=== PATIENT | male | born 1960 | race Caucasian/White ===

== ENCOUNTER → 2016-09-08 | Outpatient (CLI) | payer OTHER ==
[~2016-09-08] MED LIST: AMOX500C2 PO; CARV25TA PO; METF500T4 PO; lasix
--- OUTSIDE RECORDS SUMMARY | 2016-09-08 11:08 | XMS REPORT | Continuity of Care Document ---
Author Author [facility] Organization [facility] Address Unknown Phone Unavailable Care Team Providers Care Coin Machine Servicer Repairer Name Role Phone AGUILAR CHRISTINE MD PCP Insurance Providers Payer Name Policy Number Subscriber Name Relationship Unknown Ezra Salmon 16 Self / Same As Patient Advance Directives Directive Response Recorded Date/Time Advance Directives No 01/11/16 3:38pm Resuscitation Status Full Code 01/11/16 3:38pm Chief Complaint and Reason for Visit Chief Complaint Head/Cervical Problems Reason for Visit Sinusitis [id number] Abrasions of multiple sites [id number] Problems Active Problems Medical Problem Onset Date Status Abrasions of multiple sites Unknown Acute Head injury Unknown Acute Scalp laceration Unknown Acute Sinusitis Unknown Acute Medications Current Home Medications Medication Dose Units Route Directions Days/Qty Instructions Start Date Carvedilol 25 Mg 25 Mg Oral Twice A Day 01/11/16 Metformin Hcl 500 Mg 250 Mg Oral Twice A Day 01/11/16 [Lasix] 01/11/16 Amoxicillin 500 Mg 1,000 Mg Oral Three Times A Day 60 01/11/16 Social History Social History Problem Response Recorded Date/Time Alcohol Use Rarely Uses 01/11/2016 3:38pm Recreational Drug Use No 01/11/2016 3:38pm Recent Foreign Travel No 01/11/2016 3:38pm Recent Infectious Disease Exposure No 01/11/2016 3:38pm Smoking Status Never a Smoker 01/11/2016 3:38pm Query Response Start Date Stop Date Smoking Status Never a Smoker Hospital Discharge Instructions No hospital discharge instructions. Plan of Care Discharge Date 01/11/16 5:00pm Disposition 01 HOME, SELF-CARE Condition at Discharge Stable Instructions/Education Provided Laceration (ED) Minor Head Injury (ED) Abrasion (ED) Prescriptions See Medication Section Referrals AGUILAR CHRISTINE MD - Primary Care Physician CORINNE LANZA - Primary Care Physician Additional Instructions/Education All discharge instructions reviewed with patient and/or family. Voiced understanding. Loli out in 7 days. You may use antibiotic ointment over wounds daily as needed. You may shower but do not soak in a pool, straining, Pond or other body of water. Return for worse pain, fever, swelling, weakness, vision or balance problems or other concerns as needed. Functional Status Query Response Date Recorded Patient Orientation Person Place Time January 11, 2016 3:46pm Comprehension Ability Understands Concepts January 11, 2016 3:46pm Allergies, Adverse Reactions, Alerts Allergen Type Severity Reaction Status Last Updated No Known Allergies ([id number]) Allergy Unknown Active 03/09/15 Immunizations Name Given Type Tetanus Booster (TDap) More than 5yrs Historical Tdap 01/11/16 Administered Vital Signs Acute Vital Signs Vital Response Date/Time Temperature (Fahrenheit) 97.4 degrees F (97.6 - 99.5) 01/11/2016 3:38pm Temperature (Calculated Celsius) 36.47151 degrees C (36.4 - 37.5) 01/11/2016 3:38pm Temperature Source Temporal 01/11/2016 3:38pm Pulse Rate (adult) 80 bpm (60 - 90) 01/11/2016 3:38pm Respiratory Rate 18 bpm (12 - 24) 01/11/2016 3:38pm O2 Sat by Pulse Oximetry 98 % (88 - 100) 01/11/2016 3:38pm Blood Pressure 164/82 mm Hg 01/11/2016 3:38pm Blood Pressure Mean 109 mm Hg 01/11/2016 3:38pm Pain Numeric Pain Scale 6 01/11/2016 3:38pm Height (Feet) 5 feet 01/11/2016 3:38pm Height (Inches) 7.00 inches 01/11/2016 3:38pm Height (Calculated Centimeters) 170.693777 cm 01/11/2016 3:38pm Weight (Pounds) 229 pounds 01/11/2016 3:38pm Weight (Calculated Grams) 345595.654 gm 01/11/2016 3:38pm Weight (Calculated Kilograms) 103.778891 kilograms 01/11/2016 3:38pm Calculated BMI 35.86 01/11/2016 3:38pm Results No known relevant diagnostic tests, laboratory data and/or discharge summary. Procedures No known history of procedures. Encounters Encounter Location Arrival/Admit Date Discharge/Depart Date Attending Provider Departed Emergency Room [facility] 01/11/16 3:31pm 01/10 5:00pm LINA WALKER MD Recent Diagnosis
--- NOTE | 2016-09-10 08:35 | ECHOCARDIOGRAPHY REPORT ---
PROCEDURE PHYSICIAN: JAYLON DUEÑAS DATE OF PROCEDURE: 09/08/2016 TWO DIMENSIONAL ECHOCARDIOGRAM REPORT PRIMARY PHYSICIAN: Dr. Montero OTHER PHYSICIAN: Latanya Lopez APRN REFERRING PHYSICIAN: ORDERING PHYSICIAN: Dr. Dueñas INDICATION FOR THE PROCEDURE: Shortness of breath. MEASUREMENTS DERIVED VALUES LV DIAMETER (LAX) NORMALS NORMALS Diastolic 5.4 (3.6-5.2) Eject. Fract. (60%+/-6%) Systolic (2.3-3.9) Diastolic Vol. % Shortening (0.22-0.42) Systolic Vol. Aortic Root 2.9 IVS THICKNESS Diastolic 1.2 (0.6-1.1) LVPW THICKNESS Diastolic 1.1 (0.6-1.1) LA DIAMETER Systolic 4.6 (2.1-3.7) DESCRIPTION: This is a technically difficult study and not ideal for wall motion analysis. Global left ventricular systolic function appears well preserved. Left ventricular ejection fraction is approximately 50 to 55%. Aortic, mitral and tricuspid valve leaflets seem to have good leaflet excursion. There does not appear to be any significant pericardial effusion. Aortic valve leaflet structure is not very well visualized. Mitral and tricuspid valve leaflets seem to have good leaflet excursion. Mitral inflow is consistent with grade 1 diastolic dysfunction of the left ventricle. There is no Doppler evidence of significant valvular stenosis. CONCLUSIONS: 1. The study is technically difficult and not suitable for wall motion analysis. 2. Well preserved global left ventricular systolic function with an ejection fraction of approximately 50 to 55%. 3. No evidence of significant valvular stenosis. 4. Mild diastolic dysfunction of the left ventricle. 5. No significant valvular regurgitation is seen on this study. Job ID: [id number] Dictated Date: 09/09/2016 15:16:30 Pasta Press Operator Date: 09/10/2016 08:28:23 / breanna
== END ==
LOC: CARD 11:06
PROVIDERS: ATTEND Internal Medicine Cardiovascular Disease
DX: R06.02 Shortness of breath (principal)
CPT/HCPCS: 93306; 94060; 94726; 94729

== ENCOUNTER → 2016-09-09 | Outpatient (CLI) | payer OTHER ==
[~2016-09-09] MED LIST changes: +CATHETER FLUSH 10 ML SYR IV PRN; +REGADENOSON 0.4 MG/5 ML SYR (LEXISCAN) IV ONE
--- OUTSIDE RECORDS SUMMARY | 2016-09-09 07:13 | XMS REPORT | Continuity of Care Document ---
Author Author [facility] Organization [facility] Address Unknown Phone Unavailable Care Team Providers Care Die Repair Name Role Phone AGUILAR CHRISTINE MD PCP Insurance Providers Payer Name Policy Number Subscriber Name Relationship Unknown Ezra Salmon 16 Self / Same As Patient Advance Directives Directive Response Recorded Date/Time Advance Directives No 01/11/16 3:38pm Resuscitation Status Full Code 01/11/16 3:38pm Chief Complaint and Reason for Visit Chief Complaint Head/Cervical Problems Reason for Visit Sinusitis [id number] Abrasions of multiple sites [id number] Problems Active Problems Medical Problem Onset Date [...] Reaction Status Last Updated No Known Allergies ([id number]) Allergy Unknown Active 03/09/15 Immunizations Name Given Type Tetanus Booster (TDap) More than 5yrs Historical Tdap 01/11/16 Administered Vital Signs Acute Vital Signs Vital Response Date/Time Temperature (Fahrenheit) 97.4 degrees F (97.6 - 99.5) 01/11/2016 3:38pm Temperature (Calculated Celsius) 36.58291 degrees C (36.4 - 37.5) 01/11/2016 3:38pm [...] 7.00 inches 01/11/2016 3:38pm Height (Calculated Centimeters) 170.014159 cm 01/11/2016 3:38pm Weight (Pounds) 229 pounds 01/11/2016 3:38pm Weight (Calculated Grams) 081756.654 gm 01/11/2016 3:38pm Weight (Calculated Kilograms) 103.107972 kilograms 01/11/2016 3:38pm Calculated BMI 35.86 01/11/2016 3:38pm Results No known relevant diagnostic tests, laboratory data and/or discharge summary. Procedures No known history of procedures. Encounters Encounter Location Arrival/Admit Date Discharge/Depart Date Attending Provider Departed Emergency Room [facility] 01/11/16 3:31pm 01/10 5:00pm LINA WALKER MD Recent Diagnosis
[2016-09-09 09:18] VITALS: BP 158/81
[2016-09-09 09:21] VITALS: BP 161/70
--- NOTE | 2016-09-10 09:55 | STRESS TEST ---
PROCEDURE PHYSICIAN: JAYLON DUEÑAS DATE OF PROCEDURE: 09/09/2016 RESTING AND POST REGADENOSON TECHNETIUM 99M TETROFOSMIN SPECT CT IMAGING: ORDERING PHYSICIAN: Dr. Dueñas PRIMARY PHYSICIAN: Dr. Montero OTHER PHYSICIAN: Latanya Lopez APRN CLINICAL DIAGNOSES: Shortness of breath. Baseline images were carried out after injection of 10.64 mCi of technetium 99m tetrofosmin. This was followed by 0.4 mg of regadenoson and 32.1 mCi of technetium 99m tetrofosmin for stress imaging. The electrocardiogram showed sinus rhythm at baseline and there was nonspecific T-wave abnormality. The electrocardiogram did not change significantly with the regadenoson infusion. The patient tolerated the procedure well. Review of images at rest and following stress, does not indicate any distinct perfusion defects consistent with significant myocardial ischemia or infarction. Some degree of diaphragmatic attenuation is seen both at rest and following the regadenoson infusion. Gated images show normal global left ventricular systolic function with normal regional wall motion. Left ventricular ejection fraction is calculated to be 44%. Left ventricular end-diastolic volume is 124 mL. TID is absent (0.94). CONCLUSIONS: 1. No evidence of any significant myocardial ischemia or infarction. 2. No regional wall motion abnormalities. 3. Left ventricular ejection fraction is calculated to be 44% but subjectively appears to be higher than that. 4. Mild to moderate cardiomegaly. Job ID: [id number] Dictated Date: 09/09/2016 16:07:20 Circular Ripsaw Operator Date: 09/10/2016 09:52:15 / breanna
== END ==
LOC: CARD 07:10
PROVIDERS: ATTEND Internal Medicine Cardiovascular Disease
DX: R06.02 Shortness of breath (principal)
CPT/HCPCS: 78452; 93017

== ENCOUNTER 2019-11-28 17:43 | Emergency (ER) | payer OTHER ==
[~2019-11-28] VITALS: Ht 170 cm; Wt 106.8 kg
[~2019-11-28 17:43] MED LIST changes: -CATHETER FLUSH 10 ML SYR IV PRN; +METF-397 PO; -METF500T4 PO; -REGADENOSON 0.4 MG/5 ML SYR (LEXISCAN) IV ONE
--- NOTE | 2019-11-28 18:34 | ED Lower Extremity ---
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 REPORTS THE INJURY OCCURRED ON November AND IT HAS NOT GOTTEN BETTER. Nursing Sepsis Screen: No Definite Risk Source: patient Exam Limitations: no limitations (LINA WALKER MD) History of Present Illness Date Seen by Provider: November 28, 2019 Time Seen by Provider: 18:15 Initial Comments Here with report of bilateral lower extremity swelling along the mid tibia anteriorly as well as right foot pain. 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 The board bounced off and swung around and hit him in the anterior shins mid shaft bilateral and then landed on his foot. Noted swelling and pain then. This has persisted through today. He is able to walk but has pain in the foot and mid tibia region bilateral. Noted bruising and swelling to the areas of concern with left greater than right. He is not on blood thinners. Denies other injury. In ta lking with his work, he had decided not to be seen until now as discussed with his boss. Since pain has persisted, they and he wanted to be seen. Onset: other (November 15) Severity: moderate Pain/Injury Location: right leg, right foot Method of Injury: direct blow Modifying Factors: Improves With Immobilization; Worse With Movement (LINA WALKER MD) Allergies and Home Medications Allergies Coded Allergies: No Known Allergies (Unverified Allergy, Unknown, 03/09/15) Home Medications Amoxicillin 500 Mg Capsule, 1,000 MG PO TID Prescribed by: LINA WALKER on 01/11/16 1700 Carvedilol 25 Mg Tablet, 25 MG PO BID, (Reported) Metformin HCl 500 Mg Tablet, 250 MG PO BID, (Reported) Patient Home Medication List Home Medication List Reviewed: Yes (LINA WALKER MD) Review of Systems Constitutional: see HPI; No chills, No fever Respiratory: no symptoms reported Cardiovascular: no symptoms reported Musculoskeletal: see HPI, joint pain, muscle pain Skin: change in color, lesions Psychiatric/Neurological: No Symptoms Reported (LINA WALKER MD) Past Qxltqhd-Icldbb-Paqocq Hx Past Med/Social Hx: Reviewed Nursing Past Med/Soc Hx (LINA WALKER MD) Patient Social History Alcohol Use: Occasionally Uses Recreational Drug Use: No Smoking Status: Never a Smoker Recent Foreign Travel: No Contact w/Someone Who Travel: No Recent Infectious Disease Expo: No Physical Abuse: No Sexual Abuse: No Mistreated: No Fear: No (LINA WALKER MD) Immunizations Up To Date Tetanus Booster (TDap): More than 5yrs (LINA WALKER MD) Past Medical History Surgeries: Yes (shrapnel removed from arms ) Respiratory: No Cardiac: Yes High Cholesterol, Hypertension Neurological: No Reproductive Disorders: No Renal Failure Gastrointestinal: No Musculoskeletal: No Endocrine: Yes Diabetes, Non-Insulin dep Cancer: No Psychosocial: No Integumentary: No Blood Disorders: No (LINA WALKER MD) Family Medical History Reviewed Nursing Family Hx (LINA WALKER MD) Physical Exam Vital Signs Vital Signs - First Documented 11/28/19 18:07 Temp 36.4 Pulse 87 Resp 20 B/P (MAP) 177/69 (105) Pulse Ox 97 (ELVIS VELA) Vital Signs Capillary Refill : Less Than 3 Seconds (LINA WALKER MD) Height, Weight, BMI Height: 5'8" Weight: 235lbs. oz. 106.760490qh; 36.00 BMI Method:Stated General Appearance: WD/WN, no apparent distress Cardiovascular: regular rate, rhythm, no murmur Respiratory: lungs clear, normal breath sounds Legs: bilateral leg other (mid tibia region with noted bruising anteriorly of approximately 3 x 3 cm on the right and 5 x 5 cm on the left. Swelling greater on the left side.) Feet: left foot non-tender, left foot normal inspection, left foot normal range of motion; right foot ecchymosis (distal foot dorsally and includes second, third and fourth toe), right foot soft tissue tenderness (associated with areas of bruising) Neurologic/Tendon: normal sensation, normal motor functions Neurologic/Psychiatric: alert, oriented x 3 Skin: warm/dry, ecchymosis (as described above) (LINA WALKER MD) Progress/Results/Core Measures Results/Orders Vital Signs/I&O 11/28/19 18:07 Temp 36.4 Pulse 87 Resp 20 B/P (MAP) 177/69 (105) Pulse Ox 97 (MIRIAN,ELVIS BOXING INSPECTOR) Blood Pressure Mean: 105 Progress Progress Note : Progress Note Seen and evaluated. X-ray bilateral tib-fib and right foot ordered. Monitor patient. (LINA WALKER MD) Diagnostic Imaging Diagonstic Imaging: Xray Plain Films/CT/US/NM/MRI: other (right foot) Comments NAME: EZRA STEIN [facility] REC#: [id number] PT STATUS: REG ER : 1960 PHYSICIAN: LINA WALKER MD ADMIT DATE: 11/28/19/ER Draft Date of Exam:11/28/19 FOOT, RIGHT, 3 VIEW INDICATION: Right foot pain after trauma. COMPARISON: None available. TECHNIQUE: 3 nonweightbearing views of right foot were obtained. FINDINGS: No acute fracture or traumatic malalignment. Vascular calcifications are present. Heterotopic ossification within the distal Achilles is likely from old trauma. 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 IMPRESSION: No fracture or malalignment in the right foot. Dictated on workstation # [id number] Dict: 11/28/191915 Trans: 11/28/191924 [facility] [id number] Interpreted by: MALENA THOMPSON MD Electronically signed by: Reviewed: Reviewed by Me Diagonstic Imaging: Xray Plain Films/CT/US/NM/MRI: other (bilateral tib-fib) Comments [facility] [place] NAME: EZRA STEIN [facility] REC#: [id number] PT STATUS: REG ER : 1960 PHYSICIAN: LINA WALKER MD ADMIT DATE: 11/28/19/ER Draft Date of Exam:11/28/19 TIBIA/FIBULA, BILATERAL, 2VIEW EXAM: Bilateral tibia and fibula series INDICATION: Hit in leg by a 4 x 4. FINDINGS: Alignment of the tibia and fibula appear appropriate bilaterally. There are no findings of cortical disruption to suggest an acute right or left lower leg fracture. Note is made of calcific tendinopathy of the Achilles tendons bilaterally. There are also advanced arterial calcifications. Partially visualized at each knee is bilateral meniscal chondrocalcinosis. IMPRESSION: 1. No acute right or left tibial or fibular fracture or malalignment. 2. Advanced Achilles calcific tendinopathy and bilateral meniscal chondrocalcinosis within the knees. 3. Advanced atherosclerosis. Dictated on workstation # [id number] Dict: 11/28/191916 Trans: 11/28/191926 [facility] [id number] Interpreted by: NEVA KUHN MD Electronically signed by: Reviewed: Reviewed by Me (ELVIS VELA) Departure Impression Primary Impression: Contusion of lower leg Qualified Codes: S80.10XA - Contusion of unspecified lower leg, initial encounter Disposition: HOME, SELF-CARE Condition: Improved Departure-Patient Inst. Decision time for Depature: 19:40 (ELVIS VELA) Referrals: SHAWN MARIN DO (PCP) Primary Care Physician JAZMINE GARCIA (Family) Primary Care Physician Patient Instructions: Contusion (DC) Add. Discharge Instructions: Robert wrap for the next 2-4 days. Then as needed. Alternate between ibuprofen 600 mg and Tylenol 650 g every 4 hours for pain or swelling. Ice to lower legs 20 minutes every 2 hours while awake as needed. Resume activities as tolerated. Light duty at work. Follow-up with your Work Comp provider if symptoms are not improving or worsen and for clearance to return to regular duty. Return to the emergency department for new, urgent health care needs. All discharge instructions reviewed with patient and/or family. Voiced understanding. LINA WALKER MD November 28, 2019 18:34 ELVIS VELA November 28, 2019 19:49
--- OUTSIDE RECORDS SUMMARY | 2019-11-28 19:10 | XMS REPORT ---
Author Author Michi DANIELS Organization [facility] Address [address] [place] [address] Care Team Providers Care Store Coordinator Name Role Phone CAR DANIELS Unavailable PROBLEMS Type Condition ICD9-CM Code [id number] Code Onset Dates Condition S tatus SNOMED Code Problem Coronary artery disease, ang bobby presence unspecified, unspecified vessel or lesion type, unspecified whether [place] or transplanted heart I25.10 Active 55514664 Problem Type 2 diabetes mellitus with diabetic chronic kidney disease E11.22 Active 86325372 Problem Chronic kidney disease (CKD) stage G3b/A1, moderately decreased glomerular filtration rate (GFR) between 30-44 mL/min/1.73 square meter and albuminuria creatinine ratio less than 30 mg/g N18.3 Active 589902521 Problem Secondary hypertension I15.9 Active 99255018 Problem 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 Active 883011520 Problem Hypercholesterolemia E78.00 Active 63867841 Problem Edema, unspecified type R60.9 Active 919494947 ALLERGIES No Information ENCOUNTERS Encounter Location Date Diagnosis [facility] [address] [facility] [id number] [address] [place] [address] Jan, Type 2 diabetes mellitus wit h diabetic chronic kidney disease E11.22 ; Secondary hypertension I15.9 ; Hypercholesterolemia E78.00 ; Coronary artery disease, angina presence unspecified, unspecified vessel or lesion type, unspecified whether [place] or transplanted heart I25.10 ; Edema, unspecified type R60.9 ; Chronic kidney disease (CKD) stage G3b/A1, moderately decreased glomerular filtration rate (GFR) between 30-44 mL/min/1.73 square meter and albuminuria creatinine ratio less than 30 mg/g N18.3 and Contact dermatitis, unspecified contact dermatitis type, unspecified trigger L25.9 [facility] [address] [facility] [id number] [address] [place] [address] Oct, [facility] [address] [facility] [id number] [address] [place] [phone] Oct, [facility] [address] [facility] [id number] [address] [place] [address] Oct, [facility] [address] [place] [id number] [address] [place] [phone] Oct, Type 2 diabetes mellitus wit h other circulatory complications E11.59 [facility] [address] [facility] [id number] [address] [place] [phone] Oct, Type 2 diabetes mellitus wit h other circulatory complications E11.59 ; Hyperlipidemia, unspecified hyperlipidemia type E78.5 ; Secondary hypertension I15.9 ; Edema, unspecified type R60.9 ; Stage 3 chronic kidney disease N18.3 and Coronary artery disease, angina presence unspecified, unspecified vessel or lesion type, unspecified whether [place] or transplanted heart I25.10 [place] [address] [place] [id number] [address] [place] [address] Sep, Coronary artery disease, ang bobby presence unspecified, unspecified vessel or lesion type, unspecified whether [place] or transplanted heart I25.10 [place] [address] [facility] [id number] [address] [place] [address] Jul, Type 2 diabetes mellitus wit h other circulatory complications E11.59 [place] [address] [place] [id number] [address] [place] [address] May, [facility] [address] [place] [id number] [address] [place] [phone] Apr, Skin lesion of scalp L98.9 [place] [address] [place] [id number] [address] [place] [address] Apr, Stage 3 chronic kidney disea se N18.3 [facility] [address] [facility] [id number] [address] [place] [address] Apr, Type 2 diabetes mellitus wit h other circulatory complications E11.59 [place] [address] [place] [id number] [address] [place] [address] Apr, [place] [address] [address] Mar, Type 2 diabetes mellitus wit h other circulatory complications E11.59 ; Secondary hypertension I15.9 ; Hyperlipidemia, unspecified hyperlipidemia type E78.5 ; Coronary artery disease, angina presence uns pecified, unspecified vessel or lesion type, unspecified whether [place] or transplanted heart I25.10 and Edema, unspecified type R60.9 [place] [address] [address] Jan, 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 [place] [address] [address] November, 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 ; Type 2 diabetes mellitus with other circulatory complications E11.59 ; Coronary artery disease, angina presence unspecified, unspecified vessel or lesion type, unspecified whether [place] or transplanted heart I25.10 ; Hypercholesterolemia E78.0 and Hypercholesterolemia E78.00 [place] [address] [address] Oct, Coronary artery disease, ang bobby presence unspecified, unspecified vessel or lesion type, unspecified whether [place] or transplanted heart I25.10 ; Secondary hypertension I15.9 ; Unspecified atherosclerosis of [place] arteries of extremities, 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 ; Type 2 diabetes mellitus with other circulatory complications E11.59 ; Hypercholesterolemia E78.0 and Edema, unspecified type R60.9 [place] [address] [place] [id number] [address] [place] [address] Sep, Shortness of breath R06.02 [place] [address] [address] Sep, [place] [address] [address] Aug, Shortness of breath R06.02 ; Edema, unspecified type R60.9 ; Type 2 diabetes mellitus with other circulatory complications E11.59 and Hyperlipidemia, unspecified hyperlipidemia type E78.[address] [address] Jul, Type 2 diabetes mellitus wit h other circulatory complications E11.59 ; Coronary artery disease, angina presence unspecified, unspecified vessel or lesion type, unspecified whether [place] or transplanted heart I25.10 ; Secondary hypertension I15.9 ; Unspecified atherosclerosis of [place] arteries of extremities, 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 ; Hypercholesterolemia E78.0 ; Edema, unspecified type R60.9 ; Acute upper respiratory infection, unspecified J06.9 ; Other viral agents as the cause of diseases classified elsewhere B97.89 ; Vision changes H53.9 ; Periapical abscess without sinus K04.7 and Dental caries, unspecified K02.[address] [address] Feb, [address] [address] Feb, Type 2 diabetes mellitus wit h other circulatory complications E11.59 ; Coronary artery disease, angina presence unspecified, unspecified vessel or lesion type, unspecified whether [place] or transplanted heart I25.10 ; Unspecified atherosclerosis of [place] arteries of extremities, 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 ; Hypercholesterolemia E78.0 ; Edema, unspecified type R60.9 and Secondary hypertension I15.[address] [address] Jan, Coronary artery disease, ang bobby presence unspecified, unspecified vessel or lesion type, unspecified whether [place] or transplanted heart I25.10 ; Secondary hypertension I15.9 ; Unspecified atherosclerosis of [place] arteries of extremities, 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 ; Establishing care with new doctor, encounter for Z71.89 ; Type 2 diabetes mellitus with other circulatory complications E11.59 and Decreased hearing, unspecified laterality H91.[address] [address] Jan, [address] [place] [address] Dec, Type 2 diabetes mellitus wit h other circulatory complications E11.59 ; Coronary artery disease, angina presence unspecified, unspecified vessel or lesion type, unspecified whether [place] or transplanted heart I25.10 ; Secondary hypertension I15.9 ; Unspecified atherosclerosis of [place] arteries of extremities, 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 ; Hypercholesterolemia E78.0 ; Edema, unspecified type R60.9 and Establishing care with new doctor, encounter for Z71.89 IMMUNIZATIONS No Known Immunizations SOCIAL HISTORY Never Assessed REASON FOR VISIT B/P update PLAN OF CARE VITAL SIGNS MEDICATIONS Medication Instructions Dosage Frequency Start Date End Date Duration Wero castro Amlodipine Besylate 5 mg Orally Once a day 1 tablet 24h Oct, 90 days Active RESULTS No Results PROCEDURES No Known procedures INSTRUCTIONS MEDICATIONS ADMINISTERED No Known Medications MEDICAL (GENERAL) HISTORY Type Description Date Medical History Type II DM Medical History Hypertension Medical History Hyperlipidemia Medical History CAD Medical History CKD Surgical History ortho-pins in right hand Surgical History tonsillectomy Hospitalization History surgery
--- OUTSIDE RECORDS SUMMARY | 2019-11-28 19:10 | XMS REPORT ---
Author Author Michi KIRK [facility] Address [address] [place] [address] Care Team Providers Care Fleet Assistant Name Role Phone MONIKA KIRK Unavailable PROBLEMS Type Condition ICD9-CM Code [id number] Code Onset Dates Condition S tatus SNOMED Code Problem Coronary artery disease, ang bobby presence unspecified, unspecified vessel or lesion type, unspecified whether [place] or transplanted heart I25.10 Active 02526985 Problem Type 2 diabetes mellitus with diabetic chronic kidney disease E11.22 Active 04678945 Problem Chronic kidney disease (CKD) stage G3b/A1, moderately decreased glomerular filtration rate (GFR) between 30-44 mL/min/1.73 square meter and albuminuria creatinine ratio less than 30 mg/g N18.3 Active 049857930 Problem Secondary hypertension I15.9 Active 65698079 Problem 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 Active 968261735 Problem Hypercholesterolemia E78.00 Active 75437198 Problem Edema, unspecified type R60.9 Active 565320241 ALLERGIES No Information ENCOUNTERS Encounter Location Date Diagnosis [place] [address] [facility] [id number] [address] [place] [phone] May, [place] [id number] [place] [id number] [address] [place] [phone] Apr, Secondary hypertension I15.9 [facility] [address] [facility] [id number] [address] [place] [phone] Apr, Secondary hypertension I15.9 [place] [address] [place] [id number] [address] [place] [phone] Mar, Type 2 diabetes mellitus wit h diabetic chronic kidney disease E11.22 [place] [address] [place] [id number] [address] [place] [address] Feb, Secondary hypertension I15.9 [place] [address] [address] Jan, Type 2 diabetes mellitus wit h diabetic chronic kidney disease E11.22 ; Secondary hypertension I15.9 ; Hypercholesterolemia E78.00 ; Coronary artery disease, angina presence unspecified, unspecified vessel or lesion type, unspecified whether [place] or transplanted heart I25.10 ; Edema, unspecified type R60.9 ; Chronic kidney disease (CKD) stage G3b/A1, moderately decreased glomerular filtration rate (GFR) between 30-44 mL/min/1.73 square meter and albuminuria creatinine ratio less than 30 mg/g N18.3 and Contact dermatitis, unspecified contact dermatitis type, unspecified trigger L25.9 [place] [address] [address] Oct, [place] [address] [address] Oct, [place] [address] [address] Oct, [place] [address] [address] Oct, Type 2 diabetes mellitus wit h other circulatory complications E11.59 [place] [address] [address] 02 Oct, 2017 Type 2 diabetes mellitus wit h other circulatory complications E11.59 ; Hyperlipidemia, unspecified hyperlipidemia type E78.5 ; Secondary hypertension I15.9 ; Edema, unspecified type R60.9 ; Stage 3 chronic kidney disease N18.3 and Coronary artery disease, angina presence unspecified, unspecified vessel or lesion type, unspecified whether [place] or transplanted heart I25.10 [place] [address] [address] Sep, Coronary artery disease, ang bobby presence unspecified, unspecified vessel or lesion type, unspecified whether [place] or transplanted heart I25.10 [place] [address] [address] Jul, Type 2 diabetes mellitus wit h other circulatory complications E11.59 [place] [address] [facility] [id number] [address] [place] [address] May, [place] [address] [facility] [id number] [address] [place] [address] Apr, Skin lesion of scalp L98.9 [place] [address] [facility] [id number] [address] [place] [address] Apr, Stage 3 chronic kidney disea se N18.3 [place] [address] [facility] [id number] [address] [place] [address] Apr, Type 2 diabetes mellitus wit h other circulatory complications E11.59 [place] [address] [facility] [id number] [address] [place] [address] Apr, [place] [address] [facility] [id number] [address] [place] [phone] Mar, Type 2 diabetes mellitus wit h other circulatory complications E11.59 ; Secondary hypertension I15.9 ; Hyperlipidemia, unspecified hyperlipidemia type E78.5 ; Coronary artery disease, angina presence uns pecified, unspecified vessel or lesion type, unspecified whether [place] or transplanted heart I25.10 and Edema, unspecified type R60.9 [place] [address] [place] [id number] [address] [place] [phone] Jan, 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 [place] [address] [place] [id number] [address] [place] [phone] November, 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 ; Type 2 diabetes mellitus with other circulatory complications E11.59 ; Coronary artery disease, angina presence unspecified, unspecified vessel or lesion type, unspecified whether [place] or transplanted heart I25.10 ; Hypercholesterolemia E78.0 and Hypercholesterolemia E78.00 [place] [address] [place] [id number] [address] [place] [address] Oct, Coronary artery disease, ang bobby presence unspecified, unspecified vessel or lesion type, unspecified whether [place] or transplanted heart I25.10 ; Secondary hypertension I15.9 ; Unspecified atherosclerosis of [place] arteries of extremities, 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 ; Type 2 diabetes mellitus with other circulatory complications E11.59 ; Hypercholesterolemia E78.0 and Edema, unspecified type R60.9 [place] [address] [address] Sep, Shortness of breath R06.02 [place] [address] [address] Sep, [address] [address] Aug, Shortness of breath R06.02 ; Edema, unspecified type R60.9 ; Type 2 diabetes mellitus with other circulatory complications E11.59 and Hyperlipidemia, unspecified hyperlipidemia type E78.[address] [address] Jul, Type 2 diabetes mellitus wit h other circulatory complications E11.59 ; Coronary artery disease, angina presence unspecified, unspecified vessel or lesion type, unspecified whether [place] or transplanted heart I25.10 ; Secondary hypertension I15.9 ; Unspecified atherosclerosis of [place] arteries of extremities, 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 ; Hypercholesterolemia E78.0 ; Edema, unspecified type R60.9 ; Acute upper respiratory infection, unspecified J06.9 ; Other viral agents as the cause of diseases classified elsewhere B97.89 ; Vision changes H53.9 ; Periapical abscess without sinus K04.7 and Dental caries, unspecified K02.[address] [address] Feb, [address] [address] Feb, Type 2 diabetes mellitus wit h other circulatory complications E11.59 ; Coronary artery disease, angina presence unspecified, unspecified vessel or lesion type, unspecified whether [place] or transplanted heart I25.10 ; Unspecified atherosclerosis of [place] arteries of extremities, 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 ; Hypercholesterolemia E78.0 ; Edema, unspecified type R60.9 and Secondary hypertension I15.9 [place] [id number] [place] [address] 14 Jan, 2016 Coronary artery disease, ang bobby presence unspecified, unspecified vessel or lesion type, unspecified whether [place] or transplanted heart I25.10 ; Secondary hypertension I15.9 ; Unspecified atherosclerosis of [place] arteries of extremities, 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 ; Establishing care with new doctor, encounter for Z71.89 ; Type 2 diabetes mellitus with other circulatory complications E11.59 and Decreased hearing, unspecified laterality H91.90 [place] [address] [place] [id number] [address] [place] [address] 07 Jan, 2016 [place] [address] [place] [id number] [address] [place] [address] 30 Dec, 2015 Type 2 diabetes mellitus wit h other circulatory complications E11.59 ; Coronary artery disease, angina presence unspecified, unspecified vessel or lesion type, unspecified whether [place] or transplanted heart I25.10 ; Secondary hypertension I15.9 ; Unspecified atherosclerosis of [place] arteries of extremities, 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 ; Hypercholesterolemia E78.0 ; Edema, unspecified type R60.9 and Establishing care with new doctor, encounter for Z71.89 IMMUNIZATIONS No Known Immunizations SOCIAL HISTORY Never Assessed REASON FOR VISIT Repository PLAN OF CARE VITAL SIGNS MEDICATIONS Medication Instructions Dosage Frequency Start Date End Date Duration Wero castro Lisinopril 40 mg Orally Once a day 1/2 tablet 24h Oct, Active RESULTS No Results PROCEDURES No Known procedures INSTRUCTIONS MEDICATIONS ADMINISTERED No Known Medications MEDICAL (GENERAL) HISTORY Type Description Date Medical History Type II DM Medical History Hypertension Medical History Hyperlipidemia Medical History CAD Medical History CKD Surgical History ortho-pins in right hand Surgical History tonsillectomy Hospitalization History surgery
--- OUTSIDE RECORDS SUMMARY | 2019-11-28 19:10 | XMS REPORT ---
Author Author Michi DANIELS Organization [facility] Address [address] [place] [address] Care Team Providers Care Web Services Professional Name Role Phone CAR DANIELS Unavailable PROBLEMS Type Condition ICD9-CM Code [id number] Code Onset Dates Condition S tatus SNOMED Code Problem Coronary artery disease, ang bobby presence unspecified, unspecified vessel or lesion type, unspecified whether [place] or transplanted heart I25.10 Active 75515395 Problem Type 2 diabetes mellitus with diabetic chronic kidney disease E11.22 Active 66113750 Problem Chronic kidney disease (CKD) stage G3b/A1, moderately decreased glomerular filtration rate (GFR) between 30-44 mL/min/1.73 square meter and albuminuria creatinine ratio less than 30 mg/g N18.3 Active 268930410 Problem Secondary hypertension I15.9 Active 14692674 Problem 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 Active 827128927 Problem Hypercholesterolemia E78.00 Active 28749551 Problem Edema, unspecified type R60.9 Active 786326249 ALLERGIES No Known Allergies ENCOUNTERS Encounter Location Date Diagnosis [facility] [address] [facility] [id number] [address] [place] [phone] Jan, Type 2 diabetes mellitus wit h diabetic chronic kidney disease E11.22 ; Secondary hypertension I15.9 ; Hypercholesterolemia E78.00 ; Coronary artery disease, angina presence unspecified, unspecified vessel or lesion type, unspecified whether [place] or transplanted heart I25.10 ; Edema, unspecified type R60.9 ; Chronic kidney disease (CKD) stage G3b/A1, moderately decreased glomerular filtration rate (GFR) between 30-44 mL/min/1.73 square meter and albuminuria creatinine ratio less than 30 mg/g N18.3 and Contact dermatitis, unspecified contact dermatitis type, unspecified trigger L25.9 [facility] [address] [facility] [id number] [address] [place] [id number] Oct, [facility] [address] [facility] [id number] [address] [place] [phone] Oct, [facility] [address] [facility] [id number] [address] [place] [phone] Oct, [facility] [address] [place] [id number] [address] [place] [phone] Oct, Type 2 diabetes mellitus wit h other circulatory complications E11.59 [facility] [address] [facility] [id number] [address] [place] [phone] Oct, Type 2 diabetes mellitus wit h other circulatory complications E11.59 ; Hyperlipidemia, unspecified hyperlipidemia type E78.5 ; Secondary hypertension I15.9 ; Edema, unspecified type R60.9 ; Stage 3 chronic kidney disease N18.3 and Coronary artery disease, angina presence unspecified, unspecified vessel or lesion type, unspecified whether [place] or transplanted heart I25.10 [place] [address] [place] [id number] [address] [place] [phone] Sep, Coronary artery disease, ang bobby presence unspecified, unspecified vessel or lesion type, unspecified whether [place] or transplanted heart I25.10 [place] [address] [place] [id number] [address] [place] [phone] Jul, Type 2 diabetes mellitus wit h other circulatory complications E11.59 [place] [address] [place] [id number] [address] [place] [phone] May, [place] [address] [place] [id number] [address] [place] [phone] Apr, Skin lesion of scalp L98.9 [place] [address] [place] [id number] [address] [place] [phone] Apr, Stage 3 chronic kidney disea se N18.3 [facility] [address] [facility] [id number] [address] [place] [phone] Apr, Type 2 diabetes mellitus wit h other circulatory complications E11.59 [facility] [address] [place] [address] [place] [phone] Apr, [place] [address] [address] Mar, Type 2 diabetes mellitus wit h other circulatory complications E11.59 ; Secondary hypertension I15.9 ; Hyperlipidemia, unspecified hyperlipidemia type E78.5 ; Coronary artery disease, angina presence uns pecified, unspecified vessel or lesion type, unspecified whether [place] or transplanted heart I25.10 and Edema, unspecified type R60.9 [place] [address] [address] Jan, 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 [place] [address] [address] November, 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 ; Type 2 diabetes mellitus with other circulatory complications E11.59 ; Coronary artery disease, angina presence unspecified, unspecified vessel or lesion type, unspecified whether [place] or transplanted heart I25.10 ; Hypercholesterolemia E78.0 and Hypercholesterolemia E78.00 [place] [address] [address] Oct, Coronary artery disease, ang bobby presence unspecified, unspecified vessel or lesion type, unspecified whether [place] or transplanted heart I25.10 ; Secondary hypertension I15.9 ; Unspecified atherosclerosis of [place] arteries of extremities, 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 ; Type 2 diabetes mellitus with other circulatory complications E11.59 ; Hypercholesterolemia E78.0 and Edema, unspecified type R60.9 [place] [address] [place] [phone] Sep, Shortness of breath R06.02 [place] [address] [address] Sep, [place] [address] [address] Aug, Shortness of breath R06.02 ; Edema, unspecified type R60.9 ; Type 2 diabetes mellitus with other circulatory complications E11.59 and Hyperlipidemia, unspecified hyperlipidemia type E78.[address] [address] Jul, Type 2 diabetes mellitus wit h other circulatory complications E11.59 ; Coronary artery disease, angina presence unspecified, unspecified vessel or lesion type, unspecified whether [place] or transplanted heart I25.10 ; Secondary hypertension I15.9 ; Unspecified atherosclerosis of [place] arteries of extremities, 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 ; Hypercholesterolemia E78.0 ; Edema, unspecified type R60.9 ; Acute upper respiratory infection, unspecified J06.9 ; Other viral agents as the cause of diseases classified elsewhere B97.89 ; Vision changes H53.9 ; Periapical abscess without sinus K04.7 and Dental caries, unspecified K02.[address] [address] Feb, [address] [address] Feb, Type 2 diabetes mellitus wit h other circulatory complications E11.59 ; Coronary artery disease, angina presence unspecified, unspecified vessel or lesion type, unspecified whether [place] or transplanted heart I25.10 ; Unspecified atherosclerosis of [place] arteries of extremities, 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 ; Hypercholesterolemia E78.0 ; Edema, unspecified type R60.9 and Secondary hypertension I15.[address] [address] Jan, Coronary artery disease, ang bobby presence unspecified, unspecified vessel or lesion type, unspecified whether [place] or transplanted heart I25.10 ; Secondary hypertension I15.9 ; Unspecified atherosclerosis of [place] arteries of extremities, 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 ; Establishing care with new doctor, encounter for Z71.89 ; Type 2 diabetes mellitus with other circulatory complications E11.59 and Decreased hearing, unspecified laterality H91.[address] [address] Jan, [place] [id number] [place] [address] 30 Dec, 2015 Type 2 diabetes mellitus wit h other circulatory complications E11.59 ; Coronary artery disease, angina presence unspecified, unspecified vessel or lesion type, unspecified whether [place] or transplanted heart I25.10 ; Secondary hypertension I15.9 ; Unspecified atherosclerosis of [place] arteries of extremities, 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 ; Hypercholesterolemia E78.0 ; Edema, unspecified type R60.9 and Establishing care with new doctor, encounter for Z71.89 IMMUNIZATIONS No Known Immunizations SOCIAL HISTORY Never Assessed [facility] Activity Details Follow Up 3 Months, prn Reason:CHM/DM VITAL SIGNS Height 67 in 2017-10-12 Weight 236.0 lbs 2017-10-12 Temperature 99.2 degrees Fahrenheit 2017-10-12 Heart Rate 72 bpm 2017-10-12 Respiratory Rate 20 2017-10-12 BMI 36.96 kg/m2 2017-10-12 Blood pressure systolic 132 mmHg 2017-10-12 Blood pressure diastolic 80 mmHg 2017-10-12 MEDICATIONS Medication Instructions Dosage Frequency Start Date End Date Duration S tatus Metformin HCl 1000 MG Orally 2 times a day TAKE ONE TABLET B Y MOUTH TWICE DAILY WITH MEALS 12h 90 days Active Spirometer 1 by inhalation route 3-5 times a day as directed Sep, lifetime Not-Taking Lasix 40 mg Orally Once a day 1 tablet 24h 15 Feb, 2016 6 Mo nths Active Atorvastatin Calcium 10 mg Orally Once a day 1 tablet 24h 29 2016 90 days Active Proventil HFA 108 (90 Base) MCG/ACT Inhalation every 4 hrs 2 puffs as needed 4h Jul, 30 days Not-Taking Invokana 300 MG Orally Once a day 1 tablet 24h 90 da ys Active Lisinopril 40 MG Orally Once a day 1/2 tablet 24h Oct, 6 Months Active Potassium Chloride ER 10 MEQ Orally Once a day 2 tablet with food 2 4h Mar, Jun, 90 days Active Aspirin 325 MG Orally Once a day 1 tablet 24h Active Carvedilol 6.25 MG Orally 2 times a day 1 tablet 12h Mar, 6 Months Active RESULTS No Results PROCEDURES Procedure Date Ordered Result Body Site MICROALBUMIN, SEMIQUANT October 12, 2017 ASSAY OF URINE CREATININE October 12, 2017 GLYCATED HEMOGLOBIN TEST October 12, 2017 MICROALBUMIN, QUANTITATIVE October 12, 2017 INSTRUCTIONS MEDICATIONS ADMINISTERED No Known Medications MEDICAL (GENERAL) HISTORY Type Description Date Medical History Type II DM Medical History Hypertension Medical History Hyperlipidemia Medical History CAD Medical History CKD Surgical History ortho-pins in right hand Surgical History tonsillectomy Hospitalization History surgery
--- OUTSIDE RECORDS SUMMARY | 2019-11-28 19:10 | XMS REPORT | Encounter Summary ---
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 documented as of this encounter Plan of Treatment Not on filedocumented as of this encounter Visit Diagnoses Diagnosis Other specified disorder of male genita l organs(608.89) - Primary Other specified disorder of male genita l organs documented in this encounter
--- OUTSIDE RECORDS SUMMARY | 2019-11-28 19:10 | XMS REPORT ---
Author Author Michi DANIELS Organization [facility] Address [address] [place] [address] Care Team Providers Care Car Lubricator Name Role Phone CAR DANIELS Unavailable PROBLEMS Type Condition ICD9-CM Code [id number] Code Onset Dates Condition S tatus SNOMED Code Problem Coronary artery disease, ang bobby presence unspecified, unspecified vessel or lesion type, unspecified whether [place] or transplanted heart I25.10 Active 76322877 Problem Type 2 diabetes mellitus with diabetic chronic kidney disease E11.22 Active 26392138 Problem Chronic kidney disease (CKD) stage G3b/A1, moderately decreased glomerular filtration rate (GFR) between 30-44 mL/min/1.73 square meter and albuminuria creatinine ratio less than 30 mg/g N18.3 Active 948885098 Problem Secondary hypertension I15.9 Active 73085136 Problem 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 Active 846825681 Problem Hypercholesterolemia E78.00 Active 43951282 Problem Edema, unspecified type R60.9 Active 863932592 ALLERGIES No Information ENCOUNTERS Encounter Location Date Diagnosis [facility] [address] [facility] [id number] [address] [place] [address] Jan, Type 2 diabetes mellitus wit h diabetic chronic kidney disease E11.22 ; Secondary hypertension I15.9 ; Hypercholesterolemia E78.00 ; Coronary artery disease, angina presence unspecified, unspecified vessel or lesion type, unspecified whether [place] or transplanted heart I25.10 ; Edema, unspecified type R60.9 ; Chronic kidney disease (CKD) stage G3b/A1, moderately decreased glomerular filtration rate (GFR) between 30-44 mL/min/1.73 square meter and albuminuria creatinine ratio less than 30 mg/g N18.3 and Contact dermatitis, unspecified contact dermatitis type, unspecified trigger L25.9 [facility] [address] [facility] [id number] [address] [place] [phone] Oct, [facility] [address] [facility] [id number] [address] [place] [phone] Oct, [facility] [address] [facility] [id number] [address] [place] [address] Oct, [facility] [address] [place] [id number] [address] [place] [address] Oct, Type 2 diabetes mellitus wit h other circulatory complications E11.59 [facility] [address] [facility] [id number] [address] [place] [address] Oct, Type 2 diabetes mellitus wit h other circulatory complications E11.59 ; Hyperlipidemia, unspecified hyperlipidemia type E78.5 ; Secondary hypertension I15.9 ; Edema, unspecified type R60.9 ; Stage 3 chronic kidney disease N18.3 and Coronary artery disease, angina presence unspecified, unspecified vessel or lesion type, unspecified whether [place] or transplanted heart I25.10 [place] [address] [place] [id number] [address] [place] [address] Sep, Coronary artery disease, ang bobby presence unspecified, unspecified vessel or lesion type, unspecified whether [place] or transplanted heart I25.10 [place] [address] [facility] [id number] [address] [place] [address] Jul, Type 2 diabetes mellitus wit h other circulatory complications E11.59 [place] [address] [place] [id number] [address] [place] [address] May, [facility] [address] [place] [id number] [address] [place] [address] Apr, Skin lesion of scalp L98.9 [place] [address] [place] [id number] [address] [place] [address] Apr, Stage 3 chronic kidney disea se N18.3 [facility] [address] [facility] [id number] [address] [place] [address] Apr, Type 2 diabetes mellitus wit h other circulatory complications E11.59 [place] [address] [place] [id number] [address] [place] [address] Apr, [place] [id number] [address] Mar, Type 2 diabetes mellitus wit h other circulatory complications E11.59 ; Secondary hypertension I15.9 ; Hyperlipidemia, unspecified hyperlipidemia type E78.5 ; Coronary artery disease, angina presence uns pecified, unspecified vessel or lesion type, unspecified whether [place] or transplanted heart I25.10 and Edema, unspecified type R60.9 [place] [address] [address] Jan, 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 [place] [address] [address] November, 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 ; Type 2 diabetes mellitus with other circulatory complications E11.59 ; Coronary artery disease, angina presence unspecified, unspecified vessel or lesion type, unspecified whether [place] or transplanted heart I25.10 ; Hypercholesterolemia E78.0 and Hypercholesterolemia E78.00 [place] [address] [address] Oct, Coronary artery disease, ang bobby presence unspecified, unspecified vessel or lesion type, unspecified whether [place] or transplanted heart I25.10 ; Secondary hypertension I15.9 ; Unspecified atherosclerosis of [place] arteries of extremities, 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 ; Type 2 diabetes mellitus with other circulatory complications E11.59 ; Hypercholesterolemia E78.0 and Edema, unspecified type R60.9 [place] [address] [place] [id number] [address] [place] [address] Sep, Shortness of breath R06.02 [place] [address] [address] Sep, [place] [address] [address] Aug, Shortness of breath R06.02 ; Edema, unspecified type R60.9 ; Type 2 diabetes mellitus with other circulatory complications E11.59 and Hyperlipidemia, unspecified hyperlipidemia type E78.[address] [address] Jul, Type 2 diabetes mellitus wit h other circulatory complications E11.59 ; Coronary artery disease, angina presence unspecified, unspecified vessel or lesion type, unspecified whether [place] or transplanted heart I25.10 ; Secondary hypertension I15.9 ; Unspecified atherosclerosis of [place] arteries of extremities, 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 ; Hypercholesterolemia E78.0 ; Edema, unspecified type R60.9 ; Acute upper respiratory infection, unspecified J06.9 ; Other viral agents as the cause of diseases classified elsewhere B97.89 ; Vision changes H53.9 ; Periapical abscess without sinus K04.7 and Dental caries, unspecified K02.[address] [address] Feb, [address] [address] Feb, Type 2 diabetes mellitus wit h other circulatory complications E11.59 ; Coronary artery disease, angina presence unspecified, unspecified vessel or lesion type, unspecified whether [place] or transplanted heart I25.10 ; Unspecified atherosclerosis of [place] arteries of extremities, 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 ; Hypercholesterolemia E78.0 ; Edema, unspecified type R60.9 and Secondary hypertension I15.[address] [address] Jan, Coronary artery disease, ang bobby presence unspecified, unspecified vessel or lesion type, unspecified whether [place] or transplanted heart I25.10 ; Secondary hypertension I15.9 ; Unspecified atherosclerosis of [place] arteries of extremities, 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 ; Establishing care with new doctor, encounter for Z71.89 ; Type 2 diabetes mellitus with other circulatory complications E11.59 and Decreased hearing, unspecified laterality H91.[address] [address] Jan, [address] [place] [address] Dec, Type 2 diabetes mellitus wit h other circulatory complications E11.59 ; Coronary artery disease, angina presence unspecified, unspecified vessel or lesion type, unspecified whether [place] or transplanted heart I25.10 ; Secondary hypertension I15.9 ; Unspecified atherosclerosis of [place] arteries of extremities, 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 ; Hypercholesterolemia E78.0 ; Edema, unspecified type R60.9 and Establishing care with new doctor, encounter for Z71.89 IMMUNIZATIONS No Known Immunizations SOCIAL HISTORY Never Assessed REASON FOR VISIT Repository Medication PLAN OF CARE VITAL SIGNS MEDICATIONS Medication Instructions Dosage Frequency Start Date End Date Duration S reynaldous Metformin HCl 1000 MG Orally 2 times a day TAKE ONE TABLET B Y MOUTH TWICE DAILY WITH MEALS 12h 90 days Active RESULTS No Results PROCEDURES No Known procedures INSTRUCTIONS MEDICATIONS ADMINISTERED No Known Medications MEDICAL (GENERAL) HISTORY Type Description Date Medical History Type II DM Medical History Hypertension Medical History Hyperlipidemia Medical History CAD Medical History CKD Surgical History ortho-pins in right hand Surgical History tonsillectomy Hospitalization History surgery
--- OUTSIDE RECORDS SUMMARY | 2019-11-28 19:10 | XMS REPORT | Clinical Summary ---
Author Author [facility] Organization [facility] Address Unknown Phone Unavailable Care Team Providers Care Childbirth Educator Name Role Phone PCP Unavailable Allergies Not on File Medications Not on file Active Problems Not on file Social History Date Tobacco Use Types Packs/Day Years Used Never Assessed Sex Assigned at Date Recorded Not on file Industry Job Start Date Occupation Not on file Not on file Not on file Travel End Travel History Travel Start No recent travel history available. Last Filed Vital Signs Not on file Plan of Treatment Health Maintenance Due Date Last Done Comments COLORECTAL SCREENING 2008 ZOSTER VACCINE (1 of 2) 2008 INFLUENZA VACCINE 02/10/2019 PNEUMOCOCCAL VACCINE 0-64 Aged Out No longer el igible based YEARS on patient's age to complete this topic Results Not on filefrom Last 3 Months
--- OUTSIDE RECORDS SUMMARY | 2019-11-28 19:10 | XMS REPORT ---
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 Name Role Phone CAR DANIELS Unavailable PROBLEMS Type Condition ICD9-CM Code [id number] Code Onset Dates Condition S tatus SNOMED Code Problem Coronary artery disease, ang bobby presence unspecified, unspecified vessel or lesion type, unspecified whether [place] or transplanted heart I25.10 Active 55081508 Problem Type 2 diabetes mellitus with diabetic chronic kidney disease E11.22 Active 48087323 Problem Chronic kidney disease (CKD) stage G3b/A1, moderately decreased glomerular filtration rate (GFR) between 30-44 mL/min/1.73 square meter and albuminuria creatinine ratio less than 30 mg/g N18.3 Active 404984666 Problem Secondary hypertension I15.9 Active 82651367 Problem 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 Active 786712994 Problem Hypercholesterolemia E78.00 Active 77480607 Problem Edema, unspecified type R60.9 Active [id number] ALLERGIES No Information ENCOUNTERS Encounter Location Date Diagnosis [facility] [address] [facility] [id number] [address] [place] [phone] Feb, Secondary hypertension I15.9 [facility] [address] [place] [id number] [address] [place] [phone] Jan, Type 2 diabetes mellitus wit h diabetic chronic kidney disease E11.22 ; Secondary hypertension I15.9 ; Hypercholesterolemia E78.00 ; Coronary artery disease, angina presence unspecified, unspecified vessel or lesion type, unspecified whether [place] or transplanted heart I25.10 ; Edema, unspecified type R60.9 ; Chronic kidney disease (CKD) stage G3b/A1, moderately decreased glomerular filtration rate (GFR) between 30-44 mL/min/1.73 square meter and albuminuria creatinine ratio less than 30 mg/g N18.3 and Contact dermatitis, unspecified contact dermatitis type, unspecified trigger L25.9 [place] [address] [facility] [id number] [address] [place] [phone] Oct, [place] [address] [place] [id number] [address] [place] [phone] Oct, [place] [address] [place] [id number] [place] [phone] Oct, [place] [address] [place] [id number] [place] [phone] Oct, Type 2 diabetes mellitus wit h other circulatory complications E11.59 [place] [address] [address] Oct, Type 2 diabetes mellitus wit h other circulatory complications E11.59 ; Hyperlipidemia, unspecified hyperlipidemia type E78.5 ; Secondary hypertension I15.9 ; Edema, unspecified type R60.9 ; Stage 3 chronic kidney disease N18.3 and Coronary artery disease, angina presence unspecified, unspecified vessel or lesion type, unspecified whether [place] or transplanted heart I25.10 [place] [address] [place] [id number] [address] [place] [phone] Sep, Coronary artery disease, ang bobby presence unspecified, unspecified vessel or lesion type, unspecified whether [place] or transplanted heart I25.10 [place] [address] [place] [id number] [address] [place] [phone] Jul, Type 2 diabetes mellitus wit h other circulatory complications E11.59 [place] [address] [place] [id number] [address] [place] [phone] May, [place] [address] [phone] Apr, Skin lesion of scalp L98.9 [place] [address] [place] [id number] [address] [place] [phone] Apr, Stage 3 chronic kidney disea se N18.3 [place] [address] [place] [id number] [place] [phone] Apr, Type 2 diabetes mellitus wit h other circulatory complications E11.59 [place] [address] [address] Apr, [place] [address] [address] Mar, Type 2 diabetes mellitus wit h other circulatory complications E11.59 ; Secondary hypertension I15.9 ; Hyperlipidemia, unspecified hyperlipidemia type E78.5 ; Coronary artery disease, angina presence uns pecified, unspecified vessel or lesion type, unspecified whether [place] or transplanted heart I25.10 and Edema, unspecified type R60.9 [place] [address] [address] Jan, 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 [address] November, 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 ; Type 2 diabetes mellitus with other circulatory complications E11.59 ; Coronary artery disease, angina presence unspecified, unspecified vessel or lesion type, unspecified whether [place] or transplanted heart I25.10 ; Hypercholesterolemia E78.0 and Hypercholesterolemia E78.00 [place] [id number] [address] [place] [id number] Oct, Coronary artery disease, ang bobby presence unspecified, unspecified vessel or lesion type, unspecified whether [place] or transplanted heart I25.10 ; Secondary hypertension I15.9 ; Unspecified atherosclerosis of [place] arteries of extremities, 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 ; Type 2 diabetes mellitus with other circulatory complications E11.59 ; Hypercholesterolemia E78.0 and Edema, unspecified type R60.9 [place] [address] [place] [id number] [address] [place] [id number] Sep, Shortness of breath R06.02 [place] [id number] [place] [phone] Sep, [place] [address] [place] [id number] [address] [place] [id number] 08 Aug, 2016 Shortness of breath R06.02 ; Edema, unspecified type R60.9 ; Type 2 diabetes mellitus with other circulatory complications E11.59 and Hyperlipidemia, unspecified hyperlipidemia type E78.5 [place] [address] [address] Jul, Type 2 diabetes mellitus wit h other circulatory complications E11.59 ; Coronary artery disease, angina presence unspecified, unspecified vessel or lesion type, unspecified whether [place] or transplanted heart I25.10 ; Secondary hypertension I15.9 ; Unspecified atherosclerosis of [place] arteries of extremities, 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 ; Hypercholesterolemia E78.0 ; Edema, unspecified type R60.9 ; Acute upper respiratory infection, unspecified J06.9 ; Other viral agents as the cause of diseases classified elsewhere B97.89 ; Vision changes H53.9 ; Periapical abscess without sinus K04.7 and Dental caries, unspecified K02.9 [place] [address] [address] Feb, [address] [address] Feb, Type 2 diabetes mellitus wit h other circulatory complications E11.59 ; Coronary artery disease, angina presence unspecified, unspecified vessel or lesion type, unspecified whether [place] or transplanted heart I25.10 ; Unspecified atherosclerosis of [place] arteries of extremities, 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 ; Hypercholesterolemia E78.0 ; Edema, unspecified type R60.9 and Secondary hypertension I15.9 [place] [address] [place] [id number] [place] [id number] Jan, Coronary artery disease, ang bobby presence unspecified, unspecified vessel or lesion type, unspecified whether [place] or transplanted heart I25.10 ; Secondary hypertension I15.9 ; Unspecified atherosclerosis of [place] arteries of extremities, 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 ; Establishing care with new doctor, encounter for Z71.89 ; Type 2 diabetes mellitus with other circulatory complications E11.59 and Decreased hearing, unspecified laterality H91.90 [place] [id number] [facility] [id number] [address] [place] [phone] Jan, [facility] [address] [facility] [id number] [address] [place] [phone] Dec, Type 2 diabetes mellitus wit h other circulatory complications E11.59 ; Coronary artery disease, angina presence unspecified, unspecified vessel or lesion type, unspecified whether [place] or transplanted heart I25.10 ; Secondary hypertension I15.9 ; Unspecified atherosclerosis of [place] arteries of extremities, 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 ; Hypercholesterolemia E78.0 ; Edema, unspecified type R60.9 and Establishing care with new doctor, encounter for Z71.89 IMMUNIZATIONS No Known Immunizations SOCIAL HISTORY Never Assessed REASON FOR VISIT Triage- 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 in 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 that she stated Sushila had needed, made copies to give to provider, gave medication refills adn updated medication list PLAN OF CARE VITAL SIGNS MEDICATIONS Medication Instructions Dosage Frequency Start Date End Date Duration S gloria Allopurinol 100 mg Orally Once a day 2 tablet 24h Active Amlodipine Besylate 10 MG Orally Once a day 1 tablet 24h Oct, 201 8 Active RESULTS No Results PROCEDURES No Known procedures INSTRUCTIONS MEDICATIONS ADMINISTERED No Known Medications MEDICAL (GENERAL) HISTORY Type Description Date Medical History Type II DM Medical History Hypertension Medical History Hyperlipidemia Medical History CAD Medical History CKD Surgical History ortho-pins in right hand Surgical History tonsillectomy Hospitalization History surgery
--- OUTSIDE RECORDS SUMMARY | 2019-11-28 19:10 | XMS REPORT ---
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3 Active 751607433 Problem Secondary hypertension I15.9 Active 33896551 Problem 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 Active 497527951 Problem Hypercholesterolemia E78.00 Active 22944168 Problem Edema, unspecified type R60.9 Active 193459433 ALLERGIES No Information ENCOUNTERS Encounter Location Date Diagnosis [facility] [place] [address] [facility] [id number] [address] [place] [phone] Jan, Type 2 diabetes mellitus wit h diabetic chronic kidney disease E11.22 ; Secondary hypertension I15.9 ; Hypercholesterolemia E78.00 ; Coronary artery disease, angina presence unspecified, unspecified vessel or lesion type, unspecified whether [place] or transplanted heart I25.10 ; Edema, unspecified type R60.9 ; Chronic kidney disease (CKD) stage G3b/A1, moderately decreased glomerular filtration rate (GFR) between 30-44 mL/min/1.73 square meter and albuminuria creatinine ratio less than 30 mg/g N18.3 and Contact dermatitis, unspecified contact dermatitis type, unspecified trigger L25.9 [facility] [place] [address] [facility] [id number] [address] [place] [phone] Oct, [facility] [place] [address] [facility] [id number] [address] [place] [phone] Oct, [facility] [place] [address] [facility] [id number] [address] [place] [phone] Oct, [facility] [place] [address] [place] [id number] [address] [place] [phone] Oct, Type 2 diabetes mellitus wit h other circulatory complications E11.59 [facility] [place] [address] [facility] [id number] [address] [place] [phone] Oct, Type 2 diabetes mellitus wit h other circulatory complications E11.59 ; Hyperlipidemia, unspecified hyperlipidemia type E78.5 ; Secondary hypertension I15.9 ; Edema, unspecified type R60.9 ; Stage 3 chronic kidney disease N18.3 and Coronary artery disease, angina presence unspecified, unspecified vessel or lesion type, unspecified whether [place] or transplanted heart I25.10 [place] [address] [place] [id number] [address] [place] [id number] Sep, Coronary artery disease, ang bobby presence unspecified, unspecified vessel or lesion type, unspecified whether [place] or transplanted heart I25.10 [place] [address] [facility] [id number] [address] [place] [phone] Jul, Type 2 diabetes mellitus wit h other circulatory complications E11.59 [place] [address] [place] [id number] [address] [place] [phone] May, [facility] [place] [address] [place] [id number] [address] [place] [phone] Apr, Skin lesion of scalp L98.9 [place] [address] [place] [id number] [address] [place] [phone] Apr, Stage 3 chronic kidney disea se N18.3 [facility] [place] [address] [facility] [id number] [address] [place] [id number] Apr, Type 2 diabetes mellitus wit h other circulatory complications E11.59 [place] [address] [place] [id number] [address] [place] [id number] Apr, [place] [id number] [address] Mar, Type 2 diabetes mellitus wit h other circulatory complications E11.59 ; Secondary hypertension I15.9 ; Hyperlipidemia, unspecified hyperlipidemia type E78.5 ; Coronary artery disease, angina presence uns pecified, unspecified vessel or lesion type, unspecified whether [place] or transplanted heart I25.10 and Edema, unspecified type R60.9 [place] [address] [address] Jan, 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 [place] [address] [address] November, 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 ; Type 2 diabetes mellitus with other circulatory complications E11.59 ; Coronary artery disease, angina presence unspecified, unspecified vessel or lesion type, unspecified whether [place] or transplanted heart I25.10 ; Hypercholesterolemia E78.0 and Hypercholesterolemia E78.00 [place] [address] [address] Oct, Coronary artery disease, ang bobby presence unspecified, unspecified vessel or lesion type, unspecified whether [place] or transplanted heart I25.10 ; Secondary hypertension I15.9 ; Unspecified atherosclerosis of [place] arteries of extremities, 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 ; Type 2 diabetes mellitus with other circulatory complications E11.59 ; Hypercholesterolemia E78.0 and Edema, unspecified type R60.9 [place] [address] [place] [id number] [address] [place] [id number] Sep, Shortness of breath R06.02 [place] [address] [address] Sep, [place] [address] [address] Aug, Shortness of breath R06.02 ; Edema, unspecified type R60.9 ; Type 2 diabetes mellitus with other circulatory complications E11.59 and Hyperlipidemia, unspecified hyperlipidemia type E78.[address] [address] Jul, Type 2 diabetes mellitus wit h other circulatory complications E11.59 ; Coronary artery disease, angina presence unspecified, unspecified vessel or lesion type, unspecified whether [place] or transplanted heart I25.10 ; Secondary hypertension I15.9 ; Unspecified atherosclerosis of [place] arteries of extremities, 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 ; Hypercholesterolemia E78.0 ; Edema, unspecified type R60.9 ; Acute upper respiratory infection, unspecified J06.9 ; Other viral agents as the cause of diseases classified elsewhere B97.89 ; Vision changes H53.9 ; Periapical abscess without sinus K04.7 and Dental caries, unspecified K02.[address] [address] Feb, [address] [address] Feb, Type 2 diabetes mellitus wit h other circulatory complications E11.59 ; Coronary artery disease, angina presence unspecified, unspecified vessel or lesion type, unspecified whether [place] or transplanted heart I25.10 ; Unspecified atherosclerosis of [place] arteries of extremities, 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 ; Hypercholesterolemia E78.0 ; Edema, unspecified type R60.9 and Secondary hypertension I15.[address] [address] Jan, Coronary artery disease, ang bobby presence unspecified, unspecified vessel or lesion type, unspecified whether [place] or transplanted heart I25.10 ; Secondary hypertension I15.9 ; Unspecified atherosclerosis of [place] arteries of extremities, 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 ; Establishing care with new doctor, encounter for Z71.89 ; Type 2 diabetes mellitus with other circulatory complications E11.59 and Decreased hearing, unspecified laterality H91.[address] [address] Jan, [address] [place] [address] Dec, Type 2 diabetes mellitus wit h other circulatory complications E11.59 ; Coronary artery disease, angina presence unspecified, unspecified vessel or lesion type, unspecified whether [place] or transplanted heart I25.10 ; Secondary hypertension I15.9 ; Unspecified atherosclerosis of [place] arteries of extremities, 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 ; Hypercholesterolemia E78.0 ; Edema, unspecified type R60.9 and Establishing care with new doctor, encounter for Z71.89 IMMUNIZATIONS No Known Immunizations SOCIAL HISTORY Never Assessed REASON FOR VISIT Blood Pressure-[facility] PLAN OF CARE VITAL SIGNS Height 67 in 2017-10-29 Blood pressure systolic 112 mmHg 2017-10-29 Blood pressure diastolic 64 mmHg 2017-10-29 MEDICATIONS No Known Medications RESULTS No Results PROCEDURES No Known procedures INSTRUCTIONS MEDICATIONS ADMINISTERED No Known Medications MEDICAL (GENERAL) HISTORY Type Description Date Medical History Type II DM Medical History Hypertension Medical History Hyperlipidemia Medical History CAD Medical History CKD Surgical History ortho-pins in right hand Surgical History tonsillectomy Hospitalization History surgery
--- OUTSIDE RECORDS SUMMARY | 2019-11-28 19:10 | XMS REPORT ---
Author Author Michi KIRK [facility] Address [address] [place] [address] Care Team Providers Care Design Center Consultant Name Role Phone MONIKA KIRK Unavailable PROBLEMS Type Condition ICD9-CM Code VEO17-GS Code Onset Dates Condition S tatus SNOMED Code Problem Coronary artery disease, ang bobby presence unspecified, unspecified vessel or lesion type, unspecified whether [place] or transplanted heart I25.10 Active 33867912 Problem Type 2 diabetes mellitus with diabetic chronic kidney disease E11.22 Active 56377822 Problem Chronic kidney disease (CKD) stage G3b/A1, moderately decreased glomerular filtration rate (GFR) between 30-44 mL/min/1.73 square meter and albuminuria creatinine ratio less than 30 mg/g N18.3 Active 491566302 Problem Secondary hypertension I15.9 Active 44188628 Problem 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 Active 750623066 Problem Hypercholesterolemia E78.00 Active 71273814 Problem Edema, unspecified type R60.9 Active 740864055 ALLERGIES No Information ENCOUNTERS Encounter Location Date Diagnosis [place] [address] [address] [facility] [place] [id number] [address] [place] [phone] May, [id number] [place] [id number] [address] [place] [phone] Apr, Secondary hypertension I15.9 [facility] [address] [facility] [place] [id number] [address] [place] [address] Apr, Secondary hypertension I15.9 [place] [address] [place] [id number] [address] [place] [phone] Mar, Type 2 diabetes mellitus wit h diabetic chronic kidney disease E11.22 [place] [id number] [place] [id number] [address] [place] [address] Feb, Secondary hypertension I15.9 [place] [address] [address] Jan, Type 2 diabetes mellitus wit h diabetic chronic kidney disease E11.22 ; Secondary hypertension I15.9 ; Hypercholesterolemia E78.00 ; Coronary artery disease, angina presence unspecified, unspecified vessel or lesion type, unspecified whether [place] or transplanted heart I25.10 ; Edema, unspecified type R60.9 ; Chronic kidney disease (CKD) stage G3b/A1, moderately decreased glomerular filtration rate (GFR) between 30-44 mL/min/1.73 square meter and albuminuria creatinine ratio less than 30 mg/g N18.3 and Contact dermatitis, unspecified contact dermatitis type, unspecified trigger L25.9 [place] [address] [address] Oct, [place] [address] [address] Oct, [place] [address] [address] Oct, [place] [address] [address] Oct, Type 2 diabetes mellitus wit h other circulatory complications E11.59 [place] [address] [address] 02 Oct, 2017 Type 2 diabetes mellitus wit h other circulatory complications E11.59 ; Hyperlipidemia, unspecified hyperlipidemia type E78.5 ; Secondary hypertension I15.9 ; Edema, unspecified type R60.9 ; Stage 3 chronic kidney disease N18.3 and Coronary artery disease, angina presence unspecified, unspecified vessel or lesion type, unspecified whether [place] or transplanted heart I25.10 [place] [address] [address] Sep, Coronary artery disease, ang bobby presence unspecified, unspecified vessel or lesion type, unspecified whether [place] or transplanted heart I25.10 [place] [address] [address] Jul, Type 2 diabetes mellitus wit h other circulatory complications E11.59 [place] [address] [facility] [place] [id number] [address] [place] [phone] May, [place] [address] [address] [facility] [place] [id number] [address] [place] [phone] Apr, Skin lesion of scalp L98.9 [place] [address] [facility] [place] [id number] [address] [place] [phone] Apr, Stage 3 chronic kidney disea se N18.3 [place] [address] [facility] [place] [id number] [address] [place] [phone] Apr, Type 2 diabetes mellitus wit h other circulatory complications E11.59 [place] [address] [facility] [place] [id number] [address] [place] [phone] Apr, [place] [address] [facility] [place] [id number] [address] [place] [phone] Mar, Type 2 diabetes mellitus wit h other circulatory complications E11.59 ; Secondary hypertension I15.9 ; Hyperlipidemia, unspecified hyperlipidemia type E78.5 ; Coronary artery disease, angina presence uns pecified, unspecified vessel or lesion type, unspecified whether [place] or transplanted heart I25.10 and Edema, unspecified type R60.9 [place] [address] [place] [id number] [address] [place] [phone] Jan, 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 [place] [address] [place] [id number] [address] [place] [phone] November, 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 ; Type 2 diabetes mellitus with other circulatory complications E11.59 ; Coronary artery disease, angina presence unspecified, unspecified vessel or lesion type, unspecified whether [place] or transplanted heart I25.10 ; Hypercholesterolemia E78.0 and Hypercholesterolemia E78.00 [place] [address] [place] [id number] [address] [place] [address] Oct, Coronary artery disease, ang bobby presence unspecified, unspecified vessel or lesion type, unspecified whether [place] or transplanted heart I25.10 ; Secondary hypertension I15.9 ; Unspecified atherosclerosis of [place] arteries of extremities, 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 ; Type 2 diabetes mellitus with other circulatory complications E11.59 ; Hypercholesterolemia E78.0 and Edema, unspecified type R60.9 [place] [address] [address] Sep, Shortness of breath R06.02 [place] [address] [address] Sep, [address] [address] Aug, Shortness of breath R06.02 ; Edema, unspecified type R60.9 ; Type 2 diabetes mellitus with other circulatory complications E11.59 and Hyperlipidemia, unspecified hyperlipidemia type E78.[address] [address] Jul, Type 2 diabetes mellitus wit h other circulatory complications E11.59 ; Coronary artery disease, angina presence unspecified, unspecified vessel or lesion type, unspecified whether [place] or transplanted heart I25.10 ; Secondary hypertension I15.9 ; Unspecified atherosclerosis of [place] arteries of extremities, 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 ; Hypercholesterolemia E78.0 ; Edema, unspecified type R60.9 ; Acute upper respiratory infection, unspecified J06.9 ; Other viral agents as the cause of diseases classified elsewhere B97.89 ; Vision changes H53.9 ; Periapical abscess without sinus K04.7 and Dental caries, unspecified K02.[address] [address] Feb, [address] [address] Feb, Type 2 diabetes mellitus wit h other circulatory complications E11.59 ; Coronary artery disease, angina presence unspecified, unspecified vessel or lesion type, unspecified whether [place] or transplanted heart I25.10 ; Unspecified atherosclerosis of [place] arteries of extremities, 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 ; Hypercholesterolemia E78.0 ; Edema, unspecified type R60.9 and Secondary hypertension I15.9 [place] [id number] [place] [phone] 14 Jan, 2016 Coronary artery disease, ang bobby presence unspecified, unspecified vessel or lesion type, unspecified whether [place] or transplanted heart I25.10 ; Secondary hypertension I15.9 ; Unspecified atherosclerosis of [place] arteries of extremities, 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 ; Establishing care with new doctor, encounter for Z71.89 ; Type 2 diabetes mellitus with other circulatory complications E11.59 and Decreased hearing, unspecified laterality H91.90 [place] [address] [place] [id number] [place] [phone] 07 Jan, 2016 [place] [address] [place] [id number] [place] [phone] 30 Dec, 2015 Type 2 diabetes mellitus wit h other circulatory complications E11.59 ; Coronary artery disease, angina presence unspecified, unspecified vessel or lesion type, unspecified whether [place] or transplanted heart I25.10 ; Secondary hypertension I15.9 ; Unspecified atherosclerosis of [place] arteries of extremities, 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 ; Hypercholesterolemia E78.0 ; Edema, unspecified type R60.9 and Establishing care with new doctor, encounter for Z71.89 IMMUNIZATIONS No Known Immunizations SOCIAL HISTORY Never Assessed REASON FOR VISIT refill request PLAN OF CARE VITAL SIGNS MEDICATIONS Medication Instructions Dosage Frequency Start Date End Date Duration Wero castro Amlodipine Besylate 10 MG Orally Once a [...]
--- OUTSIDE RECORDS SUMMARY | 2019-11-28 19:10 | XMS REPORT ---
Author Author Michi DANIELS Organization [facility] Address [address] [place] [address] Care Team Providers Care Machine Hoop Maker Name Role Phone CAR DANIELS Unavailable PROBLEMS Type Condition ICD9-CM Code NEH67-GW Code Onset Dates Condition S tatus SNOMED Code Problem Coronary artery disease, ang bobby presence unspecified, unspecified vessel or lesion type, unspecified whether [place] or transplanted heart I25.10 Active 13805533 Problem Stage 3 chronic kidney disease N18.3 Active 664733243 Problem Hypercholesterolemia E78.00 Active 46819820 Problem Hyperlipidemia, unspecified hyperlipidemia type E7 8.5 Active 93716670 Problem 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 Active 243857105 Problem Unspecified atherosclerosis of [place] arteries of extremities, 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 Active 185913 130758106 Problem Edema, unspecified type R60.9 Active 859049060 Problem Secondary hypertension I15.9 Active 10137232 ALLERGIES No Information ENCOUNTERS Encounter Location Date Diagnosis [place] [address] [place] [id number] [place] [phone] Jan, [place] [address] [place] [id number] [place] [phone] Oct, [facility] [address] [place] [id number] [address] [place] [phone] Oct, [facility] [address] [place] [id number] [address] [place] [address] Oct, [place] [address] [address] [place] [id number] [address] [place] [phone] Oct, Type 2 diabetes mellitus wit h other circulatory complications E11.59 [facility] [address] [place] [id number] [place] [address] Oct, Type 2 diabetes mellitus wit h other circulatory complications E11.59 ; Hyperlipidemia, unspecified hyperlipidemia type E78.5 ; Secondary hypertension I15.9 ; Edema, unspecified type R60.9 ; Stage 3 chronic kidney disease N18.3 and Coronary artery disease, angina presence unspecified, unspecified vessel or lesion type, unspecified whether [place] or transplanted heart I25.10 [place] [address] [address] [facility] [id number] [address] [place] [address] Sep, Coronary artery disease, ang bobby presence unspecified, unspecified vessel or lesion type, unspecified whether [place] or transplanted heart I25.10 [place] [address] [address] [facility] [id number] [address] [place] [address] Jul, Type 2 diabetes mellitus wit h other circulatory complications E11.59 [place] [address] [facility] [id number] [address] [place] [phone] 09 May, 2017 [place] [address] [facility] [id number] [address] [place] [phone] Apr, Skin lesion of scalp L98.9 [place] [address] [facility] [id number] [address] [place] [address] Apr, Stage 3 chronic kidney disea se N18.3 [place] [address] [facility] [id number] [address] [place] [phone] Apr, Type 2 diabetes mellitus wit h other circulatory complications E11.59 [place] [address] [facility] [id number] [address] [place] [phone] Apr, [place] [address] [facility] [id number] [address] [place] [phone] Mar, Type 2 diabetes mellitus wit h other circulatory complications E11.59 ; Secondary hypertension I15.9 ; Hyperlipidemia, unspecified hyperlipidemia type E78.5 ; Coronary artery disease, angina presence uns pecified, unspecified vessel or lesion type, unspecified whether [place] or transplanted heart I25.10 and Edema, unspecified type R60.9 [place] [address] [facility] [id number] [address] [place] [address] Jan, 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 [place] [address] [address] November, 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 ; Type 2 diabetes mellitus with other circulatory complications E11.59 ; Coronary artery disease, angina presence unspecified, unspecified vessel or lesion type, unspecified whether [place] or transplanted heart I25.10 ; Hypercholesterolemia E78.0 and Hypercholesterolemia E78.00 [place] [address] [place] [id number] [address] [place] [address] Oct, Coronary artery disease, ang bobby presence unspecified, unspecified vessel or lesion type, unspecified whether [place] or transplanted heart I25.10 ; Secondary hypertension I15.9 ; Unspecified atherosclerosis of [place] arteries of extremities, 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 ; Type 2 diabetes mellitus with other circulatory complications E11.59 ; Hypercholesterolemia E78.0 and Edema, unspecified type R60.9 [place] [address] [place] [id number] [address] [place] [address] Sep, Shortness of breath R06.02 [place] [address] [address] Sep, [place] [address] [address] Aug, Shortness of breath R06.02 ; Edema, unspecified type R60.9 ; Type 2 diabetes mellitus with other circulatory complications E11.59 and Hyperlipidemia, unspecified hyperlipidemia type E78.5 [place] [address] [place] [id number] [address] [place] [address] Jul, Type 2 diabetes mellitus wit h other circulatory complications E11.59 ; Coronary artery disease, angina presence unspecified, unspecified vessel or lesion type, unspecified whether [place] or transplanted heart I25.10 ; Secondary hypertension I15.9 ; Unspecified atherosclerosis of [place] arteries of extremities, 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 ; Hypercholesterolemia E78.0 ; Edema, unspecified type R60.9 ; Acute upper respiratory infection, unspecified J06.9 ; Other viral agents as the cause of diseases classified elsewhere B97.89 ; Vision changes H53.9 ; Periapical abscess without sinus K04.7 and Dental caries, unspecified K02.9 [place] [address] [place] [id number] [address] [place] [address] Feb, [place] [address] [address] Feb, Type 2 diabetes mellitus wit h other circulatory complications E11.59 ; Coronary artery disease, angina presence unspecified, unspecified vessel or lesion type, unspecified whether [place] or transplanted heart I25.10 ; Unspecified atherosclerosis of [place] arteries of extremities, 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 ; Hypercholesterolemia E78.0 ; Edema, unspecified type R60.9 and Secondary hypertension I15.9 [place] [address] [address] Jan, Coronary artery disease, ang bobby presence unspecified, unspecified vessel or lesion type, unspecified whether [place] or transplanted heart I25.10 ; Secondary hypertension I15.9 ; Unspecified atherosclerosis of [place] arteries of extremities, 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 ; Establishing care with new doctor, encounter for Z71.89 ; Type 2 diabetes mellitus with other circulatory complications E11.59 and Decreased hearing, unspecified laterality H91.90 [place] [address] [place] [phone] Jan, [place] [address] [place] [id number] [address] [place] [address] Dec, Type 2 diabetes mellitus wit h other circulatory complications E11.59 ; Coronary artery disease, angina presence unspecified, unspecified vessel or lesion type, unspecified whether [place] or transplanted heart I25.10 ; Secondary hypertension I15.9 ; Unspecified atherosclerosis of [place] arteries of extremities, 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 ; Hypercholesterolemia E78.0 ; Edema, unspecified type R60.9 and Establishing care with new doctor, encounter for Z71.89 IMMUNIZATIONS No Known Immunizations SOCIAL HISTORY Never Assessed REASON FOR VISIT Repository Medication PLAN OF CARE VITAL SIGNS MEDICATIONS Medication Instructions Dosage Frequency Start Date End Date Duration S tatus Potassium Chloride ER 10 MEQ Orally Once a day 2 tablet with food 2 4h Mar, 90 days Active RESULTS No Results PROCEDURES No Known procedures INSTRUCTIONS MEDICATIONS ADMINISTERED No Known Medications MEDICAL (GENERAL) HISTORY Type Description Date Medical History Type II DM Medical History Hypertension Medical History Hyperlipidemia Surgical History ortho-pins in right hand Surgical History tonsillectomy Hospitalization History surgery
--- OUTSIDE RECORDS SUMMARY | 2019-11-28 19:10 | XMS REPORT ---
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 Patient encounter no information no name no or ganization name procedure 09-09-2016 Patient encounter no information no name no or ganization name procedure 09-09-2016 Patient encounter no information JAYLON HYDE MA FSCA I [facility] [address] procedure (no phone) [facility] (no phone) 09-08-2016 Patient encounter no information no name no or ganization name procedure 09-08-2016 Patient encounter no information JAYLON HYDE MA FSCA I [facility] [address] procedure (no phone) [facility] (no phone) 03-09-2015 Patient encounter no information BETHANY NUÑEZ MD [facility] [address] procedure (no phone) [facility] (no phone) 05-11-2018 Telephone encounter Secondary MONIKA MADGeni (no jose manuel ne) [facility] hypertension, (no phone) unspecified 03-31-2018 Telephone encounter Type 2 diabetes ASTER MENDOZA (n o [facility] mellitus with diabetic phone) (no phone) chronic kidney disease Medical Equipment No Information Payers Normalized Payer Value [facility] [phone] Department of [facility] [id number] Summary Purpose eClinicalWorks Submission Advance Directives Directive Response Recor ded Date/Time Advance Directives No 10:00am Resuscitation Status Full Code 01/17/16 10:00am Directive Response Recor ded Date/Time Advance Directives No 3:38pm Resuscitation Status Full Code 01/11/16 3:38pm Discharge Instructions No hospital discharge instructions.No hospital discharge instructions. Additional Source Comments This clinical document has been generated using PO-MO software that has been certified by the Office of the National Coordinator for Health Information Technology (ONC 15.99.04.3023.Diam.31.00.0.250074) and the National Committee for Cane Loader (NCQA, as an eMeasure certified technology). FOR RECORDS PERTAINING TO PATIENTS WHO ARE OR HAVE BEEN ENROLLED IN A CHEMICAL D EPENDENCY/SUBSTANCE ABUSE PROGRAM, SOME INFORMATION MAY BE OMITTED. This clinica l summary was aggregated from multiple sources. Caution should be exercised in using it in the provision of clinical care. This summary normalizes information from multiple sources, and as a consequence, information in this document may ma terially change the coding, format and clinical context of patient data. In tobias tion, data may be omitted in some cases. CLINICAL DECISIONS SHOULD BE BASED ON T HE PRIMARY CLINICAL RECORDS. [employer]. provides no warranty or guara ntee of the accuracy or completeness of information in this document.The followi ng information is based on time limited clinical information UNRECOGNIZED CONTENT PROVIDED BELOW FOR UNRECOGNIZED SECTION MEDICAL (GENERAL) HISTORY Type Description Date Medical History Type II DM Medical History Hypertension Surgical History ortho-pins in right hand Surgical History tonsillectomy Hospitalization History surgery Type Description Date Medical History Type II DM Medical History Hypertension Medical History Hyperlipidemia Surgical History ortho-pins in right hand Surgical History tonsillectomy Hospitalization History surgery Type Description Date Medical History Type II DM Medical History Hypertension Medical History Hyperlipidemia Medical History CAD Medical History CKD Surgical History ortho-pins in right hand Surgical History tonsillectomy Hospitalization History surgery UNRECOGNIZED CONTENT PROVIDED BELOW FOR UNRECOGNIZED SECTION REASON FOR VISIT Diabetes f/u. Pt would like to discuss a rash on both lower extremities x severa l months, no self-treatment. 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
--- OUTSIDE RECORDS SUMMARY | 2019-11-28 19:10 | XMS REPORT ---
Author Author Michi DNAIELS Organization [facility] Address [address] [place] [address] Care Team Providers Care Freight Coordinator Name Role Phone CAR DANIELS Unavailable PROBLEMS Type Condition ICD9-CM Code QCX11-QV Code Onset Dates Condition S tatus SNOMED Code Problem Coronary artery disease, ang bobby presence unspecified, unspecified vessel or lesion type, unspecified whether chicken ranch or transplanted heart I25.10 Active 44871881 Problem Type 2 diabetes mellitus with diabetic chronic kidney disease E11.22 Active 40423088 Problem Chronic kidney disease (CKD) stage G3b/A1, moderately decreased glomerular filtration rate (GFR) between 30-44 mL/min/1.73 square meter and albuminuria creatinine ratio less than 30 mg/g N18.3 Active 354898429 Problem Secondary hypertension I15.9 Active 57623376 Problem 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 Active 422521836 Problem Hypercholesterolemia E78.00 Active 99568887 Problem Edema, unspecified type R60.9 Active [id number] ALLERGIES No Known Allergies ENCOUNTERS Encounter Location Date Diagnosis [facility] [address] [facility] [id number] [place] [id number] Feb, Secondary hypertension I15.9 [facility] [address] [place] [id number] [place] [id number] Jan, Type 2 diabetes mellitus wit h diabetic chronic kidney disease E11.22 ; Secondary hypertension I15.9 ; Hypercholesterolemia E78.00 ; Coronary artery disease, angina presence unspecified, unspecified vessel or lesion type, unspecified whether chicken ranch or transplanted heart I25.10 ; Edema, unspecified type R60.9 ; Chronic kidney disease (CKD) stage G3b/A1, moderately decreased glomerular filtration rate (GFR) between 30-44 mL/min/1.73 square meter and albuminuria creatinine ratio less than 30 mg/g N18.3 and Contact dermatitis, unspecified contact dermatitis type, unspecified trigger L25.9 [place] [address] [place] [id number] [place] [address] Oct, [place] [address] [place] [id number] [place] [id number] Oct, [place] [address] [place] [id number] [place] [phone] Oct, [place] [address] [place] [id number] [place] [address] Oct, Type 2 diabetes mellitus wit h other circulatory complications E11.59 [place] [address] [address] Oct, Type 2 diabetes mellitus wit h other circulatory complications E11.59 ; Hyperlipidemia, unspecified hyperlipidemia type E78.5 ; Secondary hypertension I15.9 ; Edema, unspecified type R60.9 ; Stage 3 chronic kidney disease N18.3 and Coronary artery disease, angina presence unspecified, unspecified vessel or lesion type, unspecified whether chicken ranch or transplanted heart I25.10 [place] [address] [address] Sep, Coronary artery disease, ang bobby presence unspecified, unspecified vessel or lesion type, unspecified whether chicken ranch or transplanted heart I25.10 [place] [address] [place] [id number] [place] [phone] Jul, Type 2 diabetes mellitus wit h other circulatory complications E11.59 [place] [address] [place] [id number] [place] [phone] May, [place] [address] [address] Apr, Skin lesion of scalp L98.9 [place] [address] [place] [id number] [place] [address] Apr, Stage 3 chronic kidney disea se N18.3 [place] [address] [place] [id number] [place] [address] Apr, Type 2 diabetes mellitus wit h other circulatory complications E11.59 [place] [address] [address] Apr, [place] [address] [address] Mar, Type 2 diabetes mellitus wit h other circulatory complications E11.59 ; Secondary hypertension I15.9 ; Hyperlipidemia, unspecified hyperlipidemia type E78.5 ; Coronary artery disease, angina presence uns pecified, unspecified vessel or lesion type, unspecified whether chicken ranch or transplanted heart I25.10 and Edema, unspecified type R60.[address] [address] Jan, 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 [address] November, 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 ; Type 2 diabetes mellitus with other circulatory complications E11.59 ; Coronary artery disease, angina presence unspecified, unspecified vessel or lesion type, unspecified whether chicken ranch or transplanted heart I25.10 ; Hypercholesterolemia E78.0 and Hypercholesterolemia E78.[address] [address] Oct, Coronary artery disease, ang bobby presence unspecified, unspecified vessel or lesion type, unspecified whether chicken ranch or transplanted heart I25.10 ; Secondary hypertension I15.9 ; 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, 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 ; Type 2 diabetes mellitus with other circulatory complications E11.59 ; Hypercholesterolemia E78.0 and Edema, unspecified type R60.9 [place] [address] [place] [id number] [place] [address] Sep, Shortness of breath R06.[address] [address] Sep, [place] [address] [place] [id number] [place] [id number] 08 Aug, 2016 Shortness of breath R06.02 ; Edema, unspecified type R60.9 ; Type 2 diabetes mellitus with other circulatory complications E11.59 and Hyperlipidemia, unspecified hyperlipidemia type E78.5 [place] [address] [address] Jul, Type 2 diabetes mellitus wit h other circulatory complications E11.59 ; Coronary artery disease, angina presence unspecified, unspecified vessel or lesion type, unspecified whether chicken ranch or transplanted heart I25.10 ; Secondary hypertension I15.9 ; 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, 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 ; Hypercholesterolemia E78.0 ; Edema, unspecified type R60.9 ; Acute upper respiratory infection, unspecified J06.9 ; Other viral agents as the cause of diseases classified elsewhere B97.89 ; Vision changes H53.9 ; Periapical abscess without sinus K04.7 and Dental caries, unspecified K02.9 [place] [address] [address] Feb, [address] [address] Feb, Type 2 diabetes mellitus wit h other circulatory complications E11.59 ; Coronary artery disease, angina presence unspecified, unspecified vessel or lesion type, unspecified whether chicken ranch or transplanted heart I25.10 ; 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, 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 ; Hypercholesterolemia E78.0 ; Edema, unspecified type R60.9 and Secondary hypertension I15.9 [place] [id number] [place] [address] Jan, Coronary artery disease, ang bobby presence unspecified, unspecified vessel or lesion type, unspecified whether chicken ranch or transplanted heart I25.10 ; Secondary hypertension I15.9 ; 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, 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 ; Establishing care with new doctor, encounter for Z71.89 ; Type 2 diabetes mellitus with other circulatory complications E11.59 and Decreased hearing, unspecified laterality H91.90 [facility] [address] [facility] [id number] [address] Jan, [facility] [address] [facility] [id number] [place] [address] Dec, Type 2 diabetes mellitus wit h other circulatory complications E11.59 ; Coronary artery disease, angina presence unspecified, unspecified vessel or lesion type, unspecified whether chicken ranch or transplanted heart I25.10 ; Secondary hypertension I15.9 ; 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 Pt would like to discuss a rash on both lower extremities x sever al months, no self-treatment. [email or web address] PLAN OF CARE Activity Details Follow Up 3 Months, prn Reason:CHM/DM VITAL SIGNS Height 67 in 2018-01-25 Weight 236.7 lbs 2018-01-25 Temperature 98.6 degrees Fahrenheit 2018-01-25 Heart Rate 72 bpm 2018-01-25 Respiratory Rate 20 2018-01-25 BMI 37.07 kg/m2 2018-01-25 Blood pressure systolic 160 mmHg 2018-01-25 Blood pressure diastolic 78 mmHg 2018-01-25 MEDICATIONS Medication Instructions Dosage Frequency Start Date End Date Duration S reynaldous Allopurinol 100 mg Orally Once a day 1 tablet 24h Oct, 90 days Active Atorvastatin Calcium 10 mg Orally Once a day 1 tablet 24h 29 2016 6 Months Active Amlodipine Besylate 5 mg Orally Once a day 1 tablet 24h Oct, 90 days Active Potassium Chloride ER 10 MEQ Orally Once a day 2 tablet with food 2 4h Mar, 90 days Active Aspirin 325 MG Orally Once a day 1 tablet 24h Active Lisinopril 40 mg Orally Once a day 1/2 tablet 24h Oct, 6 Months Active MetFORMIN HCl ER 500 mg Orally twice a day 2 tablets twice daily wi th meals 12h Jan, 90 days Active Ergocalciferol Active Invokana 300 MG Orally Once a day 1 tablet 24h Oct, 90 days Active Carvedilol 6.25 MG Orally 2 times a day 1 tablet 12h Mar, 6 Months Active Lasix 40 mg Orally Once a day 1 tablet 24h 15 Feb, 2016 6 Mo [facility] Active RESULTS Name Result Date Reference Range A1C (IN HOUSE) 2018-01-25 A1C IN HOUSE 7.4+ 4.3 - 5.6 % Previous A1c 7.3 Lot [id number] Exp date 09/2019 PROCEDURES Procedure Date Ordered Result Body Site GLYCATED HEMOGLOBIN TEST January 25, 2018 INSTRUCTIONS MEDICATIONS ADMINISTERED No Known Medications MEDICAL (GENERAL) HISTORY Type Description Date Medical History Type II DM Medical History Hypertension Medical History Hyperlipidemia Medical History CAD Medical History CKD Surgical History ortho-pins in right hand Surgical History tonsillectomy Hospitalization History surgery
--- OUTSIDE RECORDS SUMMARY | 2019-11-28 19:10 | XMS REPORT ---
Author Author Michi MARIN [facility] Address [address] [place] [address] Care Team Providers Care Correction Lieutenant Name Role Phone SHAWN MARIN Unavailable PROBLEMS Type Condition ICD9-CM Code [id number] Code Onset Dates Condition S tatus SNOMED Code Problem Coronary artery disease, ang bobby presence unspecified, unspecified vessel or lesion type, unspecified whether [place] or transplanted heart I25.10 Active 47908541 Problem Type 2 diabetes mellitus with diabetic chronic kidney disease E11.22 Active 44385166 Problem Chronic kidney disease (CKD) stage G3b/A1, moderately decreased glomerular filtration rate (GFR) between 30-44 mL/min/1.73 square meter and albuminuria creatinine ratio less than 30 mg/g N18.3 Active 340701999 Problem Secondary hypertension I15.9 Active 08846831 Problem 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 Active 690813695 Problem Hypercholesterolemia E78.00 Active 16387340 Problem Edema, unspecified type R60.9 Active [id number] ALLERGIES No Information ENCOUNTERS Encounter Location Date Diagnosis [facility] [address] [facility] [id number] [address] [place] [phone] Jan, Type 2 diabetes mellitus wit h diabetic chronic kidney disease E11.22 ; Secondary hypertension I15.9 ; Hypercholesterolemia E78.00 ; Coronary artery disease, angina presence unspecified, unspecified vessel or lesion type, unspecified whether [place] or transplanted heart I25.10 ; Edema, unspecified type R60.9 ; Chronic kidney disease (CKD) stage G3b/A1, moderately decreased glomerular filtration rate (GFR) between 30-44 mL/min/1.73 square meter and albuminuria creatinine ratio less than 30 mg/g N18.3 and Contact dermatitis, unspecified contact dermatitis type, unspecified trigger L25.9 [facility] [address] [facility] [id number] [address] [place] [phone] Oct, [facility] [address] [facility] [id number] [address] [place] [phone] Oct, [facility] [address] [facility] [id number] [address] [place] [phone] Oct, [facility] [address] [facility] [id number] [address] [place] [phone] Oct, Type 2 diabetes mellitus wit h other circulatory complications E11.59 [facility] [address] [facility] [id number] [address] [place] [phone] 02 Oct, 2017 Type 2 diabetes mellitus wit h other circulatory complications E11.59 ; Hyperlipidemia, unspecified hyperlipidemia type E78.5 ; Secondary hypertension I15.9 ; Edema, unspecified type R60.9 ; Stage 3 chronic kidney disease N18.3 and Coronary artery disease, angina presence unspecified, unspecified vessel or lesion type, unspecified whether [place] or transplanted heart I25.10 [place] [address] [facility] [id number] [address] [place] [phone] Sep, Coronary artery disease, ang bobby presence unspecified, unspecified vessel or lesion type, unspecified whether [place] or transplanted heart I25.10 [place] [address] [facility] [id number] [address] [place] [phone] Jul, Type 2 diabetes mellitus wit h other circulatory complications E11.59 [place] [address] [facility] [id number] [address] [place] [phone] May, [facility] [address] [place] [id number] [address] [place] [phone] Apr, Skin lesion of scalp L98.9 [place] [address] [facility] [id number] [address] [place] [phone] Apr, Stage 3 chronic kidney disea se N18.3 [facility] [address] [facility] [id number] [address] [place] [phone] Apr, Type 2 diabetes mellitus wit h other circulatory complications E11.59 [facility] [address] [place] [id number] [address] [place] [phone] Apr, [place] [address] [address] Mar, Type 2 diabetes mellitus wit h other circulatory complications E11.59 ; Secondary hypertension I15.9 ; Hyperlipidemia, unspecified hyperlipidemia type E78.5 ; Coronary artery disease, angina presence uns pecified, unspecified vessel or lesion type, unspecified whether [place] or transplanted heart I25.10 and Edema, unspecified type R60.9 [place] [address] [address] Jan, 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 [place] [address] [phone] November, 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 ; Type 2 diabetes mellitus with other circulatory complications E11.59 ; Coronary artery disease, angina presence unspecified, unspecified vessel or lesion type, unspecified whether [place] or transplanted heart I25.10 ; Hypercholesterolemia E78.0 and Hypercholesterolemia E78.00 [place] [address] [address] Oct, Coronary artery disease, ang bobby presence unspecified, unspecified vessel or lesion type, unspecified whether [place] or transplanted heart I25.10 ; Secondary hypertension I15.9 ; Unspecified atherosclerosis of [place] arteries of extremities, 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 ; Type 2 diabetes mellitus with other circulatory complications E11.59 ; Hypercholesterolemia E78.0 and Edema, unspecified type R60.9 [place] [address] [address] Sep, Shortness of breath R06.02 [place] [address] [address] Sep, [place] [address] [address] Aug, Shortness of breath R06.02 ; Edema, unspecified type R60.9 ; Type 2 diabetes mellitus with other circulatory complications E11.59 and Hyperlipidemia, unspecified hyperlipidemia type E78.[address] [address] Jul, Type 2 diabetes mellitus wit h other circulatory complications E11.59 ; Coronary artery disease, angina presence unspecified, unspecified vessel or lesion type, unspecified whether [place] or transplanted heart I25.10 ; Secondary hypertension I15.9 ; Unspecified atherosclerosis of [place] arteries of extremities, 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 ; Hypercholesterolemia E78.0 ; Edema, unspecified type R60.9 ; Acute upper respiratory infection, unspecified J06.9 ; Other viral agents as the cause of diseases classified elsewhere B97.89 ; Vision changes H53.9 ; Periapical abscess without sinus K04.7 and Dental caries, unspecified K02.[address] [address] Feb, [address] [address] Feb, Type 2 diabetes mellitus wit h other circulatory complications E11.59 ; Coronary artery disease, angina presence unspecified, unspecified vessel or lesion type, unspecified whether [place] or transplanted heart I25.10 ; Unspecified atherosclerosis of [place] arteries of extremities, 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 ; Hypercholesterolemia E78.0 ; Edema, unspecified type R60.9 and Secondary hypertension I15.[address] [address] 14 Jan, 2016 Coronary artery disease, ang bobby presence unspecified, unspecified vessel or lesion type, unspecified whether [place] or transplanted heart I25.10 ; Secondary hypertension I15.9 ; Unspecified atherosclerosis of [place] arteries of extremities, 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 ; Establishing care with new doctor, encounter for Z71.89 ; Type 2 diabetes mellitus with other circulatory complications E11.59 and Decreased hearing, unspecified laterality H91.[address] [address] Jan, [place] [address] [place] [address] Dec, Type 2 diabetes mellitus wit h other circulatory complications E11.59 ; Coronary artery disease, angina presence unspecified, unspecified vessel or lesion type, unspecified whether [place] or transplanted heart I25.10 ; Secondary hypertension I15.9 ; Unspecified atherosclerosis of [place] arteries of extremities, 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 ; Hypercholesterolemia E78.0 ; Edema, unspecified type R60.9 and Establishing care with new doctor, encounter for Z71.89 IMMUNIZATIONS No Known Immunizations SOCIAL HISTORY Never Assessed REASON FOR VISIT DOT Physical PLAN OF CARE VITAL SIGNS MEDICATIONS No Known Medications RESULTS No Results PROCEDURES No Known procedures INSTRUCTIONS MEDICATIONS ADMINISTERED No Known Medications MEDICAL (GENERAL) HISTORY Type Description Date Medical History Type II DM Medical History Hypertension Medical History Hyperlipidemia Medical History CAD Medical History CKD Surgical History ortho-pins in right hand Surgical History tonsillectomy Hospitalization History surgery
--- OUTSIDE RECORDS SUMMARY | 2019-11-28 19:11 | XMS REPORT ---
Author Author Michi HYDE [facility] Address [address] [place], [place] [id number] Care Team Providers Care Skin Grader Name Role Phone JAYLON HYDE Unavailable PROBLEMS Type Condition ICD9-CM Code [id number] Code Onset Dates Condition S tatus SNOMED Code Problem Coronary artery disease, ang bobby presence unspecified, unspecified vessel or lesion type, unspecified whether [place] or transplanted heart I25.10 Active 69321097 Problem Hypercholesterolemia E78.00 Active 40688367 Problem Hyperlipidemia, unspecified hyperlipidemia type E7 8.5 Active 32841131 Problem 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 Active 720918408 Problem Unspecified atherosclerosis of [place] arteries of extremities, 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 Active 471982 605774311 Problem Edema, unspecified type R60.9 Active 435905289 Problem Secondary hypertension I15.9 Active 77852829 ALLERGIES No Information SOCIAL HISTORY Never Assessed PLAN OF CARE VITAL SIGNS MEDICATIONS Unknown Medications RESULTS No Results PROCEDURES No Known procedures IMMUNIZATIONS No Known Immunizations MEDICAL (GENERAL) HISTORY Type Description Date Medical History Type II DM Medical History Hypertension Surgical History ortho-pins in right hand Surgical History tonsillectomy Hospitalization History surgery
--- OUTSIDE RECORDS SUMMARY | 2019-11-28 19:11 | XMS REPORT ---
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 Name Role Phone CAR DANIELS Unavailable PROBLEMS Type Condition ICD9-CM Code [id number] Code Onset Dates Condition S tatus SNOMED Code Problem Coronary artery disease, ang bobby presence unspecified, unspecified vessel or lesion type, unspecified whether the [place] or transplanted heart I25.10 Active 09869499 Problem Stage 3 chronic kidney disease N18.3 Active 703448731 Problem Hypercholesterolemia E78.00 Active 95585444 Problem Hyperlipidemia, unspecified hyperlipidemia type E7 8.5 Active 38664591 Problem 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 Active 736237400 Problem Unspecified atherosclerosis of the [place] arteries of extremities, 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 Active 921132 261950907 Problem Edema, unspecified type R60.9 Active 937892696 Problem Secondary hypertension I15.9 Active 09080374 ALLERGIES No Known Allergies ENCOUNTERS Encounter Location Date Diagnosis [place] [address] [facility] [id number] [address] [place] [phone] Jan, [facility] [address] [facility] [id number] [address] [place] [phone] Oct, [facility] [address] [place] [id number] [address] [place] [phone] Oct, [facility] [address] [facility] [id number] [address] [place] [phone] Oct, [place] [address] [place] [id number] [address] [place] [phone] Oct, Type 2 diabetes mellitus wit h other circulatory complications E11.59 [facility] [address] [place] [id number] [address] [place] [phone] Oct, Type 2 diabetes mellitus wit h other circulatory complications E11.59 ; Hyperlipidemia, unspecified hyperlipidemia type E78.5 ; Secondary hypertension I15.9 ; Edema, unspecified type R60.9 ; Stage 3 chronic kidney disease N18.3 and Coronary artery disease, angina presence unspecified, unspecified vessel or lesion type, unspecified whether the [place] or transplanted heart I25.10 [place] [address] [facility] [id number] [address] [place] [phone] Sep, Coronary artery disease, ang bobby presence unspecified, unspecified vessel or lesion type, unspecified whether the [place] or transplanted heart I25.10 [place] [address] [facility] [id number] [address] [place] [phone] Jul, Type 2 diabetes mellitus wit h other circulatory complications E11.59 [place] [address] [place] [id number] [address] [place] [phone] May, [place] [address] [place] [id number] [address] [place] [phone] Apr, Skin lesion of scalp L98.9 [place] [address] [facility] [id number] [address] [place] [phone] Apr, Stage 3 chronic kidney disea se N18.3 [place] [address] [facility] [id number] [address] [place] [phone] Apr, Type 2 diabetes mellitus wit h other circulatory complications E11.59 [place] [address] [facility] [id number] [address] [place] [phone] Apr, [place] [address] [facility] [id number] [address] [place] [phone] Mar, Type 2 diabetes mellitus wit h other circulatory complications E11.59 ; Secondary hypertension I15.9 ; Hyperlipidemia, unspecified hyperlipidemia type E78.5 ; Coronary artery disease, angina presence uns pecified, unspecified vessel or lesion type, unspecified whether the [place] or transplanted heart I25.10 and Edema, unspecified type R60.9 [place] [address] [facility] [id number] [address] [place] [phone] Jan, 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 [place] [address] [address] November, 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 ; Type 2 diabetes mellitus with other circulatory complications E11.59 ; Coronary artery disease, angina presence unspecified, unspecified vessel or lesion type, unspecified whether the [place] or transplanted heart I25.10 ; Hypercholesterolemia E78.0 and Hypercholesterolemia E78.00 [place] [address] [place] [id number] [address] [place] [phone] Oct, Coronary artery disease, ang bobby presence unspecified, unspecified vessel or lesion type, unspecified whether the [place] or transplanted heart I25.10 ; Secondary hypertension I15.9 ; Unspecified atherosclerosis of the [place] arteries of extremities, 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 ; Type 2 diabetes mellitus with other circulatory complications E11.59 ; Hypercholesterolemia E78.0 and Edema, unspecified type R60.9 [place] [address] [place] [id number] [address] [place] [phone] Sep, Shortness of breath R06.02 [place] [address] [address] Sep, [place] [address] [address] Aug, Shortness of breath R06.02 ; Edema, unspecified type R60.9 ; Type 2 diabetes mellitus with other circulatory complications E11.59 and Hyperlipidemia, unspecified hyperlipidemia type E78.5 [place] [address] [place] [id number] [address] [place] [phone] Jul, Type 2 diabetes mellitus wit h other circulatory complications E11.59 ; Coronary artery disease, angina presence unspecified, unspecified vessel or lesion type, unspecified whether the [place] or transplanted heart I25.10 ; Secondary hypertension I15.9 ; Unspecified atherosclerosis of the [place] arteries of extremities, 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 ; Hypercholesterolemia E78.0 ; Edema, unspecified type R60.9 ; Acute upper respiratory infection, unspecified J06.9 ; Other viral agents as the cause of diseases classified elsewhere B97.89 ; Vision changes H53.9 ; Periapical abscess without sinus K04.7 and Dental caries, unspecified K02.9 [place] [address] [place] [id number] [address] [place] [phone] Feb, [place] [address] [address] Feb, Type 2 diabetes mellitus wit h other circulatory complications E11.59 ; Coronary artery disease, angina presence unspecified, unspecified vessel or lesion type, unspecified whether the [place] or transplanted heart I25.10 ; Unspecified atherosclerosis of the [place] arteries of extremities, 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 ; Hypercholesterolemia E78.0 ; Edema, unspecified type R60.9 and Secondary hypertension I15.9 [place] [address] [place] [id number] [address] [place] [phone] Jan, Coronary artery disease, ang bobby presence unspecified, unspecified vessel or lesion type, unspecified whether the [place] or transplanted heart I25.10 ; Secondary hypertension I15.9 ; Unspecified atherosclerosis of the [place] arteries of extremities, 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 ; Establishing care with new doctor, encounter for Z71.89 ; Type 2 diabetes mellitus with other circulatory complications E11.59 and Decreased hearing, unspecified laterality H91.90 [place] [address] [place] [id number] [address] [place] [phone] Jan, [place] [address] [place] [id number] [address] [place] [phone] Dec, Type 2 diabetes mellitus wit h other circulatory complications E11.59 ; Coronary artery disease, angina presence unspecified, unspecified vessel or lesion type, unspecified whether the [place] or transplanted heart I25.10 ; Secondary hypertension I15.9 ; Unspecified atherosclerosis of the [place] arteries of extremities, 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 ; Hypercholesterolemia E78.0 ; Edema, unspecified type R60.9 and Establishing care with new doctor, encounter for Z71.89 IMMUNIZATIONS No Known Immunizations SOCIAL HISTORY Never Assessed REASON FOR VISIT Diabetes---DBennettRN, trouble swallowing potassium, has not been taking, c/o le g cramps, taking OTC supplement, cannot recall name, scalp lesion, would like to talk about alternatives to invokana, cannot afford PLAN OF CARE Activity Details Follow Up 4 Weeks Reason:needs 40 min procedure VITAL SIGNS Height 67 in 2017-04-10 Weight 236 lbs 2017-04-10 Temperature 98.1 degrees Fahrenheit 2017-04-10 Heart Rate 80 bpm 2017-04-10 Respiratory Rate 20 2017-04-10 BMI 36.96 kg/m2 2017-04-10 Blood pressure systolic 160 mmHg 2017-04-10 Blood pressure diastolic 88 mmHg 2017-04-10 MEDICATIONS Medication Instructions Dosage Frequency Start Date End Date Duration S tatus Lasix 40 mg Orally Once a day 1 tablet 24h Feb, 90 d ays Active Invokana 300 MG Orally Once a day 1 tablet 24h Jun, 30 days Active Atorvastatin Calcium 10 mg Orally Once a day 1 tablet 24h 2016 90 days Active Potassium Chloride ER 10 MEQ Orally Once a day 2 tablet with food 2 4h Mar, Jun, 90 days Active Metformin HCl 1000 MG Orally 2 times a day TAKE ONE TABLET B Y MOUTH TWICE DAILY WITH MEALS 12h 30 days Active Pioglitazone HCl 45 MG Orally Once a day 1 tablet 24h November, 90 days Active Aspirin 325 MG Orally Once a day 1 tablet 24h Active Losartan Potassium 100 mg Orally Once a day 1 tablet 24h Dec, 30 days Active Carvedilol 6.25 MG Orally 2 times a day 1 tablet 12h 29 Mar, 2017 90 days Active RESULTS Name Result Date Reference Range A1C (IN HOUSE) 2017-04-10 A1C IN HOUSE 6.6 4.3 - 5.6 % Previous A1c 8.0 Lot [id number] Exp date 01/28 THYROID ANALYZER 2017-04-10 TSH 1.890 0.450-4.500 CBC 2017-04-10 WBC 8.2 3.4-10.8 RBC 4.41 4.14-5.80 Hemoglobin 12.7 12.6-17.7 Hematocrit 37.4 37.5-51.0 MCV 85 79-97 MCH 28.8 26.6-33.0 MCHC 34.0 31.5-35.7 RDW 14.3 12.3-15.4 Platelets 296 150-379 Neutrophils 64 Lymphs 19 Monocytes 10 Eos 6 Basos 1 Neutrophils (Absolute) 5.3 1.4-7.0 Lymphs (Absolute) 1.5 0.7-3.1 Monocytes(Absolute) 0.8 0.1-0.9 Eos (Absolute) 0.5 0.0-0.4 Baso (Absolute) 0.1 0.0-0.2 Immature Granulocytes 0 Immature Grans (Abs) 0.0 0.0-0.1 LIPID PANEL 2017-04-10 Cholesterol, Total 236 100-199 Triglycerides 228 0-149 HDL Cholesterol 48 >39 VLDL Cholesterol Celestine 46 5-40 LDL Cholesterol Calc 142 0-99 CMP 2017-04-10 Glucose, Serum 134 65-99 BUN 50 6-24 Creatinine, Serum 2.08 0.76-1.27 eGFR If NonAfricn Am 34 >59 eGFR If Africn Am 39 >59 BUN/Creatinine Ratio 24 9-20 Sodium, Serum 142 134-144 Potassium, Serum 4.6 3.5-5.2 Chloride, Serum 101 96-106 Carbon Dioxide, Total 25 18-29 Calcium, Serum 10.1 8.7-10.2 Protein, Total, Serum 6.5 6.0-8.5 Albumin, Serum 3.8 3.5-5.5 Globulin, Total 2.7 1.5-4.5 A/G Ratio 1.4 1.2-2.2 Bilirubin, Total 0.3 0.0-1.2 Alkaline Phosphatase, S 139 39-117 AST (SGOT) 13 0-40 ALT (SGPT) 11 0-44 PROCEDURES Procedure Date Ordered Result Body Site GLYCATED HEMOGLOBIN TEST Apr 10, 2017 VENIPUNCT, ROUTINE* Apr 10, 2017 COMPREHEN METABOLIC PANEL Apr 10, 2017 COMPLETE CBC W/AUTO DIFF WBC Apr 10, 2017 LIPID PANEL Apr 10, 2017 ASSAY THYROID STIM HORMONE Apr 10, 2017 INSTRUCTIONS MEDICATIONS ADMINISTERED No Known Medications MEDICAL (GENERAL) HISTORY Type Description Date Medical History Type II DM Medical History Hypertension Medical History Hyperlipidemia Surgical History ortho-pins in right hand Surgical History tonsillectomy Hospitalization History surgery
--- OUTSIDE RECORDS SUMMARY | 2019-11-28 19:11 | XMS REPORT ---
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 Name Role Phone JAYLON HYDE Unavailable PROBLEMS Type Condition ICD9-CM Code OEN66-RA Code Onset Dates Condition S tatus SNOMED Code Problem Coronary artery disease, ang bobby presence unspecified, unspecified vessel or lesion type, unspecified whether [place] or transplanted heart I25.10 Active 12110134 Problem Hypercholesterolemia E78.00 Active 66038972 Problem Hyperlipidemia, unspecified hyperlipidemia type E7 8.5 Active 16410430 Problem 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 Active 092710939 Problem Unspecified atherosclerosis of [place] arteries of extremities, 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 Active 011206 441781924 Problem Edema, unspecified type R60.9 Active 967615699 Problem Secondary hypertension I15.9 Active 60176430 ALLERGIES No Known Allergies SOCIAL HISTORY Never Assessed PLAN OF CARE Activity Details Follow Up 4 Weeks Reason: VITAL SIGNS Height 67 in 2016-08-20 Weight 236 lbs 2016-08-20 Heart Rate 76 bpm 2016-08-20 Oximetry 96 % 2016-08-20 BMI 36.96 kg/m2 2016-08-20 Blood pressure systolic 160 mmHg 2016-08-20 Blood pressure diastolic 76 mmHg 2016-08-20 MEDICATIONS Medication Instructions Dosage Frequency Start Date End Date Duration S tatus Proventil HFA 108 (90 Base) MCG/ACT Inhalation every 4 hrs 2 puffs as needed 4h 24 Jul, 2016 30 days Active Mucinex 600 MG Orally every 12 hrs 1 tablet as needed 12h 24 J an, 2016Aug, 20 days Active Losartan Potassium 25 MG Orally Once a day 2 tablets 24h 30 Dec, 201 6 Active Metformin HCl 500 MG Orally Twice a day 1 tablet with meals 12h 30 Dec, 2015 30 days Active Aspirin 325 MG Orally Once a day 1 tablet 24h Active Lasix 40 mg Orally Once a day 1 tablet 24h 15 Feb, 2016 90 d ays Active Potassium Gluconate 595 MG Orally Once a day 1 tablet 24h Oct, 90 days Active Invokana 300 MG Orally Once a day 1 tablet 24h Oct, 90 days Active Carvedilol 12.5 MG Orally Twice a day 1 tablet 12h Active Lovastatin 20 MG Orally Once a day 1 tablet 24h Active RESULTS Name Result Date Reference Range Lexiscan Stress Nuclear Test 2016-09-09 Echo 2D 2016-09-08 PROCEDURES Procedure Date Ordered Result Body Site PULMONARY FUNCTION TEST 2016-08-20 N/A MEASURE BLOOD OXYGEN LEVEL Aug 20, 2016 IMMUNIZATIONS No Known Immunizations MEDICAL (GENERAL) HISTORY Type Description Date Medical History Type II DM Medical History Hypertension Surgical History ortho-pins in right hand Surgical History tonsillectomy Hospitalization History surgery
--- OUTSIDE RECORDS SUMMARY | 2019-11-28 19:11 | XMS REPORT ---
Author Author Michi DANIELS Organization [facility] Address [address] [place] [address] Care Team Providers Care Receptionist Nurse Name Role Phone CAR DANIELS Unavailable PROBLEMS Type Condition ICD9-CM Code BLO50-SG Code Onset Dates Condition S tatus SNOMED Code Problem Coronary artery disease, ang bobby presence unspecified, unspecified vessel or lesion type, unspecified whether [place] or transplanted heart I25.10 Active 16183920 Problem Stage 3 chronic kidney disease N18.3 Active 333509092 Problem Hypercholesterolemia E78.00 Active 06713878 Problem Hyperlipidemia, unspecified hyperlipidemia type E7 8.5 Active 04724689 Problem 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 Active 778594920 Problem Unspecified atherosclerosis of [place] arteries of extremities, 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 Active 571360 582897397 Problem Edema, unspecified type R60.9 Active 056615284 Problem Secondary hypertension I15.9 Active 95833274 ALLERGIES No Information ENCOUNTERS Encounter Location Date Diagnosis [id number] [id number] [address] [place] [phone] Jan, [facility] [address] [facility] [id number] [address] [place] [phone] Oct, [facility] [address] [place] [id number] [place] [phone] Oct, [facility] [address] [facility] [id number] [address] [place] [phone] Oct, [place] [address] [address] [place] [id number] [place] [phone] Oct, Type 2 diabetes mellitus wit h other circulatory complications E11.59 [facility] [address] [place] [id number] [place] [id number] Oct, Type 2 diabetes mellitus wit h other circulatory complications E11.59 ; Hyperlipidemia, unspecified hyperlipidemia type E78.5 ; Secondary hypertension I15.9 ; Edema, unspecified type R60.9 ; Stage 3 chronic kidney disease N18.3 and Coronary artery disease, angina presence unspecified, unspecified vessel or lesion type, unspecified whether [place] or transplanted heart I25.10 [place] [address] [address] [facility] [id number] [address] [place] [phone] Sep, Coronary artery disease, ang bobby presence unspecified, unspecified vessel or lesion type, unspecified whether [place] or transplanted heart I25.10 [place] [address] [address] [facility] [id number] [address] [place] [id number] Jul, Type 2 diabetes mellitus wit h other circulatory complications E11.59 [place] [address] [address] [facility] [id number] [address] [place] [phone] 09 May, 2017 [place] [address] [address] [facility] [id number] [address] [place] [id number] Apr, Skin lesion of scalp L98.9 [place] [address] [address] [facility] [id number] [address] [place] [id number] Apr, Stage 3 chronic kidney disea se N18.3 [place] [address] [address] [facility] [id number] [address] [place] [phone] Apr, Type 2 diabetes mellitus wit h other circulatory complications E11.59 [place] [address] [address] [facility] [id number] [address] [place] [phone] Apr, [place] [address] [address] [facility] [id number] [address] [place] [id number] Mar, Type 2 diabetes mellitus wit h other circulatory complications E11.59 ; Secondary hypertension I15.9 ; Hyperlipidemia, unspecified hyperlipidemia type E78.5 ; Coronary artery disease, angina presence uns pecified, unspecified vessel or lesion type, unspecified whether [place] or transplanted heart I25.10 and Edema, unspecified type R60.9 [place] [address] [address] [facility] [id number] [address] [place] [phone] Jan, 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 [place] [address] [phone] November, 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 ; Type 2 diabetes mellitus with other circulatory complications E11.59 ; Coronary artery disease, angina presence unspecified, unspecified vessel or lesion type, unspecified whether [place] or transplanted heart I25.10 ; Hypercholesterolemia E78.0 and Hypercholesterolemia E78.00 [place] [address] [address] [place] [id number] [address] [place] [address] Oct, Coronary artery disease, ang bobby presence unspecified, unspecified vessel or lesion type, unspecified whether [place] or transplanted heart I25.10 ; Secondary hypertension I15.9 ; Unspecified atherosclerosis of [place] arteries of extremities, 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 ; Type 2 diabetes mellitus with other circulatory complications E11.59 ; Hypercholesterolemia E78.0 and Edema, unspecified type R60.9 [place] [address] [address] [place] [id number] [address] [place] [id number] Sep, Shortness of breath R06.02 [place] [address] [address] Sep, [place] [address] [phone] Aug, Shortness of breath R06.02 ; Edema, unspecified type R60.9 ; Type 2 diabetes mellitus with other circulatory complications E11.59 and Hyperlipidemia, unspecified hyperlipidemia type E78.5 [place] [address] [address] [place] [id number] [place] [phone] Jul, Type 2 diabetes mellitus wit h other circulatory complications E11.59 ; Coronary artery disease, angina presence unspecified, unspecified vessel or lesion type, unspecified whether [place] or transplanted heart I25.10 ; Secondary hypertension I15.9 ; Unspecified atherosclerosis of [place] arteries of extremities, 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 ; Hypercholesterolemia E78.0 ; Edema, unspecified type R60.9 ; Acute upper respiratory infection, unspecified J06.9 ; Other viral agents as the cause of diseases classified elsewhere B97.89 ; Vision changes H53.9 ; Periapical abscess without sinus K04.7 and Dental caries, unspecified K02.9 [place] [address] [address] [place] [id number] [place] [id number] Feb, [place] [address] [address] Feb, Type 2 diabetes mellitus wit h other circulatory complications E11.59 ; Coronary artery disease, angina presence unspecified, unspecified vessel or lesion type, unspecified whether [place] or transplanted heart I25.10 ; Unspecified atherosclerosis of [place] arteries of extremities, 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 ; Hypercholesterolemia E78.0 ; Edema, unspecified type R60.9 and Secondary hypertension I15.9 [place] [address] [address] Jan, Coronary artery disease, ang bobby presence unspecified, unspecified vessel or lesion type, unspecified whether [place] or transplanted heart I25.10 ; Secondary hypertension I15.9 ; Unspecified atherosclerosis of [place] arteries of extremities, 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 ; Establishing care with new doctor, encounter for Z71.89 ; Type 2 diabetes mellitus with other circulatory complications E11.59 and Decreased hearing, unspecified laterality H91.90 [place] [id number] [place] [address] Jan, [place] [address] [address] Dec, Type 2 diabetes mellitus wit h other circulatory complications E11.59 ; Coronary artery disease, angina presence unspecified, unspecified vessel or lesion type, unspecified whether [place] or transplanted heart I25.10 ; Secondary hypertension I15.9 ; Unspecified atherosclerosis of [place] arteries of extremities, 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 ; Hypercholesterolemia E78.0 ; Edema, unspecified type R60.9 and Establishing care with new doctor, encounter for Z71.89 IMMUNIZATIONS No Known Immunizations SOCIAL HISTORY Never Assessed REASON FOR VISIT Referral PLAN OF CARE VITAL SIGNS MEDICATIONS Unknown Medications RESULTS No Results PROCEDURES No Known procedures INSTRUCTIONS MEDICATIONS ADMINISTERED No Known Medications MEDICAL (GENERAL) HISTORY Type Description Date Medical History Type II DM Medical History Hypertension Medical History Hyperlipidemia Surgical History ortho-pins in right hand Surgical History tonsillectomy Hospitalization History surgery
--- OUTSIDE RECORDS SUMMARY | 2019-11-28 19:11 | XMS REPORT ---
Author Author Michi DANIELS Organization [facility] Address [address] [place] [address] Care Team Providers Care Usability Strategist Name Role Phone CAR DANIELS Unavailable PROBLEMS Type Condition ICD9-CM Code LZL08-PL Code Onset Dates Condition S tatus SNOMED Code Problem Coronary artery disease, ang bobby presence unspecified, unspecified vessel or lesion type, unspecified whether [place] or transplanted heart I25.10 Active 20386857 Problem Stage 3 chronic kidney disease N18.3 Active 094792943 Problem Hypercholesterolemia E78.00 Active 00527399 Problem Hyperlipidemia, unspecified hyperlipidemia type E7 8.5 Active 65348517 Problem 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 Active 426300415 Problem Unspecified atherosclerosis of [place] arteries of extremities, 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 Active 148483 512103733 Problem Edema, unspecified type R60.9 Active 589645587 Problem Secondary hypertension I15.9 Active 81759571 ALLERGIES No Information ENCOUNTERS Encounter Location Date Diagnosis [place] [id number] [place] [id number] [place] [phone] Jan, [facility] [address] [facility] [id number] [address] [place] [phone] Oct, [facility] [address] [place] [id number] [place] [phone] Oct, [facility] [address] [facility] [id number] [address] [place] [phone] Oct, [place] [address] [address] [place] [id number] [place] [phone] Oct, Type 2 diabetes mellitus wit h other circulatory complications E11.59 [facility] [address] [place] [id number] [place] [phone] Oct, Type 2 diabetes mellitus wit h other circulatory complications E11.59 ; Hyperlipidemia, unspecified hyperlipidemia type E78.5 ; Secondary hypertension I15.9 ; Edema, unspecified type R60.9 ; Stage 3 chronic kidney disease N18.3 and Coronary artery disease, angina presence unspecified, unspecified vessel or lesion type, unspecified whether [place] or transplanted heart I25.10 [place] [address] [facility] [id number] [address] [place] [phone] Sep, Coronary artery disease, ang bobby presence unspecified, unspecified vessel or lesion type, unspecified whether [place] or transplanted heart I25.10 [place] [address] [facility] [id number] [address] [place] [id number] Jul, Type 2 diabetes mellitus wit h other circulatory complications E11.59 [place] [address] [facility] [id number] [address] [place] [phone] 09 May, 2017 [place] [address] [facility] [id number] [address] [place] [phone] Apr, Skin lesion of scalp L98.9 [place] [address] [facility] [id number] [address] [place] [phone] Apr, Stage 3 chronic kidney disea se N18.3 [place] [address] [address] [facility] [id number] [address] [place] [phone] Apr, Type 2 diabetes mellitus wit h other circulatory complications E11.59 [place] [address] [facility] [id number] [address] [place] [phone] Apr, [place] [address] [facility] [id number] [address] [place] [phone] Mar, Type 2 diabetes mellitus wit h other circulatory complications E11.59 ; Secondary hypertension I15.9 ; Hyperlipidemia, unspecified hyperlipidemia type E78.5 ; Coronary artery disease, angina presence uns pecified, unspecified vessel or lesion type, unspecified whether [place] or transplanted heart I25.10 and Edema, unspecified type R60.9 [place] [address] [facility] [id number] [address] [place] [phone] Jan, 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 [place] [address] [address] November, 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 ; Type 2 diabetes mellitus with other circulatory complications E11.59 ; Coronary artery disease, angina presence unspecified, unspecified vessel or lesion type, unspecified whether [place] or transplanted heart I25.10 ; Hypercholesterolemia E78.0 and Hypercholesterolemia E78.00 [place] [address] [address] [place] [id number] [address] [place] [phone] Oct, Coronary artery disease, ang bobby presence unspecified, unspecified vessel or lesion type, unspecified whether [place] or transplanted heart I25.10 ; Secondary hypertension I15.9 ; Unspecified atherosclerosis of [place] arteries of extremities, 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 ; Type 2 diabetes mellitus with other circulatory complications E11.59 ; Hypercholesterolemia E78.0 and Edema, unspecified type R60.9 [place] [address] [place] [id number] [address] [place] [id number] Sep, Shortness of breath R06.02 [place] [address] [address] Sep, [place] [address] [address] Aug, Shortness of breath R06.02 ; Edema, unspecified type R60.9 ; Type 2 diabetes mellitus with other circulatory complications E11.59 and Hyperlipidemia, unspecified hyperlipidemia type E78.5 [place] [address] [place] [id number] [place] [phone] Jul, Type 2 diabetes mellitus wit h other circulatory complications E11.59 ; Coronary artery disease, angina presence unspecified, unspecified vessel or lesion type, unspecified whether [place] or transplanted heart I25.10 ; Secondary hypertension I15.9 ; Unspecified atherosclerosis of [place] arteries of extremities, 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 ; Hypercholesterolemia E78.0 ; Edema, unspecified type R60.9 ; Acute upper respiratory infection, unspecified J06.9 ; Other viral agents as the cause of diseases classified elsewhere B97.89 ; Vision changes H53.9 ; Periapical abscess without sinus K04.7 and Dental caries, unspecified K02.9 [place] [address] [place] [id number] [place] [phone] Feb, [place] [address] [address] Feb, Type 2 diabetes mellitus wit h other circulatory complications E11.59 ; Coronary artery disease, angina presence unspecified, unspecified vessel or lesion type, unspecified whether [place] or transplanted heart I25.10 ; Unspecified atherosclerosis of [place] arteries of extremities, 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 ; Hypercholesterolemia E78.0 ; Edema, unspecified type R60.9 and Secondary hypertension I15.9 [place] [address] [place] [id number] [address] [place] [id number] Jan, Coronary artery disease, ang bobby presence unspecified, unspecified vessel or lesion type, unspecified whether [place] or transplanted heart I25.10 ; Secondary hypertension I15.9 ; Unspecified atherosclerosis of [place] arteries of extremities, 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 ; Establishing care with new doctor, encounter for Z71.89 ; Type 2 diabetes mellitus with other circulatory complications E11.59 and Decreased hearing, unspecified laterality H91.90 [place] [id number] [place] [phone] Jan, [place] [address] [place] [id number] [address] [place] [phone] Dec, Type 2 diabetes mellitus wit h other circulatory complications E11.59 ; Coronary artery disease, angina presence unspecified, unspecified vessel or lesion type, unspecified whether [place] or transplanted heart I25.10 ; Secondary hypertension I15.9 ; Unspecified atherosclerosis of [place] arteries of extremities, 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 ; Hypercholesterolemia E78.0 ; Edema, unspecified type R60.9 and Establishing care with new doctor, encounter for Z71.89 IMMUNIZATIONS No Known Immunizations SOCIAL HISTORY Never Assessed REASON FOR VISIT PALS PLAN OF CARE VITAL SIGNS MEDICATIONS Medication Instructions Dosage Frequency Start Date End Date Duration S tatus Invokana 300 MG Orally Once a day 1 tablet 24h 30 Mar, 2018 90 days Active RESULTS No Results PROCEDURES No Known procedures INSTRUCTIONS MEDICATIONS ADMINISTERED No Known Medications MEDICAL (GENERAL) HISTORY Type Description Date Medical History Type II DM Medical History Hypertension Medical History Hyperlipidemia Surgical History ortho-pins in right hand Surgical History tonsillectomy Hospitalization History surgery
--- OUTSIDE RECORDS SUMMARY | 2019-11-28 19:11 | XMS REPORT ---
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
--- OUTSIDE RECORDS SUMMARY | 2019-11-28 19:11 | XMS REPORT ---
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 Unknown Non Drug Allergy Jul, Unknown SOCIAL HISTORY No smoking Hx information available PLAN OF CARE Activity Details Follow Up 2 months Reason:dm VITAL SIGNS Height 67 in 2016-08-05 Weight 241 lbs 2016-08-05 Temperature 97.1 degrees Fahrenheit 2016-08-05 Heart Rate 76 bpm 2016-08-05 Respiratory Rate 18 2016-08-05 BMI 37.74 kg/m2 2016-08-05 Blood pressure systolic 190 mmHg 2016-08-05 Blood pressure diastolic 102 mmHg 2016-08-05 MEDICATIONS Medication Instructions Dosage Frequency Start Date End Date Duration S tatus Lasix 40 mg Orally Once a day 1 tablet 24h Feb, 90 d ays Active Metformin HCl 500 MG Orally Twice a day 1 tablet with meals 12h 30 Dec, 2015 30 days Active Losartan Potassium 25 MG Orally Once a day 2 tablets 24h 30 Dec, 201 6 Active Invokana 300 MG Orally Once a day 1 tablet 24h 24 Oct, 2016 90 days Active Aspirin 325 MG Orally Once a day 1 tablet 24h Active Potassium Gluconate 595 MG Orally Once a day 1 tablet 24h 24 Oct, 2016 90 days Active Lovastatin 40 MG Orally Once a day 1/2 tablet 24h Active Carvedilol 50 mg Orally Once a day 1 tablet 24h 90 d ays Active Mucinex 600 MG Orally every 12 hrs 1 tablet as needed 12h 24 J 2016Aug, 20 days Active Proventil HFA 108 (90 Base) MCG/ACT Inhalation every 4 hrs 2 puffs as needed 4h 24 Jul, 2016 30 days Active RESULTS Name Result Date Reference Range A1C (IN HOUSE) 2016-08-05 A1C IN HOUSE 8.1 4.3 - 5.6 % Previous A1c 7.9 Lot [id number] Exp date 05/2018 MICROALBUMIN, URINE (IN HOUSE) 2016-08-05 MICROALBUMIN high abnormal Lot # [id number] Exp date 07/2017 Clarity clear Color yellow ALB 1150MG/L CRE 50mg/dl A:C (IN HOUSE) >300mg/g Control Control Lot # Exp date CBC 2016-08-05 WBC 8.2 3.4-10.8 RBC 4.69 4.14-5.80 Hemoglobin 13.5 12.6-17.7 Hematocrit 40.9 37.5-51.0 MCV 87 79-97 MCH 28.8 26.6-33.0 MCHC 33.0 31.5-35.7 RDW 13.7 12.3-15.4 Platelets 263 150-379 Neutrophils 68 Lymphs 16 Monocytes 10 Eos 5 Basos 1 Immature Cells Neutrophils (Absolute) 5.6 1.4-7.0 Lymphs (Absolute) 1.3 0.7-3.1 Monocytes(Absolute) 0.8 0.1-0.9 Eos (Absolute) 0.4 0.0-0.4 Baso (Absolute) 0.1 0.0-0.2 Immature Granulocytes 0 Immature Grans (Abs) 0.0 0.0-0.1 NRBC Hematology Comments: PROCEDURES Procedure Date Ordered Related Diagnosis Body Site MICROALBUMIN, SEMIQUANT Aug 05, 2016 GLYCATED HEMOGLOBIN TEST Aug 05, 2016 Office Visit, Est Pt., Level 4 Aug 05, 2016 COMPLETE CBC W/AUTO DIFF WBC Aug 05, 2016 VENIPUNCT, ROUTINE* Aug 05, 2016 IMMUNIZATIONS No Known Immunizations
--- OUTSIDE RECORDS SUMMARY | 2019-11-28 19:11 | XMS REPORT ---
Author Author Michi GARCIA [facility] Address [address] [place] [address] Care Team Providers Care Family Intervention Specialist Name Role Phone JAZMINE GARCIA Unavailable PROBLEMS Type Condition ICD9-CM Code [id number] Code Onset Dates Condition S tatus SNOMED Code Problem Coronary artery disease, ang bobby presence unspecified, unspecified vessel or lesion type, unspecified whether [place] or transplanted heart I25.10 Active 59586124 Problem Stage 3 chronic kidney disease N18.3 Active 060164575 Problem Hypercholesterolemia E78.00 Active 14360930 Problem Hyperlipidemia, unspecified hyperlipidemia type E7 8.5 Active 79152443 Problem 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 Active 931536270 Problem Unspecified atherosclerosis of [place] arteries of extremities, 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 Active 123434 566760262 Problem Edema, unspecified type R60.9 Active 694983462 Problem Secondary hypertension I15.9 Active 23140461 ALLERGIES No Known Allergies SOCIAL HISTORY Never Assessed PLAN OF CARE Activity Details Follow Up 3 Months Reason:dm,htn cad VITAL SIGNS Height 67 in 2016-11-17 Weight 226 lbs 2016-11-17 Temperature 97.4 degrees Fahrenheit 2016-11-17 Heart Rate 84 bpm 2016-11-17 Respiratory Rate 18 2016-11-17 BMI 35.39 kg/m2 2016-11-17 Blood pressure systolic 140 mmHg 2016-11-17 Blood pressure diastolic 82 mmHg 2016-11-17 MEDICATIONS Medication Instructions Dosage Frequency Start Date End Date Duration S tatus Carvedilol 12.5 MG Orally Twice a day 1 tablet 12h Active Invokana 300 MG Orally Once a day 1 tablet 24h 90 da ys Active Actos 45 MG Orally Once a day 1 tablet 24h 08 Nov, 2016 90 d ays Active Lasix 40 mg Orally Once a day 1 tablet 24h 15 Feb, 2016 90 d ays Active Metformin HCl 1000 MG Orally Twice a day 1 tablet with meals 12h 30 Dec, 2015 30 days Active Losartan Potassium 100 MG Orally Once a day 2 tablets 24h 30 Dec, 16 Active Pioglitazone HCl 45 MG Orally Once a day 1 tablet 24h November, 90 days Active Lovastatin 20 mg Orally Once a day 1 tablet 24h 30 d ays Active Potassium Chloride 20 MEQ Orally Once a day 1 packet with food 24h Oct, 30 day(s) Active Aspirin 325 MG Orally Once a day 1 tablet 24h Active RESULTS Name Result Date Reference Range A1C (IN HOUSE) 2016-11-17 A1C IN HOUSE 8.0 4.3 - 5.6 % Previous A1c 8.1 Lot [id number] Exp date 07/2018 UA LONG DIP (IN HOUSE) 2016-11-17 Lot # [id number] Exp date 09/09/2017 Clarity clear Color yellow Odor none GLU 2+ ECTOR negative KET negative SG 1.015 BLO trace-lysed pH 5.0 Protein 2+ URO 0.2 NIT negative MAURICE negative Lot # Exp date PROCEDURES Procedure Date Ordered Result Body Site URINALYSIS, AUTO, W/O SCOPE November 17, 2016 GLYCATED HEMOGLOBIN TEST November 17, 2016 IMMUNIZATIONS No Known Immunizations MEDICAL (GENERAL) HISTORY Type Description Date Medical History Type II DM Medical History Hypertension Surgical History ortho-pins in right hand Surgical History tonsillectomy Hospitalization History surgery
--- OUTSIDE RECORDS SUMMARY | 2019-11-28 19:11 | XMS REPORT ---
Author Author iMchi GARCIA [facility] Address [address] [place] [address] Care Team Providers Care Commissioning Engineer Name Role Phone JAZMINE GARCIA Unavailable PROBLEMS Type Condition ICD9-CM Code JOP38-DR Code Onset Dates Condition S tatus SNOMED Code Problem Coronary artery disease, ang bobby presence unspecified, unspecified vessel or lesion type, unspecified whether [place] or transplanted heart I25.10 Active 76990291 Problem Stage 3 chronic kidney disease N18.3 Active 912258556 Problem Hypercholesterolemia E78.00 Active 81224051 Problem Hyperlipidemia, unspecified hyperlipidemia type E7 8.5 Active 94698651 Problem 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 Active 561624587 Problem Unspecified atherosclerosis of [place] arteries of extremities, 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 Active 451980 564266363 Problem Edema, unspecified type R60.9 Active 374477479 Problem Secondary hypertension I15.9 Active 26792515 ALLERGIES No Information SOCIAL HISTORY Never Assessed PLAN OF CARE VITAL SIGNS MEDICATIONS Medication Instructions Dosage Frequency Start Date End Date Duration S tatus Spirometer 1 by inhalation route 3-5 times a day as directed Sep, lifetime Active RESULTS No Results PROCEDURES No Known procedures IMMUNIZATIONS No Known Immunizations MEDICAL (GENERAL) HISTORY Type Description Date Medical History Type II DM Medical History Hypertension Surgical History ortho-pins in right hand Surgical History tonsillectomy Hospitalization History surgery
--- OUTSIDE RECORDS SUMMARY | 2019-11-28 19:11 | XMS REPORT ---
Author Author Michi DANIELS Organization [facility] Address [address] [place] [address] Care Team Providers Care Vegetable Farm Manager Name Role Phone CAR DANIELS Unavailable PROBLEMS Type Condition ICD9-CM Code NMR16-YM Code Onset Dates Condition S tatus SNOMED Code Problem Coronary artery disease, ang bobby presence unspecified, unspecified vessel or lesion type, unspecified whether [place] or transplanted heart I25.10 Active 50314675 Problem Stage 3 chronic kidney disease N18.3 Active 652359080 Problem Hypercholesterolemia E78.00 Active 15171030 Problem Hyperlipidemia, unspecified hyperlipidemia type E7 8.5 Active 20265363 Problem 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 Active 463540546 Problem Unspecified atherosclerosis of [place] arteries of extremities, 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 Active 269060 907055150 Problem Edema, unspecified type R60.9 Active 191642591 Problem Secondary hypertension I15.9 Active 20081301 ALLERGIES No Information ENCOUNTERS Encounter Location Date Diagnosis [place] [id number] [place] [id number] [place] [phone] Jan, [place] [id number] [facility] [id number] [address] [place] [phone] Oct, [facility] [address] [place] [id number] [place] [phone] Oct, [facility] [address] [facility] [id number] [address] [place] [phone] Oct, [place] [address] [place] [id number] [place] [phone] Oct, Type 2 diabetes mellitus wit h other circulatory complications E11.59 [facility] [address] [place] [id number] [place] [phone] Oct, Type 2 diabetes mellitus wit h other circulatory complications E11.59 ; Hyperlipidemia, unspecified hyperlipidemia type E78.5 ; Secondary hypertension I15.9 ; Edema, unspecified type R60.9 ; Stage 3 chronic kidney disease N18.3 and Coronary artery disease, angina presence unspecified, unspecified vessel or lesion type, unspecified whether [place] or transplanted heart I25.10 [place] [address] [address] [facility] [id number] [address] [place] [phone] Sep, Coronary artery disease, ang bobby presence unspecified, unspecified vessel or lesion type, unspecified whether [place] or transplanted heart I25.10 [place] [address] [address] [facility] [id number] [address] [place] [phone] Jul, Type 2 diabetes mellitus wit h other circulatory complications E11.59 [place] [address] [address] [facility] [id number] [address] [place] [phone] 09 May, 2017 [place] [address] [address] [facility] [id number] [address] [place] [phone] Apr, Skin lesion of scalp L98.9 [place] [address] [address] [facility] [id number] [address] [place] [phone] Apr, Stage 3 chronic kidney disea se N18.3 [place] [address] [address] [facility] [id number] [address] [place] [address] Apr, Type 2 diabetes mellitus wit h other circulatory complications E11.59 [place] [address] [address] [facility] [id number] [address] [place] [phone] Apr, [place] [address] [address] [facility] [id number] [address] [place] [phone] Mar, Type 2 diabetes mellitus wit h other circulatory complications E11.59 ; Secondary hypertension I15.9 ; Hyperlipidemia, unspecified hyperlipidemia type E78.5 ; Coronary artery disease, angina presence uns pecified, unspecified vessel or lesion type, unspecified whether [place] or transplanted heart I25.10 and Edema, unspecified type R60.9 [place] [address] [address] [facility] [id number] [address] [place] [phone] Jan, 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 [place] [address] [phone] November, 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 ; Type 2 diabetes mellitus with other circulatory complications E11.59 ; Coronary artery disease, angina presence unspecified, unspecified vessel or lesion type, unspecified whether [place] or transplanted heart I25.10 ; Hypercholesterolemia E78.0 and Hypercholesterolemia E78.00 [place] [address] [address] [place] [id number] [place] [phone] Oct, Coronary artery disease, ang bobby presence unspecified, unspecified vessel or lesion type, unspecified whether [place] or transplanted heart I25.10 ; Secondary hypertension I15.9 ; Unspecified atherosclerosis of [place] arteries of extremities, 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 ; Type 2 diabetes mellitus with other circulatory complications E11.59 ; Hypercholesterolemia E78.0 and Edema, unspecified type R60.9 [place] [address] [place] [id number] [place] [phone] Sep, Shortness of breath R06.02 [place] [address] [phone] Sep, [place] [address] [address] Aug, Shortness of breath R06.02 ; Edema, unspecified type R60.9 ; Type 2 diabetes mellitus with other circulatory complications E11.59 and Hyperlipidemia, unspecified hyperlipidemia type E78.5 [place] [address] [place] [id number] [place] [phone] Jul, Type 2 diabetes mellitus wit h other circulatory complications E11.59 ; Coronary artery disease, angina presence unspecified, unspecified vessel or lesion type, unspecified whether [place] or transplanted heart I25.10 ; Secondary hypertension I15.9 ; Unspecified atherosclerosis of [place] arteries of extremities, 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 ; Hypercholesterolemia E78.0 ; Edema, unspecified type R60.9 ; Acute upper respiratory infection, unspecified J06.9 ; Other viral agents as the cause of diseases classified elsewhere B97.89 ; Vision changes H53.9 ; Periapical abscess without sinus K04.7 and Dental caries, unspecified K02.9 [place] [address] [address] [place] [id number] [place] [phone] Feb, [place] [address] [address] Feb, Type 2 diabetes mellitus wit h other circulatory complications E11.59 ; Coronary artery disease, angina presence unspecified, unspecified vessel or lesion type, unspecified whether [place] or transplanted heart I25.10 ; Unspecified atherosclerosis of [place] arteries of extremities, 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 ; Hypercholesterolemia E78.0 ; Edema, unspecified type R60.9 and Secondary hypertension I15.9 [place] [address] [phone] Jan, Coronary artery disease, ang bobby presence unspecified, unspecified vessel or lesion type, unspecified whether [place] or transplanted heart I25.10 ; Secondary hypertension I15.9 ; Unspecified atherosclerosis of [place] arteries of extremities, 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 ; Establishing care with new doctor, encounter for Z71.89 ; Type 2 diabetes mellitus with other circulatory complications E11.59 and Decreased hearing, unspecified laterality H91.90 [place] [id number] [place] [phone] Jan, [place] [address] [phone] Dec, Type 2 diabetes mellitus wit h other circulatory complications E11.59 ; Coronary artery disease, angina presence unspecified, unspecified vessel or lesion type, unspecified whether [place] or transplanted heart I25.10 ; Secondary hypertension I15.9 ; Unspecified atherosclerosis of [place] arteries of extremities, 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 ; Hypercholesterolemia E78.0 ; Edema, unspecified type R60.9 and Establishing care with new doctor, encounter for Z71.89 IMMUNIZATIONS No Known Immunizations SOCIAL HISTORY Never Assessed REASON FOR VISIT lab order PLAN OF CARE VITAL SIGNS MEDICATIONS Unknown Medications RESULTS No Results PROCEDURES No Known procedures INSTRUCTIONS MEDICATIONS ADMINISTERED No Known Medications MEDICAL (GENERAL) HISTORY Type Description Date Medical History Type II DM Medical History Hypertension Medical History Hyperlipidemia Surgical History ortho-pins in right hand Surgical History tonsillectomy Hospitalization History surgery
--- OUTSIDE RECORDS SUMMARY | 2019-11-28 19:11 | XMS REPORT ---
Author Author Michi DANIELS Organization [facility] Address [address] [place] [address] Care Team Providers Care Link Assembler Name Role Phone CAR DANIELS Unavailable PROBLEMS Type Condition ICD9-CM Code [id number] Code Onset Dates Condition S tatus SNOMED Code Problem Coronary artery disease, ang bobby presence unspecified, unspecified vessel or lesion type, unspecified whether ramona or transplanted heart I25.10 Active 45623852 Problem Stage 3 chronic kidney disease N18.3 Active 301973249 Problem Hypercholesterolemia E78.00 Active 92356362 Problem Hyperlipidemia, unspecified hyperlipidemia type E7 8.5 Active 19709020 Problem 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 Active 490500573 Problem 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, 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 Active 192211 660175619 Problem Edema, unspecified type R60.9 Active 459727438 Problem Secondary hypertension I15.9 Active 22349708 ALLERGIES No Known Allergies ENCOUNTERS Encounter Location Date Diagnosis [place] [id number] [facility] [id number] [address] [place] [phone] Jan, [facility] [address] [facility] [id number] [address] [place] [phone] Oct, [facility] [address] [place] [id number] [address] [place] [phone] Oct, [facility] [address] [facility] [id number] [address] [place] [phone] Oct, [place] [address] [place] [id number] [address] [place] [id number] Oct, Type 2 diabetes mellitus wit h other circulatory complications E11.59 [facility] [address] [place] [id number] [address] [place] [phone] Oct, Type 2 diabetes mellitus wit h other circulatory complications E11.59 ; Hyperlipidemia, unspecified hyperlipidemia type E78.5 ; Secondary hypertension I15.9 ; Edema, unspecified type R60.9 ; Stage 3 chronic kidney disease N18.3 and Coronary artery disease, angina presence unspecified, unspecified vessel or lesion type, unspecified whether ramona or transplanted heart I25.10 [place] [address] [facility] [id number] [address] [place] [phone] Sep, Coronary artery disease, ang bobby presence unspecified, unspecified vessel or lesion type, unspecified whether ramona or transplanted heart I25.10 [place] [address] [facility] [id number] [address] [place] [phone] Jul, Type 2 diabetes mellitus wit h other circulatory complications E11.59 [place] [address] [place] [id number] [address] [place] [phone] May, [place] [address] [place] [id number] [address] [place] [phone] Apr, Skin lesion of scalp L98.9 [place] [address] [facility] [id number] [address] [place] [phone] Apr, Stage 3 chronic kidney disea se N18.3 [place] [address] [facility] [id number] [address] [place] [phone] Apr, Type 2 diabetes mellitus wit h other circulatory complications E11.59 [place] [address] [facility] [id number] [address] [place] [phone] Apr, [place] [address] [facility] [id number] [address] [place] [phone] Mar, Type 2 diabetes mellitus wit h other circulatory complications E11.59 ; Secondary hypertension I15.9 ; Hyperlipidemia, unspecified hyperlipidemia type E78.5 ; Coronary artery disease, angina presence uns pecified, unspecified vessel or lesion type, unspecified whether ramona or transplanted heart I25.10 and Edema, unspecified type R60.9 [place] [address] [facility] [id number] [address] [place] [phone] Jan, 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 [place] [address] [phone] November, 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 ; Type 2 diabetes mellitus with other circulatory complications E11.59 ; Coronary artery disease, angina presence unspecified, unspecified vessel or lesion type, unspecified whether ramona or transplanted heart I25.10 ; Hypercholesterolemia E78.0 and Hypercholesterolemia E78.00 [place] [address] [place] [id number] [address] [place] [phone] Oct, Coronary artery disease, ang bobby presence unspecified, unspecified vessel or lesion type, unspecified whether ramona or transplanted heart I25.10 ; Secondary hypertension I15.9 ; 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, 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 ; Type 2 diabetes mellitus with other circulatory complications E11.59 ; Hypercholesterolemia E78.0 and Edema, unspecified type R60.9 [place] [address] [place] [id number] [address] [place] [phone] Sep, Shortness of breath R06.02 [place] [address] [phone] Sep, [place] [address] [address] Aug, Shortness of breath R06.02 ; Edema, unspecified type R60.9 ; Type 2 diabetes mellitus with other circulatory complications E11.59 and Hyperlipidemia, unspecified hyperlipidemia type E78.5 [place] [address] [place] [id number] [address] [place] [phone] Jul, Type 2 diabetes mellitus wit h other circulatory complications E11.59 ; Coronary artery disease, angina presence unspecified, unspecified vessel or lesion type, unspecified whether ramona or transplanted heart I25.10 ; Secondary hypertension I15.9 ; 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, 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 ; Hypercholesterolemia E78.0 ; Edema, unspecified type R60.9 ; Acute upper respiratory infection, unspecified J06.9 ; Other viral agents as the cause of diseases classified elsewhere B97.89 ; Vision changes H53.9 ; Periapical abscess without sinus K04.7 and Dental caries, unspecified K02.9 [place] [address] [place] [id number] [address] [place] [phone] Feb, [place] [address] [phone] Feb, Type 2 diabetes mellitus wit h other circulatory complications E11.59 ; Coronary artery disease, angina presence unspecified, unspecified vessel or lesion type, unspecified whether ramona or transplanted heart I25.10 ; 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, 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 ; Hypercholesterolemia E78.0 ; Edema, unspecified type R60.9 and Secondary hypertension I15.9 [place] [address] [place] [id number] [address] [place] [phone] Jan, Coronary artery disease, ang bobby presence unspecified, unspecified vessel or lesion type, unspecified whether ramona or transplanted heart I25.10 ; Secondary hypertension I15.9 ; 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, 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 ; Establishing care with new doctor, encounter for Z71.89 ; Type 2 diabetes mellitus with other circulatory complications E11.59 and Decreased hearing, unspecified laterality H91.90 [place] [address] [place] [id number] [address] [place] [phone] Jan, [place] [address] [place] [id number] [address] [place] [phone] Dec, Type 2 diabetes mellitus wit h other circulatory complications E11.59 ; Coronary artery disease, angina presence unspecified, unspecified vessel or lesion type, unspecified whether ramona or transplanted heart I25.10 ; Secondary hypertension I15.9 ; 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, 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 ; Hypercholesterolemia E78.0 ; Edema, unspecified type R60.9 and Establishing care with new doctor, encounter for Z71.89 IMMUNIZATIONS No Known Immunizations SOCIAL HISTORY Never Assessed REASON FOR VISIT Leison removal on top of head CBrumbackRN PLAN OF CARE Activity Details Follow Up 3 Months, prn Reason: VITAL SIGNS Height 67 in 2017-05-08 Weight 245.7 lbs 2017-05-08 Temperature 98.3 degrees Fahrenheit 2017-05-08 Heart Rate 66 bpm 2017-05-08 Respiratory Rate 18 2017-05-08 BMI 38.48 kg/m2 2017-05-08 Blood pressure systolic 142 mmHg 2017-05-08 Blood pressure diastolic 84 mmHg 2017-05-08 MEDICATIONS Medication Instructions Dosage Frequency Start Date End Date Duration S tatus Metformin HCl 1000 MG Orally 2 times a day TAKE ONE TABLET B Y MOUTH TWICE DAILY WITH MEALS 12h 30 days Active Potassium Chloride ER 10 MEQ Orally Once a day 2 tablet with food 2 4h Mar, Jun, 90 days Active Lasix 40 mg Orally Once a day 1 tablet 24h 15 Feb, 2016 90 d ays Active Losartan Potassium 100 mg Orally Once a day 1 tablet 24h 30 Dec, 30 days Active Atorvastatin Calcium 10 mg Orally Once a day 1 tablet 24h 29 2016 90 days Active Pioglitazone HCl 45 MG Orally Once a day 1 tablet 24h November, 90 days Active Carvedilol 6.25 MG Orally 2 times a day 1 tablet 12h Mar, 90 days Active Aspirin 325 MG Orally Once a day 1 tablet 24h Active Invokana 300 MG Orally Once a day 1 tablet 24h 30 Mar, 2018 90 days Active RESULTS Name Result Date Reference Range PATHOLOGY REPORT 2017-05-08 . . . . Comment: . . . . . PDF Report 2017-05-08 PDF Report1 LCLS PROCEDURES No Known procedures INSTRUCTIONS MEDICATIONS ADMINISTERED No Known Medications MEDICAL (GENERAL) HISTORY Type Description Date Medical History Type II DM Medical History Hypertension Medical History Hyperlipidemia Surgical History ortho-pins in right hand Surgical History tonsillectomy Hospitalization History surgery
--- OUTSIDE RECORDS SUMMARY | 2019-11-28 19:11 | XMS REPORT ---
Author Author Michi Reynoso Organization [facility] Address [address] [place] [address] Care Team Providers Care Tube Dispatcher Name Role Phone JAZMINE Reynoso Unavailable PROBLEMS Type Condition ICD9-CM Code [id number] Code Onset Dates Condition S tatus SNOMED Code Problem Coronary artery disease, ang bobby presence unspecified, unspecified vessel or lesion type, unspecified whether [place] or transplanted heart I25.10 Active 08237212 Problem Stage 3 chronic kidney disease N18.3 Active 015913878 Problem Hypercholesterolemia E78.00 Active 56289565 Problem Hyperlipidemia, unspecified hyperlipidemia type E7 8.5 Active 57412986 Problem 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 Active 532586581 Problem Unspecified atherosclerosis of [place] arteries of extremities, 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 Active 956797 723495742 Problem Edema, unspecified type R60.9 Active 401347065 Problem Secondary hypertension I15.9 Active 62222559 ALLERGIES No Information ENCOUNTERS Encounter Location Date Diagnosis [facility] [address] [place] [id number] [address] [place] [phone] Jan, [facility] [address] [place] [id number] [address] [place] [phone] Oct, Type 2 diabetes mellitus wit h other circulatory complications E11.59 ; Hyperlipidemia, unspecified hyperlipidemia type E78.5 ; Secondary hypertension I15.9 ; Edema, unspecified type R60.9 ; Stage 3 chronic kidney disease N18.3 and Coronary artery disease, angina presence unspecified, unspecified vessel or lesion type, unspecified whether [place] or transplanted heart I25.10 [facility] [address] [facility] [id number] [address] [place] [phone] Sep, Coronary artery disease, ang bobby presence unspecified, unspecified vessel or lesion type, unspecified whether [place] or transplanted heart I25.10 [place] [address] [facility] [id number] [address] [place] [phone] Jul, Type 2 diabetes mellitus wit h other circulatory complications E11.59 [facility] [address] [facility] [id number] [address] [place] [phone] May, [place] [id number] [facility] [id number] [address] [place] [phone] Apr, Skin lesion of scalp L98.9 [place] [address] [address] [facility] [id number] [address] [place] [phone] Apr, Stage 3 chronic kidney disea se N18.3 [place] [address] [address] [facility] [id number] [address] [place] [phone] Apr, Type 2 diabetes mellitus wit h other circulatory complications E11.59 [place] [address] [address] [facility] [id number] [address] [place] [phone] Apr, [place] [address] [address] [facility] [id number] [address] [place] [phone] Mar, Type 2 diabetes mellitus wit h other circulatory complications E11.59 ; Secondary hypertension I15.9 ; Hyperlipidemia, unspecified hyperlipidemia type E78.5 ; Coronary artery disease, angina presence uns pecified, unspecified vessel or lesion type, unspecified whether [place] or transplanted heart I25.10 and Edema, unspecified type R60.9 [place] [address] [address] [facility] [id number] [address] [place] [phone] Jan, 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 [place] [address] [place] [id number] [address] [place] [phone] November, 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 ; Type 2 diabetes mellitus with other circulatory complications E11.59 ; Coronary artery disease, angina presence unspecified, unspecified vessel or lesion type, unspecified whether [place] or transplanted heart I25.10 ; Hypercholesterolemia E78.0 and Hypercholesterolemia E78.00 [place] [address] [phone] Oct, 2016 Coronary artery disease, ang bobby presence unspecified, unspecified vessel or lesion type, unspecified whether [place] or transplanted heart I25.10 ; Secondary hypertension I15.9 ; Unspecified atherosclerosis of [place] arteries of extremities, 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 ; Type 2 diabetes mellitus with other circulatory complications E11.59 ; Hypercholesterolemia E78.0 and Edema, unspecified type R60.9 [place] [address] [address] Sep, Shortness of breath R06.[address] [address] Sep, [address] [address] Aug, Shortness of breath R06.02 ; Edema, unspecified type R60.9 ; Type 2 diabetes mellitus with other circulatory complications E11.59 and Hyperlipidemia, unspecified hyperlipidemia type E78.[address] [address] Jul, Type 2 diabetes mellitus wit h other circulatory complications E11.59 ; Coronary artery disease, angina presence unspecified, unspecified vessel or lesion type, unspecified whether [place] or transplanted heart I25.10 ; Secondary hypertension I15.9 ; Unspecified atherosclerosis of [place] arteries of extremities, 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 ; Hypercholesterolemia E78.0 ; Edema, unspecified type R60.9 ; Acute upper respiratory infection, unspecified J06.9 ; Other viral agents as the cause of diseases classified elsewhere B97.89 ; Vision changes H53.9 ; Periapical abscess without sinus K04.7 and Dental caries, unspecified K02.[address] [address] Feb, [address] [address] Feb, Type 2 diabetes mellitus wit h other circulatory complications E11.59 ; Coronary artery disease, angina presence unspecified, unspecified vessel or lesion type, unspecified whether [place] or transplanted heart I25.10 ; Unspecified atherosclerosis of [place] arteries of extremities, 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 ; Hypercholesterolemia E78.0 ; Edema, unspecified type R60.9 and Secondary hypertension I15.9 [place] [address] [place] [id number] [address] [place] [address] Jan, Coronary artery disease, ang bobby presence unspecified, unspecified vessel or lesion type, unspecified whether [place] or transplanted heart I25.10 ; Secondary hypertension I15.9 ; Unspecified atherosclerosis of [place] arteries of extremities, 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 ; Establishing care with new doctor, encounter for Z71.89 ; Type 2 diabetes mellitus with other circulatory complications E11.59 and Decreased hearing, unspecified laterality H91.90 [place] [address] [address] [place] [id number] [address] [place] [phone] Jan, [address] [address] Dec, Type 2 diabetes mellitus wit h other circulatory complications E11.59 ; Coronary artery disease, angina presence unspecified, unspecified vessel or lesion type, unspecified whether [place] or transplanted heart I25.10 ; Secondary hypertension I15.9 ; Unspecified atherosclerosis of [place] arteries of extremities, 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 ; Hypercholesterolemia E78.0 ; Edema, unspecified type R60.9 and Establishing care with new doctor, encounter for Z71.89 IMMUNIZATIONS No Known Immunizations SOCIAL HISTORY Never Assessed REASON FOR VISIT medication requet PLAN OF CARE VITAL SIGNS MEDICATIONS Medication Instructions Dosage Frequency Start Date End Date Duration S tatus Invokana 300 MG Orally Once a day 1 tablet 24h Apr, 30 days Active RESULTS No Results PROCEDURES No Known procedures INSTRUCTIONS MEDICATIONS ADMINISTERED No Known Medications MEDICAL (GENERAL) HISTORY Type Description Date Medical History Type II DM Medical History Hypertension Medical History Hyperlipidemia Surgical History ortho-pins in right hand Surgical History tonsillectomy Hospitalization History surgery
--- OUTSIDE RECORDS SUMMARY | 2019-11-28 19:11 | XMS REPORT ---
Author Author Michi DANIELS Organization [facility] Address [address] [place] [address] Care Team Providers Care Senior Etl Developer Name Role Phone CAR DANIELS Unavailable PROBLEMS Type Condition ICD9-CM Code [id number] Code Onset Dates Condition S tatus SNOMED Code Problem Coronary artery disease, ang bobby presence unspecified, unspecified vessel or lesion type, unspecified whether [place] or transplanted heart I25.10 Active 20630823 Problem Stage 3 chronic kidney disease N18.3 Active 816201281 Problem Hypercholesterolemia E78.00 Active 66924549 Problem Hyperlipidemia, unspecified hyperlipidemia type E7 8.5 Active 93981984 Problem 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 Active 453431843 Problem Unspecified atherosclerosis of [place] arteries of extremities, 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 Active 324082 589171764 Problem Edema, unspecified type R60.9 Active 380308827 Problem Secondary hypertension I15.9 Active 57357786 ALLERGIES No Information ENCOUNTERS Encounter Location Date Diagnosis [place] [id number] [place] [id number] [place] [phone] Jan, [place] [address] [facility] [id number] [address] [place] [phone] Oct, [facility] [address] [place] [id number] [place] [phone] Oct, [facility] [address] [place] [id number] [place] [phone] Oct, [place] [address] [place] [id number] [place] [phone] Oct, Type 2 diabetes mellitus wit h other circulatory complications E11.59 [facility] [address] [place] [id number] [place] [phone] Oct, Type 2 diabetes mellitus wit h other circulatory complications E11.59 ; Hyperlipidemia, unspecified hyperlipidemia type E78.5 ; Secondary hypertension I15.9 ; Edema, unspecified type R60.9 ; Stage 3 chronic kidney disease N18.3 and Coronary artery disease, angina presence unspecified, unspecified vessel or lesion type, unspecified whether [place] or transplanted heart I25.10 [place] [address] [address] [facility] [id number] [address] [place] [id number] Sep, Coronary artery disease, ang bobby presence unspecified, unspecified vessel or lesion type, unspecified whether [place] or transplanted heart I25.10 [place] [address] [address] [facility] [id number] [address] [place] [phone] Jul, Type 2 diabetes mellitus wit h other circulatory complications E11.59 [place] [address] [address] [facility] [id number] [address] [place] [phone] 09 May, 2017 [place] [address] [address] [facility] [id number] [address] [place] [phone] Apr, Skin lesion of scalp L98.9 [place] [address] [address] [facility] [id number] [address] [place] [phone] Apr, Stage 3 chronic kidney disea se N18.3 [place] [address] [address] [facility] [id number] [address] [place] [phone] Apr, Type 2 diabetes mellitus wit h other circulatory complications E11.59 [place] [address] [address] [facility] [id number] [address] [place] [phone] Apr, [place] [address] [address] [facility] [id number] [address] [place] [phone] Mar, Type 2 diabetes mellitus wit h other circulatory complications E11.59 ; Secondary hypertension I15.9 ; Hyperlipidemia, unspecified hyperlipidemia type E78.5 ; Coronary artery disease, angina presence uns pecified, unspecified vessel or lesion type, unspecified whether [place] or transplanted heart I25.10 and Edema, unspecified type R60.9 [place] [address] [address] [facility] [id number] [address] [place] [phone] Jan, 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 [place] [address] [phone] November, 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 ; Type 2 diabetes mellitus with other circulatory complications E11.59 ; Coronary artery disease, angina presence unspecified, unspecified vessel or lesion type, unspecified whether [place] or transplanted heart I25.10 ; Hypercholesterolemia E78.0 and Hypercholesterolemia E78.00 [place] [address] [address] [place] [id number] [place] [phone] Oct, Coronary artery disease, ang bobby presence unspecified, unspecified vessel or lesion type, unspecified whether [place] or transplanted heart I25.10 ; Secondary hypertension I15.9 ; Unspecified atherosclerosis of [place] arteries of extremities, 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 ; Type 2 diabetes mellitus with other circulatory complications E11.59 ; Hypercholesterolemia E78.0 and Edema, unspecified type R60.9 [place] [address] [address] [place] [id number] [place] [phone] Sep, Shortness of breath R06.02 [place] [address] [id number] Sep, [place] [address] [phone] Aug, Shortness of breath R06.02 ; Edema, unspecified type R60.9 ; Type 2 diabetes mellitus with other circulatory complications E11.59 and Hyperlipidemia, unspecified hyperlipidemia type E78.5 [place] [address] [place] [id number] [place] [phone] Jul, Type 2 diabetes mellitus wit h other circulatory complications E11.59 ; Coronary artery disease, angina presence unspecified, unspecified vessel or lesion type, unspecified whether [place] or transplanted heart I25.10 ; Secondary hypertension I15.9 ; Unspecified atherosclerosis of [place] arteries of extremities, 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 ; Hypercholesterolemia E78.0 ; Edema, unspecified type R60.9 ; Acute upper respiratory infection, unspecified J06.9 ; Other viral agents as the cause of diseases classified elsewhere B97.89 ; Vision changes H53.9 ; Periapical abscess without sinus K04.7 and Dental caries, unspecified K02.9 [place] [address] [address] [place] [id number] [place] [phone] Feb, [place] [address] [phone] Feb, Type 2 diabetes mellitus wit h other circulatory complications E11.59 ; Coronary artery disease, angina presence unspecified, unspecified vessel or lesion type, unspecified whether [place] or transplanted heart I25.10 ; Unspecified atherosclerosis of [place] arteries of extremities, 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 ; Hypercholesterolemia E78.0 ; Edema, unspecified type R60.9 and Secondary hypertension I15.9 [place] [address] [address] Jan, Coronary artery disease, ang bboby presence unspecified, unspecified vessel or lesion type, unspecified whether [place] or transplanted heart I25.10 ; Secondary hypertension I15.9 ; Unspecified atherosclerosis of [place] arteries of extremities, 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 ; Establishing care with new doctor, encounter for Z71.89 ; Type 2 diabetes mellitus with other circulatory complications E11.59 and Decreased hearing, unspecified laterality H91.90 [place] [id number] [place] [phone] Jan, [place] [address] [phone] Dec, Type 2 diabetes mellitus wit h other circulatory complications E11.59 ; Coronary artery disease, angina presence unspecified, unspecified vessel or lesion type, unspecified whether [place] or transplanted heart I25.10 ; Secondary hypertension I15.9 ; Unspecified atherosclerosis of [place] arteries of extremities, 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 ; Hypercholesterolemia E78.0 ; Edema, unspecified type R60.9 and Establishing care with new doctor, encounter for Z71.89 IMMUNIZATIONS No Known Immunizations SOCIAL HISTORY Never Assessed REASON FOR VISIT Refill Request-Pals PLAN OF CARE VITAL SIGNS MEDICATIONS Medication Instructions Dosage Frequency Start Date End Date Duration S gloria Invokana 300 MG Orally Once a day 1 tablet 24h 90 da ys Active RESULTS No Results PROCEDURES No Known procedures INSTRUCTIONS MEDICATIONS ADMINISTERED No Known Medications MEDICAL (GENERAL) HISTORY Type Description Date Medical History Type II DM Medical History Hypertension Medical History Hyperlipidemia Surgical History ortho-pins in right hand Surgical History tonsillectomy Hospitalization History surgery
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
--- NOTE | 2019-11-28 19:27 | Diagnostic Imaging Report ---
INDICATION: Right foot pain after trauma. COMPARISON: None available. TECHNIQUE: 3 nonweightbearing views of right foot were obtained. FINDINGS: No acute fracture or traumatic malalignment. Vascular calcifications are present. Heterotopic ossification within the distal Achilles is likely from old trauma. 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 IMPRESSION: No fracture or malalignment in the right foot. Dictated by: Dictated on workstation # [id number]
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
[2019-11-28 20:13] VITALS: BP 148/87
== END 2019-11-28 20:13 | disposition home or self-care (01) ==
LOC: ER 17:43
DX: S80.10XA Contusion of unspecified lower leg, initial encounter (principal); I10 Essential (primary) hypertension; E11.9 Type 2 diabetes mellitus without complications; Z79.84 Long term (current) use of oral hypoglycemic drugs; W20.8XXA Other cause of strike by thrown, projected or falling object, initial encounter; Y92.59 Other trade areas as the place of occurrence of the external cause
CPT/HCPCS: 73630

== ENCOUNTER 2020-09-22 16:00 | Emergency (ER) | payer OTHER ==
[~2020-09-22] VITALS: Ht 172 cm; Wt 104.0 kg
[2020-09-22] MEDS ORDERED: NS IV 1000 ML 1,000 ML ONE (16:26)
[2020-09-22] MEDS ORDERED: KETOROLAC 30 MG/ML VIAL ONE (16:28)
[2020-09-22] MEDS ORDERED: NS IV 1000 ML 1,000 ML IV STA (16:29)
[2020-09-22] MEDS ORDERED: ONDANSETRON 4 MG/2 ML (SDV) Z0FRAN IVP ONE (16:30)
[2020-09-22] MEDS ORDERED: KETOROLAC 30 MG/ML VIAL IVP STA (16:31)
[2020-09-22 17:08] LABS: ALBUMIN 3.7 GM/DL (3.2-4.5); POTASSIUM 4.2 MMOL/L (3.6-5.0)
[2020-09-22 17:09] LABS: BASOPHILS % (AUTO) 0 % (0-10); EOSINOPHILS % (AUTO) 0 % (0-10); HEMATOCRIT 39 % (40-54); HEMOGLOBIN 13.2 g/dL (13.3-17.7); LYMPHOCYTES # (AUTO) 0.5 10^3/uL (1.0-4.0); LYMPHOCYTES % (AUTO) 5 % (12-44); MEAN CORPUSCULAR HEMOGLOBIN 29 pg (25-34); MEAN CORPUSCULAR HGB CONC 34 g/dL (32-36); MEAN CORPUSCULAR VOLUME 87 fL (80-99); MEAN PLATELET VOLUME 11.6 fL (9.0-12.2); MONOCYTES # (AUTO) 0.7 10^3/uL (0.0-1.0); MONOCYTES % (AUTO) 8 % (0-12); NEUTROPHILS # (AUTO) 8.4 10^3/uL (1.8-7.8); NEUTROPHILS % (AUTO) 86 % (42-75); PLATELET COUNT 211 10^3/uL (130-400); WHITE BLOOD COUNT 9.7 10^3/uL (4.3-11.0)
[2020-09-22 17:11] LABS: TOTAL PROTEIN 7.5 GM/DL (6.4-8.2)
[2020-09-22 17:15] LABS: CREATININE SERUM 2.95 MG/DL (0.60-1.30)
--- NOTE | 2020-09-22 17:15 | ED GI ---
General Chief Complaint: Abdominal/GI Problems Stated Complaint: VOMITING/DIZZY/CHILLS Nursing Triage Note: TO ROOM 10 VIA WC. COMPLAINS OF N/V, WEAKNESS, BODY ACHES, AND CHILLS. STATES HE HAD HIS FIRST COVID VACCINE ON THU AND STARTED BECOMING ILL ON THURSDAY. Sepsis Screen: No Definite Risk Source of Information: Patient Exam Limitations: No Limitations (LINA WALKER MD) History of Present Illness Date Seen by Provider: Sep 22, 2020 Time Seen by Provider: 16:29 Initial Comments Here with report of nausea, vomiting, weakness, body aches, chills and diarrhea. Onset on , 09/20 after having vaccination for COVID-19 on Thursday. He has not had flu vaccine because there was making him sick. He denies fever chills. States everything that he drinks or eats comes back up although his has been encouraging him to drink fluids throughout. Does have history of chronic kidney disease as well as heart disease. Denies chest pain. Denies breathing problems, cough, sore throat or runny nose. Timing/Duration: 2-3 Days Severity/Quality: Mild, Moderate, Cramping Location: Generalized Abdomen Radiation: No Radiation Modifying Factors: Worsens With Eating; Improves With Resting Associated Symptoms: No Back Pain, No Chest Pain, No Fever/Chills; Fatigue, Nausea/Vomiting; No Shortness of Air, No Swelling/Mass in Abdomen (LINA WALKER MD) Allergies and Home Medications Allergies Coded Allergies: No Known Allergies (Unverified Allergy, Unknown, 03/09/15) shrimp (Verified Adverse Reaction, Unknown, VOMITING, 09/22/20) Home Medications Azithromycin 250 Mg Tablet, 250 MG PO DAILY Prescribed by: JÚNIOR MCDONALD on 09/22/201850 Carvedilol 25 Mg Tablet, 25 MG PO BID, (Reported) Metformin HCl 500 Mg Tablet, 250 MG PO BID, (Reported) Ondansetron 4 Mg Tab.rapdis, 4 MG SL Q4H PRN for NAUSEA/VOMITING Prescribed by: JÚNIOR MCDONALD on 09/22/201850 Patient Home Medication List Home Medication List Reviewed: Yes (LINA WALKER MD) Review of Systems Review of Systems Constitutional: see HPI; No chills, No fever EENTM: No Symptoms Reported Respiratory: No Symptoms Reported Cardiovascular: Denies Chest Pain, Denies Edema Gastrointestinal: See HPI, Abdominal Pain, Diarrhea, Nausea, Vomiting Genitourinary: No Symptoms Reported Musculoskeletal: muscle pain; No muscle cramps Skin: No change in color, No lesions Psychiatric/Neurological: No Symptoms Reported (LINA WALKER MD) All Other Systems Reviewed Negative Unless Noted: Yes (LINA WALKER MD) Past Wnkvfrj-Mtykwe-Xhafdm Hx Past Med/Social Hx: Reviewed Nursing Past Med/Soc Hx (LINA WALKER MD) Patient Social History Alcohol Use: Rarely Uses Smoking Status: Never a Smoker Recent Infectious Disease Expo: No (LINA WALKER MD) Immunizations Up To Date Tetanus Booster (TDap): More than 5yrs (LINA WALKER MD) Past Medical History Surgeries: Yes (shrapnel removed from arms ) Respiratory: No Cardiac: Yes High Cholesterol, Hypertension Neurological: No Reproductive Disorders: No Genitourinary: Yes Renal Failure Gastrointestinal: No Musculoskeletal: No Endocrine: Yes Diabetes, Non-Insulin dep Cancer: No Psychosocial: No Integumentary: No Blood Disorders: No (LINA WALKER MD) Family Medical History Reviewed Nursing Family Hx (LINA WALKER MD) Physical Exam Vital Signs Vital Signs - First Documented 09/22/20 09/22/20 16:15 17:19 Temp 37.0 Pulse 80 Resp 16 B/P (MAP) 183/91 (121) Pulse Ox 94 O2 Delivery Room Air O2 Flow Rate 2.00 (JÚNIOR DOMINGUEZ MD) Vital Signs Capillary Refill : Less Than 3 Seconds (LINA WALKER MD) Height/Weight/BMI Height: 5'8" Weight: 235lbs. oz. 106.080699sd; 35.00 BMI Method:Stated General Appearance: WD/WN, no apparent distress Neck: non-tender, supple Respiratory: lungs clear, normal breath sounds Cardiovascular: no murmur, tachycardia Gastrointestinal: non tender, soft Extremities: non-tender, normal inspection Back: normal inspection, no CVA tenderness, no vertebral tenderness Neurologic/Psychiatric: alert, oriented x 3 Skin: normal color, warm/dry (LINA WALKER MD) Focused Exam Lactate Level 09/22/20 16:20: Lactic Acid Level 1.29 (JÚNIOR DOMINGUEZ MD) Lactic Acid Level Laboratory Tests Test 09/22/20 16:20 Lactic Acid Level 1.29 MMOL/L (0.50-2.00) (JÚNIOR DOMINGUEZ MD) Progress/Results/Core Measures Results/Orders Lab Results Laboratory Tests Test 09/22/20 16:20 09/22/20 17:50 09/22/20 17:57 Range/Units White Blood Count 9.7 4.3-11.0 10^3/uL Red Blood Count 4.50 4.30-5.52 10^6/uL Hemoglobin 13.2 L 13.3-17.7 g/dL Hematocrit 39 L 40-54 % Mean Corpuscular Volume 87 80-99 fL Mean Corpuscular Hemoglobin 29 25-34 pg Mean Corpuscular Hemoglobin Concent 34 32-36 g/dL Red Cell Distribution Width 13.2 10.0-14.5 % Platelet Count 211 130-400 10^3/uL Mean Platelet Volume 11.6 9.0-12.2 fL Immature Granulocyte % (Auto) 1 % Neutrophils (%) (Auto) 86 H 42-75 % Lymphocytes (%) (Auto) 5 L 12-44 % Monocytes (%) (Auto) 8 0-12 % Eosinophils (%) (Auto) 0 0-10 % Basophils (%) (Auto) 0 0-10 % Neutrophils # (Auto) 8.4 H 1.8-7.8 10^3/uL Lymphocytes # (Auto) 0.5 L 1.0-4.0 10^3/uL Monocytes # (Auto) 0.7 0.0-1.0 10^3/uL Eosinophils # (Auto) 0.0 0.0-0.3 10^3/uL Basophils # (Auto) 0.0 0.0-0.1 10^3/uL Immature Granulocyte # (Auto) 0.1 0.0-0.1 10^3/uL Neutrophils % (Manual) 79 % Lymphocytes % (Manual) 5 % Monocytes % (Manual) 9 % Band Neutrophils 7 % Blood Morphology Comment NORMAL Prothrombin Time 14.9 H 12.2-14.7 SEC INR Comment 1.1 0.8-1.4 Activated Partial Thromboplast Time 34 24-35 SEC Sodium Level 139 135-145 MMOL/L Potassium Level 4.2 3.6-5.0 MMOL/L Chloride Level 100 98-107 MMOL/L Carbon Dioxide Level 22 21-32 MMOL/L Anion Gap 17 H 5-14 MMOL/L Blood Urea Nitrogen 64 H 7-18 MG/DL Creatinine 2.95 H 0.60-1.30 MG/DL Estimat Glomerular Filtration Rate 22 BUN/Creatinine Ratio 22 Glucose Level 210 H 70-105 MG/DL Lactic Acid Level 1.29 0.50-2.00 MMOL/L Calcium Level 10.0 8.5-10.1 MG/DL Corrected Calcium 10.2 H 8.5-10.1 MG/DL Total Bilirubin 1.0 0.1-1.0 MG/DL Aspartate Amino Transf (AST/SGOT) 27 5-34 U/L Alanine Aminotransferase (ALT/SGPT) 20 0-55 U/L Alkaline Phosphatase 135 40-136 U/L C-Reactive Protein High Sensitivity 14.47 H 0.00-0.50 MG/DL Total Protein 7.5 6.4-8.2 GM/DL Albumin 3.7 3.2-4.5 GM/DL Procalcitonin 0.43 H <0.10 NG/ML Coronavirus 2019 (JERARDO) Negative Negative Urine Color YELLOW Urine Clarity CLEAR Urine pH 6.0 5-9 Urine Specific [place] >=1.030 1.016-1.022 Urine Protein 3+ H NEGATIVE Urine Glucose (UA) 2+ H NEGATIVE Urine Ketones NEGATIVE NEGATIVE Urine Nitrite NEGATIVE NEGATIVE Urine Bilirubin NEGATIVE NEGATIVE Urine Urobilinogen 0.2 < = 1.0 MG/DL Urine Leukocyte Esterase NEGATIVE NEGATIVE Urine RBC (Auto) 1+ H NEGATIVE Urine RBC 5-10 H /HPF Urine WBC 0-2 /HPF Urine Squamous Epithelial Cells 5-10 /HPF Urine Crystals PRESENT H /LPF Urine Amorphous Sediment MOD LISSET URATES H /LPF Urine Bacteria FEW H /HPF Urine Casts NONE /LPF Urine Mucus NEGATIVE /LPF Urine Culture Indicated NO B-Type Natriuretic Peptide 755.2 H <100.0 PG/ML (JÚNIOR DOMINGUEZ MD) Micro Results Microbiology 09/22/20 Influenza Types A,B Antigen (CHRISTINE) - Final, Complete (JÚNIOR DOMINGUEZ MD) My Orders Orders - JÚNOIR DOMINGUEZ MD Rx-Ondansetron Po (Rx-Zofran Po) (09/22/20 18:46) Azithromycin Tablet (Zithromax Tablet) (09/22/20 19:00) (JÚNIOR DOMINGUEZ MD) Medications Given in ED (JÚNIOR DOMINGUEZ MD) Vital Signs/I&O 09/22/20 09/22/20 09/22/20 16:15 17:19 18:53 Temp 37.0 Pulse 80 86 Resp 16 16 B/P (MAP) 183/91 (121) 167/77 Pulse Ox 94 88 96 O2 Delivery Room Air Nasal Cannula Room Air O2 Flow Rate 2.00 (JÚNIOR DOMINGUEZ MD) Blood Pressure Mean: 121 Progress Progress Note : Progress Note Seen and evaluated. IV, labs, Normal saline 1 L bolus, Zofran 4 mg IV and Toradol 15 mg IV ordered. Influenza screen and COVID-19 screen ordered. Monitor patient. 1717: Chest x-ray and procalcitonin added. Patient CRP is 14. 1800: Care transferred to Dr. Dutta pending UA and BNP. EKG was added and noted below. Patient is overall feeling better. (LINA WALKER MD) Progress Note : Progress Note Care of this patient was assumed from Dr. WALKER at shift change. UA was revi ewed. Chest x-ray revealed some possible infiltrates. Patient was started on a azithromycin. A take-home pack of Zofran was administered. (JÚNIOR DOMINGUEZ MD) Initial ECG Impression Date: Sep 22, 2020 Initial ECG Impression Time: 17:43 Initial ECG Rate: 79 Initial ECG Rhythm: A Fib/Flutter Initial ECG Impression: Atrial Fibrillation Comment Atrial fibrillation with left bundle branch block. Left axis deviation. No evidence of ST elevation CT. No previous available for comparison. Interpreted by me. (LINA WALKER MD) Diagnostic Imaging Diagonstic Imaging: Xray Plain Films/CT/US/NM/MRI: chest Comments [facility], [place] NAME: EZRA STEIN [facility] REC#: [id number] PT STATUS: REG ER : 1960 PHYSICIAN: LINA WALKER MD ADMIT DATE: 09/22/20/ER Draft Date of Exam:09/22/20 CHEST 1 VIEW, AP/PA ONLY EXAMINATION: Chest radiograph, portable AP view. DATE: 09/22/2020 5:43 PM INDICATION: 60-year-old male, body aches, tachycardia. COMPARISON: None. FINDINGS: The heart appears mildly enlarged. There is no identified pneumothorax. There is no large pleural effusion. There are bilateral predominantly interstitial appearing opacities. IMPRESSION: 1. Mild cardiomegaly with bilateral predominantly interstitial appearing opacities. Differential diagnostic considerations would include pulmonary interstitial edema and atypical infectious etiology. Dictated on workstation # [id number] Dict: 09/22/20 1745 Trans: 09/22/20 1750 CV [id number] Interpreted by: NEIL DARBY MD Electronically signed by: (LINA WALKER MD) Departure Impression Primary Impression: Nausea vomiting and diarrhea Additional Impressions: Chronic kidney disease Qualified Codes: N18.9 - Chronic kidney disease, unspecified Microscopic hematuria Pulmonary infiltrate Disposition: 01 HOME, SELF-CARE Condition: Improved Departure-Patient Inst. Decision time for Depature: 18:40 (JÚNIOR DOMINGUEZ MD) Referrals: SHAWN MARIN DO (PCP/Family) Primary Care Physician Patient Instructions: Pneumonia in Adults Add. Discharge Instructions: Drink plenty of clear liquids. Use the Zofran (ondansetron) as prescribed for nausea and vomiting. Resume your usual medications as soon as possible. Call with any questions or concerns. Return to care if you have worsening symptoms. Complete your antibiotic as prescribed. All discharge instructions reviewed with patient and/or family. Voiced understanding. Scripts Azithromycin (Azithromycin) 250 Mg Tablet 250 MG PO DAILY, #4 TAB Prov: JÚNIOR DOMINGUEZ MD 09/22/20 Ondansetron (Ondansetron Odt) 4 Mg Tab.rapdis 4 MG SL Q4H PRN for NAUSEA/VOMITING, #10 TAB Prov: JÚNIOR DOMINGUEZ MD 09/22/20 Work/School Note: Work Release Form Date Seen in the Emergency Department: Sep 22, 2020 Return to Work: Sep 26, 2020 Restrictions: Return-No Fever (24hrs), Return-No Vomiting(24hrs) LINA WALKER MD Sep 22, 2020 17:15 JÚNIOR DOMINGUEZ MD Sep 22, 2020 18:46
[2020-09-22 17:18] LABS: BAND NEUTROPHILS 7 %; LYMPHOCYTES % (MANUAL) 5 %; NEUTROPHILS % (MANUAL) 79 %
[2020-09-22 17:19] LABS: MONOCYTES % (MANUAL) 9 %; RBC MORPH NORMAL
[2020-09-22 17:38] LABS: INR 1.1 (0.8-1.4); PROTHROMBIN TIME PATIENT 14.9 SEC (12.2-14.7)
--- NOTE | 2020-09-22 17:50 | Diagnostic Imaging Report ---
EXAMINATION: Chest radiograph, portable AP view. DATE: 09/22/2020 5:43 PM INDICATION: 60-year-old male, body aches, tachycardia. COMPARISON: None. FINDINGS: The heart appears mildly enlarged. There is no identified pneumothorax. There is no large pleural effusion. There are bilateral predominantly interstitial appearing opacities. IMPRESSION: 1. Mild cardiomegaly with bilateral predominantly interstitial appearing opacities. Differential diagnostic considerations would include pulmonary interstitial edema and atypical infectious etiology. Dictated by: Dictated on workstation # [id number]
[2020-09-22 17:56] LABS: BILIRUBIN,URINE NEGATIVE (NEGATIVE); CLARITY,URINE CLEAR; COLOR,URINE YELLOW; GLUCOSE, URINE (UA) 2+ (NEGATIVE); KETONES,URINE NEGATIVE (NEGATIVE); LEUKOCYTE ESTERASE ,URINE NEGATIVE (NEGATIVE); NITRITE,URINE NEGATIVE (NEGATIVE); PROTEIN,URINE 3+ (NEGATIVE)
[2020-09-22 18:08] LABS: AMORPHOUS SEDIMENT,UR MOD AMOR URATES /LPF; BACTERIA,URINE FEW /HPF; WBC,URINE 0-2 /HPF
[2020-09-22] MEDS ORDERED: RX-ONDANSETRON 4 MG ODT (ZOFRAN) PPK #4 SL STA (18:46)
[2020-09-22] MEDS ORDERED: ONDA4TAB11 SL (18:51)
[2020-09-22] MEDS ORDERED: AZIT250T12 PO (18:51)
[2020-09-22 18:53] VITALS: BP 167/77
[2020-09-22] MEDS ORDERED: AZITHROMYCIN 250 MG TAB (ZITHROMAX) PO ONE (19:00)
== END 2020-09-22 18:53 | disposition home or self-care (01) ==
LOC: EDUNIT# 16:00 → ER 16:03
DX: R11.2 Nausea with vomiting, unspecified (principal); R19.7 Diarrhea, unspecified; I12.9 Hypertensive chronic kidney disease with stage 1 through stage 4 chronic kidney disease, or unspecified chronic kidney disease; E11.22 Type 2 diabetes mellitus with diabetic chronic kidney disease; N18.9 Chronic kidney disease, unspecified; R31.29 Other microscopic hematuria; R91.8 Other nonspecific abnormal finding of lung field; Z20.822 Contact with and (suspected) exposure to COVID-19; Z79.84 Long term (current) use of oral hypoglycemic drugs
CPT/HCPCS: 36415; 71045; 80053; 81000; 83605; 83880; 84145; 85007; 85027; 85610; 85730; 86141; 87040; 87088; 87635; 87804; 93005

== ENCOUNTER 2021-03-18 10:42 | Emergency (ER) | payer OTHER ==
[~2021-03-18] VITALS: Ht 172.7 cm; Wt 103.8 kg
[~2021-03-18 10:42] MED LIST changes: +AZIT250T12 PO; +ONDA4TAB11 SL
[2021-03-18 10:50] VITALS: BP 169/76
--- NOTE | 2021-03-18 11:42 | ED Upper Extremity ---
General Chief Complaint: Upper Extremity Stated Complaint: L MIDDLE FINGER SWELLING Nursing Triage Note: PT AMB TO TRIAGE WITH COMPLAINT OF SWOLLEN AND REDDENED FINGER. STATES CUT FINGER OVER A MONTH AGO. Source: patient Exam Limitations: no limitations History of Present Illness Date Seen by Provider: Mar 18, 2021 Time Seen by Provider: 11:32 Initial Comments This is a 60-year-old Male who presented to the ER with complaints of left mid dle finger swelling x2 weeks. States that he cut his finger approximately 1 month ago with a steak knife, and swelling started within the past couple weeks. He does have a history of type 2 diabetes. Denies fever, nausea, vomiting, drainage. Allergies and Home Medications Allergies Coded Allergies: No Known Allergies (Unverified Allergy, Unknown, 03/09/15) shrimp (Verified Adverse Reaction, Unknown, VOMITING, 09/22/20) Patient Home Medication List Azithromycin (Azithromycin) 250 Mg Tablet, 250 MG PO DAILY Prescribed by: JÚNIOR MCDONALD on 09/22/201850 Carvedilol (Carvedilol) 25 Mg Tablet, 25 MG PO BID, (Reported) Entered as Reported by: FRANCES HAIDER on 01/11/16 155 Metformin HCl (Metformin HCl) 500 Mg Tablet, 250 MG PO BID, (Reported) Entered as Reported by: FRANCES HAIDER on 01/11/161550 Ondansetron (Ondansetron Odt) 4 Mg Tab.rapdis, 4 MG SL Q4H PRN for NAUSEA/VOMITING Prescribed by: JÚNIOR MCDONALD on 09/22/201850 [lasix] , (Reported) Entered as Reported by: FRANCES HAIDER on 01/11/16 155 Past Qnfwnxn-Jitxsn-Ggopej Hx Patient Social History Tobacco Use?: No Use of E-Cig and/or Vaping dev: No Substance use?: No Alcohol Use?: No Pt feels they are or have been: No Immunizations Up To Date Tetanus Booster (TDap): More than 5yrs First/Initial COVID19 Vaccinat: september 2020 Past Medical History Surgeries: Yes (shrapnel removed from arms ) Respiratory: No Cardiac: Yes Atrial Fibrillation, High Cholesterol, Hypertension Neurological: No Reproductive Disorders: No Genitourinary: Yes Renal Failure Gastrointestinal: No Musculoskeletal: No Endocrine: Yes Diabetes, Non-Insulin dep Cancer: No Psychosocial: No Integumentary: No Blood Disorders: No Physical Exam Vital Signs Vital Signs - First Documented 03/18/21 10:50 Pulse 63 Resp 16 B/P (MAP) 169/76 (107) Pulse Ox 96 O2 Delivery Room Air Capillary Refill : Less Than 3 Seconds Height, Weight, BMI Height: 5'8" Weight: 235lbs. oz. 106.357574bp; 34.00 BMI Method:Stated Progress/Results/Core Measures Results/Orders My Orders Orders - DAVIDA ARIAS SURFBOARD DESIGNER Finger(S) (03/18/21 11:40) Vital Signs/I&O 03/18/21 10:50 Pulse 63 Resp 16 B/P (MAP) 169/76 (107) Pulse Ox 96 O2 Delivery Room Air Blood Pressure Mean: 107 Departure Impression Primary Impression: Calcification of soft tissue Disposition: 01 HOME, SELF-CARE Condition: Stable Departure-Patient Inst. Decision time for Depature: 12:41 Referrals: [facility] (PCP/Family) Primary Care Physician Patient Instructions: Acute Pain, Adult (DC) Add. Discharge Instructions: Plan: 1. Follow up with your primary care provider to schedule MRI. 2. Return to ER if you develop blue discoloration of finger, pain, decreased sensation. 3. Return for any new, concerning, or worsening symptoms. All discharge instructions reviewed with patient and/or family. Voiced understanding. DAVIDA ARIAS SUR[employer]BOARD DESIGNER Mar 18, 2021 11:42
--- NOTE | 2021-03-18 12:18 | Diagnostic Imaging Report ---
INDICATION: Middle finger swelling. EXAMINATION: Left 3rd finger 03/18/2021 FINDINGS: There are no fractures or dislocations. The joint spaces appear preserved. There is a soft tissue density within the volar soft tissues of the 3rd finger overlying the distal interphalangeal joint. The abnormality measures 2.8 cm in proximal to distal dimension and 1.7 cm in transverse dimension. This does not appear to cause adjacent cortical disruption. Remaining hand demonstrates atherosclerotic disease with no fractures or dislocations. IMPRESSION: 1. Diffuse calcified abnormality within the volar soft tissues of the 3rd finger as described. Differential is broad and includes crest syndrome tumoral calcinosis with multiple other calcified lesions or masses not excluded. Nonemergent dedicated MRI pre and postcontrast could provide further characterization Dictated by: Dictated on workstation # [id number]
== END 2021-03-18 12:55 | disposition home or self-care (01) ==
LOC: EDUNIT# 10:42 → ER 10:43
DX: M61.9 Calcification and ossification of muscle, unspecified (principal); I10 Essential (primary) hypertension; E11.9 Type 2 diabetes mellitus without complications; Z79.84 Long term (current) use of oral hypoglycemic drugs; Z79.899 Other long term (current) drug therapy
CPT/HCPCS: 73140

== ENCOUNTER → 2021-05-16 | Outpatient (CLI) | payer OTHER ==
--- NOTE | 2021-05-16 16:05 | Diagnostic Imaging Report ---
INDICATION: History of retinal repair. Pre-MRI screening. COMPARISON: None FINDINGS: Frontal and lateral radiographic views of the orbits were obtained. No unexpected radiopaque foreign bodies are seen. No gross acute osseous abnormality is identified. Rounded opacities are noted projecting over the bilateral maxillary sinuses and may be on the basis of mucous retention cyst versus polyps. IMPRESSION:. No unexpected radiopaque foreign body about the orbits. Dictated by: Dictated on workstation # [id number]
--- NOTE | 2021-05-16 17:08 | Diagnostic Imaging Report ---
PROCEDURE: MRI left upper extremity without contrast. TECHNIQUE: Multiplanar, multisequence non contrast-enhanced MRI of the left upper extremity was accomplished. INDICATION: Further evaluation of long finger mass. COMPARISON: Radiographs from 03/18/2021. FINDINGS: The calcified mass in the volar surface of the long finger is T1 isointense to muscle and heterogeneous in signal on T2 imaging with a lobular T2 hyperintense focus proximally. The overall margins of the mass are poorly defined by MRI given to the generalized nature. This is again noted to span across the long finger DIP. There is no discontinuity within the flexor digitorum superficialis under the mass. No tenosynovitis. No osseous erosions or bone marrow edema. IMPRESSION: 1. The calcified mass in the volar aspect of the long finger spanning the DIP joint has no features of malignancy on noncontrast imaging. The mass itself is much better evaluated on recent radiographs. Based on the combined radiographic and MRI features, tumoral calcinosis is the leading consideration. Other possibilities would be dystrophic calcifications from prior trauma/foreign body reaction. Dictated by: Dictated on workstation # [id number]
== END ==
LOC: RAD 04-30 14:45
DX: M79.645 Pain in left finger(s) (principal); R22.32 Localized swelling, mass and lump, left upper limb; Z86.69 Personal history of other diseases of the nervous system and sense organs
CPT/HCPCS: 73218

== ENCOUNTER 2022-02-22 10:22 | Emergency (ER) | payer OTHER ==
[~2022-02-22] VITALS: Ht 170.2 cm; Wt 100.7 kg
[2022-02-22 10:38] VITALS: BP 152/77
[2022-02-22] MEDS ORDERED: ACETAMINOPHEN 500 MG TAB (TYLENOL) PO ONE (11:00)
--- NOTE | 2022-02-22 11:16 | Diagnostic Imaging Report ---
EXAMINATION: Right foot 3 views HISTORY: foot pain COMPARISON: 11/28/2019 FINDINGS: There are vascular calcifications. No fracture. No dislocation. Joint spaces are normal. There are calcifications of the isthmus, Achilles tendon and plantar fascia. IMPRESSION: 1. No fracture. Dictated by: Dictated on workstation # [id number]
--- NOTE | 2022-02-22 11:46 | Diagnostic Imaging Report ---
EXAMINATION: Right tibia and fibula 2 views HISTORY: Leg pain COMPARISON: None available. FINDINGS: There are extensive vascular calcifications. There are calcifications of the distal Achilles tendon. No fracture. No dislocation. There is chondrocalcinosis of the menisci. IMPRESSION: 1. No fracture in the right lower extremity. Dictated by: Dictated on workstation # [id number]
--- NOTE | 2022-02-22 12:27 | ED Lower Extremity ---
General Chief Complaint: Lower Extremity Stated Complaint: RIGHT FOOT/ANKLE INJURY Nursing Triage Note: PT AMBULATE TO ROOM FT1 WITH C/O RIGHT ANKLE/FOOT PAIN X3 WEEKS. PT STATES HE WAS WORKING AND TOSSED A 4X4 PIECE OF LUMBER AND IT BOUNCED BACK HITTING HIM IN THE RIGHT ANKLE/FOOT. PT STATES HE WAS SEEN AT [facility] TODAY AND WAS TOLD THAT IF THEY DONE THE XRAY IT WOULD TAKE 2-3 DAYS FOR RESULTS BUT IF HE CAME TO THE ED HE WOULD GET THE RESULTS TODAY. Source: patient Exam Limitations: no limitations History of Present Illness Date Seen by Provider: Feb 22, 2022 Time Seen by Provider: 10:43 Initial Comments He is on Eliquis for atrial fibrillation. This 61-year-old gentleman presents to the emergency room with injury to the right foot and ankle. 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 He has had significant bruising, swelling, and pain since that time. He did not feel he could quit working in effort to have the injury evaluated until now. He has b een ambulatory but with notable difficulty. He has not yet been seen for this injury. He is on Eliquis for atrial fibrillation. Allergies and Home Medications Allergies Coded Allergies: No Known Allergies (Unverified Allergy, Unknown, 03/09/15) shrimp (Verified Adverse Reaction, Unknown, VOMITING, 09/22/20) Patient Home Medication List Home Medication List Reviewed: Yes Azithromycin (Azithromycin) 250 Mg Tablet, 250 MG PO DAILY Prescribed by: JÚNIOR MCDONALD on 09/22/20 1851 Carvedilol (Carvedilol) 25 Mg Tablet, 25 MG PO BID, (Reported) Entered as Reported by: FRANCES HAIDER on 01/11/16 1551 Hydrocodone/Acetaminophen (Hydrocodone-Acetamin 5-325 mg) 5 Mg-325 Mg Tablet, 1 TAB PO Q4H PRN for PAIN-MODERATE (5-7) Prescribed by: JÚNIOR MCDONALD on 02/22/22 1228 Metformin HCl (Metformin HCl) 500 Mg Tablet, 250 MG PO BID, (Reported) Entered as Reported by: FRANCES HAIDER on 01/11/16 1551 Ondansetron (Ondansetron Odt) 4 Mg Tab.rapdis, 4 MG SL Q4H PRN for NAUSEA/VOMITING Prescribed by: JÚNIOR MCDONALD on 09/22/20 185 [lasix] , (Reported) Entered as Reported by: FRANCES HAIDER on 01/11/16 1551 Review of Systems Constitutional: no symptoms reported EENTM: no symptoms reported Respiratory: no symptoms reported Cardiovascular: see HPI Gastrointestinal: no symptoms reported Genitourinary: no symptoms reported Musculoskeletal: see HPI Skin: see HPI Psychiatric/Neurological: No Symptoms Reported Past Ugxbcoe-Nnarpy-Slwecn Hx Patient Social History Tobacco Use?: No Smoking Status: Never a Smoker Smokeless Tobacco Frequency: Never a User Use of E-Cig and/or Vaping dev: No Use of E-Cig and/or Vaping Serafin: Never a User Substance use?: No Alcohol Use?: Yes Alcohol Frequency: Rarely Pt feels they are or have been: No Immunizations Up To Date Tetanus Booster (TDap): More than 5yrs First/Initial COVID19 Vaccinat: september 2020 COVID19 Vaccine 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 Past Medical History Surgeries: Yes (shrapnel removed from arms ) Respiratory: No Cardiac: Yes Atrial Fibrillation, High Cholesterol, Hypertension Neurological: No Reproductive Disorders: No Genitourinary: Yes Renal Failure Gastrointestinal: No Musculoskeletal: Yes Gout Endocrine: Yes Diabetes, Non-Insulin dep Cancer: No Psychosocial: No Integumentary: No Blood Disorders: No Physical Exam Vital Signs Vital Signs - First Documented 02/22/22 10:38 Temp 36.1 Pulse 90 Resp 18 B/P (MAP) 152/77 (102) O2 Delivery Room Air Capillary Refill : Less Than 3 Seconds Height, Weight, BMI Height: 5'8" Weight: 235lbs. oz. 106.913365dy; 34.00 BMI Method:Stated General Appearance: WD/WN, mild distress HEENT: normal ENT inspection Neck: normal inspection Cardiovascular: regular rate, rhythm, no murmur Respiratory: lungs clear, normal breath sounds, no respiratory distress Legs: right leg ecchymosis, right leg limited range of motion, right leg pain, right leg soft tissue tenderness, right leg swelling Knees: right knee non-tender, right knee normal inspection, right knee normal range of motion, right knee no evidence of injury Ankles: right ankle ecchymosis, right ankle limited range of motion, right ankle pain, right ankle soft tissue tenderness, right ankle swelling Feet: right foot ecchymosis, right foot limited range of motion, right foot pain, right foot soft tissue tenderness, right foot swelling 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, no motor/sensory deficits, alert, normal mood/affect, oriented x 3 Skin: warm/dry, ecchymosis (Erythema and ecchymosis primarily around the distal foot and toes and anterior ankle on the right) Progress/Results/Core Measures Results/Orders My Orders Orders - JÚNIOR DOMINGUEZ MD Tibia/Fibula, Right, 2 Views (02/22/22 10:52) Foot, Right, 3 View (02/22/22 10:52) Acetaminophen Tablet (Tylenol Tablet) (02/22/22 11:00) Medications Given in ED Vital Signs/I&O 02/22/22 10:38 Temp 36.1 Pulse 90 Resp 18 B/P (MAP) 152/77 (102) O2 Delivery Room Air Blood Pressure Mean: 102 Progress Progress Note : Progress Note No fractures were identified. Evaluation for DVT felt unnecessary as there was no calf tenderness and he is presently compliant with Eliquis. A gentle Robert bandage was applied to the foot and ankle to supply compression and support. Patient stated he did feel improved with Robert bandage on. Instructions for use were reviewed. I do not think it is safe for patient to attempt his type of work with the amount of pain he is presently in but it is also not safe for him to work under the influence of hydrocodone. I therefore did not recommend work until cleared by occupational health. Workmen's Comp. paperwork was completed. See discharge instructions for further discussion. Diagnostic Imaging Diagonstic Imaging: Xray Plain Films/CT/US/NM/MRI: ankle, other (right foot) Comments NAME: EZRA STEIN MED REC#: [id number] PT STATUS: DEP ER : 1960 PHYSICIAN: JÚNIOR DOMINGUEZ MD ADMIT DATE: 02/22/22/ER Signed Date of Exam:02/22/22 FOOT, RIGHT, 3 VIEW EXAMINATION: Right foot 3 views HISTORY: foot pain COMPARISON: 11/28/2019 FINDINGS: There are vascular calcifications. No fracture. No dislocation. Joint spaces are normal. There are calcifications of the isthmus, Achilles tendon and plantar fascia. IMPRESSION: 1. No fracture. Dictated by: Dictated on workstation # [id number] Dict: 02/22/22 1111 Trans: 02/22/22 1303 NAVID [id number] Interpreted by: CARLOS VILLAGOMEZ MD Electronically signed by: CARLOS VILLAGOMEZ MD 02/22/22 1303 NAME: EZRA STEIN [facility] REC#: [id number] PT STATUS: DEP ER : 1960 PHYSICIAN: JÚNIOR DOMINGUEZ MD ADMIT DATE: 02/22/22/ER Signed Date of Exam:02/22/22 TIBIA/FIBULA, RIGHT, 2 VIEWS EXAMINATION: Right tibia and fibula 2 views HISTORY: Leg pain COMPARISON: None available. FINDINGS: There are extensive vascular calcifications. There are calcifications of the distal Achilles tendon. No fracture. No dislocation. There is chondrocalcinosis of the menisci. IMPRESSION: 1. No fracture in the right lower extremity. Dictated by: Dictated on workstation # [id number] Dict: 02/22/22 1110 Trans: 02/22/22 1303 NAVID [id number] Interpreted by: CARLOS VILLAGOMEZ MD Electronically signed by: CARLOS VILLAGOMEZ MD 02/22/22 1303 Departure Impression Primary Impression: Contusion of right foot Qualified Codes: S90.31XA - Contusion of right foot, initial encounter Additional Impressions: Contusion of right leg Qualified Codes: S80.11XA - Contusion of right lower leg, initial encounter Atherosclerosis of artery Disposition: HOME, SELF-CARE Condition: Improved Departure-Patient Inst. Decision time for Depature: 12:25 Referrals: [facility] (PCP/Family) Primary Care Physician Patient Instructions: Contusion (DC) Add. Discharge Instructions: Elevate your foot or the level of your heart as much as possible. Icing in 20- minute intervals may also help with pain and swelling. You may wrap your foot and leg during the day when you are up and about. Take the wraps off at night when you are resting. Make the wrap tighter toward the toes and looser as you work up the leg. You may take hydrocodone as prescribed for pain. Please be advised hydrocodone may cause drowsiness. Use with caution. Do not drive or operate machinery or make important decisions while on hydrocodone. Hydrocodone may also cause constipation, so drink plenty of clear liquids and consider using a stool softener such as Colace. Contact your company's human resources office to determine how you should proceed with follow-up to occupational health. Because you should not be doing the type of work you do with extreme pain or under the influence of pain medications, you should not resume work again until you are cleared by an occupational health provider. In regard to health maintenance, it was noted that you have significant calcifications in the arteries of your leg and foot on the x-rays. Your circulation should be routinely monitored by your primary care provider. You should also see a music sound light technician as soon as possible for diabetic foot care and continue to see a music sound light technician on a regular basis for maintenance care. Call with questions or concerns. Return to care if you have worsening symptoms despite following these instructions. All discharge instructions reviewed with patient and/or family. Voiced understanding. Scripts Hydrocodone/Acetaminophen (Hydrocodone-Acetamin 5-325 mg) 5 Mg-325 Mg Tablet 1 TAB PO Q4H PRN for PAIN-MODERATE (5-7), #20 TAB Prov: JÚNIOR DOMINGUEZ MD 02/22/22 Copy Copies To 1: [facility]/JÚNIOR MCKEON MD Feb 22, 2022 12:27
[2022-02-22] MEDS ORDERED: ACHD5005 PO (12:28)
== END 2022-02-22 12:45 | disposition home or self-care (01) ==
LOC: EDUNIT# 10:22 → ER 10:26
DX: S90.31XA Contusion of right foot, initial encounter (principal); I70.0 Atherosclerosis of aorta; I48.91 Unspecified atrial fibrillation; Z79.01 Long term (current) use of anticoagulants; W22.8XXA Striking against or struck by other objects, initial encounter; Y92.59 Other trade areas as the place of occurrence of the external cause; Y99.0 Civilian activity done for income or pay
CPT/HCPCS: 73590; 73630

== ENCOUNTER 2022-03-24 10:28 | Inpatient (IN) | payer OTHER ==
[~2022-03-24] VITALS: Ht 172.7 cm; Wt 100.9 kg
[~2022-03-24 10:28] MED LIST changes: +ACHD5005 PO
--- NOTE | 2022-03-24 10:57 | ED Respiratory ---
General Chief Complaint: Respiratory Problems Stated Complaint: SOA - BILAT LEG SWELLING - CONSTIPATION Nursing Triage Note: PT TO RM 9 BY WC WITH CC OF SOA, COUGH, BILAT LEG SWELLING, AND CONSTIPATION FOR THE PAST WEEK. PT DENIES HEART HX. PT REPORTS LAST BM THIS AM. PT A&OX4 Source: patient, family () Exam Limitations: no limitations History of Present Illness Date Seen by Provider: Mar 24, 2022 Time Seen by Provider: 10:43 Initial Comments Patient is a 61-year-old male with a history of congestive heart failure who follows with [facility] in [place], presents to the emergency department with a chief complaint of increasing shortness of breath over the last couple of weeks, dry cough, significant lower extremity edema and constipation. Patient states that he has been fighting the constipation over the last couple of weeks as well has tried prescription medicine without any significant relief. He went to the [facility] walk-in on Thursday, they prescribed him an additional diuretic which has not helped to mobilize any fluid. He feels "tightness" in his chest related to his breathing and because of his abdominal bloating. He states he is urinating normally. No fevers or chills. No URI symptoms. He has discomfort in his legs due to the swelling. He denies a history of cardiac cath or stent placement. He reports 15 pound weight gain over the last several weeks. His states that he is undergoing work-up for a "watchman" procedure. He has a history of chronic atrial fibrillation and is on Eliquis. His nurse Karissa RN noted that he had a 3 beat run of ventricular tachycardia that seemed to resolve when he coughed. All other review of systems reviewed and negative except as stated Timing/Duration: constant, getting worse Severity: moderate Prior Episodes/Possible Cause: occasional episodes Modifying Factors: Worse With Lying Down Associated Symptoms: cough, shortness of breath, other (swelling) Allergies and Home Medications Allergies Coded Allergies: No Known Allergies (Unverified Allergy, Unknown, 03/09/15) shrimp (Verified Adverse Reaction, Unknown, VOMITING, 09/22/20) Patient Home Medication List Home Medication List Reviewed: Yes Azithromycin (Azithromycin) 250 Mg Tablet, 250 MG PO DAILY Prescribed by: JÚNIOR MCDONALD on 09/22/20 0906 Carvedilol (Carvedilol) 25 Mg Tablet, 25 MG PO BID, (Reported) Entered as Reported by: FRANCES HAIDER on 01/11/16 155 Hydrocodone/Acetaminophen (Hydrocodone-Acetamin 5-325 mg) 5 Mg-325 Mg Tablet, 1 TAB PO Q4H PRN for PAIN-MODERATE (5-7) Prescribed by: JÚNIOR MCDONALD on 02/22/22 1228 Metformin HCl (Metformin HCl) 500 Mg Tablet, 250 MG PO BID, (Reported) Entered as Reported by: FRANCES HAIDER on 01/11/16 155 Ondansetron (Ondansetron Odt) 4 Mg Tab.rapdis, 4 MG SL Q4H PRN for NAUSEA/VOMITING Prescribed by: JÚNIOR MCDONALD on 09/22/20 1851 [lasix] , (Reported) Entered as Reported by: FRANCES HAIDER on 01/11/161550 Review of Systems Review of Systems Constitutional: see HPI EENTM: no symptoms reported Respiratory: cough, short of breath Cardiovascular: no symptoms reported; No chest pain Gastrointestinal: constipation Genitourinary: no symptoms reported Musculoskeletal: other (swelling in legs) Skin: no symptoms reported All Other Systems Reviewed Negative Unless Noted: Yes Past Klpwlsm-Azsczw-Ekqhfr Hx Patient Social History Tobacco Use?: No Substance use?: No Alcohol Use?: No Pt feels they are or have been: No Immunizations Up To Date Tetanus Booster (TDap): More than 5yrs First/Initial COVID19 Vaccinat: september 2020 Second COVID19 Vaccination Daniel: september 2020 Third COVID19 Vaccination Date: september 2020 Past Medical History Surgery/Hospitalization HX: TYPE 2 DM, HTN Surgeries: Yes (shrapnel removed from arms ) Respiratory: No Cardiac: Yes Atrial Fibrillation, High Cholesterol, Hypertension Neurological: No Reproductive Disorders: No Genitourinary: Yes Renal Failure Gastrointestinal: No Musculoskeletal: Yes Gout Endocrine: Yes Diabetes, Non-Insulin dep Cancer: No Psychosocial: No Integumentary: No Blood Disorders: No Physical Exam Vital Signs - First Documented 03/24/22 10:30 Temp 36.9 Pulse 79 Resp 31 B/P (MAP) 157/72 (100) Pulse Ox 95 O2 Delivery Room Air Capillary Refill : Less Than 3 Seconds Height: 5'8" Weight: 235lbs. oz. 106.989461un; 34.00 BMI Method:Stated General Appearance: WD/WN, mild distress Eyes: Bilateral Eye Normal Inspection, Bilateral Eye PERRL, Bilateral Eye EOMI HEENT: PERRL/EOMI Neck: normal inspection Respiratory: other (Slightly tachypneic, scattered crackles posteriorly in bilateral lung ochoa. Slight increased work of breathing/labored breathing; room air oxygen saturations 94%) Cardiovascular: irregularly irregular (Irregularly irregular rhythm, rate mid 80s) Gastrointestinal: soft, other (Distended) Extremities: normal range of motion, pedal edema (3+ bilaterally) Neurologic/Psychiatric: no motor/sensory deficits, alert, normal mood/affect, oriented x 3 Skin: normal color, warm/dry Progress/Results/Core Measures Suspected Sepsis SIRS Temperature: Pulse: 79 Respiratory Rate: 31 Laboratory Tests 03/24/22 10:58: White Blood Count 9.1 Blood Pressure 157 /72 Mean: 100 Laboratory Tests 03/24/22 10:58: Creatinine 3.32H, Platelet Count 253, Total Bilirubin 0.8 Results/Orders Lab Results Laboratory Tests Test 03/24/22 10:56 03/24/22 10:58 Range/Units Urine Color YELLOW Urine Clarity CLEAR Urine pH 6.0 5-9 Urine Specific Bath 1.010 L 1.016-1.022 Urine Protein 1+ H NEGATIVE Urine Glucose (UA) NEGATIVE NEGATIVE Urine Ketones NEGATIVE NEGATIVE Urine Nitrite NEGATIVE NEGATIVE Urine Bilirubin NEGATIVE NEGATIVE Urine Urobilinogen 0.2 < = 1.0 MG/DL Urine Leukocyte Esterase NEGATIVE NEGATIVE Urine RBC (Auto) TRACE-I H NEGATIVE Urine RBC RARE /HPF Urine WBC NONE /HPF Urine Crystals NONE /LPF Urine Bacteria NEGATIVE /HPF Urine Casts NONE /LPF Urine Mucus NEGATIVE /LPF Urine Culture Indicated NO White Blood Count 9.1 4.3-11.0 10^3/uL Red Blood Count 4.06 L 4.30-5.52 10^6/uL Hemoglobin 10.8 L 13.3-17.7 g/dL Hematocrit 34 L 40-54 % Mean Corpuscular Volume 83 80-99 fL Mean Corpuscular Hemoglobin 27 25-34 pg Mean Corpuscular Hemoglobin Concent 32 32-36 g/dL Red Cell Distribution Width 16.6 H 10.0-14.5 % Platelet Count 253 130-400 10^3/uL Mean Platelet Volume 10.5 9.0-12.2 fL Immature Granulocyte % (Auto) 0 % Neutrophils (%) (Auto) 79 H 42-75 % Lymphocytes (%) (Auto) 7 L 12-44 % Monocytes (%) (Auto) 9 0-12 % Eosinophils (%) (Auto) 4 0-10 % Basophils (%) (Auto) 0 0-10 % Neutrophils # (Auto) 7.2 1.8-7.8 10^3/uL Lymphocytes # (Auto) 0.6 L 1.0-4.0 10^3/uL Monocytes # (Auto) 0.8 0.0-1.0 10^3/uL Eosinophils # (Auto) 0.4 H 0.0-0.3 10^3/uL Basophils # (Auto) 0.0 0.0-0.1 10^3/uL Immature Granulocyte # (Auto) 0.0 0.0-0.1 10^3/uL Neutrophils % (Manual) 88 % Lymphocytes % (Manual) 6 % Monocytes % (Manual) 4 % Eosinophils % (Manual) 2 % Hypochromasia SLIGHT Anisocytosis SLIGHT Elliptocytes SLIGHT Sodium Level 137 135-145 MMOL/L Potassium Level 4.3 3.6-5.0 MMOL/L Chloride Level 98 98-107 MMOL/L Carbon Dioxide Level 25 21-32 MMOL/L Anion Gap 14 5-14 MMOL/L Blood Urea Nitrogen 62 H 7-18 MG/DL Creatinine 3.32 H 0.60-1.30 MG/DL Estimat Glomerular Filtration Rate 20 BUN/Creatinine Ratio 19 Glucose Level 87 70-105 MG/DL Calcium Level 9.8 8.5-10.1 MG/DL Corrected Calcium 9.9 8.5-10.1 MG/DL Magnesium Level 2.4 1.6-2.4 MG/DL Total Bilirubin 0.8 0.1-1.0 MG/DL Aspartate Amino Transf (AST/SGOT) 20 5-34 U/L Alanine Aminotransferase (ALT/SGPT) 20 0-55 U/L Alkaline Phosphatase 233 H 40-136 U/L Troponin I 0.070 H <0.028 NG/ML B-Type Natriuretic Peptide 2353.2 H <100.0 PG/ML Total Protein 7.4 6.4-8.2 GM/DL Albumin 3.9 3.2-4.5 GM/DL My Orders Orders - NEREYDA BARTON MD Ed Iv/Invasive Line Start (03/24/22 10:51) Cbc With Automated Diff (03/24/22 10:51) Comprehensive Metabolic Panel (03/24/22 10:51) Bnp Gwendolyn (03/24/22 10:51) Troponin I Gwendolyn (03/24/22 10:51) Ua Culture If Indicated (03/24/22 10:51) Ekg Tracing (03/24/22 10:51) Chest 1 View, Ap/Pa Only (03/24/22 10:51) Magnesium (03/24/22 10:51) Manual Differential (03/24/22 10:58) Vital Signs/I&O 03/24/22 10:30 Temp 36.9 Pulse 79 Resp 31 B/P (MAP) 157/72 (100) Pulse Ox 95 O2 Delivery Room Air Capillary Refill : Less Than 3 Seconds Blood Pressure Mean: 100 ECG Initial ECG Impression Date: Mar 24, 2022 Initial ECG Impression Time: 11:15 Initial ECG Rate: 81 Initial ECG Rhythm: A Fib/Flutter Initial ECG Impression: Atrial Fibrillation Comment irregularly irregular Diagnostic Imaging Diagonstic Imaging: Xray Comments [facility] [place] NAME: EZRA STEIN [facility] REC#: [id number] PT STATUS: REG ER : 1960 PHYSICIAN: NEREYDA BARTON MD ADMIT DATE: 03/24/22/ER Draft Date of Exam:03/24/22 CHEST 1 VIEW, AP/PA ONLY INDICATION: Dyspnea and edema AP view of the chest is obtained with comparison made to study of 09/22/2020. There is mild cardiomegaly and pulmonary venous congestion. There has been increase in bilateral perihilar density likely on the basis of edema. There may be small amount of bilateral pleural fluid. IMPRESSION: Findings are suggestive of congestive heart failure and developing bilateral perihilar pulmonary edema. Dictated on workstation # [id number] Dict: 03/24/22 1148 Trans: 03/24/22 1155 CVB [id number] Interpreted by: MANPREET VELÁZQUEZ MD Electronically signed by: Departure Communication (Admissions) Time/Spoke to Admitting Phy: 11:[address] Abrams, accepts patient for IP admission to cardiac step down Time/Spoke to Consulting Phy: 12:[address] Giles Impression Primary Impression: Acute exacerbation of congestive heart failure Qualified Codes: I50.9 - Heart failure, unspecified Additional Impression: Elevated troponin I level Disposition: ADMITTED INPATIENT Condition: Stable Admissions Decision to Admit Reason: Admit from ER (General) Decision to Admit/Date: Mar 24, 2022 Time/Decision to Admit Time: 12:04 Departure-Patient Inst. Referrals: [facility] (PCP/Family) Primary Care Physician NEREYDA BARTON MD Mar 24, 2022 10:57
[2022-03-24 11:03] LABS: BILIRUBIN,URINE NEGATIVE (NEGATIVE); CLARITY,URINE CLEAR; COLOR,URINE YELLOW; GLUCOSE, URINE (UA) NEGATIVE (NEGATIVE); KETONES,URINE NEGATIVE (NEGATIVE); LEUKOCYTE ESTERASE ,URINE NEGATIVE (NEGATIVE); NITRITE,URINE NEGATIVE (NEGATIVE); PROTEIN,URINE 1+ (NEGATIVE)
[2022-03-24 11:07] LABS: BASOPHILS % (AUTO) 0 % (0-10); EOSINOPHILS # (AUTO) 0.4 10^3/uL (0.0-0.3); EOSINOPHILS % (AUTO) 4 % (0-10); HEMATOCRIT 34 % (40-54); HEMOGLOBIN 10.8 g/dL (13.3-17.7); LYMPHOCYTES # (AUTO) 0.6 10^3/uL (1.0-4.0); LYMPHOCYTES % (AUTO) 7 % (12-44); MEAN CORPUSCULAR HEMOGLOBIN 27 pg (25-34); MEAN CORPUSCULAR HGB CONC 32 g/dL (32-36); MEAN CORPUSCULAR VOLUME 83 fL (80-99); MEAN PLATELET VOLUME 10.5 fL (9.0-12.2); MONOCYTES # (AUTO) 0.8 10^3/uL (0.0-1.0); MONOCYTES % (AUTO) 9 % (0-12); NEUTROPHILS # (AUTO) 7.2 10^3/uL (1.8-7.8); NEUTROPHILS % (AUTO) 79 % (42-75); PLATELET COUNT 253 10^3/uL (130-400); WHITE BLOOD COUNT 9.1 10^3/uL (4.3-11.0)
[2022-03-24 11:09] LABS: BACTERIA,URINE NEGATIVE /HPF; RBC,URINE RARE /HPF
[2022-03-24 11:26] LABS: ALBUMIN 3.9 GM/DL (3.2-4.5); POTASSIUM 4.3 MMOL/L (3.6-5.0)
[2022-03-24 11:27] LABS: CALCIUM 9.8 MG/DL (8.5-10.1); EOSINOPHILS % (MANUAL) 2 %; HYPOCHROMASIA SLIGHT; LYMPHOCYTES % (MANUAL) 6 %; MONOCYTES % (MANUAL) 4 %; NEUTROPHILS % (MANUAL) 88 %
[2022-03-24 11:28] LABS: ANISOCYTOSIS SLIGHT; ELLIPT/OVALOCYTES SLIGHT
[2022-03-24 11:29] LABS: TOTAL PROTEIN 7.4 GM/DL (6.4-8.2)
[2022-03-24 11:30] LABS: BILIRUBIN,TOTAL 0.8 MG/DL (0.1-1.0)
[2022-03-24 11:32] LABS: CREATININE SERUM 3.32 MG/DL (0.60-1.30)
[2022-03-24 11:35] LABS: MAGNESIUM 2.4 MG/DL (1.6-2.4)
--- NOTE | 2022-03-24 11:56 | Diagnostic Imaging Report ---
INDICATION: Dyspnea and edema AP view of the chest is obtained with comparison made to study of 09/22/2020. There is mild cardiomegaly and pulmonary venous congestion. There has been increase in bilateral perihilar density likely on the basis of edema. There may be small amount of bilateral pleural fluid. IMPRESSION: Findings are suggestive of congestive heart failure and developing bilateral perihilar pulmonary edema. Dictated by: Dictated on workstation # [id number]
[2022-03-24] MEDS ORDERED: FUROSEMIDE 40 MG/4 ML INJ (LASIX) IVP ONE (12:15)
[2022-03-24] MEDS ORDERED: ASPIRIN 81 MG CHEW (CHILDREN'S ASA) PO ONE (12:15)
--- NOTE | 2022-03-24 12:52 | Consultation-Cardiology ---
HPI-Cardiology Cardiology Consultation Date of Consultation 03/24/22 Date of Admission Time Seen by Provider: 12:00 Indication: CHF HPI Patient is a 61 y/o male with history of chronic afib, HTN, HLP, DM, CKD. Presented to the ER with complaints of nonproductive cough, increased dyspnea and peripheral edema for the past week. Was evaluated at Urgent care over the weekend and added diuretic. Patient reports progression of symptoms. Denies any chest pain, dizziness or lightheadedness. 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 Kelly. Also follows with chairman and ceo, Dr. Roach. Home Medications & Allergies Allergies: Coded Allergies: No Known Allergies (Unverified Allergy, Unknown, 03/09/15) shrimp (Verified Adverse Reaction, Unknown, VOMITING, 09/22/20) Home Medication List Reviewed: Yes TJY-Trhifj-Cbwhqt Hx Patient Social History Marital Status: Employed/Student: employed Recreational Drug Use: No Smoking Status: Never a Smoker Have you traveled recently?: No Alcohol Use?: No Immunizations Up To Date Tetanus Booster (TDap): More than 5yrs Past Medical History HTN, HLP, DM, CKD, AFib Family Medical History Significant Family History: No Pertinent Family Hx Review of Systems-General Review of Systems Constitutional: see HPI EENTM: see HPI, no symptoms reported Respiratory: cough, dyspnea on exertion, orthopnea, short of breath; No wheezing Cardiovascular: no symptoms reported; No chest pain Gastrointestinal: constipation Genitourinary: no symptoms reported Musculoskeletal: other (swelling in legs) Skin: no symptoms reported All Other Systems Reviewed Negative Unless Noted: Yes Reviewed Test Results Reviewed Test Results Lab Laboratory Tests 03/24/22 10:56: Urine Color YELLOW, Urine Clarity CLEAR, Urine pH 6.0, Urine Specific [place] 1.010L, Urine Protein 1+H, Urine Glucose (UA) NEGATIVE, Urine Ketones NEGATIVE, Urine Nitrite NEGATIVE, Urine Bilirubin NEGATIVE, Urine Urobilinogen 0.2, Urine Leukocyte Esterase NEGATIVE, Urine RBC (Auto) TRACE-IH, Urine RBC RARE, Urine WBC NONE, Urine Crystals NONE, Urine Bacteria NEGATIVE, Urine Casts NONE, Urine Mucus NEGATIVE, Urine Culture Indicated NO 03/24/22 10:58: White Blood Count 9.1, Red Blood Count 4.06L, Hemoglobin 10.8L, Hematocrit 34L, Mean Corpuscular Volume 83, Mean Corpuscular Hemoglobin 27, Mean Corpuscular Hemoglobin Concent 32, Red Cell Distribution Width 16.6H, Platelet Count 253, Mean Platelet Volume 10.5, Immature Granulocyte % (Auto) 0, Neutrophils (%) (Auto) 79H, Lymphocytes (%) (Auto) 7L, Monocytes (%) (Auto) 9, Eosinophils (%) (Auto) 4, Basophils (%) (Auto) 0, Neutrophils # (Auto) 7.2, Lymphocytes # (Auto) 0.6L, Monocytes # (Auto) 0.8, Eosinophils # (Auto) 0.4H, Basophils # (Auto) 0.0, Immature Granulocyte # (Auto) 0.0, Neutrophils % (Manual) 88, Lymphocytes % (Manual) 6, Monocytes % (Manual) 4, Eosinophils % (Manual) 2, Hypochromasia SLIGHT, Anisocytosis SLIGHT, Elliptocytes SLIGHT, Sodium Level 137, Potassium Level 4.3, Chloride Level 98, Carbon Dioxide Level 25, Anion Gap 14, Blood Urea Nitrogen 62H, Creatinine 3.32H, Estimat Glomerular Filtration Rate 20, BUN/Creatinine Ratio 19, Glucose Level 87, Calcium Level 9.8, Corrected Calcium 9.9, Magnesium Level 2.4, Total Bilirubin 0.8, Aspartate Amino Transf (AST/SGOT) 20, Alanine Aminotransferase (ALT/SGPT) 20, Alkaline Phosphatase 233H, Troponin I 0.070H, B-Type Natriuretic Peptide 2353.2H, Total Protein 7.4, Albumin 3.9 ECG Impression ECG Initial ECG Rhythm: A Fib/Flutter Initial ECG Impression: Atrial Fibrillation Physical Exam Physical Exam Vital Signs Vital Signs - First Documented 03/24/22 10:30 Temp 36.9 Pulse 79 Resp 31 B/P (MAP) 157/72 (100) Pulse Ox 95 O2 Delivery Room Air Capillary Refill : Less Than 3 Seconds Height, Weight, BMI Height: 5'8" Weight: 235lbs. oz. 106.679619am; 34.00 BMI Method:Stated General Appearance: No Apparent Distress Eyes: Bilateral Eye Normal Inspection, Bilateral Eye PERRL, Bilateral Eye EOMI HEENT: PERRL/EOMI, Normal ENT Inspection Neck: Full Range of Motion, Non Tender, Supple; No Carotid Bruit Respiratory: Chest Non Tender, Crackles, Decreased Breath Sounds Cardiovascular: Irregularly Irregular Gastrointestinal: Non Tender, Soft Rectal: Deferred Extremity: Pedal Edema Neurologic/Psychiatric: Alert, Oriented x3, liquid sugar melter II-XII Norm as Tested A/P-Cardiology Admission Diagnosis CHF HTN HLP DM Assessment/Plan Acute congestive heart failure of undetermined etiology, elevated BNP, progressive shortness of breath, I will evaluate 2D Echo, continue to diurese. Intolerant to CHRISTIN-I or ARB secondary to renal function. Chronic afib, has been maintained on Eliquis as outpatient, reports had evaluation for Watchman procedure, was deemed not a good candidate. EKG showing rate controlled afib. Mildly elevated troponin, likely type II RI.EKG showing afib with no acute ST changes. No recent cardiac work up. Evaluate 2D Echo, Will continue to monitor. Consider stress testing. HTN, restart home blood pressure medication and continue to monitor. HLP DM CKD, follows with Dr. Roach as outpatient. Continue to monitor renal function. Obesity Constipation. Thank you for allowing us to participate in the management of Mr. Salmon. This is Humaira Rendon PA-C, as a scribe for Dr. Giles. Patient was seen and evaluated with Humaira, patient with having worsening pedal edema, orthopnea, he is in acute left ventricular systolic dysfunction He was given Lasix 80 mg in the emergency room and I will start her on 40 mg IV every 12 hours, monitor his renal function and urine output closely Monitor blood pressure, evaluate 2D echo Starting on Lovenox empirically. HUMAIRA LASSITER Mar 24, 2022 12:52 KAITY GILES MD Mar 24, 2022 13:23
--- NOTE | 2022-03-24 13:29 | History & Physical ---
HOWARDMEGHADMITRIYOSVALDO 03/24/22 1329: History of Present Illness History of Present Illness Reason for visit/HPI Michi is a 61 y M who presented to the ED with SOB for over 1 week. He states he has been out of his Lasix for 10 days and is waiting for the [place] to mail him his prescription. He was seen at [facility] walkin clinic on Thursday for constipation. He was given miralax and Lasix and was told to come to the Emergency Room if his SOB and edema worsened. Date of Admission Mar 24, 2022 at 11:52 I consulted on this patient on 03/24/22 13:21 Attending Physician [place] Admitting Physician Admitting Physician: Jaida Castillo MD Attending Physician: Jaida Castillo MD Consult Allergies and Home Medications Allergies Coded Allergies: No Known Allergies (Unverified Allergy, Unknown, 03/09/15) shrimp (Verified Adverse Reaction, Unknown, VOMITING, 09/22/20) Patient Home Medication List Allopurinol (Allopurinol) 100 Mg Tablet, 100 MG PO HS, (Reported) Entered as Reported by: DOLLY ENGLE on 03/24/221543 Last Action: Reviewed Apixaban (Eliquis) 5 Mg Tablet, 5 MG PO BID, (Reported) Entered as Reported by: DOLLY ENGLE on 03/24/221543 Last Action: Reviewed Aspirin (Aspirin EC) 81 Mg Tablet.dr, 81 MG PO HS, (Reported) Entered as Reported by: DOLLY ENGLE on 03/24/221543 Last Action: Reviewed Calcium Acetate (Calcium Acetate) 667 Mg Tablet, 667 MG PO TID, (Reported) Entered as Reported by: DOLLY ENGLE on 03/24/221543 Last Action: Reviewed Digoxin (Digoxin) 125 Mcg (0.125 Mg) Tablet, 125 MCG PO Q72H, (Reported) Entered as Reported by: DOLLY ENGLE on 03/24/22 579 Last Action: Reviewed Furosemide (Furosemide) 40 Mg Tablet, 40 MG PO BID, (Reported) Entered as Reported by: DOLLY ENGLE on 03/24/221543 Last Action: Reviewed Glimepiride (Glimepiride) 4 Mg Tablet, 4 MG PO DAILY, (Reported) Entered as Reported by: DOLLY ENGLE on 03/24/221543 Last Action: Reviewed Isosorbide Mononitrate (Isosorbide Mononitrate ER) 60 Mg Tab, 60 MG PO DAILY, (Reported) Entered as Reported by: DOLLY ENGLE on 03/24/221543 Last Action: Reviewed Polyethylene Glycol 3350 (Miralax) 17 Gram Powd.pack, 17 GM PO BID PRN for CONSTIPATION-2ND LINE, (Reported) Entered as Reported by: DOLLY ENGLE on 03/24/221543 Last Action: Reviewed Sitagliptin Phosphate (Januvia) 100 Mg Tablet, 100 MG PO HS, (Reported) Entered as Reported by: DOLLY ENGLE on 03/24/221543 Last Action: Reviewed Torsemide (Torsemide) 100 Mg Tablet, 100 MG PO DAILY, (Reported) Entered as Reported by: DOLLY ENGLE on 03/24/221543 Last Action: Reviewed Discontinued Medications Azithromycin (Azithromycin) 250 Mg Tablet, 250 MG PO DAILY Discontinued Reason: No Longer Taking Prescribed by: JÚNIOR MCDONALD on 09/22/201850 Last Action: Discontinued Carvedilol (Carvedilol) 25 Mg Tablet, 25 MG PO BID, (Reported) Discontinued Reason: No Longer Taking Entered as Reported by: FRANCES HAIDER on 01/11/161550 Last Action: Discontinued Hydrocodone/Acetaminophen (Hydrocodone-Acetamin 5-325 mg) 5 Mg-325 Mg Tablet, 1 TAB PO Q4H PRN for PAIN-MODERATE (5-7) Discontinued Reason: No Longer Taking Prescribed by: JÚNIOR MCDONALD on 02/22/22 1228 Last Action: Discontinued Metformin HCl (Metformin HCl) 500 Mg Tablet, 250 MG PO BID, (Reported) Discontinued Reason: No Longer Taking Entered as Reported by: FRANCES HAIDER on 01/11/161550 Last Action: Discontinued Ondansetron (Ondansetron Odt) 4 Mg Tab.rapdis, 4 MG SL Q4H PRN for NAUSEA/VOMITING Discontinued Reason: No Longer Taking Prescribed by: JÚNIOR MCDONALD on 09/22/201850 Last Action: Discontinued [lasix] , (Reported) Discontinued Reason: No Longer Taking Entered as Reported by: FRANCES HAIDER on 7/1/16 1551 Last Action: Discontinued Past Hryhbwe-Jwkvhy-Tqalnv Hx Patient Social History Marrital Status: Employed/Student: employed Tobacco Use?: No Smoking Status: Never a Smoker Substance use?: No Alcohol Use?: No Pt feels they are or have been: No Immunizations Up To Date First/Initial COVID19 Vaccinat: september 2020 Second COVID19 Vaccination Daniel: september 2020 Tetanus Booster (TDap): More Than 5 Years Current Status Communicates: Verbally Primary Language: Honduran Preferred Spoken Language: Honduran Implanted or Applied Medical D: None Past Medical History Atrial Fibrillation, High Cholesterol, Hypertension Renal Failure Gout Diabetes, Non-Insulin dep Blood Disorders: No Family Medical History No Pertinent Family Hx Review of Systems Constitutional: No chills, No diaphoresis, No dizziness, No fever, No weakness EENTM: no symptoms reported Respiratory: cough, dyspnea on exertion, orthopnea, short of breath Cardiovascular: No chest pain; edema; No palpitations Gastrointestinal: no symptoms reported Genitourinary: no symptoms reported Musculoskeletal: no symptoms reported Skin: no symptoms reported Psychiatric/Neurological: No Symptoms Reported Physical Exam Vital Signs Vital Signs - First Documented 03/24/22 10:30 Temp 36.9 Pulse 79 Resp 31 B/P (MAP) 157/72 (100) Pulse Ox 95 O2 Delivery Room Air Capillary Refill : Less Than 3 Seconds Height, Weight, BMI Height: 5'8" Weight: 235lbs. oz. 106.029965lq; 34.00 BMI Method:Stated HEENT: PERRL/EOMI Neck: Normal Inspection Respiratory: Normal Breath Sounds, No Respiratory Distress Cardiovascular: Regular Rate, Rhythm, No Gallop, No Murmur, Other (2+ pitting edema to the level of the thigh bilaterally) Gastrointestinal: Normal Bowel Sounds, No Pulsatile Mass, Non Tender, Soft Extremity: Pedal Edema Neurologic/Psychiatric: Alert, Oriented x3, Normal Mood/Affect Skin: Normal Color, Warm/Dry Assessment/Plan Assessment and Plan 1. Acute CHF Exacerbation w/pulmonary edema - Start IV Lasix - BNP 2500 - Echo shows EF 35-20% - Consider Stress Test - Trend troponins, elevated in th ED - CXR shows perihilar pulmonary edema and cardiomegaly - Cardiology consulted. Appreciate their assistance. - Lovenox for DVT prophylaxis 2. CKD - Follows with Dr. Doc 3. Atrial Fibrillation - rate controlled per EKG - Home medications as appropriate. 4. Hypertension - Hold ACEi or ARB due to kidney function, Cr 3.32 - Home medications as appropriate. 5. T2DM - SSI - Home medications as appropriate. JAIDA CASTILLO MD 03/24/222200: History of Present Illness History of Present Illness Date Seen by a Provider: Mar 24, 2022 Time Seen by a Provider: 13:00 Allergies and Home Medications Allergies Coded Allergies: No Known Allergies (Unverified Allergy, Unknown, 03/09/15) shrimp (Verified Adverse Reaction, Unknown, VOMITING, 09/22/20) Patient Home Medication List Home Medication List Reviewed: Yes Allopurinol (Allopurinol) 100 Mg Tablet, 100 MG PO HS, (Reported) Entered as Reported by: DOLLY ENGLE on 03/24/221543 Last Action: Reviewed Apixaban (Eliquis) 5 Mg Tablet, 5 MG PO BID, (Reported) Entered as Reported by: DOLLY ENGLE on 03/24/221543 Last Action: Reviewed Aspirin (Aspirin EC) 81 Mg Tablet.dr, 81 MG PO HS, (Reported) Entered as Reported by: DOLLY ENGLE on 03/24/221543 Last Action: Reviewed Calcium Acetate (Calcium Acetate) 667 Mg Tablet, 667 MG PO TID, (Reported) Entered as Reported by: DOLLY ENGLE on 03/24/221543 Last Action: Reviewed Digoxin (Digoxin) 125 Mcg (0.125 Mg) Tablet, 125 MCG PO Q72H, (Reported) Entered as Reported by: DOLLY ENGLE on 03/24/221555 Last Action: Reviewed Furosemide (Furosemide) 40 Mg Tablet, 40 MG PO BID, (Reported) Entered as Reported by: DOLLY ENGLE on 03/24/221543 Last Action: Reviewed Glimepiride (Glimepiride) 4 Mg Tablet, 4 MG PO DAILY, (Reported) Entered as Reported by: DOLLY ENGLE on 03/24/221543 Last Action: Reviewed Isosorbide Mononitrate (Isosorbide Mononitrate ER) 60 Mg Tab, 60 MG PO DAILY, (Reported) Entered as Reported by: DOLLY ENGLE on 03/24/221543 Last Action: Reviewed Polyethylene Glycol 3350 (Miralax) 17 Gram Powd.pack, 17 GM PO BID PRN for CONSTIPATION-2ND LINE, (Reported) Entered as Reported by: DOLLY ENGLE on 03/24/221543 Last Action: Reviewed Sitagliptin Phosphate (Januvia) 100 Mg Tablet, 100 MG PO HS, (Reported) Entered as Reported by: DOLLY ENGLE on 03/24/221543 Last Action: Reviewed Torsemide (Torsemide) 100 Mg Tablet, 100 MG PO DAILY, (Reported) Entered as Reported by: DOLLY ENGLE on 03/24/221543 Last Action: Reviewed Discontinued Medications Azithromycin (Azithromycin) 250 Mg Tablet, 250 MG PO DAILY Discontinued Reason: No Longer Taking Prescribed by: JÚNIOR MCDONALD on 09/22/201850 Last Action: Discontinued Carvedilol (Carvedilol) 25 Mg Tablet, 25 MG PO BID, (Reported) Discontinued Reason: No Longer Taking Entered as Reported by: FRANCES HAIDER on 01/11/161550 Last Action: Discontinued Hydrocodone/Acetaminophen (Hydrocodone-Acetamin 5-325 mg) 5 Mg-325 Mg Tablet, 1 TAB PO Q4H PRN for PAIN-MODERATE (5-7) Discontinued Reason: No Longer Taking Prescribed by: JÚNIOR MCDONALD on 02/22/22 1228 Last Action: Discontinued Metformin HCl (Metformin HCl) 500 Mg Tablet, 250 MG PO BID, (Reported) Discontinued Reason: No Longer Taking Entered as Reported by: FRANCES HAIDER on 01/11/161550 Last Action: Discontinued Ondansetron (Ondansetron Odt) 4 Mg Tab.rapdis, 4 MG SL Q4H PRN for NAUSEA/VOMITING Discontinued Reason: No Longer Taking Prescribed by: JÚNIOR MCDONALD on 09/22/201850 Last Action: Discontinued [lasix] , (Reported) Discontinued Reason: No Longer Taking Entered as Reported by: FRANCES HAIDER on 01/11/161550 Last Action: Discontinued Physical Exam General Appearance: No Apparent Distress Respiratory: Normal Breath Sounds, No Accessory Muscle Use, No Respiratory Distress Cardiovascular: Regular Rate, Rhythm, No Murmur Gastrointestinal: Normal Bowel Sounds, Non Tender, Soft Extremity: Pedal Edema (2+ pitting to thighs) Neurologic/Psychiatric: Alert, Normal Mood/Affect Skin: Normal Color, Warm/Dry Assessment/Plan Admission Diagnosis Admission Status: Inpatient Order (span 2 midnights) Reason for Inpatient Admission: CHF exacerbation with multiple comorbidities including acute on chronic kidney injury Supervisory-Addendum Brief Verification & Attestation Participated in pt care: history, MDM, physical Personally performed: exam, history, MDM, supervision of care Care discussed with: Medical Student Procedures: n/a I personally saw and examined patient and did my own history which confirmed that documented by the medical student. See my physical exam for my exam findings. Will consult Nephrology due to acute on chronic kidney injury and need for aggressive diuresis. A fib, rate controlled, EF 25-30%, acute systolic CHF, Troponin elevation thought to be type II PR, appreciate Cardiology recommendations. Resume home anticoagulation which will act as DVT prophylaxis coverage as well. OSVALDO SORIA Mar 24, 2022 13:29 JAIDA CASTILLO MD Mar 24, 2022 22:01
[2022-03-24] MEDS ORDERED: ENOXAPARIN 150 MG/ML (LOVENOX) SYR SQ SCH (13:30)
[2022-03-24] MEDS ORDERED: ENOXAPARIN 100 MG/1 ML (LOVENOX) SYR SC SCH (13:30)
[2022-03-24] MEDS ORDERED: NS IV 500 ML 500 ML IV PRN (14:15)
[2022-03-24] MEDS ORDERED: TORS100T4 PO (15:44)
[2022-03-24] MEDS ORDERED: ALLO100T PO (15:44)
[2022-03-24] MEDS ORDERED: FURO40TA4 PO (15:44)
[2022-03-24] MEDS ORDERED: ISOS60TA63 PO (15:44)
[2022-03-24] MEDS ORDERED: GLIM4TAB5 PO (15:44)
[2022-03-24] MEDS ORDERED: SITA100T12 PO (15:44)
[2022-03-24] MEDS ORDERED: CALC667T5 PO (15:44)
[2022-03-24] MEDS ORDERED: POLY17PO6 PO (15:44)
[2022-03-24] MEDS ORDERED: ASPI-1238 PO (15:44)
[2022-03-24] MEDS ORDERED: APIX5TAB PO (15:44)
[2022-03-24 15:50] VITALS: BP 167/86
--- NOTE | 2022-03-24 15:52 | Consultation ---
History of Present Illness History of Present Illness Patient Consulted On(daniel/time) 03/24/22 15:46 Time Seen by Provider: 16:22 Reason for Visit: CHF History of Present Illness Mr. Salmon is a very pleasant 61 y/o WM with h/o afib, HTN, DM, CHF and CKD 4 who was admitted with volume overload after running out of torsemide. [facility] Has been out of torsemide 50mg qday and but continue to take fursemide 40mg bid along with potassium. has been on this for a few years. Has gain about 15lbs since running out of torsemide. 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 Allergies and Home Medications Allergies Coded Allergies: No Known Allergies (Unverified Allergy, Unknown, 03/09/15) shrimp (Verified Adverse Reaction, Unknown, VOMITING, 09/22/20) Patient Home Medication List Home Medication List Reviewed: Yes Allopurinol (Allopurinol) 100 Mg Tablet, 100 MG PO HS, (Reported) Entered as Reported by: DOLLY ENGLE on 03/24/221543 Last Action: Reviewed Apixaban (Eliquis) 5 Mg Tablet, 5 MG PO BID, (Reported) Entered as Reported by: DOLLY ENGLE on 03/24/221543 Last Action: Reviewed Aspirin (Aspirin EC) 81 Mg Tablet.dr, 81 MG PO HS, (Reported) Entered as Reported by: DOLLY ENGLE on 03/24/221543 Last Action: Reviewed Calcium Acetate (Calcium Acetate) 667 Mg Tablet, 667 MG PO TID, (Reported) Entered as Reported by: DOLLY ENGLE on 03/24/221543 Last Action: Reviewed Digoxin (Digoxin) 125 Mcg (0.125 Mg) Tablet, 125 MCG PO Q72H, (Reported) Entered as Reported by: DOLLY ENGLE on 03/24/221555 Last Action: Reviewed Furosemide (Furosemide) 40 Mg Tablet, 40 MG PO BID, (Reported) Entered as Reported by: DOLLY ENGLE on 03/24/221543 Last Action: Reviewed Glimepiride (Glimepiride) 4 Mg Tablet, 4 MG PO DAILY, (Reported) Entered as Reported by: DOLLY ENGLE on 03/24/221543 Last Action: Reviewed Isosorbide Mononitrate (Isosorbide Mononitrate ER) 60 Mg Tab, 60 MG PO DAILY, (Reported) Entered as Reported by: DOLLY ENGLE on 03/24/221543 Last Action: Reviewed Polyethylene Glycol 3350 (Miralax) 17 Gram Powd.pack, 17 GM PO BID PRN for CONSTIPATION-2ND LINE, (Reported) Entered as Reported by: DOLLY ENGLE on 03/24/221543 Last Action: Reviewed Sitagliptin Phosphate (Januvia) 100 Mg Tablet, 100 MG PO HS, (Reported) Entered as Reported by: DOLLY ENGLE on 03/24/221543 Last Action: Reviewed Torsemide (Torsemide) 100 Mg Tablet, 100 MG PO DAILY, (Reported) Entered as Reported by: DOLLY ENGLE on 03/24/221543 Last Action: Reviewed Discontinued Medications Azithromycin (Azithromycin) 250 Mg Tablet, 250 MG PO DAILY Discontinued Reason: No Longer Taking Prescribed by: JÚNIOR MCDONALD on 09/22/201850 Last Action: Discontinued Carvedilol (Carvedilol) 25 Mg Tablet, 25 MG PO BID, (Reported) Discontinued Reason: No Longer Taking Entered as Reported by: FRANCES HAIDER on 01/11/161550 Last Action: Discontinued Hydrocodone/Acetaminophen (Hydrocodone-Acetamin 5-325 mg) 5 Mg-325 Mg Tablet, 1 TAB PO Q4H PRN for PAIN-MODERATE (5-7) Discontinued Reason: No Longer Taking Prescribed by: JÚNIOR MCDONALD on 02/22/22 1228 Last Action: Discontinued Metformin HCl (Metformin HCl) 500 Mg Tablet, 250 MG PO BID, (Reported) Discontinued Reason: No Longer Taking Entered as Reported by: FRANCES HAIDER on 01/11/161550 Last Action: Discontinued Ondansetron (Ondansetron Odt) 4 Mg Tab.rapdis, 4 MG SL Q4H PRN for NAUSEA/VOMITING Discontinued Reason: No Longer Taking Prescribed by: JÚNIOR MCDONALD on 09/22/201850 Last Action: Discontinued [lasix] , (Reported) Discontinued Reason: No Longer Taking Entered as Reported by: FRANCES HAIDER on 01/11/161550 Last Action: Discontinued Past Iiihoyc-Xcccol-Fgnyku Hx Patient Social History Tobacco Use?: No Smoking Status: Never a Smoker Substance use?: No Alcohol Use?: No Pt feels they are or have been: No Immunizations Up To Date Tetanus Booster (TDap): More than 5yrs First/Initial COVID19 Vaccinat: september 2020 Second COVID19 Vaccination Daniel: september 2020 Third COVID19 Vaccination Date: september 2020 Past Medical History Surgery/Hospitalization HX: TYPE 2 DM, HTN Surgeries: Yes (shrapnel removed from arms ) Respiratory: No Cardiac: Yes Atrial Fibrillation, High Cholesterol, Hypertension Neurological: No Reproductive Disorders: No Genitourinary: Yes Renal Failure Gastrointestinal: No Musculoskeletal: Yes Gout Endocrine: Yes Diabetes, Non-Insulin dep Cancer: No Psychosocial: No Integumentary: No Blood Disorders: No Family Medical History No Pertinent Family Hx Review of Systems-General Constitutional: see HPI Physical Exam-General Problems Physical Exam Vital Signs Vital Signs - First Documented 03/24/22 10:30 Temp 36.9 Pulse 79 Resp 31 B/P (MAP) 157/72 (100) Pulse Ox 95 O2 Delivery Room Air Capillary Refill : Less Than 3 Seconds General Appearance: no apparent distress Respiratory: no respiratory distress Cardiovascular: no JVD, other (3-4+ edema) Skin: normal color; No cyanosis Assessment/Plan Assessment/Plan Admission Diagnosis/Plan RAYMOND on CKD 4 with volume overload baseline creatinine 2.95, h/o longstanding HTN/DM home dose of diuretics is unusual as he is on 2 loop diuretics: fursemide 40mg po bid, torsemide 50mg qday recommend at the time of discharge to change to: torsemide 100mg qday with metolazone 2.5mg prn weight gain more than 2lbs had a long discussion regarding the importance of low sodium diet in order to help avoid dialysis in the future 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 and states that if he needs dialysis in the further, then he won't be able to drive consider inpatient dietitian consult regarding low sodium ADA diet avoiding nsaids agree with lasix 40mg iv bid may need to add metolazone to improve diursis will need close outpt nephrology follow up BLE edema see above will apply ble compression wraps first thing in am and take off before bedtime diuresis will be more effective as we mobilize fluid with compression and low sodium diet acute on chronic systolic heart failure exacerbation complicated by CKD 4 EF25% note on echo see plan above medical management of CHF Anemia likely related to anemia of chronic ds recommend age appropriate cancer screening Mineral bone ds on ca acetate 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 FLACA BLACKBURN MD Mar 24, 2022 15:52
[2022-03-24] MEDS ORDERED: DIGO125T3 PO (15:56)
[2022-03-24] MEDS: FUROSEMIDE 40 MG/4 ML INJ (LASIX) IVP SCH (16:43)
[2022-03-24 19:47] VITALS: BP 171/84
[2022-03-24] MEDS: APIXABAN 2.5 MG (ELIQUIS) TABLET PO SCH (20:55)
[2022-03-24] MEDS: CATHETER FLUSH 10 ML SYR IV SCH (20:55)
[2022-03-24] MEDS ORDERED: polyethylene glycoL POWDER 17 GM (MIRALAX) PACK PO PRN (22:00)
[2022-03-25] VITALS (10 sets, daily range): BP systolic 136–161; BP diastolic 45–109
[2022-03-25 00:44] LABS: BASOPHILS % (AUTO) 0 % (0-10); EOSINOPHILS # (AUTO) 0.4 10^3/uL (0.0-0.3); EOSINOPHILS % (AUTO) 4 % (0-10); HEMATOCRIT 32 % (40-54); HEMOGLOBIN 10.3 g/dL (13.3-17.7); LYMPHOCYTES # (AUTO) 0.6 10^3/uL (1.0-4.0); LYMPHOCYTES % (AUTO) 6 % (12-44); MEAN CORPUSCULAR HEMOGLOBIN 27 pg (25-34); MEAN CORPUSCULAR HGB CONC 32 g/dL (32-36); MEAN CORPUSCULAR VOLUME 83 fL (80-99); MONOCYTES % (AUTO) 11 % (0-12); NEUTROPHILS # (AUTO) 7.1 10^3/uL (1.8-7.8); NEUTROPHILS % (AUTO) 79 % (42-75); PLATELET COUNT 229 10^3/uL (130-400)
[2022-03-25 00:49] LABS: POTASSIUM 4.1 MMOL/L (3.6-5.0)
[2022-03-25 00:50] LABS: CALCIUM 9.3 MG/DL (8.5-10.1)
[2022-03-25 00:55] LABS: CREATININE SERUM 3.34 MG/DL (0.60-1.30)
[2022-03-25 00:57] LABS: MAGNESIUM 2.4 MG/DL (1.6-2.4)
[2022-03-25] MEDS ORDERED: MAGNESIUM 1 GM/100 ML IVPB 100 ML IV SCH (06:00)
[2022-03-25] MEDS ORDERED: POTASSIUM CL 10MEQ/50ML IVPB 50 ML IV SCH (06:00)
[2022-03-25] MEDS ORDERED: KCL 20 MEQ TAB (K-DUR) PO SCH (06:00)
[2022-03-25] MEDS: CATHETER FLUSH 10 ML SYR IV SCH ×3 (06:25→21:20)
[2022-03-25] MEDS: FUROSEMIDE 40 MG/4 ML INJ (LASIX) IVP SCH ×2 (06:25→17:41)
--- NOTE | 2022-03-25 07:53 | Progress Note ---
OSVALDO SORIA 03/25/22 0752: Subjective Subjective/Events-last exam Today Michi has no new complaints. Says he is feeling much better but urinating a lot. Denies pain, WADE, CP, n/v/d/abdo pain. Review of Systems General: No Chills, No Night Sweats, No Fatigue, No Malaise, No Appetite, No Other HEENT: No Head Aches, No Visual Changes, No Eye Pain Pulmonary: Dyspnea, Cough Cardiovascular: No: Chest Pain, Palpitations Gastrointestinal: No: Nausea, Vomiting, Abdominal Pain, Diarrhea Genitourinary: No Dysuria Neurological: No: Weakness, Change in speech, Confusion Focused Exam Respiratory: Chest Non Tender, Lungs Clear, Normal Breath Sounds, No Accessory Muscle Use Cardiovascular: Regular Rate, Rhythm, No Murmur, Other (1+ edema BLE improving from yesterday) Skin: normal color, warm/dry Objective Exam Last Set of Vital Signs Vital Signs Date Time Temp Pulse Resp B/P (MAP) Pulse Ox O2 Delivery O2 Flow Rate FiO2 03/25/22 07:16 72 03/25/22 04:00 37.0 20 157/80 (105) 97 Nasal Cannula 2.00 Capillary Refill : Less Than 3 Seconds I&O Intake and Output 03/25/22 00:00 Intake Total 422 ml Output Total 1325 ml Balance -903 ml Intake Oral 422 ml Output Urine Total 1325 ml # Bowel Movements 1 Daily Weight Change No General: Alert, Oriented X3 HEENT: Atraumatic, EOMI, Mucous Memb Moist/[place] [address] Neck: Supple Lungs: Clear to Auscultation Heart: Regular Rate, No Murmurs Abdomen: Normal Bowel Sounds, Soft, No Tenderness Extremities: No Clubbing, No Cyanosis Skin: No Rashes, No Breakdown, No Significant Lesion Psych/Mental Status: Mental Status NL, Mood NL Other physical findings 2+ Edema still present BLE Results/Procedures Lab Laboratory Tests 03/24/22 10:56: Urine Color YELLOW, Urine Clarity CLEAR, Urine pH 6.0, Urine Specific [place] 1.010L, Urine Protein 1+H, Urine Glucose (UA) NEGATIVE, Urine Ketones NEGATIVE, Urine Nitrite NEGATIVE, Urine Bilirubin NEGATIVE, Urine Urobilinogen 0.2, Urine Leukocyte Esterase NEGATIVE, Urine RBC (Auto) TRACE-IH, Urine RBC RARE, Urine WBC NONE, Urine Crystals NONE, Urine Bacteria NEGATIVE, Urine Casts NONE, Urine Mucus NEGATIVE, Urine Culture Indicated NO 03/24/22 10:58: White Blood Count 9.1, Red Blood Count 4.06L, Hemoglobin 10.8L, Hematocrit 34L, Mean Corpuscular Volume 83, Mean Corpuscular Hemoglobin 27, Mean Corpuscular Hemoglobin Concent 32, Red Cell Distribution Width 16.6H, Platelet Count 253, Mean Platelet Volume 10.5, Immature Granulocyte % (Auto) 0, Neutrophils (%) (Auto) 79H, Lymphocytes (%) (Auto) 7L, Monocytes (%) (Auto) 9, Eosinophils (%) (Auto) 4, Basophils (%) (Auto) 0, Neutrophils # (Auto) 7.2, Lymphocytes # (Auto) 0.6L, Monocytes # (Auto) 0.8, Eosinophils # (Auto) 0.4H, Basophils # (Auto) 0.0, Immature Granulocyte # (Auto) 0.0, Neutrophils % (Manual) 88, Lymphocytes % (Manual) 6, Monocytes % (Manual) 4, Eosinophils % (Manual) 2, Hypochromasia SLIGHT, Anisocytosis SLIGHT, Elliptocytes SLIGHT, Sodium Level 137, Potassium Level 4.3, Chloride Level 98, Carbon Dioxide Level 25, Anion Gap 14, Blood Urea Nitrogen 62H, Creatinine 3.32H, Estimat Glomerular Filtration Rate 20, BUN/Creatinine Ratio 19, Glucose Level 87, Calcium Level 9.8, Corrected Calcium 9.9, Magnesium Level 2.4, Total Bilirubin 0.8, Aspartate Amino Transf (AST/SGOT) 20, Alanine Aminotransferase (ALT/SGPT) 20, Alkaline Phosphatase 233H, Troponin I 0.070H, B-Type Natriuretic Peptide 2353.2H, Total Protein 7.4, Albumin 3.9 03/25/22 00:27: White Blood Count 9.0, Red Blood Count 3.88L, Hemoglobin 10.3L, Hematocrit 32L, Mean Corpuscular Volume 83, Mean Corpuscular Hemoglobin 27, Mean Corpuscular Hemoglobin Concent 32, Red Cell Distribution Width 16.6H, Platelet Count 229, Mean Platelet Volume 11.0, Immature Granulocyte % (Auto) 1, Neutrophils (%) (Aut o) 79H, Lymphocytes (%) (Auto) 6L, Monocytes (%) (Auto) 11, Eosinophils (%) (Auto) 4, Basophils (%) (Auto) 0, Neutrophils # (Auto) 7.1, Lymphocytes # (Auto) 0.6L, Monocytes # (Auto) 1.0, Eosinophils # (Auto) 0.4H, Basophils # (Auto) 0.0, Immature Granulocyte # (Auto) 0.1, Sodium Level 136, Potassium Level 4.1, Chloride Level 98, Carbon Dioxide Level 22, Anion Gap 16H, Blood Urea Nitrogen 65H, Creatinine 3.34H, Estimat Glomerular Filtration Rate 20, BUN/Creatinine Ratio 19, Glucose Level 117H, Calcium Level 9.3, Magnesium Level 2.4, Troponin I 0.076H Assessment/Plan Assessment/Plan Assessment & Plan 1. Acute CHF Exacerbation w/pulmonary edema - Continue IV Lasix, net change -900mL fluid yesterday - BNP 2300 - Echo shows EF 35-20% - Consider Stress Test - Trend troponins, elevated in th ED - CXR shows perihilar pulmonary edema and cardiomegaly - Cardiology consulted. Appreciate their assistance. - Lovenox for DVT prophylaxis - Start Atorvastatin 20 mg 2. CKD - Follows with Dr. Roach 3. Anemia - Likely due to chronic kidney disease - CBC w/diff, reticulocyte count, Iron panel/TIBC, folate, B12 - Conisder FOBT, colonoscopy 4. Atrial Fibrillation - rate controlled per EKG - Home medications as appropriate. 5. Hypertension - Hold ACEi or ARB due to kidney function, Cr 3.32 - - Home medications as appropriate. 5. T2DM - SSI - Home medications as appropriate. Clinical Quality Measures Admission Status Admission Dx 1. Acute CHF Exacerbation w/pulmonary edema - Start IV Lasix - BNP 2500 - Echo shows EF 35-20% - Consider Stress Test - Trend troponins, elevated in th ED - CXR shows perihilar pulmonary edema and cardiomegaly - Cardiology consulted. Appreciate their assistance. - Lovenox for DVT prophylaxis 2. CKD - Follows with Dr. Roach 3. Atrial Fibrillation - rate controlled per EKG - Home medications as appropriate. 4. Hypertension - Hold ACEi or ARB due to kidney function, Cr 3.32 - Home medications as appropriate. 5. T2DM - SSI - Home medications as appropriate. JAIDA CASTILLO MD 03/25/22 8565: Supervisory-Addendum Brief Verification & Attestation Participated in pt care: history, MDM, physical Personally performed: exam, history, MDM, supervision of care Care discussed with: Medical Student Procedures: n/a I personally saw and examined patient and repeated the history to confirm that documented by the medical student. I directed the plan of care as documented (note EF is 25-30%) Suspect anemia of CKD, no record of iron studies or colonoscopy in this record or outpatient clinic chart, but [facility], will try to obtain further records. OSVALDO SORIA Mar 25, 2022 07:52 JAIDA CASTILLO MD Mar 25, 2022 15:35
--- NOTE | 2022-03-25 08:05 | Cardiology Progress Note ---
Subjective Date Seen by Provider: Mar 25, 2022 Time Seen by Provider: 08:02 Subjective/Events-last exam Patient was seen at bedside, laying down comfortably Able to lay down flat, still having some cough. Dyspnea is better. Review of Systems General: No Chills, No Night Sweats, No Fatigue, No Malaise, No Appetite, No Other HEENT: No Head Aches, No Visual Changes, No Eye Pain, No Ear Pain, No Dysphasia, No Sinus Congestion, No Post Nasal Drip, No Sore Throat, No Other Pulmonary: Dyspnea, Cough; No Pleuritic Chest Pain, No Other Cardiovascular: Edema; No: Chest Pain, Palpitations, Orthopnea, Paroxysmal Noc. Dyspnea, Lt Headedness, Other Objective-Cardiology Exam Last Set of Vital Signs Vital Signs 03/25/22 07:56 Temp 36.5 Pulse 84 Resp 16 B/P (MAP) 146/74 (98) Pulse Ox 100 O2 Delivery Nasal Cannula O2 Flow Rate 2.00 I&O Intake and Output 03/25/22 00:00 Intake Total 422 ml Output Total 1325 ml Balance -903 ml Intake Oral 422 ml Output Urine Total 1325 ml # Bowel Movements 1 Daily Weight Change No General: Alert, Oriented X3 HEENT: Atraumatic, EOMI, Mucous Memb Moist/[place] Neck: Supple Lungs: Clear to Auscultation Heart: Regular Rate, Normal S1, Normal S2, No Murmurs Abdomen: Normal Bowel Sounds, Soft, No Tenderness Extremities: No Clubbing, No Cyanosis Skin: No Rashes, No Breakdown, No Significant Lesion Psych/Mental Status: Mental Status NL, Mood NL Results Lab Laboratory Tests 03/24/22 10:58 03/25/22 00:27 A/P-Cardiology Admission Diagnosis CHF HTN HLP DM Assessment/Plan Acute congestive heart failure of undetermined etiology, elevated BNP, progressive shortness of breath, Intolerant to ROBERT-I or ARB secondary to renal function. 2D echo showed ejection fraction 25 to 30%. Four-chamber dilation, pulmonary artery pressure 60 to 65 mmHg Pleural effusion was noted. I will evaluate Lexiscan stress test, continue with aggressive diuresis Monitor renal function closely Pleural effusion, secondary to congestive heart failure, responding to diuretics. Worsening pedal edema, starting with Robert wrap, continue with diuretics Acute on chronic renal failure, chronic kidney disease stage IV, Will give Zaroxolyn 1 dose and evaluate tolerance and response Chronic afib, has been maintained on Eliquis as outpatient, reports had evaluation for Watchman procedure, was deemed not a good candidate. EKG showing rate controlled afib. Mildly elevated troponin, likely type II [place].EKG showing afib with no acute ST changes. No recent cardiac work up. Evaluate 2D Echo, Will continue to monitor. Consider stress testing. HTN, restart home blood pressure medication and continue to monitor. HLP, monitor lipids DM, managed by primary care physician Obesity, BMI 34 Constipation. KAITY MARTINEZ MD Mar 25, 2022 08:05
[2022-03-25] MEDS ORDERED: REGADENOSON 0.4 MG/5 ML SYR (LEXISCAN) IV ONE (08:15)
[2022-03-25] MEDS: PANTOPRAZOLE 40 MG (PROTONIX) TAB PO SCH (08:27)
[2022-03-25] MEDS: EMPAGLIFLOZIN 10 MG TABLET (JARDIANCE) PO SCH (08:27)
[2022-03-25] MEDS: APIXABAN 2.5 MG (ELIQUIS) TABLET PO SCH (08:27)
[2022-03-25] MEDS: ISOSORBIDE MONONITRATE 60 MG (IMDUR) TAB PO SCH (08:27)
[2022-03-25] MEDS: ASPIRIN E.C. 81 MG (ECOTRIN) TAB PO SCH (08:28)
--- NOTE | 2022-03-25 08:50 | Diagnostic Imaging Report ---
PROCEDURE: US Renal Bilateral. TECHNIQUE: Multiple Real-time grayscale images were obtained over the kidneys in various projections bilaterally. INDICATION: Acute on chronic renal insufficiency. COMPARISON: No priors. FINDINGS: The right kidney measures 10.2 and the left 9.9 cm. The renal cortical thickness and echotextures bilaterally are normal and there is no appreciable solid or cystic renal mass. There is no hydronephrosis. The urinary bladder prevoid volume is 313 mL with a large 160 post void residual bladder volume. IMPRESSION: Nonfocal unobstructed kidneys. Large 160 mL post void residual bladder volume. Dictated by: Dictated on workstation # [id number]
[2022-03-25] MEDS ORDERED: METOLAZONE 2.5 MG (ZAROXOLYN) TAB PO SCH (09:00)
--- NOTE | 2022-03-25 09:33 | Progress Note ---
Progress Note Assessment/Plan Time Seen by Provider: 12:39 Events since last exam Pt continues to diurese. Took compression socks off but now tolerating darshana wraps. weight dropping and bp improving with diuresis. 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 that if he needs dialysis in the further, then he won't be able to drive encourage low sodium ADA diet avoiding nsaids continue lasix 40mg iv bid may need to add metolazone to improve diursis will need close outpt nephrology follow up BLE edema see above will apply ble compression wraps first thing in am and take off before bedtime diuresis will be more effective as we mobilize fluid with compression and low sodium diet acute on chronic systolic heart failure exacerbation complicated by CKD 4 EF25% note on echo see plan above medical management of CHF Anemia likely related to anemia of chronic ds recommend age appropriate cancer screening Mineral 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 Vitals Last set of Vitals Signs Vital Signs Date Time Temp Pulse Resp B/P (MAP) Pulse Ox O2 Delivery O2 Flow Rate FiO2 03/25/22 07:56 36.5 84 16 146/74 (98) 100 Nasal Cannula 2.00 I&O I&O Intake and Output 03/25/22 00:00 Intake Total 422 ml Output Total 1325 ml Balance -903 ml Intake Oral 422 ml Output Urine Total 1325 ml # Bowel Movements 1 Daily Weight Change No Labs Laboratory Tests 03/24/22 10:56: Urine Color YELLOW, Urine Clarity CLEAR, Urine pH 6.0, Urine Specific [place] 1.010L, Urine Protein 1+H, Urine Glucose (UA) NEGATIVE, Urine Ketones NEGATIVE, Urine Nitrite NEGATIVE, Urine Bilirubin NEGATIVE, Urine Urobilinogen 0.2, Urine Leukocyte Esterase NEGATIVE, Urine RBC (Auto) TRACE-IH, Urine RBC RARE, Urine WBC NONE, Urine Crystals NONE, Urine Bacteria NEGATIVE, Urine Casts NONE, Urine Mucus NEGATIVE, Urine Culture Indicated NO 03/24/22 10:58: White Blood Count 9.1, Red Blood Count 4.06L, Hemoglobin 10.8L, Hematocrit 34L, Mean Corpuscular Volume 83, Mean Corpuscular Hemoglobin 27, Mean Corpuscular Hemoglobin Concent 32, Red Cell Distribution Width 16.6H, Platelet Count 253, Mean Platelet Volume 10.5, Immature Granulocyte % (Auto) 0, Neutrophils (%) (Auto) 79H, Lymphocytes (%) (Auto) 7L, Monocytes (%) (Auto) 9, Eosinophils (%) (Auto) 4, Basophils (%) (Auto) 0, Neutrophils # (Auto) 7.2, Lymphocytes # (Auto) 0.6L, Monocytes # (Auto) 0.8, Eosinophils # (Auto) 0.4H, Basophils # (Auto) 0.0, Immature Granulocyte # (Auto) 0.0, Neutrophils % (Manual) 88, Lymphocytes % (Manual) 6, Monocytes % (Manual) 4, Eosinophils % (Manual) 2, Hypochromasia SLIGHT, Anisocytosis SLIGHT, Elliptocytes SLIGHT, Sodium Level 137, Potassium Level 4.3, Chloride Level 98, Carbon Dioxide Level 25, Anion Gap 14, Blood Urea Nitrogen 62H, Creatinine 3.32H, Estimat Glomerular Filtration Rate 20, BUN/Creatinine Ratio 19, Glucose Level 87, Calcium Level 9.8, Corrected Calcium 9.9, Magnesium Level 2.4, Total Bilirubin 0.8, Aspartate Amino Transf (AST/SGOT) 20, Alanine Aminotransferase (ALT/SGPT) 20, Alkaline Phosphatase 233H, Troponin I 0.070H, B-Type Natriuretic Peptide 2353.2H, Total Protein 7.4, Albumin 3.9 03/25/22 00:27: White Blood Count 9.0, Red Blood Count 3.88L, Hemoglobin 10.3L, Hematocrit 32L, Mean Corpuscular Volume 83, Mean Corpuscular Hemoglobin 27, Mean Corpuscular Hemoglobin Concent 32, Red Cell Distribution Width 16.6H, Platelet Count 229, Mean Platelet Volume 11.0, Immature Granulocyte % (Auto) 1, Neutrophils (%) (Auto) 79H, Lymphocytes (%) (Auto) 6L, Monocytes (%) (Auto) 11, Eosinophils (%) (Auto) 4, Basophils (%) (Auto) 0, Neutrophils # (Auto) 7.1, Lymphocytes # (Auto) 0.6L, Monocytes # (Auto) 1.0, Eosinophils # (Auto) 0.4H, Basophils # (Auto) 0.0, Immature Granulocyte # (Auto) 0.1, Sodium Level 136, Potassium Level 4.1, Chloride Level 98, Carbon Dioxide Level 22, Anion Gap 16H, Blood Urea Nitrogen 65H, Creatinine 3.34H, Estimat Glomerular Filtration Rate 20, BUN/Creatinine Ratio 19, Glucose Level 117H, Calcium Level 9.3, Magnesium Level 2.4, Troponin I 0.076H FLACA BLACKBURN MD Mar 25, 2022 09:33
[2022-03-25] MEDS: APIXABAN 5 MG (ELIQUIS) TABLET PO SCH (20:17)
[2022-03-25] MEDS: MELATONIN 3 MG TABLET PO PRN (21:50)
[2022-03-26] VITALS (9 sets, daily range): BP systolic 120–178; BP diastolic 63–78
[2022-03-26 05:14] LABS: BASOPHILS % (AUTO) 1 % (0-10); EOSINOPHILS # (AUTO) 0.4 10^3/uL (0.0-0.3); EOSINOPHILS % (AUTO) 4 % (0-10); HEMATOCRIT 31 % (40-54); HEMOGLOBIN 9.8 g/dL (13.3-17.7); LYMPHOCYTES # (AUTO) 0.6 10^3/uL (1.0-4.0); LYMPHOCYTES % (AUTO) 7 % (12-44); MEAN CORPUSCULAR HEMOGLOBIN 26 pg (25-34); MEAN CORPUSCULAR HGB CONC 32 g/dL (32-36); MEAN CORPUSCULAR VOLUME 82 fL (80-99); MEAN PLATELET VOLUME 10.9 fL (9.0-12.2); MONOCYTES % (AUTO) 11 % (0-12); NEUTROPHILS # (AUTO) 6.6 10^3/uL (1.8-7.8); NEUTROPHILS % (AUTO) 77 % (42-75); PLATELET COUNT 220 10^3/uL (130-400); WHITE BLOOD COUNT 8.6 10^3/uL (4.3-11.0)
[2022-03-26 05:33] LABS: CALCIUM 9.1 MG/DL (8.5-10.1)
[2022-03-26 05:38] LABS: CREATININE SERUM 3.58 MG/DL (0.60-1.30)
[2022-03-26 05:40] LABS: MAGNESIUM 2.5 MG/DL (1.6-2.4)
[2022-03-26] MEDS: CATHETER FLUSH 10 ML SYR IV SCH ×3 (06:27→20:22)
[2022-03-26] MEDS: FUROSEMIDE 40 MG/4 ML INJ (LASIX) IVP SCH ×2 (07:02→17:42)
--- NOTE | 2022-03-26 08:57 | Cardiology Progress Note ---
Subjective Date Seen by Provider: Mar 26, 2022 Time Seen by Provider: 08:55 Subjective/Events-last exam Patient was seen at bedside, sitting comfortably, denied any chest pain, reporting improvement in the edema Review of Systems General: No Chills, No Night Sweats; Fatigue; No Malaise, No Appetite, No Other HEENT: No Head Aches, No Visual Changes, No Eye Pain, No Ear Pain, No Dysphasia, No Sinus Congestion, No Post Nasal Drip, No Sore Throat, No Other Pulmonary: Dyspnea; No Cough, No Pleuritic Chest Pain, No Other Cardiovascular: Edema; No: Chest Pain, Palpitations, Orthopnea, Paroxysmal Noc. Dyspnea, Lt Headedness, Other Objective-Cardiology Exam Last Set of Vital Signs Vital Signs 03/26/22 03/26/22 04:11 08:51 Temp 36.6 Pulse 60 Resp 15 B/P (MAP) 168/67 (100) Pulse Ox 96 O2 Delivery Room Air O2 Flow Rate 2.00 I&O Intake and Output 03/26/22 00:00 Intake Total 1000 ml Output Total 2175 ml Balance -1175 ml Intake Oral 1000 ml Output Urine Total 2175 ml General: Alert, Oriented X3 HEENT: Atraumatic, EOMI, Mucous Memb Moist/[place] Neck: Supple Lungs: Clear to Auscultation Heart: Regular Rate, Normal S1, Normal S2, No Murmurs Abdomen: Normal Bowel Sounds, Soft, No Tenderness Extremities: No Clubbing, No Cyanosis Skin: No Rashes, No Breakdown, No Significant Lesion Psych/Mental Status: Mental Status NL, Mood NL Results Lab Laboratory Tests 03/26/22 05:05 A/P-Cardiology Admission Diagnosis CHF HTN HLP DM Assessment/Plan Acute congestive heart failure of undetermined etiology, elevated BNP, progressive shortness of breath, Intolerant to ROBERT-I or ARB secondary to renal function. 2D echo showed ejection fraction 25 to 30%. Four-chamber dilation, pulmonary artery pressure 60 to 65 mmHg Pleural effusion was noted. Patient is scheduled for Lexiscan stress test today. Continue with aggressive diuresis and monitor tolerance and response Pleural effusion, secondary to congestive heart failure, responding to diuretics. Worsening pedal edema, started with Robert wrap, continue with diuretics Acute on chronic renal failure, chronic kidney disease stage IV, Receiving Zaroxolyn and Lasix. Monitor tolerance and response Chronic afib, has been maintained on Eliquis as outpatient, reports had evaluation for Watchman procedure, was deemed not a good candidate. EKG showing rate controlled afib. Mildly elevated troponin, likely type II [place].EKG showing afib with no acute ST changes. No recent cardiac work up. Evaluate 2D Echo, Planning for stress test today HTN, restart home blood pressure medication and continue to monitor. HLP, monitor lipids DM, managed by primary care physician Obesity, BMI 34 Constipation. KAITY MARTINEZ MD Mar 26, 2022 08:57
--- NOTE | 2022-03-26 11:17 | Progress Note ---
OSVALDO SORIA 03/26/22 1117: Subjective Subjective/Events-last exam Michi is a 61 y M with a pmh of HTN, DM, CKD, gout being treated for CHF exacerbation. Today he says he is feeling much less short of breath and his cough is improving. Denies pain, WADE, CP, n/v/d/abdo pain Focused Exam Respiratory: Lungs Clear, Normal Breath Sounds, No Accessory Muscle Use Cardiovascular: No Murmur, Other (Irregular rhythm) Skin: normal color, warm/dry Objective Exam Last Set of Vital Signs Vital Signs Date Time Temp Pulse Resp B/P (MAP) Pulse Ox O2 Delivery O2 Flow Rate FiO2 03/26/22 08:51 36.6 60 15 168/67 (100) 96 Room Air 03/26/22 08:00 2.00 Capillary Refill : Less Than 3 Seconds I&O Intake and Output 03/26/22 00:00 Intake Total 1000 ml Output Total 2175 ml Balance -1175 ml Intake Oral 1000 ml Output Urine Total 2175 ml General: Alert, Oriented X3, Cooperative, No Acute Distress HEENT: Atraumatic, EOMI Neck: Supple Lungs: Clear to Auscultation Heart: Regular Rate, Other (irregular rhythm) Abdomen: Normal Bowel Sounds, Soft, No Tenderness Extremities: No Cyanosis, Other (2+ edema to the level of the mid calf, 1+ up to the knee, improving.) Skin: No Rashes, No Breakdown, No Significant Lesion Neuro: Normal Speech, Sensation Intact Psych/Mental Status: Mental Status NL, Mood NL Results/Procedures Lab Laboratory Tests 03/26/22 05:05: White Blood Count 8.6, Red Blood Count 3.74L, Hemoglobin 9.8L, Hematocrit 31L, Mean Corpuscular Volume 82, Mean Corpuscular Hemoglobin 26, Mean Corpuscular Hemoglobin Concent 32, Red Cell Distribution Width 16.5H, Platelet Count 220, Mean Platelet Volume 10.9, Immature Granulocyte % (Auto) 0, Neutrophils (%) (Auto) 77H, Lymphocytes (%) (Auto) 7L, Monocytes (%) (Auto) 11, Eosinophils (%) (Auto) 4, Basophils (%) (Auto) 1, Neutrophils # (Auto) 6.6, Lymphocytes # (Auto) 0.6L, Monocytes # (Auto) 1.0, Eosinophils # (Auto) 0.4H, Basophils # (Auto) 0.0, Immature Granulocyte # (Auto) 0.0, Sodium Level 138, Potassium Level 4.0, Chloride Level 97L, Carbon Dioxide Level 25, Anion Gap 16H, Blood Urea Nitrogen 74H, Creatinine 3.58H, Estimat Glomerular Filtration Rate 18, BUN/Creatinine Ratio 21, Glucose Level 130H, Calcium Level 9.1, Phosphorus Level 6.0H, Magnesium Level 2.5H Assessment/Plan Assessment/Plan Assessment & Plan 1. Acute CHF Exacerbation w/pulmonary edema - Continue IV Lasix, net change -900mL fluid yesterday - BNP 2300 - Echo shows EF 35-20% - Nuclear Stress Test today - CXR shows perihilar pulmonary edema and cardiomegaly and pleural effusions, improving with diuresis - Cardiology consulted. Appreciate their assistance. - Lovenox for DVT prophylaxis - Atorvastatim on discharge - Compression wraps for LE edema 2. CKD - Nephrology following appreciate their assistance - Stared on IV Lasix - consider metazolone for further diuresis if necessary - Phosphorus level 6.0, consider dietary restriction and binders - Cr 3.58 today, monitor. 3. Anemia - Likely due to chronic kidney disease - CBC w/diff, reticulocyte count, Iron panel/TIBC, folate, B12 - Conisder FOBT, colonoscopy 4. Atrial Fibrillation - rate controlled per EKG - Home medications as appropriate. 5. Hypertension - Hold ACEi or ARB due to kidney function, Cr 3.58 today - Home medications as appropriate. 5. T2DM - SSI - Home medications as appropriate. Clinical Quality Measures Admission Status Admission Dx 1. Acute CHF Exacerbation w/pulmonary edema - Start IV Lasix - BNP 2500 - Echo shows EF 35-20% - Consider Stress Test - Trend troponins, elevated in th ED - CXR shows perihilar pulmonary edema and cardiomegaly - Cardiology consulted. Appreciate their assistance. - Lovenox for DVT prophylaxis 2. CKD - Follows with Dr. Roach 3. Atrial Fibrillation - rate controlled per EKG - Home medications as appropriate. 4. Hypertension - Hold ACEi or ARB due to kidney function, Cr 3.32 - Home medications as appropriate. 5. T2DM - SSI - Home medications as appropriate. JAIDA CASTILLO MD 03/26/22 3350: Supervisory-Addendum Brief Verification & Attestation Participated in pt care: history, MDM, physical Personally performed: exam, history, MDM, supervision of care Care discussed with: Medical Student Procedures: n/a I personally saw and examined patient and did my own history which confirmed that documented by the medical student. I directed the plan of care. Will add low phos to diet, defer further phosphate management to Nephrology, appreciate recommendations. OSVALDO SORIA Mar 26, 2022 11:17 JAIDA CASTILLO MD Mar 26, 2022 13:56
[2022-03-26] MEDS: CATHETER FLUSH 10 ML SYR IV PRN ×2 (11:19→13:02)
[2022-03-26] MEDS ORDERED: REGADENOSON 0.4 MG/5 ML SYR (LEXISCAN) IV ONE (12:40)
[2022-03-26] MEDS: APIXABAN 5 MG (ELIQUIS) TABLET PO SCH ×2 (14:30→20:22)
[2022-03-26] MEDS: EMPAGLIFLOZIN 10 MG TABLET (JARDIANCE) PO SCH (14:30)
[2022-03-26] MEDS: ASPIRIN E.C. 81 MG (ECOTRIN) TAB PO SCH (14:30)
[2022-03-26] MEDS: PANTOPRAZOLE 40 MG (PROTONIX) TAB PO SCH (14:31)
[2022-03-26] MEDS: ISOSORBIDE MONONITRATE 60 MG (IMDUR) TAB PO SCH (14:31)
--- NOTE | 2022-03-26 15:11 | Cardiology Stress Test Report ---
Stress Test Report Date of Procedure/Referring: Date of Procedure: Mar 26, 2022 PCP [facility] Admitting Physician Admitting Physician: Laurel Abrams MD Attending Physician: Laurel Abrams MD Indications: A Fib Baseline Heart Rate: 74 Baseline Blood Pressure: Blood Pressure Systolic: 178 Blood Pressure Diastolic: 71 Baseline Vitals Vital Signs Date Time Temp Pulse Resp B/P (MAP) Pulse Ox O2 Delivery O2 Flow Rate FiO2 03/24/22 10:30 36.9 79 31 157/72 (100) 95 Room Air 03/25/22 04:00 2.00 Baseline EKG: Baseline EKG: A fib Summary After explaining the procedure to the patient, he signed a consent and then brought to the stress nuclear laboratory. Patient received 0.4 mg Lexiscan for stress test, ECG, heart rate and blood pressure were monitored continuously. Resting and stress dose of radio tracer were injected, imaging was acquired and reviewed in short axis, horizontal long axis and vertical long axis views. TID: 1.05 SSS: 3 SDS: 1 EF: 32 1. Patient tolerated Lexiscan well 2. Baseline atrial fibrillation with occasional PVCs. Persisted during test. 3. No significant ischemia or infarction noted on SPECT images 4. Prominent left ventricle with diffuse left ventricular hypokinesia, ejection fraction 32%, gated images are unreliable due to underlying atrial fibrillation KAITY MARTINEZ MD Mar 26, 2022 15:11
[2022-03-26] MEDS: MELATONIN 3 MG TABLET PO PRN (20:24)
[2022-03-27 03:59] VITALS: BP 111/70
[2022-03-27 04:04] LABS: BASOPHILS % (AUTO) 0 % (0-10); EOSINOPHILS # (AUTO) 0.4 10^3/uL (0.0-0.3); EOSINOPHILS % (AUTO) 5 % (0-10); HEMATOCRIT 32 % (40-54); HEMOGLOBIN 10.2 g/dL (13.3-17.7); LYMPHOCYTES # (AUTO) 0.7 10^3/uL (1.0-4.0); LYMPHOCYTES % (AUTO) 8 % (12-44); MEAN CORPUSCULAR HEMOGLOBIN 26 pg (25-34); MEAN CORPUSCULAR HGB CONC 32 g/dL (32-36); MEAN CORPUSCULAR VOLUME 82 fL (80-99); MEAN PLATELET VOLUME 10.2 fL (9.0-12.2); MONOCYTES # (AUTO) 0.8 10^3/uL (0.0-1.0); MONOCYTES % (AUTO) 10 % (0-12); NEUTROPHILS # (AUTO) 6.5 10^3/uL (1.8-7.8); NEUTROPHILS % (AUTO) 77 % (42-75); PLATELET COUNT 223 10^3/uL (130-400); WHITE BLOOD COUNT 8.4 10^3/uL (4.3-11.0)
[2022-03-27 04:16] LABS: POTASSIUM 3.9 MMOL/L (3.6-5.0)
[2022-03-27 04:22] LABS: CREATININE SERUM 3.67 MG/DL (0.60-1.30)
[2022-03-27 04:24] LABS: MAGNESIUM 2.5 MG/DL (1.6-2.4)
[2022-03-27] MEDS: CATHETER FLUSH 10 ML SYR IV SCH ×3 (06:28→21:35)
[2022-03-27] MEDS: FUROSEMIDE 40 MG/4 ML INJ (LASIX) IVP SCH ×2 (06:28→17:46)
[2022-03-27 08:00] VITALS: BP 118/64
--- NOTE | 2022-03-27 08:23 | Cardiology Progress Note ---
Subjective Date Seen by Provider: Mar 27, 2022 Time Seen by Provider: 08:21 Subjective/Events-last exam Patient is laying down in a recliner, feeling better, asking about going home Review of Systems General: No Chills, No Night Sweats, No Fatigue, No Malaise, No Appetite, No Other HEENT: No Head Aches, No Visual Changes, No Eye Pain, No Ear Pain, No Dysphasia, No Sinus Congestion, No Post Nasal Drip, No Sore Throat, No Other Pulmonary: No Dyspnea, No Cough, No Pleuritic Chest Pain, No Other Cardiovascular: Edema; No: Chest Pain, Palpitations, Orthopnea, Paroxysmal Noc. Dyspnea, Lt Headedness, Other Objective-Cardiology Exam Last Set of Vital Signs Vital Signs 03/27/22 03/27/22 00:32 08:00 Temp 36.7 Pulse 66 Resp 16 B/P (MAP) 118/64 (82) Pulse Ox 95 O2 Delivery Room Air O2 Flow Rate 0.00 I&O Intake and Output 03/27/22 00:00 Intake Total 960 ml Output Total 2000 ml Balance -1040 ml Intake Oral 960 ml Output Urine Total 2000 ml # Bowel Movements 1 General: Alert, Oriented X3, Cooperative, No Acute Distress HEENT: Atraumatic, EOMI Neck: Supple Lungs: Clear to Auscultation Heart: Regular Rate, Other (irregular rhythm) Abdomen: Normal Bowel Sounds, Soft, No Tenderness Extremities: No Cyanosis, Other (2+ edema to the level of the mid calf, 1+ up to the knee, improving.) Skin: No Rashes, No Breakdown, No Significant Lesion Neuro: Normal Speech, Sensation Intact Psych/Mental Status: Mental Status NL, Mood NL Results Lab Laboratory Tests 03/27/22 03:45 A/P-Cardiology Admission Diagnosis CHF HTN HLP DM Assessment/Plan Acute congestive heart failure of undetermined etiology, elevated BNP, progressive shortness of breath, Intolerant to ROBERT-I or ARB secondary to renal function. 2D echo showed ejection fraction 25 to 30%. Four-chamber dilation, pulmonary artery pressure 60 to 65 mmHg Pleural effusion was noted. Lexiscan stress test showed no significant ischemia with ejection fraction 30% Responded well to diuretics. Pleural effusion, secondary to congestive heart failure, responding to diuretics. Congestive heart failure, acute on chronic left ventricular systolic dysfunction, nonischemic cardiomyopathy with ejection fraction 30%, PA pressure 60 to 65 mmHg Worsening pedal edema, started with Robert wrap, continue with diuretics Acute on chronic renal failure, chronic kidney disease stage IV, Receiving Zaroxolyn and Lasix. Responded well Okay for discharge on Lasix and Zaroxolyn and follow-up with his primary cardio logist and follow-up with nephrology Chronic afib, has been maintained on Eliquis as outpatient, reports had evaluation for Watchman procedure, was deemed not a good candidate. EKG showing rate controlled afib. Mildly elevated troponin, likely type II [place].EKG showing afib with no acute ST changes. Lexiscan stress test was done on March 26, 2022 showing no significant ischemia or infarction. Hypertension, controlled, tolerating current medications. Hypertension, controlled, continue current medication HLP, monitor lipids DM, managed by primary care physician Obesity, BMI 34 Constipation. KAITY MARTINEZ MD Mar 27, 2022 08:23
[2022-03-27] MEDS: ISOSORBIDE MONONITRATE 60 MG (IMDUR) TAB PO SCH (09:06)
[2022-03-27] MEDS: EMPAGLIFLOZIN 10 MG TABLET (JARDIANCE) PO SCH (09:06)
[2022-03-27] MEDS: ASPIRIN E.C. 81 MG (ECOTRIN) TAB PO SCH (09:06)
[2022-03-27] MEDS: TROLAMINE (ASPERCREME) 10% CR 90 GM TUBE TOP SCH ×2 (09:07→21:34)
[2022-03-27] MEDS: APIXABAN 5 MG (ELIQUIS) TABLET PO SCH ×2 (09:07→21:34)
[2022-03-27] MEDS: PANTOPRAZOLE 40 MG (PROTONIX) TAB PO SCH (09:07)
--- NOTE | 2022-03-27 10:55 | Progress Note ---
OSVALDO SORIA 03/27/22 1055: Subjective Subjective/Events-last exam Michi is a 61 y M with a pmh of HTN, DM, CKD, gout being treated for CHF exacerbation. Today he says he is feeling much less short of breath although he still has a cough. Would like to discuss discharge plans. Denies pain, WADE, CP, n/v/d/abdo pain Review of Systems General: No Chills, No Night Sweats, No Fatigue HEENT: No Head Aches, No Visual Changes Pulmonary: No Dyspnea; Cough Cardiovascular: No: Chest Pain, Palpitations Gastrointestinal: No: Nausea, Vomiting, Abdominal Pain, Diarrhea Genitourinary: No Dysuria, No Frequency Musculoskeletal: No: neck pain, back pain Neurological: No: Weakness, Numbness, Incoordination Focused Exam Respiratory: Chest Non Tender, Lungs Clear, Normal Breath Sounds, No Respiratory Distress Cardiovascular: Irregularly Irregular Skin: normal color, warm/dry Objective Exam Last Set of Vital Signs Vital Signs Date Time Temp Pulse Resp B/P (MAP) Pulse Ox O2 Delivery O2 Flow Rate FiO2 03/27/22 08:00 36.7 66 16 118/64 (82) 95 Room Air 03/27/22 00:32 0.00 Capillary Refill : Less Than 3 Seconds I&O Intake and Output 03/27/22 00:00 Intake Total 960 ml Output Total 2000 ml Balance -1040 ml Intake Oral 960 ml Output Urine Total 2000 ml # Bowel Movements 1 General: Alert, Oriented X3, Cooperative, No Acute Distress HEENT: Atraumatic, EOMI Neck: Supple Lungs: Clear to Auscultation, Normal Air Movement Heart: No Murmurs, Other (Irregular rhythm) Abdomen: Normal Bowel Sounds, Soft, No Tenderness Extremities: No Clubbing, Other (1+ pitting edema below the calf, improved from yesterday.) Skin: No Rashes, No Breakdown, No Significant Lesion Neuro: Normal Speech, Cranial Nerves 3-12 NL Psych/Mental Status: Mental Status NL, Mood NL Results/Procedures Lab Laboratory Tests 03/27/22 03:45: White Blood Count 8.4, Red Blood Count 3.91L, Hemoglobin 10.2L, Hematocrit 32L, Mean Corpuscular Volume 82, Mean Corpuscular Hemoglobin 26, Mean Corpuscular Hemoglobin Concent 32, Red Cell Distribution Width 16.5H, Platelet Count 223, Mean Platelet Volume 10.2, Immature Granulocyte % (Auto) 0, Neutrophils (%) (Auto) 77H, Lymphocytes (%) (Auto) 8L, Monocytes (%) (Auto) 10, Eosinophils (%) (Auto) 5, Basophils (%) (Auto) 0, Neutrophils # (Auto) 6.5, Lymphocytes # (Auto) 0.7L, Monocytes # (Auto) 0.8, Eosinophils # (Auto) 0.4H, Basophils # (Auto) 0.0, Immature Granulocyte # (Auto) 0.0, Sodium Level 134L, Potassium Level 3.9, Chloride Level 94L, Carbon Dioxide Level 22, Anion Gap 18H, Blood Urea Nitrogen 76H, Creatinine 3.67H, Estimat Glomerular Filtration Rate 18, BUN/Creatinine Ratio 21, Glucose Level 107H, Calcium Level 9.0, Phosphorus Level 6.0H, Magnesium Level 2.5H 03/27/22 05:22: Glucometer 113H 03/27/22 10:32: Glucometer 177H Assessment/Plan Assessment/Plan Assessment & Plan 1. Acute CHF Exacerbation w/pulmonary edema - Stop IV Lasix, continue home dose, repeat CMP - BNP 2300 - Echo shows EF 25-30% - Nuclear Stress Test done, EF 32% w/ LV hypokinesia, aFib with PVC's - CXR shows perihilar pulmonary edema and cardiomegaly and pleural effusions, improved with diuresis - Cardiology consulted. Appreciate their assistance. - Lovenox for DVT prophylaxis - Atorvastatim on discharge - Compression wraps for LE edema 2. CKD - Nephrology following appreciate their assistance. - Oral Lasix - Phosphorus level 6.0, consider dietary restriction and binders - Cr 3.67 today, likely new baseline. 3. Anemia - Likely due to chronic kidney disease - CBC w/diff, reticulocyte count, Iron panel/TIBC, folate, B12 - Conisder FOBT, colonoscopy 4. Atrial Fibrillation - Episodes of bradycardia over night with pulse in 30's, 43 this am. - Check Carvedilol dosing - Cardiology following. - Home medications as appropriate. 5. Hypertension - Hold ACEi or ARB due to kidney function, Cr 3.67 today - Home medications as appropriate. 5. T2DM - Glu 177 today - Home medications as appropriate. Clinical Quality Measures Admission Status Admission Dx 1. Acute CHF Exacerbation w/pulmonary edema - Start IV Lasix - BNP 2500 - Echo shows EF 35-20% - Consider Stress Test - Trend troponins, elevated in th ED - CXR shows perihilar pulmonary edema and cardiomegaly - Cardiology consulted. Appreciate their assistance. - Lovenox for DVT prophylaxis 2. CKD - Follows with Dr. Roach 3. Atrial Fibrillation - rate controlled per EKG - Home medications as appropriate. 4. Hypertension - Hold ACEi or ARB due to kidney function, Cr 3.32 - Home medications as appropriate. 5. T2DM - SSI - Home medications as appropriate. JAIDA CASTILLO MD 03/27/222049: Supervisory-Addendum Brief Verification & Attestation Participated in pt care: history, MDM, physical Personally performed: exam, history, MDM, supervision of care Care discussed with: Medical Student Procedures: n/a I personally saw and examined patient and repeated history. I confirmed the student documentation, with a few changes, checking iron studies, have not ordered folate/B12, discussed pb with Cardiology and holding carvedilol. If renal function stable tomorrow and no severe bradycardia tonight, may d/c tomorrow. OSVALDO SORIA Mar 27, 2022 10:55 JAIDA CASTILLO MD Mar 27, 2022 20:50
[2022-03-27 11:20] VITALS: BP 124/65
[2022-03-27 11:23] VITALS: BP 124/65
[2022-03-27 20:00] VITALS: BP 155/64
[2022-03-27] MEDS: MELATONIN 3 MG TABLET PO PRN (21:34)
[2022-03-28] VITALS: BP 146/60
[2022-03-28 04:29] LABS: ABSOLUTE RETIC # 65 10e9/uL (24-90); BASOPHILS # (AUTO) 0.1 10^3/uL (0.0-0.1); BASOPHILS % (AUTO) 1 % (0-10); EOSINOPHILS # (AUTO) 0.4 10^3/uL (0.0-0.3); EOSINOPHILS % (AUTO) 5 % (0-10); HEMATOCRIT 32 % (40-54); HEMOGLOBIN 10.4 g/dL (13.3-17.7); LYMPHOCYTES # (AUTO) 0.7 10^3/uL (1.0-4.0); LYMPHOCYTES % (AUTO) 8 % (12-44); MEAN CORPUSCULAR HEMOGLOBIN 27 pg (25-34); MEAN CORPUSCULAR HGB CONC 33 g/dL (32-36); MEAN CORPUSCULAR VOLUME 82 fL (80-99); MONOCYTES # (AUTO) 0.9 10^3/uL (0.0-1.0); MONOCYTES % (AUTO) 10 % (0-12); NEUTROPHILS # (AUTO) 6.9 10^3/uL (1.8-7.8); NEUTROPHILS % (AUTO) 76 % (42-75); PLATELET COUNT 225 10^3/uL (130-400); RETICULOCYTE % 1.67 % (0.50-2.40)
[2022-03-28 04:34] LABS: CALCIUM 9.1 MG/DL (8.5-10.1); CREATININE SERUM 3.86 MG/DL (0.60-1.30); MAGNESIUM 2.5 MG/DL (1.6-2.4); POTASSIUM 3.8 MMOL/L (3.6-5.0)
[2022-03-28 04:52] LABS: EOSINOPHILS % (MANUAL) 2 %; LYMPHOCYTES % (MANUAL) 6 %; MONOCYTES % (MANUAL) 9 %; NEUTROPHILS % (MANUAL) 83 %
[2022-03-28 04:53] LABS: ANISOCYTOSIS SLIGHT; ELLIPT/OVALOCYTES SLIGHT; HYPOCHROMASIA SLIGHT; MICROCYTOSIS SLIGHT; POIKILOCYTOSIS SLIGHT; POLYCHROMASIA SLIGHT
[2022-03-28] MEDS: CATHETER FLUSH 10 ML SYR IV SCH (06:03)
[2022-03-28] MEDS: FUROSEMIDE 40 MG/4 ML INJ (LASIX) IVP SCH (06:36)
[2022-03-28] MEDS: APIXABAN 5 MG (ELIQUIS) TABLET PO SCH (08:21)
[2022-03-28] MEDS: ASPIRIN E.C. 81 MG (ECOTRIN) TAB PO SCH (08:21)
[2022-03-28] MEDS: PANTOPRAZOLE 40 MG (PROTONIX) TAB PO SCH (08:21)
[2022-03-28] MEDS: ISOSORBIDE MONONITRATE 60 MG (IMDUR) TAB PO SCH (08:21)
[2022-03-28] MEDS: TROLAMINE (ASPERCREME) 10% CR 90 GM TUBE TOP SCH (08:22)
[2022-03-28 08:23] VITALS: BP 161/66
--- NOTE | 2022-03-28 09:42 | Physical Therapy Evaluation ---
PT Evaluation-General Medical Diagnosis Admission Date Mar 24, 2022 at 11:52 Medical Diagnosis: CHF Onset Date: Mar 24, 2022 Therapy Diagnosis Therapy Diagnosis: debility/weakness Height/Weight Height (Feet): 5 Height (Inches): 8 Weight (Pounds): 235 Precautions Precautions/Isolations: Standard Precautions Referral Physician: Jose Alberto Reason for Referral: Evaluation/Treatment Medical History Pertinent Medical History: Atrial Fib, DM, Heart Failure, HTN History of Falls (past yr): No Prior Surgery (last 100 days): No Current History ER secondary to bilateral LE edema Social History Home: Single Level Current Living Status: Spouse Entry Into Home: Ramp Prior Prior Level of Function SCALE: Activities may be completed with or without assistive devices. 6-Lpjthlirwn-mbudwai completes the activity by him/herself with no assistance from a helper. 5-Set-up or Clean-up Assistance-helper sets up or cleans up; patient completes activity. [place] assists only prior to or following the activity. 4-Supervision or Touching Assistance-helper provides verbal cues and/or touching/steadying and/or contact guard assistance as patient completes activit y. Assistance may be provided throughout the activity or intermittently. 3-Partial/Moderate Assistance-helper does LESS THAN HALF the effort. [place] lifts, holds or supports trunk or limbs, but provides less than half the effort. 2-Substantial/Maximal Assistance-helper does MORE THAN HALF the effort. [place] lifts or holds trunk or limbs and provides more than half the effort. 5-Ugcdjlngb-ohrgwx does ALL the effort. Patient does none of the effort to complete the activity. Or, the assistance of 2 or more helpers is required for the patient to complete the activity. If activity was not attempted, code reason: 7-Patient Refused. 9-Not Applicable-not attempted and the patient did not perform the activity before the current illness, exacerbation or injury. 10-Not Attempted due to Environmental Limitations-(lack of equipment, weather restraints, etc.). 88-Not Attempted due to Medical Conditions or Safety Concerns. Bed Mobility: 6 Transfers (B,C,W/C): 6 Gait: 6 Stairs: 6 Indoor Mobility (Ambulation): Independent Stairs: Independent Prior Devices Use: None PT Evaluation-Current Subjective Patient agrees to PT. Patient states,"I just want to go home." Pain Numeric Pain Scale: 0-No Pain Location: No Pain Reported Objective Patient Orientation: Normal For Age ROM/Strength ROM Lower Extremities bilateral LE noted edema/functional ROM Strength Lower Extremities 4-/5 grossly bilateral LE all planes Integumentary/Posture Integumentary refer to nursing notes Bowel Incontinence: No Bladder Incontinence: No Posture WFL Neuromuscular (Tone, Coordination, Reflexes) grossly intact Sensory Vision: Functional Hearing: Functional Transfers Sit to Stand (QC): 6 Gait Mode of Locomotion: Walk Anticipated Mode of Locomotion: Walk Walk 10 feet (QC): 6 Walk 50 ft with 2 Turns(QC): 6 Walk 150 ft (QC): 6 Distance: 300' Gait Assistive Device: None Comments/Gait Description WBOS due to bilateral LE edema Balance Sitting Static: Normal Sitting Dynamic: Normal Standing Static: Normal Standing Dynamic: Normal Picking up an Object (QC): 6 Assessment/Needs Patient is currently at independent PLOF with all gross motor skills and does not require skilled PT intervention. Rehab Potential: Fair PT Plan Treatment/Plan Treatment Plan: Discontinue PT, goals met Treatment Duration: Mar 28, 2022 Frequency: 1 time per week Estimated Hrs Per Day: .25 hour per day Patient and/or Family Agrees t: Yes Discharge Recommendations Therapy Discharge Recommendati: Home & Family Time/GCodes Time In: 831 Time Out: 840 Total Billed Treatment Time: 9 Total Billed Treatment 1 visit EVLowC 9 min LIZBET DE SANTIAGO PT Mar 28, 2022 09:42
--- NOTE | 2022-03-28 10:49 | Progress Note - Cardiology ---
Cardiology SOAP Progress Note Objective: I&O/Vital Signs 03/28/22 03/28/22 03/28/22 03/28/22 04:00 08:23 09:00 11:10 Temp 37.0 36.8 36.6 Pulse 75 64 Resp 20 16 B/P (MAP) 161/66 (97) 151/67 (95) Pulse Ox 96 97 O2 Delivery Room Air Room Air Room Air 03/28/22 14:27 B/P (MAP) 03/28/22 00:00 Intake Total 1100 ml Output Total 1700 ml Balance -600 ml Weight (Pounds): 235 Weight (Calculated Kilograms): 106.619813 Constitutional: AAO x 3, well-developed, well-nourished Respiratory: No accessory muscle use, No respiratory distress; chest expansion is symmetric, chest is bilaterally symmetric, other (good air entry) Cardiovascular: irregularly irregular; No JVD; S1 and S2 Gastrointestional: No tender; round, audible bowel sounds Extremities: other (bilat pitting LE swelling) Neurologic/Psychiatric: grossly intact (moves all extremities) Skin: No rash on exposed areas, No ulcerations on exposed areas Results/Procedures: Labs Laboratory Tests 03/27/22 17:48: Glucometer 156H 03/27/22 21:30: Glucometer 187H 03/28/22 04:05: White Blood Count 9.0, Red Blood Count 3.89L, Hemoglobin 10.4L, Hematocrit 32L, Mean Corpuscular Volume 82, Mean Corpuscular Hemoglobin 27, Mean Corpuscular Hemoglobin Concent 33, Red Cell Distribution Width 16.4H, Platelet Count 225, Mean Platelet Volume 11.0, Immature Granulocyte % (Auto) 0, Neutrophils (%) (Auto) 76H, Lymphocytes (%) (Auto) 8L, Monocytes (%) (Auto) 10, Eosinophils (%) (Auto) 5, Basophils (%) (Auto) 1, Neutrophils # (Auto) 6.9, Lymphocytes # (Auto) 0.7L, Monocytes # (Auto) 0.9, Eosinophils # (Auto) 0.4H, Basophils # (Auto) 0.1, Immature Granulocyte # (Auto) 0.0, Neutrophils % (Manual) 83, Lymphocytes % (Manual) 6, Monocytes % (Manual) 9, Eosinophils % (Manual) 2, Percent Immature Platelet Fraction 3.0, Polychromasia SLIGHT, Hypochromasia SLIGHT, Poik ilocytosis SLIGHT, Anisocytosis SLIGHT, Microcytosis SLIGHT, Elliptocytes SLIGHT, Absolute Reticulocyte Count 65, Percent Reticulocyte Count 1.67, Sodium Level 136, Potassium Level 3.8, Chloride Level 94L, Carbon Dioxide Level 24, Anion Gap 18H, Blood Urea Nitrogen 82H, Creatinine 3.86H, Estimat Glomerular Filtration Rate 17, BUN/Creatinine Ratio 21, Glucose Level 115H, Calcium Level 9.1, Phosphorus Level 6.2H, Magnesium Level 2.5H A/P: Assessment: Acute systolic congestive heart failure of undetermined etiology - Intolerant to ROBERT-I or ARB secondary to renal function. - 2D echo showed ejection fraction 25 to 30% by Dr. Giles showed four-chamber dilation, pulmonary artery pressure 60 to 65 mmHg. Pleural effusion was noted. Pleural effusion - secondary to congestive heart failure Congestive heart failure - acute on chronic left ventricular systolic dysfunction - clinically improved Nonischemic cardiomyopathy with ejection fraction 30%, PA pressure 60 to 65 mmHg Worsening pedal edema - started with Robert wrap - improving Acute on chronic renal failure - chronic kidney disease stage IV, - Receiving Zaroxolyn and Lasix. Responded well - Okay for discharge on Lasix and Zaroxolyn per Dr. Giles and follow-up with his primary specification writer and follow-up with nephrology Chronic afib - has been maintained on Eliquis as outpatient - reports had evaluation for Watchman procedure, was deemed not a good candidate - EKG showing rate controlled afib. Mildly elevated troponin - likely type II [place] - EKG showing afib with no acute ST changes. - Lexiscan stress test was done on March 26, 2022 showing no significant ischemia or infarction Hypertension - controlled HLP - statin DM - managed by primary care physician Obesity - BMI 34 SHANNON SALAZAR [facility] Mar 28, 2022 10:49
[2022-03-28 11:10] VITALS: BP 151/67
--- NOTE | 2022-03-28 11:48 | Progress Note - Cardiology ---
Cardiology SOAP Progress Note Subjective: Gen weakness and malaise present No focal weakness No shortness of breath at rest No n/v/d No focal weakness No cp or palp or syncope Objective: I&O/Vital Signs 03/28/22 03/28/22 03/28/22 03/28/22 00:00 04:00 08:23 09:00 Temp 37.0 36.8 Pulse 75 Resp 20 B/P (MAP) 146/60 (88) 161/66 (97) Pulse Ox 96 O2 Delivery Room Air Room Air Room Air 03/28/22 11:10 Temp 36.6 Pulse 64 Resp 16 B/P (MAP) 151/67 (95) Pulse Ox 97 O2 Delivery Room Air 03/28/22 00:00 Intake Total 1100 ml Output Total 1700 ml Balance -600 ml Weight (Pounds): 235 Weight (Calculated Kilograms): 106.241664 Constitutional: AAO x 3, well-developed, well-nourished Respiratory: No accessory muscle use, No respiratory distress; chest expansion is symmetric, chest is bilaterally symmetric, other (good air entry) Cardiovascular: irregularly irregular; No JVD; S1 and S2 Gastrointestional: No tender; round, audible bowel sounds Extremities: other (bilat pitting LE swelling) Neurologic/Psychiatric: other (moves all limbs equally) Skin: No rash on exposed areas, No ulcerations on exposed areas Results/Procedures: Labs Laboratory Tests 03/27/22 17:48: Glucometer 156H 03/27/22 21:30: Glucometer 187H 03/28/22 04:05: White Blood Count 9.0, Red Blood Count 3.89L, Hemoglobin 10.4L, Hematocrit 32L, Mean Corpuscular Volume 82, Mean Corpuscular Hemoglobin 27, Mean Corpuscular Hemoglobin Concent 33, Red Cell Distribution Width 16.4H, Platelet Count 225, Mean Platelet Volume 11.0, Immature Granulocyte % (Auto) 0, Neutrophils (%) (Auto) 76H, Lymphocytes (%) (Auto) 8L, Monocytes (%) (Auto) 10, Eosinophils (%) (Auto) 5, Basophils (%) (Auto) 1, Neutrophils # (Auto) 6.9, Lymphocytes # (Auto) 0.7L, Monocytes # (Auto) 0.9, Eosinophils # (Auto) 0.4H, Basophils # (Auto) 0.1, Immature Granulocyte # (Auto) 0.0, Neutrophils % (Manual) 83, Lymphocytes % (Manual) 6, Monocytes % (Manual) 9, Eosinophils % (Manual) 2, Percent Immature Platelet Fraction 3.0, Polychromasia SLIGHT, Hypochromasia SLIGHT, Poikilocytosis SLIGHT, Anisocytosis SLIGHT, Microcytosis SLIGHT, Elliptocytes SLIGHT, Absolute Reticulocyte Count 65, Percent Reticulocyte Count 1.67, Sodium Level 136, Potassium Level 3.8, Chloride Level 94L, Carbon Dioxide Level 24, Anion Gap 18H, Blood Urea Nitrogen 82H, Creatinine 3.86H, Estimat Glomerular Filtration Rate 17, BUN/Creatinine Ratio 21, Glucose Level 115H, Calcium Level 9.1, Phosphorus Level 6.2H, Magnesium Level 2.5H Laboratory Tests 03/27/22 03:45 03/28/22 04:05 A/P: Assessment: Acute systolic congestive heart failure, now compensated - Intolerant to ROBERT-I or ARB secondary to renal function. - 2D echo by Dr Giles 0n 03/24/22 showed ejection fraction 25 to 30%, four- chamber dilation, pulmonary artery pressure 60 to 65 mmHg. Pleural effusion was also noted. Pleural effusion - secondary to congestive heart failure Nonischemic cardiomyopathy with ejection fraction 30%, PA pressure 60 to 65 mmHg Chronic pedal edema - started with Robert wrap - improving Acute on chronic renal failure - chronic kidney disease stage IV, - Receiving Zaroxolyn and Lasix. Responded well - Okay for discharge on Lasix and Zaroxolyn per Dr. Giles and follow-up with his primary director of operations support and follow-up with nephrology Chronic afib - has been maintained on Eliquis as outpatient - reports had evaluation for Watchman procedure, was deemed not a good candidate - EKG showing rate controlled afib. Mildly elevated troponin - likely type II [place] - EKG showing afib with no acute ST changes. - Lexiscan stress test was done on March 26, 2022 showing no significant ischemia or infarction Hypertension - controlled HLP - statin DM - managed by primary care physician Obesity - BMI 34 Plan: * I interviewed and examined the patient and reviewed his records * Complex management due to multiple advanced medical issues * Advised Life Vest, given low EF (and then f/u on EF with his primary card iologist for perm ICD if EF does not improve in 3 mo) * Pt wishes to go home JAYLON HYDE MD FACP FACC [facility] Mar 28, 2022 11:48
--- NOTE | 2022-03-28 12:28 | Discharge Summary ---
OSVALDO SORIA 03/28/22 1222: Discharge Summary Hospital Course Problems Reviewed?: Yes Hospital Course Date of Admission: Mar 24, 2022 at 11:52 Admission Diagnosis : CHF Exacerbation Chronic Kidney Disease Afib Anemia T2DM Family Physician/Provider: [facility] Date of Discharge: 03/28/22 Discharge Diagnosis: [ ] Hospital Course: [Michi was admitted and treated for and acute CHF exacerbation as well as management of his CKD. He has had gentle diuresis for the duration of admission. His Creatinine remained elevated and Nephrology was consulted, recommended continued diuresis. He was also followed by Cardiology for his chronic Afib. He had an echo and nuclear stress test performed showing an EF of 30%. ] Labs and Pending Lab Test: Laboratory Tests 03/27/22 17:48: Glucometer 156H 03/27/22 21:30: Glucometer 187H 03/28/22 04:05: White Blood Count 9.0, Red Blood Count 3.89L, Hemoglobin 10.4L, Hematocrit 32L, Mean Corpuscular Volume 82, Mean Corpuscular Hemoglobin 27, Mean Corpuscular Hemoglobin Concent 33, Red Cell Distribution Width 16.4H, Platelet Count 225, Mean Platelet Volume 11.0, Immature Granulocyte % (Auto) 0, Neutrophils (%) (Auto) 76H, Lymphocytes (%) (Auto) 8L, Monocytes (%) (Auto) 10, Eosinophils (%) (Auto) 5, Basophils (%) (Auto) 1, Neutrophils # (Auto) 6.9, Lymphocytes # (Auto) 0.7L, Monocytes # (Auto) 0.9, Eosinophils # (Auto) 0.4H, Basophils # (Auto) 0.1, Immature Granulocyte # (Auto) 0.0, Neutrophils % (Manual) 83, Lymphocytes % (Manual) 6, Monocytes % (Manual) 9, Eosinophils % (Manual) 2, Percent Immature Platelet Fraction 3.0, Polychromasia SLIGHT, Hypochromasia SLIGHT, Poikilocytosis SLIGHT, Anisocytosis SLIGHT, Microcytosis SLIGHT, Elliptocytes SLIGHT, Absolute Reticulocyte Count 65, Percent Reticulocyte Count 1.67, Sodium Level 136, Potassium Level 3.8, Chloride Level 94L, Carbon Dioxide Level 24, Anion Gap 18H, Blood Urea Nitrogen 82H, Creatinine 3.86H, Estimat Glomerular Filtration Rate 17, BUN/Creatinine Ratio 21, Glucose Level 115H, Calcium Level 9.1, Phosphorus Level 6.2H, Magnesium Level 2.5H, Iron Level [Pending], Total Iron Binding Capacity [Pending], Unsaturated Iron Binding Capacity [Pending], Transferrin % Saturation [Pending], Ferritin [Pending] Home Meds Active Reported Digoxin 125 Mcg (0.125 Mg) Tablet 125 Mcg PO Q72H LAST FILLED 07-12-2021 #30/ DAY SUPPLY Miralax (Polyethylene Glycol 3350) 17 Gram Powd.pack 17 Gm PO BID PRN Aspirin EC (Aspirin) 81 Mg Tablet.dr 81 Mg PO HS Furosemide 40 Mg Tablet 40 Mg PO BID Eliquis (Apixaban) 5 Mg Tablet 5 Mg PO BID Januvia (Sitagliptin Phosphate) 100 Mg Tablet 100 Mg PO HS Glimepiride 4 Mg Tablet 4 Mg PO DAILY Calcium Acetate 667 Mg Tablet 667 Mg PO TID Torsemide 100 Mg Tablet 100 Mg PO DAILY Isosorbide Mononitrate ER (Isosorbide Mononitrate) 60 Mg Tab 60 Mg PO DAILY Allopurinol 100 Mg Tablet 100 Mg PO HS Discharge Diet: No Restrictions Activity as Tolerated: Yes Orders-Post D/C & Referrals Needs follow up labs in the next week. Follow up with Facilities Technician in 2-4 weeks. Discharge Physical Examination Allergies: Coded Allergies: shrimp (Verified Adverse Reaction, Unknown, VOMITING, 09/22/20) General Appearance: No Apparent Distress HEENT: PERRL/EOMI Respiratory: Chest Non Tender, Lungs Clear Cardiovascular: No Murmur, Irregularly Irregular (hx of Afib) Gastrointestinal: Normal Bowel Sounds, Non Tender, Soft Extremity: Normal Inspection, No Calf Tenderness, Pedal Edema Skin: Normal Color, Warm/Dry Neurologic/Psychiatric: Alert, Oriented x3 Discharge Summary Date of Admission Admission Diagnosis JAIDA CASTILLO MD 03/28/22 1458: Discharge Summary Hospital Course Assessment/Pt DC Instructions Follow up with Nephrology in 2 weeks. Follow up with Cardiology within a week. Follow up with primary within a week. Discharge Physical Examination Allergies: Coded Allergies: shrimp (Verified Adverse Reaction, Unknown, VOMITING, 09/22/20) Supervisory-Addendum Brief Verification & Attestation Participated in pt care: history, MDM, physical Personally performed: exam, history, MDM, supervision of care Care discussed with: Medical Student Procedures: n/a I personally saw and examined patient. LifeVest was recommended, but patient declined. His digoxin was stopped as his heart rate was managed without it. His diabetes meds were decreased per kidney function. He was discharged on torsemide instead of furosemide per Nephrology recommendations, and he was recommended to be on low phosphate diet due to high phosphorous on labs. Will need to follow up with Nephrology in 2 weeks with labs. He declined home health. OSVALDO SORIA Mar 28, 2022 12:22 JAIDA CASTILLO MD Mar 28, 2022 14:58
[2022-03-28] MEDS ORDERED: GLIM2TAB4 PO (13:45)
[2022-03-28] MEDS ORDERED: SITA25TA5 PO (13:45)
== END 2022-03-28 14:51 | disposition home or self-care (01) | DRG 280 ==
LOC: EDUNIT# 10:28 → ER 10:29 → CSD 11:52
PROVIDERS: ADMIT Family Medicine; ATTEND Family Medicine
DX: I13.0 Hypertensive heart and chronic kidney disease with heart failure and stage 1 through stage 4 chronic kidney disease, or unspecified chronic kidney disease (principal); I50.23 Acute on chronic systolic (congestive) heart failure; I21.A1 Myocardial infarction type 2; N18.4 Chronic kidney disease, stage 4 (severe); N17.9 Acute kidney failure, unspecified; I48.20 Chronic atrial fibrillation, unspecified; I47.2 Ventricular tachycardia; E11.22 Type 2 diabetes mellitus with diabetic chronic kidney disease; K59.00 Constipation, unspecified; D63.1 Anemia in chronic kidney disease; E78.5 Hyperlipidemia, unspecified; E66.9 Obesity, unspecified; Z68.33 Body mass index [BMI] 33.0-33.9, adult; M10.9 Gout, unspecified; Z79.84 Long term (current) use of oral hypoglycemic drugs; Z79.01 Long term (current) use of anticoagulants
CPT/HCPCS: 36415; 71045; 76770; 78452; 80048; 80053; 81000; 82728; 82947; 83540; 83550; 83735; 83880; 84100; 84484; 85007; 85025; 85027; 85045; 85055; 93005; 93017; 93306

== ENCOUNTER 2022-05-29 22:20 | Emergency (ER) | payer OTHER ==
[~2022-05-29] VITALS: Ht 173 cm; Wt 101.0 kg
[~2022-05-29 22:20] MED LIST changes: +ALLO100T PO; +APIX5TAB PO; +ASPI-1238 PO; +CALC667T5 PO; +DIGO125T3 PO; +FURO40TA4 PO; +GLIM2TAB4 PO; +GLIM4TAB5 PO; +ISOS60TA63 PO; +POLY17PO6 PO; +SITA100T12 PO; +SITA25TA5 PO; +TORS100T4 PO
--- NOTE | 2022-05-29 22:59 | ED General ---
General Chief Complaint: Post OP Complications/Pain Stated Complaint: BLEEDING OUT OF BACK Nursing Triage Note: PT REPORTS BLEEDING FROM LEFT PUNCTURE SITE SINCE APPROX. 1700 TODAY AFTER BILATERAL THORACENTESIS. Source of Information: Patient Exam Limitations: No Limitations History of Present Illness Date Seen by Provider: May 29, 2022 Time Seen by Provider: 22:35 Initial Comments 61-year-old male with past medical history of CKD, A. fib on Eliquis, bilateral pleural effusions coming in after a bilateral thoracentesis done at [facility] earlier today now with bleeding mostly coming from the left chest wound. He states he had just over 2 L removed from both sides of his chest. He is otherwise denying any chest pain, shortness of breath, abdominal pain, nausea, vomiting, diarrhea, fever, chills, weakness, numbness, or any other concerns. He states he feels better since the procedure and feels close to his baseline. He is unsure why he has pleural effusions, and he states they are working on figuring this out. Allergies and Home Medications Allergies Coded Allergies: shrimp (Verified Adverse Reaction, Unknown, VOMITING, 09/22/20) Patient Home Medication List Home Medication List Reviewed: Yes Allopurinol (Allopurinol) 100 Mg Tablet, 100 MG PO HS, (Reported) Entered as Reported by: DOLLY ENGLE on 03/24/22 154 Apixaban (Eliquis) 5 Mg Tablet, 5 MG PO BID, (Reported) Entered as Reported by: DOLLY ENGLE on 03/24/22 1544 Aspirin (Aspirin EC) 81 Mg Tablet.dr, 81 MG PO HS, (Reported) Entered as Reported by: DOLLY ENGLE on 03/24/22 1544 Calcium Acetate (Calcium Acetate) 667 Mg Tablet, 667 MG PO TID, (Reported) Entered as Reported by: DOLLY ENGLE on 03/24/22 1544 Glimepiride (Glimepiride) 2 Mg Tablet, 2 MG PO DAILY Prescribed by: JAIDA CASTILLO on 03/28/22 1345 Isosorbide Mononitrate (Isosorbide Mononitrate ER) 60 Mg Tab, 60 MG PO DAILY, (Reported) Entered as Reported by: DOLLY ENGLE on 03/24/22 1544 Polyethylene Glycol 3350 (Miralax) 17 Gram Powd.pack, 17 GM PO BID PRN for CONSTIPATION-2ND LINE, (Reported) Entered as Reported by: DOLLY ENGLE on 03/24/22 1544 Sitagliptin Phosphate (Januvia) 25 Mg Tablet, 25 MG PO DAILY Prescribed by: JAIDA CASTILLO on 03/28/22 1345 Torsemide (Torsemide) 100 Mg Tablet, 100 MG PO DAILY, (Reported) Entered as Reported by: DOLLY ENGLE on 03/24/22 1544 Review of Systems Review of Systems Constitutional: No fever EENTM: no symptoms reported Respiratory: no symptoms reported Cardiovascular: no symptoms reported Gastrointestinal: no symptoms reported Genitourinary: no symptoms reported Musculoskeletal: no symptoms reported Skin: no symptoms reported Psychiatric/Neurological: No Symptoms Reported Hematologic/Lymphatic: See HPI Immunological/Allergic: no symptoms reported All Other Systems Reviewed Negative Unless Noted: Yes Past Jqcvajh-Geycnn-Vespwv Hx Patient Social History Tobacco Use?: No Substance use?: No Alcohol Use?: No Pt feels they are or have been: No Immunizations Up To Date Tetanus Booster (TDap): More than 5yrs First/Initial COVID19 Vaccinat: september 2020 Second COVID19 Vaccination Daniel: september 2020 Third COVID19 Vaccination Date: september 2020 Past Medical History Surgery/Hospitalization HX: TYPE 2 DM, HTN, CHF, HIGH CHOLESTEROL, AFIB, RENAL FAILURE, GOUT, THORACENTESIS, Surgeries: Yes (shrapnel removed from arms ) Respiratory: No Cardiac: Yes Atrial Fibrillation, High Cholesterol, Hypertension Neurological: No Reproductive Disorders: No Genitourinary: Yes Renal Failure Gastrointestinal: No Musculoskeletal: Yes Gout Endocrine: Yes Diabetes, Non-Insulin dep Cancer: No Psychosocial: No Integumentary: No Blood Disorders: No Family Medical History No Pertinent Family Hx Physical Exam Vital Signs Vital Signs - First Documented 05/29/22 22:26 Temp 36.5 Pulse 83 Resp 16 B/P (MAP) 150/101 (117) Pulse Ox 100 O2 Delivery Room Air Capillary Refill : Less Than 3 Seconds Height, Weight, BMI Height: 5'8" Weight: 235lbs. oz. 106.513444gq; 33.00 BMI Method:Stated General Appearance: No Apparent Distress, WD/WN Eyes: Bilateral Eye Normal Inspection HEENT: PERRL/EOMI, Normal ENT Inspection, Pharynx Normal Neck: Full Range of Motion, Normal Inspection, Non Tender, Supple Respiratory: Chest Non Tender, Lungs Clear, Normal Breath Sounds, No Accessory Muscle Use, No Respiratory Distress Cardiovascular: No Edema, Normal Peripheral Pulses, Irregularly Irregular Gastrointestinal: Normal Bowel Sounds, Non Tender, Soft; No Guarding Back: Normal Inspection, No CVA Tenderness, No Vertebral Tenderness Extremity: Normal Capillary Refill, Normal Inspection, Normal Range of Motion, Non Tender, No Calf Tenderness Neurologic/Psychiatric: Alert, No Motor/Sensory Deficits, Normal Mood/Affect Skin: Normal Color, Warm/Dry, Other (Bleeding from left chest wall wound which is minimal) Lymphatic: No Adenopathy Progress/Results/Core Measures Suspected Sepsis SIRS Temperature: Pulse: 83 Respiratory Rate: 16 Laboratory Tests 05/29/22 22:50: White Blood Count 8.9 Blood Pressure 150 /101 Mean: 117 Laboratory Tests 05/29/22 22:50: Creatinine 3.39H, INR Comment 1.2, Platelet Count 262, Total Bilirubin 0.6 Results/Orders Lab Results Laboratory Tests Test 05/29/22 22:50 Range/Units White Blood Count 8.9 4.3-11.0 10^3/uL Red Blood Count 3.90 L 4.30-5.52 10^6/uL Hemoglobin 10.3 L 13.3-17.7 g/dL Hematocrit 32 L 40-54 % Mean Corpuscular Volume 82 80-99 fL Mean Corpuscular Hemoglobin 26 25-34 pg Mean Corpuscular Hemoglobin Concent 32 32-36 g/dL Red Cell Distribution Width 17.7 H 10.0-14.5 % Platelet Count 262 130-400 10^3/uL Mean Platelet Volume 10.4 9.0-12.2 fL Immature Granulocyte % (Auto) 0 % Neutrophils (%) (Auto) 79 H 42-75 % Lymphocytes (%) (Auto) 6 L 12-44 % Monocytes (%) (Auto) 10 0-12 % Eosinophils (%) (Auto) 5 0-10 % Basophils (%) (Auto) 0 0-10 % Neutrophils # (Auto) 7.1 1.8-7.8 10^3/uL Lymphocytes # (Auto) 0.5 L 1.0-4.0 10^3/uL Monocytes # (Auto) 0.9 0.0-1.0 10^3/uL Eosinophils # (Auto) 0.4 H 0.0-0.3 10^3/uL Basophils # (Auto) 0.0 0.0-0.1 10^3/uL Immature Granulocyte # (Auto) 0.0 0.0-0.1 10^3/uL Neutrophils % (Manual) 81 % Lymphocytes % (Manual) 5 % Monocytes % (Manual) 7 % Eosinophils % (Manual) 7 % Poikilocytosis SLIGHT Prothrombin Time 16.1 H 12.2-14.7 SEC INR Comment 1.2 0.8-1.4 Activated Partial Thromboplast Time 37 H 24-35 SEC Sodium Level 138 135-145 MMOL/L Potassium Level 3.5 L 3.6-5.0 MMOL/L Chloride Level 97 L 98-107 MMOL/L Carbon Dioxide Level 27 21-32 MMOL/L Anion Gap 14 5-14 MMOL/L Blood Urea Nitrogen 75 H 7-18 MG/DL Creatinine 3.39 H 0.60-1.30 MG/DL Estimat Glomerular Filtration Rate 20 BUN/Creatinine Ratio 22 Glucose Level 132 H 70-105 MG/DL Calcium Level 10.0 8.5-10.1 MG/DL Corrected Calcium 10.2 H 8.5-10.1 MG/DL Total Bilirubin 0.6 0.1-1.0 MG/DL Aspartate Amino Transf (AST/SGOT) 14 5-34 U/L Alanine Aminotransferase (ALT/SGPT) 18 0-55 U/L Alkaline Phosphatase 240 H 40-136 U/L Total Protein 7.6 6.4-8.2 GM/DL Albumin 3.7 3.2-4.5 GM/DL My Orders Orders - TEAGAN GARCIA MD Chest 1 View, Ap/Pa Only (05/29/22 22:47) Cbc With Automated Diff (05/29/22 22:47) Comprehensive Metabolic Panel (05/29/22 22:47) Protime With Inr (05/29/22 22:47) Partial Thromboplastin Time (05/29/22 22:47) Manual Differential (05/29/22 22:50) Vital Signs/I&O 05/29/22 22:26 Temp 36.5 Pulse 83 Resp 16 B/P (MAP) 150/101 (117) Pulse Ox 100 O2 Delivery Room Air Capillary Refill : Less Than 3 Seconds Blood Pressure Mean: 117 Progress Note : Progress Note 61-year-old male with above history coming in due to bleeding from the left- sided chest wound from his thoracentesis. ABCs were intact and vitals were stable on presentation. Physical exam with a slow ooze from the left chest wound which is very small. The right chest wound is hemostatic. He is on Eliquis, but has not had a dose since in the morning. We applied pressure to the wound and there was significant slowing of the bleeding. On recheck prior to leaving, the bleeding had essentially stopped. Hemoglobin around his baseline. I will instruct him to miss 1 dose of his Eliquis, and we applied a pressure dressing in case it started to bleed again that he could wear tonight. I instructed his significant other on how to apply a new dressing if needed while on the way to the ER or calling 911. Diagnostic Imaging Diagonstic Imaging: Xray (chest) Departure Impression Primary Impression: History of thoracentesis Additional Impression: Bleeding from wound Disposition: HOME, SELF-CARE Condition: Improved Departure-Patient Inst. Decision time for Depature: 23:49 Referrals: [facility] (PCP/Family) Primary Care Physician Patient Instructions: Bleeding After Surgery Add. Discharge Instructions: Keep the dressing on all night tonight. If it starts bleeding, apply pressure for [address] the dressing on there to see if it will stop. If the bleeding is too significant, call 911 or if its not coming fast enough and you feel like it is appropriate, you could have someone else drive him to the ER. Call his doctor in the morning if there is even a small amount of oozing. If there is continued bleeding in the morning, do not take the Eliquis. TEAGAN GARCIA MD May 29, 2022 22:59
[2022-05-29 23:03] LABS: BASOPHILS % (AUTO) 0 % (0-10); EOSINOPHILS # (AUTO) 0.4 10^3/uL (0.0-0.3); EOSINOPHILS % (AUTO) 5 % (0-10); HEMATOCRIT 32 % (40-54); HEMOGLOBIN 10.3 g/dL (13.3-17.7); LYMPHOCYTES # (AUTO) 0.5 10^3/uL (1.0-4.0); LYMPHOCYTES % (AUTO) 6 % (12-44); MEAN CORPUSCULAR HEMOGLOBIN 26 pg (25-34); MEAN CORPUSCULAR HGB CONC 32 g/dL (32-36); MEAN CORPUSCULAR VOLUME 82 fL (80-99); MEAN PLATELET VOLUME 10.4 fL (9.0-12.2); MONOCYTES # (AUTO) 0.9 10^3/uL (0.0-1.0); MONOCYTES % (AUTO) 10 % (0-12); NEUTROPHILS # (AUTO) 7.1 10^3/uL (1.8-7.8); NEUTROPHILS % (AUTO) 79 % (42-75); PLATELET COUNT 262 10^3/uL (130-400); WHITE BLOOD COUNT 8.9 10^3/uL (4.3-11.0)
[2022-05-29 23:07] LABS: ALBUMIN 3.7 GM/DL (3.2-4.5); POTASSIUM 3.5 MMOL/L (3.6-5.0)
[2022-05-29 23:10] LABS: TOTAL PROTEIN 7.6 GM/DL (6.4-8.2)
[2022-05-29 23:12] LABS: BILIRUBIN,TOTAL 0.6 MG/DL (0.1-1.0); INR 1.2 (0.8-1.4); PROTHROMBIN TIME PATIENT 16.1 SEC (12.2-14.7)
[2022-05-29 23:13] LABS: CREATININE SERUM 3.39 MG/DL (0.60-1.30)
[2022-05-29 23:31] LABS: EOSINOPHILS % (MANUAL) 7 %; LYMPHOCYTES % (MANUAL) 5 %; MONOCYTES % (MANUAL) 7 %; NEUTROPHILS % (MANUAL) 81 %; POIKILOCYTOSIS SLIGHT
[2022-05-29 23:57] VITALS: BP 149/84
--- NOTE | 2022-05-30 08:16 | Diagnostic Imaging Report ---
INDICATION: Bleeding from thoracentesis site. EXAMINATION: Chest 05/29/2022 COMPARISON: 03/24/2022. FINDINGS: There is cardiomegaly with pulmonary vascular congestion. Decreased pleural effusions noted. Atelectasis versus infiltrate at the left lung base not excluded. There is no pneumothorax. IMPRESSION: 1. Marked pulmonary vascular congestion and cardiomegaly. 2. Suspected infiltrate at the left lung base with improving pleural effusions. Dictated by: Dictated on workstation # [id number]
== END 2022-05-29 23:57 | disposition home or self-care (01) ==
LOC: EDUNIT# 22:20 → ER 22:21
DX: J95.831 Postprocedural hemorrhage of a respiratory system organ or structure following other procedure (principal); I48.91 Unspecified atrial fibrillation; Z87.09 Personal history of other diseases of the respiratory system; Z79.01 Long term (current) use of anticoagulants
CPT/HCPCS: 36415; 71045; 80053; 85007; 85027; 85610; 85730

== ENCOUNTER → 2022-06-10 | Outpatient (CLI) | payer OTHER ==
--- NOTE | 2022-06-10 20:56 | Diagnostic Imaging Report ---
INDICATION: PLEURAL EFFUSION. TECHNIQUE: Two view chest at 12:06 PM CORRELATION STUDY: 05/29/2022 FINDINGS: Rather prominent severity cardiac enlargement does remain. There is pulmonary vascular congestion and perihilar edema. This appears improved and less severe from prior. Questionable asymmetric opacity in the lung bases may reflect edema versus infiltrate, left greater than right. There is the presence of small effusions. Slightly accentuated thoracic kyphosis with degenerative changes of the thoracic spine. Prominent vascular calcification of the abdominal aorta. IMPRESSION: 1. Continued congestive heart failure and edema. However, it is improved from prior. Small pleural effusions. 2. Bibasilar areas of atelectasis / infiltrate and / or edema, left greater than right. Dictated by: Dictated on workstation # [id number]
== END ==
LOC: RAD 11:36
PROVIDERS: ATTEND Internal Medicine Critical Care Medicine
DX: I50.9 Heart failure, unspecified (principal); J98.11 Atelectasis; J90 Pleural effusion, not elsewhere classified
CPT/HCPCS: 71046

== ENCOUNTER → 2022-06-25 | Outpatient (CLI) | payer OTHER ==
[~2022-06-25] MED LIST changes: +RT-ALBUTEROL SULF 2.5 MG/3 ML PRE-MIX VIAL INH ONE
== END ==
LOC: RT 12:32
PROVIDERS: ATTEND Internal Medicine Critical Care Medicine
DX: J90 Pleural effusion, not elsewhere classified (principal)
CPT/HCPCS: 94060; 94726; 94729

== ENCOUNTER → 2022-08-07 | Outpatient (CLI) | payer OTHER ==
[~2022-08-07] MED LIST changes: -RT-ALBUTEROL SULF 2.5 MG/3 ML PRE-MIX VIAL INH ONE
[2022-08-07 10:56] LABS: BASOPHILS % (AUTO) 1 % (0-10); EOSINOPHILS # (AUTO) 0.4 10^3/uL (0.0-0.3); EOSINOPHILS % (AUTO) 5 % (0-10); HEMATOCRIT 34 % (40-54); HEMOGLOBIN 10.2 g/dL (13.3-17.7); LYMPHOCYTES # (AUTO) 0.6 10^3/uL (1.0-4.0); LYMPHOCYTES % (AUTO) 8 % (12-44); MEAN CORPUSCULAR HEMOGLOBIN 24 pg (25-34); MEAN CORPUSCULAR HGB CONC 30 g/dL (32-36); MEAN CORPUSCULAR VOLUME 81 fL (80-99); MEAN PLATELET VOLUME 9.9 fL (9.0-12.2); MONOCYTES # (AUTO) 0.9 10^3/uL (0.0-1.0); MONOCYTES % (AUTO) 11 % (0-12); NEUTROPHILS # (AUTO) 6.1 10^3/uL (1.8-7.8); NEUTROPHILS % (AUTO) 75 % (42-75); PLATELET COUNT 281 10^3/uL (130-400); WHITE BLOOD COUNT 8.1 10^3/uL (4.3-11.0)
[2022-08-07 10:57] LABS: BILIRUBIN,URINE NEGATIVE (NEGATIVE); CLARITY,URINE CLEAR; COLOR,URINE YELLOW; GLUCOSE, URINE (UA) 1+ (NEGATIVE); KETONES,URINE NEGATIVE (NEGATIVE); LEUKOCYTE ESTERASE ,URINE NEGATIVE (NEGATIVE); NITRITE,URINE NEGATIVE (NEGATIVE); PH,URINE 6.5 (5-9); PROTEIN,URINE 2+ (NEGATIVE)
[2022-08-07 11:04] LABS: BACTERIA,URINE NEGATIVE /HPF; RBC,URINE 0-2 /HPF
[2022-08-07 11:18] LABS: ALBUMIN 3.8 GM/DL (3.2-4.5); CALCIUM 10.1 MG/DL (8.5-10.1); CREATININE SERUM 3.12 MG/DL (0.60-1.30); PHOSPHORUS 6.1 MG/DL (2.3-4.7); POTASSIUM 3.3 MMOL/L (3.6-5.0)
== END ==
LOC: LAB 10:33
PROVIDERS: ATTEND Internal Medicine Nephrology
DX: E87.6 Hypokalemia (principal); E79.0 Hyperuricemia without signs of inflammatory arthritis and tophaceous disease; N18.4 Chronic kidney disease, stage 4 (severe); D64.1 Secondary sideroblastic anemia due to disease
CPT/HCPCS: 36415; 80069; 81000; 82570; 83880; 84156; 85025

== ENCOUNTER → 2022-08-15 | Outpatient (CLI) | payer OTHER ==
[2022-08-15 10:43] LABS: BASOPHILS % (AUTO) 1 % (0-10); EOSINOPHILS # (AUTO) 0.4 10^3/uL (0.0-0.3); EOSINOPHILS % (AUTO) 5 % (0-10); HEMATOCRIT 33 % (40-54); HEMOGLOBIN 10.3 g/dL (13.3-17.7); LYMPHOCYTES # (AUTO) 0.5 10^3/uL (1.0-4.0); LYMPHOCYTES % (AUTO) 7 % (12-44); MEAN CORPUSCULAR HEMOGLOBIN 24 pg (25-34); MEAN CORPUSCULAR HGB CONC 31 g/dL (32-36); MEAN CORPUSCULAR VOLUME 79 fL (80-99); MEAN PLATELET VOLUME 10.1 fL (9.0-12.2); MONOCYTES # (AUTO) 0.9 10^3/uL (0.0-1.0); MONOCYTES % (AUTO) 11 % (0-12); NEUTROPHILS # (AUTO) 6.1 10^3/uL (1.8-7.8); NEUTROPHILS % (AUTO) 77 % (42-75); PLATELET COUNT 281 10^3/uL (130-400); WHITE BLOOD COUNT 7.9 10^3/uL (4.3-11.0)
[2022-08-15 10:57] LABS: ANISOCYTOSIS SLIGHT; BAND NEUTROPHILS 0 %; BASOPHILS % (MANUAL) 1 %; EOSINOPHILS % (MANUAL) 4 %; HYPOCHROMASIA SLIGHT; LYMPHOCYTES % (MANUAL) 8 %; MONOCYTES % (MANUAL) 9 %; NEUTROPHILS % (MANUAL) 78 %
[2022-08-15 11:05] LABS: ALBUMIN 3.7 GM/DL (3.2-4.5)
[2022-08-15 11:06] LABS: POTASSIUM 3.4 MMOL/L (3.6-5.0)
[2022-08-15 11:07] LABS: CALCIUM 10.8 MG/DL (8.5-10.1)
[2022-08-15 11:08] LABS: TOTAL PROTEIN 7.8 GM/DL (6.4-8.2)
[2022-08-15 11:10] LABS: BILIRUBIN,TOTAL 0.7 MG/DL (0.1-1.0)
[2022-08-15 11:12] LABS: CREATININE SERUM 3.71 MG/DL (0.60-1.30)
== END ==
LOC: LAB 10:17
PROVIDERS: ATTEND Thoracic Surgery (Cardiothoracic Vascular Surgery)
DX: Z01.812 Encounter for preprocedural laboratory examination (principal); J90 Pleural effusion, not elsewhere classified
CPT/HCPCS: 36415; 80053; 85007; 85027

== ENCOUNTER 2022-08-28 05:47 | Emergency (ER) | payer OTHER ==
[~2022-08-28] VITALS: Ht 170 cm; Wt 86.2 kg
[2022-08-28] MEDS ORDERED: METO5TAB6 (06:01)
[2022-08-28] MEDS ORDERED: ONDA-105 (06:01)
--- NOTE | 2022-08-28 06:14 | ED General ---
General Chief Complaint: Abdominal/GI Problems Stated Complaint: STAGE 4 KIDNEY DISEASE,VOMITING,UNABLE TO URINATE Nursing Triage Note: N/V, UNABLE TO URINATE X3 DAYS. HX CHRONIC KIDNEY FAILURE. REPORTS STILL MAKES URINE. Source of Information: Patient, Old Records, Spouse History of Present Illness Date Seen by Provider: Aug 28, 2022 Time Seen by Provider: 05:57 Initial Comments PT ARRIVES VIA POV FROM HOME WITH PT STATES FOR THE LAST 3 DAYS HE HAS HAD: -NAUSEA/VOMITING -GENERALIZED ABDOMINAL CRAMPING -UNABLE TO URINATE FOR THE LAST 3 DAYS -WEIGHT GAIN OF 10# LAST BM WAS Thursday08/26/22 HAS NOT TAKEN ANY OF HIS MEDICATIONS FOR THE LAST 2 DAYS LAST FOOD INTAKE WAS YESTERDAY AFTERNOON HAD PRESCRIPTION FOR NAUSEA CALLED IN, BUT IT IS NOT HELPING HE OTHERWISE HAS NOT SOUGHT CARE UNTIL TODAY SYMPTOMS NO DIFFERENT TODAY NO FEVER PT WITH CHRONIC RENAL FAILURE, NOT ON DIALYSIS, BUT 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 HE WAS STARTED ON METOLAZONE 08/08/22 PT HAD SKIN CANCER REMOVED FROM HIS FOREHEAD ON THURSDAY AT DR. DOLL'S OFFICE IN [place] ( [employer]) WENT BACK YESTERDAY DUE TO BLEEDING FROM THE AREA, AND HAD IT CAUTERIZED HE HAS HAD COVID VACCINE X 1, NO FLU VACCINE PCP: DR. GAMBOA IN [place] ALL SPECIALISTS ARE WITH [facility] IN [place]--CARDIOLOGY, NEPHROLOGY, PULMONOLOGY HE SEES DR. DOLL'S OFFICE FOR DERMATOLOGY Allergies and Home Medications Allergies Coded Allergies: shrimp (Verified Adverse Reaction, Unknown, VOMITING, 09/22/20) Patient Home Medication List Allopurinol (Allopurinol) 100 Mg Tablet, 100 MG PO HS, (Reported) Entered as Reported by: DOLLY ENGLE on 03/24/22 1544 Apixaban (Eliquis) 5 Mg Tablet, 5 MG PO BID, (Reported) Entered as Reported by: DOLLY ENGLE on 03/24/22 1544 Aspirin (Aspirin EC) 81 Mg Tablet., 81 MG PO HS, (Reported) Entered as Reported by: DOLLY ENGLE on 03/24/22 154 Calcium Acetate (Calcium Acetate) 667 Mg Tablet, 667 MG PO TID, (Reported) Entered as Reported by: DOLLY ENGLE on 03/24/22 154 Glimepiride (Glimepiride) 2 Mg Tablet, 2 MG PO DAILY Prescribed by: JAIDA CASTILLO on 03/28/22 1345 Isosorbide Mononitrate (Isosorbide Mononitrate ER) 60 Mg Tab, 60 MG PO DAILY, (Reported) Entered as Reported by: DOLLY ENGLE on 03/24/22 154 Metolazone (Metolazone) 5 Mg Tablet, (Reported) Entered as Reported by: JC CARRILLO on 08/28/22600 Last Action: New Order Ondansetron HCl (Ondansetron HCl) 4 Mg Tablet, (Reported) Entered as Reported by: JC CARRILLO on 08/28/22600 Last Action: New Order Polyethylene Glycol 3350 (Miralax) 17 Gram Powd.pack, 17 GM PO BID PRN for CONSTIPATION-2ND LINE, (Reported) Entered as Reported by: DOLLY ENGLE on 03/24/22 154 Sitagliptin Phosphate (Januvia) 25 Mg Tablet, 25 MG PO DAILY Prescribed by: JAIDA CASTILLO on 03/28/22 134 Torsemide (Torsemide) 100 Mg Tablet, 100 MG PO DAILY, (Reported) Entered as Reported by: DOLLY ENGLE on 03/24/22 154 Review of Systems Review of Systems Constitutional: see HPI, weight gain EENTM: no symptoms reported Respiratory: no symptoms reported Cardiovascular: no symptoms reported Gastrointestinal: see HPI, abdominal pain, constipation; No diarrhea; loss of appetite, nausea, vomiting Genitourinary: see HPI Musculoskeletal: no symptoms reported Skin: no symptoms reported Psychiatric/Neurological: No Symptoms Reported Hematologic/Lymphatic: No Symptoms Reported Immunological/Allergic: no symptoms reported Past Ajpknvb-Slnmhm-Kjcnyg Hx Patient Social History Tobacco Use?: No Smoking Status: Never a Smoker Substance use?: No Alcohol Use?: No Pt feels they are or have been: No Immunizations Up To Date Tetanus Booster (TDap): More than 5yrs First/Initial COVID19 Vaccinat: september 2020 Second COVID19 Vaccination Daniel: september 2020 Third COVID19 Vaccination Date: september 2020 Past Medical History Surgery/Hospitalization HX: TYPE 2 DM, HTN, CHF, HIGH CHOLESTEROL, AFIB, RENAL FAILURE, GOUT, THORACENTESIS, SKIN CA Surgeries: Yes (shrapnel removed from arms ; THORACENTESIS;SKIN CA/FOREHEAD) Respiratory: Yes (PLEURAL EFFUSIONS--THORACENTESIS) Cardiac: Yes Atrial Fibrillation, Chronic Edema/Swelling, High Cholesterol, Hypertension Neurological: No Reproductive Disorders: No Genitourinary: Yes Renal Failure Gastrointestinal: No Musculoskeletal: Yes Gout Endocrine: Yes Diabetes, Non-Insulin dep HEENT: No Cancer: Yes Skin Did You Recieve Any Treatments: Yes What Type of Treatment Did You: Surgical Intervention SKIN CANCER REMOVED FROM FOREHEAD 08/26/[address] DOLL'S OFFICE IN [place] Psychosocial: No Integumentary: No Blood Disorders: No Family Medical History No Pertinent Family Hx STRESS TEST 03/26/[address] MARTINEZ 1. Patient tolerated Lexiscan well 2. Baseline atrial fibrillation with occasional PVCs. Persisted during test. 3. No significant ischemia or infarction noted on SPECT images 4. Prominent left ventricle with diffuse left ventricular hypokinesia, ejection fraction 32%, gated images are unreliable due to underlying atrial fibrillation Physical Exam Vital Signs Vital Signs - First Documented 08/28/22 05:55 Temp 35.6 Pulse 91 Resp 16 B/P (MAP) 134/74 (94) Pulse Ox 98 O2 Delivery Room Air Capillary Refill : Less Than 3 Seconds Height, Weight, BMI Height: 5'8" Weight: 235lbs. oz. 106.739619vu; 29.00 BMI Method:Stated General Appearance: No Apparent Distress, WD/WN HEENT: PERRL/EOMI, Other (DRY ORAL MUCOSA, MULTIPLE MISSING TEETH WITH REM AINING TEETH WITH POOR DENTITION) Neck: Normal Inspection; No JVD Respiratory: Normal Breath Sounds (EXCEPT DECREASED IN BASES), No Accessory Muscle Use, No Respiratory Distress Cardiovascular: No JVD, Irregularly Irregular Gastrointestinal: Non Tender, Soft, Abnormal Bowel Sounds (DECREASED) Back: No CVA Tenderness Extremity: Normal Range of Motion, Non Tender, Pedal Edema (1+ BILATERALLY) Neurologic/Psychiatric: Alert, Oriented x3, No Motor/Sensory Deficits, 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 Norm as Tested Skin: Normal Color, Warm/Dry Progress/Results/Core Measures Suspected Sepsis SIRS Temperature: Pulse: 91 Respiratory Rate: 16 Laboratory Tests 08/28/22 06:05: White Blood Count 15.4H Blood Pressure 134 /74 Mean: 94 Laboratory Tests 08/28/22 06:05: Creatinine 5.39H, INR Comment 1.0, Platelet Count 302, Total Bilirubin 1.3H 08/28/22 07:09: Creatinine 5.32H, Total Bilirubin 1.3H Results/Orders Lab Results Laboratory Tests Test 08/28/22 06:05 08/28/22 06:18 08/28/22 07:09 08/28/22 07:25 Range/Units White Blood Count 15.4 H 4.3-11.0 10^3/uL Red Blood Count 4.42 4.30-5.52 10^6/uL Hemoglobin 10.8 L 13.3-17.7 g/dL Hematocrit 33 L 40-54 % Mean Corpuscular Volume 74 L 80-99 fL Mean Corpuscular Hemoglobin 24 L 25-34 pg Mean Corpuscular Hemoglobin Concent 33 32-36 g/dL Red Cell Distribution Width 16.9 H 10.0-14.5 % Platelet Count 302 130-400 10^3/uL Mean Platelet Volume 10.7 9.0-12.2 fL Immature Granulocyte % (Auto) 1 % Neutrophils (%) (Auto) 93 H 42-75 % Lymphocytes (%) (Auto) 1 L 12-44 % Monocytes (%) (Auto) 4 0-12 % Eosinophils (%) (Auto) 1 0-10 % Basophils (%) (Auto) 0 0-10 % Neutrophils # (Auto) 14.3 H 1.8-7.8 10^3/uL Lymphocytes # (Auto) 0.2 L 1.0-4.0 10^3/uL Monocytes # (Auto) 0.7 0.0-1.0 10^3/uL Eosinophils # (Auto) 0.2 0.0-0.3 10^3/uL Basophils # (Auto) 0.0 0.0-0.1 10^3/uL Immature Granulocyte # (Auto) 0.1 0.0-0.1 10^3/uL Neutrophils % (Manual) 95 % Lymphocytes % (Manual) 1 % Monocytes % (Manual) 3 % Eosinophils % (Manual) 1 % Platelet Estimate ADEQUATE Blood Morphology Comment NORMAL Prothrombin Time 13.8 12.2-14.7 SEC INR Comment 1.0 0.8-1.4 Activated Partial Thromboplast Time 36 H 24-35 SEC Sodium Level 123 *L 122 *L 135-145 MMOL/L Potassium Level 3.1 L 2.9 L 3.6-5.0 MMOL/L Chloride Level 69 L 69 L 98-107 MMOL/L Carbon Dioxide Level 27 29 21-32 MMOL/L Anion Gap 27 H 24 H 5-14 MMOL/L Blood Urea Nitrogen 145 *H 143 *H 7-18 MG/DL Creatinine 5.39 H 5.32 H 0.60-1.30 MG/DL Estimat Glomerular Filtration Rate 11 11 BUN/Creatinine Ratio 27 23 Glucose Level 158 H 151 H 70-105 MG/DL Calcium Level 10.1 9.9 8.5-10.1 MG/DL Corrected Calcium 10.0 9.9 8.5-10.1 MG/DL Phosphorus Level 9.2 H 2.3-4.7 MG/DL Magnesium Level 2.3 1.6-2.4 MG/DL Total Bilirubin 1.3 H 1.3 H 0.1-1.0 MG/DL Aspartate Amino Transf (AST/SGOT) 15 13 5-34 U/L Alanine Aminotransferase (ALT/SGPT) 17 17 0-55 U/L Alkaline Phosphatase 254 H 243 H 40-136 U/L Troponin I 0.141 H <0.028 NG/ML Total Protein 8.6 H 8.3 H 6.4-8.2 GM/DL Albumin 4.1 4.0 3.2-4.5 GM/DL Amylase Level 64 25-125 U/L Lipase 123 H 8-78 U/L Influenza Type A (RT-PCR) Not Detected Not Detecte Influenza Type B (RT-PCR) Not Detected Not Detecte SARS-CoV-2 RNA (RT-PCR) Not Detected Not Detecte Urine Color YELLOW Urine Clarity CLEAR Urine pH 5.5 5-9 Urine Specific [place] 1.025 H 1.016-1.022 Urine Protein 3+ H NEGATIVE Urine Glucose (UA) TRACE H NEGATIVE Urine Ketones NEGATIVE NEGATIVE Urine Nitrite NEGATIVE NEGATIVE Urine Bilirubin NEGATIVE NEGATIVE Urine Urobilinogen 0.2 < = 1.0 MG/DL Urine Leukocyte Esterase NEGATIVE NEGATIVE Urine RBC (Auto) 1+ H NEGATIVE Urine RBC NONE /HPF Urine WBC NONE /HPF Urine Renal Epithelial Cells RARE /HPF Urine Crystals PRESENT H /LPF Urine Amorphous Sediment MOD LISSET URATES H /LPF Urine Bacteria TRACE /HPF Urine Casts PRESENT /LPF Urine Granular Casts RARE /LPF Urine Mucus NEGATIVE /LPF Urine Culture Indicated NO My Orders Orders - HORTENCIA LOZADA DO Ed Iv/Invasive Line Start (08/28/22 05:57) Ekg Tracing (08/28/22 05:57) Bladder Scan (08/28/22 05:57) Monitor-Rhythm Ecg Trace Only (08/28/22 05:57) Chest 1 View, Ap/Pa Only (08/28/22 05:57) Amylase (08/28/22 05:57) Cbc With Automated Diff (08/28/22 05:57) Comprehensive Metabolic Panel (08/28/22 05:57) Lipase (08/28/22 05:57) Magnesium (08/28/22 05:57) Protime With Inr (08/28/22 05:57) Partial Thromboplastin Time (08/28/22 05:57) Ua Culture If Indicated (08/28/22 05:57) Covid 19 Inhouse Test (08/28/22 05:57) Influenza A And B By Pcr (08/28/22 05:57) Isolation Central Supply Req (08/28/22 05:57) Troponin I [place] (08/28/22 06:22) O2 (08/28/22 06:39) Manual Differential (08/28/22 06:05) Comprehensive Metabolic Panel (08/28/22 06:58) Catheter(Urinary) Insert & Ass 03,15 (08/28/22 07:01) Lidocaine 2% (Urojet) (Xylocaine Urojet) (08/28/22 07:15) Basic Metabolic Panel (08/28/22 07:01) Phosphorus (08/28/22 07:26) Fentanyl Inj (Sublimaze Injection) (08/28/22 09:30) Morphine Injection (Morphine Injection (08/28/22 10:02) Diazepam Injection (Valium Injection) (08/28/22 11:00) Morphine Injection (Morphine Injection (08/28/22 10:49) Medications Given in ED Current Medications Medications Dose Ordered Sig/Alexi Route Start Time Stop Time Status Last Admin Dose Admin Fentanyl Citrate 50 mcg ONCE ONCE IVP 08/28/22 09:30 08/28/22 09:31 DC 08/28/22 09:27 50 MCG Vital Signs/I&O 08/28/22 05:55 Temp 35.6 Pulse 91 Resp 16 B/P (MAP) 134/74 (94) Pulse Ox 98 O2 Delivery Room Air Capillary Refill : Less Than 3 Seconds Blood Pressure Mean: 94 Progress Note : Progress Note PPE WORN COVID AND FLU TESTING DONE. O2 SATS DID DROP TO UPPER 80'S, PLACED ON O2 AT 2L/NC AND O2 SATS UP TO 100% BLADDER SCAN--230 ML CORRAL CATHETER PLACED, PT STATES HE HAS NO URGE TO URINATE, AND WILL NOT ATTEMPT TO VOID. PT HAD IMMEDIATE RETURN OF 300 ML URINE. NO COMPLAINTS OF ABDOMINAL PAIN/CRAMPING OR NAUSEA DURING ER STAY NO COMPLAINTS OF DYSPNEA 923--C/O LEG CRAMPS--FENTANYL ORDERED VITALS STABLE NO DETERIORATION IN PT'S CONDITION DURING ER STAY REVIEWED TEST RESULTS, ANTICIPATED COURSE, NEED FOR TRANSFER TO HIGHER LEVEL OF CARE. REVIEWED PRIOR RECORDS, INCLUDING ER VISITS, ADMITS, H&P'S, CONSULTS, TESTS/PROCEDURES, DISCHARGE SUMMARIES ECG Initial ECG Impression Date: Aug 28, 2022 Initial ECG Impression Time: 06:12 Initial ECG Rate: 82 Initial ECG Rhythm: A Fib/Flutter Initial ECG Comparisson: Changed (COMPARED TO 03/24/22--T WAVES HAVE CHANGED. NOW TALL AND PEAKED. ) Comment TALL PEAKED T-WAVES, IVCD INTERPRETED BY ME Diagnostic Imaging Comments CXR--PER RADIOLOGIST REPORT AT 0739 Cardiomegaly is again demonstrated. There is borderline pulmonary venous congestion which is an improvement. Central pulmonary vessels are prominent. Left costophrenic sulcus is not fully included. IMPRESSION: Cardiomegaly with borderline pulmonary venous congestion which may be related to mild cardiac decompensation. Central pulmonary vascular prominence could indicate pulmonary arterial hypertension as well. Reviewed: Reviewed by Me Departure Communication (Admissions) 0732--CALLED [facility], THEY WILL CALL BACK 0742--SPOKE WITH DR. CARTER, HOSPITALIST, ACCEPTS PT FOR ADMIT. WANTS NEPHROLOGY PAGED ALSO. NO RECOMMENDATIONS REGARDING ANTICOAGULATION AT THIS TIME. 0747--SPOKE WITH DR. WILLSON, MANAGER OUTPATIENT, AGREES WITH TRANSFER. 0837--CALLED [facility], STILL WAITING ON BED ASSIGNMENT. Impression Primary Impression: Acute worsening of stage 4 chronic kidney disease Additional Impressions: Chronic atrial fibrillation Chronic CHF NIDDM Elevated troponin I level Abnormal EKG Electrolyte imbalance Nausea and vomiting Disposition: 02 XFER SHT-TRM HOSP Condition: Stable Transfer Transfer Reason: Exceeds level of care (NEED FOR MULTISPECIALTY CARE, ) Transfer Facility: [place], [place] Method of Transfer: EMS Departure-Patient Inst. Referrals: HAM GAMBOA MD (PCP/Family) Primary Care Physician HORTENCIA LOZADA DO Aug 28, 2022 06:14
[2022-08-28 06:23] LABS: BASOPHILS % (AUTO) 0 % (0-10); EOSINOPHILS # (AUTO) 0.2 10^3/uL (0.0-0.3); EOSINOPHILS % (AUTO) 1 % (0-10); HEMATOCRIT 33 % (40-54); HEMOGLOBIN 10.8 g/dL (13.3-17.7); LYMPHOCYTES # (AUTO) 0.2 10^3/uL (1.0-4.0); LYMPHOCYTES % (AUTO) 1 % (12-44); MEAN CORPUSCULAR HEMOGLOBIN 24 pg (25-34); MEAN CORPUSCULAR HGB CONC 33 g/dL (32-36); MEAN CORPUSCULAR VOLUME 74 fL (80-99); MEAN PLATELET VOLUME 10.7 fL (9.0-12.2); MONOCYTES # (AUTO) 0.7 10^3/uL (0.0-1.0); MONOCYTES % (AUTO) 4 % (0-12); NEUTROPHILS # (AUTO) 14.3 10^3/uL (1.8-7.8); NEUTROPHILS % (AUTO) 93 % (42-75); PLATELET COUNT 302 10^3/uL (130-400); WHITE BLOOD COUNT 15.4 10^3/uL (4.3-11.0)
[2022-08-28 06:29] LABS: ALBUMIN 4.1 GM/DL (3.2-4.5)
[2022-08-28 06:30] LABS: POTASSIUM 3.1 MMOL/L (3.6-5.0)
[2022-08-28 06:31] LABS: CALCIUM 10.1 MG/DL (8.5-10.1)
[2022-08-28 06:32] LABS: TOTAL PROTEIN 8.6 GM/DL (6.4-8.2)
[2022-08-28 06:33] LABS: PROTHROMBIN TIME PATIENT 13.8 SEC (12.2-14.7)
[2022-08-28 06:34] LABS: BILIRUBIN,TOTAL 1.3 MG/DL (0.1-1.0)
[2022-08-28 06:36] LABS: CREATININE SERUM 5.39 MG/DL (0.60-1.30)
[2022-08-28 06:38] LABS: MAGNESIUM 2.3 MG/DL (1.6-2.4)
[2022-08-28 07:15] LABS: EOSINOPHILS % (MANUAL) 1 %; LYMPHOCYTES % (MANUAL) 1 %; MONOCYTES % (MANUAL) 3 %; NEUTROPHILS % (MANUAL) 95 %
[2022-08-28 07:16] LABS: PLATELET ESTIMATE ADEQUATE; RBC MORPH NORMAL
[2022-08-28 07:21] LABS: POTASSIUM 2.9 MMOL/L (3.6-5.0)
[2022-08-28 07:23] LABS: CALCIUM 9.9 MG/DL (8.5-10.1)
[2022-08-28 07:24] LABS: TOTAL PROTEIN 8.3 GM/DL (6.4-8.2)
[2022-08-28 07:26] LABS: BILIRUBIN,TOTAL 1.3 MG/DL (0.1-1.0)
[2022-08-28 07:27] LABS: CREATININE SERUM 5.32 MG/DL (0.60-1.30)
[2022-08-28 07:37] LABS: BILIRUBIN,URINE NEGATIVE (NEGATIVE); CLARITY,URINE CLEAR; COLOR,URINE YELLOW; GLUCOSE, URINE (UA) TRACE (NEGATIVE); KETONES,URINE NEGATIVE (NEGATIVE); LEUKOCYTE ESTERASE ,URINE NEGATIVE (NEGATIVE); NITRITE,URINE NEGATIVE (NEGATIVE); PH,URINE 5.5 (5-9); PROTEIN,URINE 3+ (NEGATIVE)
--- NOTE | 2022-08-28 07:37 | Diagnostic Imaging Report ---
Indication: Dyspnea and cardiac dysrhythmia Single AP view of chest is obtained with comparison made to study of 05/29/2022. Cardiomegaly is again demonstrated. There is borderline pulmonary venous congestion which is an improvement. Central pulmonary vessels are prominent. Left costophrenic sulcus is not fully included. IMPRESSION: Cardiomegaly with borderline pulmonary venous congestion which may be related to mild cardiac decompensation. Central pulmonary vascular prominence could indicate pulmonary arterial hypertension as well. Dictated by: Dictated on workstation # [id number]
[2022-08-28 08:01] LABS: BACTERIA,URINE TRACE /HPF
[2022-08-28 08:02] LABS: AMORPHOUS SEDIMENT,UR MOD AMOR URATES /LPF; RENAL EPITHELIAL CELLS,URINE RARE /HPF
[2022-08-28 08:03] LABS: GRANULAR CASTS,URINE RARE /LPF
[2022-08-28] MEDS: fentaNYL INJ 100 MCG/2 ML AMP IVP ONE (09:27)
[2022-08-28] MEDS: morphine INJ 10 MG/ML 1ML (SYR OR VIAL) IVP STA ×2 (10:17→10:54)
[2022-08-28] MEDS: LIDOCAINE UROJET 2% GEL 10 ML PKG TOP ONE (10:28)
[2022-08-28] MEDS: KCL 10 MEQ TAB (MICRO K) PO ONE (11:04)
[2022-08-28 11:35] VITALS: BP 125/66
== END 2022-08-28 11:35 | disposition short-term general hospital (02) ==
LOC: EDUNIT# 05:47 → ER 05:50
DX: I13.0 Hypertensive heart and chronic kidney disease with heart failure and stage 1 through stage 4 chronic kidney disease, or unspecified chronic kidney disease (principal); I50.9 Heart failure, unspecified; N18.4 Chronic kidney disease, stage 4 (severe); E11.22 Type 2 diabetes mellitus with diabetic chronic kidney disease; I48.20 Chronic atrial fibrillation, unspecified; E87.8 Other disorders of electrolyte and fluid balance, not elsewhere classified; R94.31 Abnormal electrocardiogram [ECG] [EKG]; Z79.899 Other long term (current) drug therapy; Z20.822 Contact with and (suspected) exposure to COVID-19
CPT/HCPCS: 36415; 51702; 71045; 80053; 81000; 82150; 83690; 83735; 84100; 84484; 85007; 85027; 85610; 85730; 87636; 93005; 93041

== ENCOUNTER 2022-09-15 05:39 | Emergency (ER) | payer OTHER ==
[~2022-09-15] VITALS: Ht 170 cm; Wt 98.2 kg
[~2022-09-15 05:39] MED LIST changes: +METO5TAB6; +ONDA-105
[2022-09-15] MEDS ORDERED: FUROSEMIDE 40 MG/4 ML INJ (LASIX) IV STA (05:47)
--- NOTE | 2022-09-15 05:56 | ED General ---
General Chief Complaint: Respiratory Problems Stated Complaint: SOA Source of Information: Patient, EMS Exam Limitations: No Limitations (LINA WALKER MD) History of Present Illness Date Seen by Provider: Sep 15, 2022 Time Seen by Provider: 05:39 Initial Comments Here by EMS with report of shortness of air. Patient comes from home. Patient had history of dialysis and last dialysis was Thursday 2 days ago in which they pulled 2 L off. He had dialysis catheter placed in the right upper chest a couple weeks ago and still has some bruising from that. EMS notes fever of 100.5 and tachycardia. Initial O2 sat was low 90s. With but he was quite dyspneic. They did initiate CPAP and gave DuoNeb which helped some. Patient did vomit shortly after arrival here but we are able to get the mask off. He is not normally on oxygen. He is due to go to [facility] for thoracentesis at some point but has not been scheduled yet as he has fluid in his lungs. He still urinates quite a bit he says. Denies diarrhea. States that he has been getting more short of breath over the past couple of days and feeling worse since yesterday and markedly worse since about 3 AM this morning. Timing/Duration: 24 Hours Severity: Moderate, Severe Associated Systoms: No Chest Pain, No Cough; Fever/Chills, Nausea/Vomiting, Shortness of Air, Weakness (LINA WALKER MD) Allergies and Home Medications Allergies Coded Allergies: shrimp (Verified Adverse Reaction, Unknown, VOMITING, 09/22/20) Patient Home Medication List Home Medication List Reviewed: Yes (LINA WALKER MD) Home Medication List Reviewed: Yes (NEREYDA BARTON MD) Allopurinol (Allopurinol) 100 Mg Tablet, 100 MG PO HS, (Reported) Entered as Reported by: DOLLY ENGLE on 03/24/22 154 Apixaban (Eliquis) 5 Mg Tablet, 5 MG PO BID, (Reported) Entered as Reported by: DOLLY ENGLE on 03/24/22 1544 Aspirin (Aspirin EC) 81 Mg Tablet.dr, 81 MG PO HS, (Reported) Entered as Reported by: DOLLY ENGLE on 03/24/22 154 Calcium Acetate (Calcium Acetate) 667 Mg Tablet, 667 MG PO TID, (Reported) Entered as Reported by: DOLLY ENGLE on 03/24/22 154 Glimepiride (Glimepiride) 2 Mg Tablet, 2 MG PO DAILY Prescribed by: JAIDA CASTILLO on 03/28/22 134 Isosorbide Mononitrate (Isosorbide Mononitrate ER) 60 Mg Tab, 60 MG PO DAILY, (Reported) Entered as Reported by: DOLLY ENGLE on 03/24/22 154 Metolazone (Metolazone) 5 Mg Tablet, (Reported) Entered as Reported by: JC CARRILLO on 08/28/22600 Ondansetron HCl (Ondansetron HCl) 4 Mg Tablet, (Reported) Entered as Reported by: JC CARRILLO on 08/28/22600 Polyethylene Glycol 3350 (Miralax) 17 Gram Powd.pack, 17 GM PO BID PRN for CONSTIPATION-2ND LINE, (Reported) Entered as Reported by: DOLLY ENGLE on 03/24/221543 Sitagliptin Phosphate (Januvia) 25 Mg Tablet, 25 MG PO DAILY Prescribed by: JAIDA CSATILLO on 03/28/22 134 Torsemide (Torsemide) 100 Mg Tablet, 100 MG PO DAILY, (Reported) Entered as Reported by: DOLLY ENGLE on 03/24/221543 Review of Systems Review of Systems Constitutional: see HPI, chills, fever, weakness EENTM: No nose congestion, No throat pain Respiratory: No cough; short of breath Cardiovascular: No chest pain; edema Gastrointestinal: nausea, vomiting Genitourinary: no symptoms reported Musculoskeletal: no symptoms reported Skin: hx of skin cancer, lesions (Had cancerous lesion removed from the top back of head with wound remaining.) Psychiatric/Neurological: Anxiety; Denies Headache (LINA WALKER MD) Past Lvaneur-Xvdlcj-Ttytas Hx Patient Social History Tobacco Use?: No Substance use?: No Alcohol Use?: No Pt feels they are or have been: No (LINA WALKER MD) Immunizations Up To Date Tetanus Booster (TDap): More than 5yrs First/Initial COVID19 Vaccinat: september 2020 X1 Second COVID19 Vaccination Daniel: september 2020 Third COVID19 Vaccination Date: september 2020 (LINA WALKER MD) Past Medical History Surgery/Hospitalization HX: TYPE 2 DM, HTN, CHF, HIGH CHOLESTEROL, AFIB, RENAL FAILURE, GOUT, THORACENTESIS, SKIN CA Surgeries: Yes (shrapnel removed from arms ; THORACENTESIS;SKIN CA/FOREHEAD) Respiratory: Yes (PLEURAL EFFUSIONS--THORACENTESIS) Cardiac: Yes Atrial Fibrillation, Chronic Edema/Swelling, High Cholesterol, Hypertension Neurological: No Reproductive Disorders: No Genitourinary: Yes Renal Failure Gastrointestinal: No Musculoskeletal: Yes Gout Endocrine: Yes Diabetes, Non-Insulin dep HEENT: No Cancer: Yes Skin Did You Recieve Any Treatments: Yes What Type of Treatment Did You: Surgical Intervention Psychosocial: No Integumentary: No Blood Disorders: No (LINA WALKER MD) Family Medical History Reviewed Nursing Family Hx (LINA WALKER MD) No Pertinent Family Hx STRESS TEST 03/26/[address] MARTINEZ 1. Patient tolerated Lexiscan well 2. Baseline atrial fibrillation with occasional PVCs. Persisted during test. 3. No significant ischemia or infarction noted on SPECT images 4. Prominent left ventricle with diffuse left ventricular hypokinesia, ejection fraction 32%, gated images are unreliable due to underlying atrial fibrillation (LINA WALKER MD) Physical Exam-Suspected Sepsis Physical Exam Vital Signs Vital Signs - First Documented 09/15/22 05:40 FiO2 100 (NEREYDA BARTON MD) Vital Signs Capillary Refill : (LINA WALKER MD) Height, Weight, BMI Height: 5'8" Weight: 235lbs. oz. 106.021698dn; 29.00 BMI Method:Stated General Appearance: WD/WN, Moderate Distress HEENT: PERRL/EOMI, Pharynx Normal Neck: Non Tender, Supple Respiratory: Accessory Muscle Use, Decreased Breath Sounds (Right base), Wheezing (Respiratory wheezes) Cardiovascular: No Murmur, Tachycardia Gastrointestinal: Non Tender, Soft Back: Normal Inspection, No CVA Tenderness, No Vertebral Tenderness Extremity: Normal Range of Motion, Non Tender, No Calf Tenderness, Pedal Edema (3+ to the knee bilateral) Neurologic/Psychiatric: Alert, Oriented x3 Skin: normal color, warm/dry (LINA WALKER MD) Focused Exam Lactate Level 09/15/22 05:44: Lactic Acid Level 2.45*H (NEREYDA BARTON MD) Lactic Acid Level Laboratory Tests Test 09/15/22 05:44 Lactic Acid Level 2.45 MMOL/L (0.50-2.00) *H (NEREYDA BARTON MD) Progress/Results/Core Measures Suspected Sepsis SIRS Temperature: Pulse: Respiratory Rate: Laboratory Tests 09/15/22 05:44: White Blood Count 19.0H Blood Pressure / Mean: 09/15/22 05:44: Lactic Acid Level 2.45*H Laboratory Tests 09/15/22 05:44: Creatinine 2.80H, INR Comment 1.2, Platelet Count 285, Total Bilirubin 0.9 (LINA WALKER MD) Results/Orders Lab Results Laboratory Tests Test 09/15/22 05:44 09/15/22 05:56 09/15/22 06:13 Range/Units White Blood Count 19.0 H 4.3-11.0 10^3/uL Red Blood Count 4.10 L 4.30-5.52 10^6/uL Hemoglobin 10.2 L 13.3-17.7 g/dL Hematocrit 33 L 40-54 % Mean Corpuscular Volume 80 80-99 fL Mean Corpuscular Hemoglobin 25 25-34 pg Mean Corpuscular Hemoglobin Concent 31 L 32-36 g/dL Red Cell Distribution Width 20.4 H 10.0-14.5 % Platelet Count 285 130-400 10^3/uL Mean Platelet Volume 11.0 9.0-12.2 fL Immature Granulocyte % (Auto) 1 % Neutrophils (%) (Auto) 92 H 42-75 % Lymphocytes (%) (Auto) 3 L 12-44 % Monocytes (%) (Auto) 4 0-12 % Eosinophils (%) (Auto) 1 0-10 % Basophils (%) (Auto) 0 0-10 % Neutrophils # (Auto) 17.4 H 1.8-7.8 10^3/uL Lymphocytes # (Auto) 0.6 L 1.0-4.0 10^3/uL Monocytes # (Auto) 0.7 0.0-1.0 10^3/uL Eosinophils # (Auto) 0.1 0.0-0.3 10^3/uL Basophils # (Auto) 0.1 0.0-0.1 10^3/uL Immature Granulocyte # (Auto) 0.1 0.0-0.1 10^3/uL Neutrophils % (Manual) 94 % Lymphocytes % (Manual) 3 % Monocytes % (Manual) 3 % Polychromasia SLIGHT Hypochromasia SLIGHT Anisocytosis SLIGHT Prothrombin Time 15.9 H 12.2-14.7 SEC INR Comment 1.2 0.8-1.4 Activated Partial Thromboplast Time 35 24-35 SEC Sodium Level 140 135-145 MMOL/L Potassium Level 3.8 3.6-5.0 MMOL/L Chloride Level 102 98-107 MMOL/L Carbon Dioxide Level 21 21-32 MMOL/L Anion Gap 17 H 5-14 MMOL/L Blood Urea Nitrogen 40 H 7-18 MG/DL Creatinine 2.80 H 0.60-1.30 MG/DL Estimat Glomerular Filtration Rate 24 BUN/Creatinine Ratio 14 Glucose Level 226 H 70-105 MG/DL Lactic Acid Level 2.45 *H 0.50-2.00 MMOL/L Calcium Level 8.8 8.5-10.1 MG/DL Corrected Calcium 9.1 8.5-10.1 MG/DL Total Bilirubin 0.9 0.1-1.0 MG/DL Aspartate Amino Transf (AST/SGOT) 16 5-34 U/L Alanine Aminotransferase (ALT/SGPT) 13 0-55 U/L Alkaline Phosphatase 316 H 40-136 U/L Troponin I 0.050 H <0.028 NG/ML C-Reactive Protein High Sensitivity 4.69 H 0.00-0.50 MG/DL B-Type Natriuretic Peptide 3256.7 H <100.0 PG/ML Total Protein 7.3 6.4-8.2 GM/DL Albumin 3.6 3.2-4.5 GM/DL Influenza Type A (RT-PCR) Not Detected Not Detecte Influenza Type B (RT-PCR) Not Detected Not Detecte SARS-CoV-2 RNA (RT-PCR) Not Detected Not Detecte Blood Gas Puncture Site RRAD Blood Gas Patient Temperature 37.3 Arterial Blood pH 7.39 7.37-7.43 Arterial Blood Partial Pressure CO2 44 35-45 MMHG Arterial Blood Partial Pressure O2 65 L 79-93 MMHG Arterial Blood HCO3 26 23-27 MMOL/L Arterial Blood Total CO2 27.3 21.0-31.0 MMOL/L Arterial Blood Oxygen Saturation 92 L 94-100 % Arterial Blood Base Excess 1.7 -2.5-2.5 MMOL/L Ramin Test YES-POS Blood Gas Ventilator Setting NO Blood Gas Inspired Oxygen 100% (NEREYDA BARTON MD) Medications Given in ED Current Medications Medications Dose Ordered Sig/Alexi Route Start Time Stop Time Status Last Admin Dose Admin Ondansetron HCl 4 mg ONCE ONCE IVP 09/15/22 06:00 09/15/22 06:01 DC 09/15/22 05:55 4 MG (NEREYDA BARTON MD) Vital Signs/I&O 09/15/22 09/15/22 09/15/22 09/15/22 05:39 05:39 05:40 05:54 Temp 37.3 Pulse 116 Resp 50 B/P (MAP) 175/92 (119) Pulse Ox 98 98 95 O2 Delivery High Flow N/C High Flow N/C High Flow N/C Vapotherm O2 Flow Rate 40.00 40.00 40.00 40.00 100.00 FiO2 100 50 (NEREYDA BARTON MD) Vital Signs/I&O Capillary Refill : (LINA WALKER MD) Progress Note : Progress Note Seen and evaluated. IV, labs, chest x-ray, COVID and flu swab ordered. Labs include CBC, CMP, BNP, troponin, blood cultures and lactic acid. We will give Lasix 40 mg IV and Zofran 4 mg IV. Patient taken off CPAP and we will initiate Vapotherm and titrate to oxygenation and work of breathing since he is nauseated and we do not want him to vomit in the BiPAP mask. I did discuss CODE STATUS with the patient and he requested full code. States his nephrology services are through [facility] in [place], [place]. Differential diagnosis includes fluid volume overload, cardiac event, electrolyte abnormality, pneumonia, pulmonary edema, sepsis 0600: Patient is doing a little better on Vapotherm. We will get ABG now. Monitor patient. 0615: Care transferred to Dr. Barton pending labs and x-ray evaluation as well as likely transfer. (LINA WALKER MD) Progress Note : Time: 07:31 Progress Note Patient seen and examined by me, 62-year-old with worsening dyspnea over the last 48 hours since dialysis on Thursday. Patient care assumed at shift change from Dr. Walker at 6 AM. Patient's vital signs currently 143/65 A-fib with a heart rate of 114 respiratory rate 36. He is currently on Vapotherm 75% FiO2 40 L. He has coarse crackly breath sounds throughout. No wheezes. He does have 1-2+ pitting edema in the bilateral lower extremities. I have reviewed his labs to include CBC significant leukocytosis at 19,000 with a left shift. Lactic greater than 2. Chemistry shows chronic kidney disease which is his normal as he is on dialysis. CRP a little over 4. Troponin detectable however he does have chronic kidney disease. Chest x-ray consistent with pulmonary edema. Flu and COVID are negative. Blood cultures have been obtained. Suspect concurrent bacterial infection along with volume overload as he has chronic kidney disease on dialysis. I made a call to [facility], they do have ICU beds. We will speak with Dr. Diane. Anticipate going ahead and giving the patient a dose of Zosyn. Patient was given [address] of Lasix per Dr. WALKER prior to my arrival. The patient states that he does still make urine. He has not provided a specimen as of yet. (NEREYDA BARTON MD) Diagnostic Imaging Diagonstic Imaging: Xray Plain Films/CT/US/NM/MRI: chest Comments [facility] [place], [place] NAME: EZ[facility] STEIN [facility] REC#: [id number] PT STATUS: REG ER : 1960 PHYSICIAN: LINA WALKER MD ADMIT DATE: 09/15/22/ER Draft Date of Exam:09/15/22 CHEST 1 VIEW, AP/PA ONLY INDICATION: Shortness of breath Portable chest 6:05 AM There is cardiomegaly with pulmonary vascular congestion and pulmonary edema. Right IJ dialysis catheter tip projects over the right atrium. IMPRESSION: Congestive heart failure with pulmonary edema. Dictated on workstation # [id number] Dict: 09/15/2228 Trans: 09/15/22 0643 CVB [id number] Interpreted by: LINA GARCIA MD Electronically signed by: (NEREYDA BARTON MD) Departure Impression Primary Impression: Pulmonary edema Qualified Codes: J81.0 - Acute pulmonary edema Additional Impressions: Sepsis Qualified Codes: A41.9 - Sepsis, unspecified organism; R65.20 - Severe sepsis without septic shock; J96.01 - Acute respiratory failure with hypoxia Acute respiratory failure Qualified Codes: J96.01 - Acute respiratory failure with hypoxia Disposition: 02 XFER SHT-TRM HOSP Condition: Critical Transfer Transfer Reason: Exceeds level of care Time Spoke to Accepting Phy: 07:46 Transfer Progress Notes Discussed with Dr Diane, accepts patient for transfer to TCU bed; [facility] Transfer Facility: [facility] Method of Transfer: EMS (NEREYDA BARTON MD) Departure-Patient Inst. Referrals: HAM GAMBOA MD (PCP/Family) Primary Care Physician LINA WALKER MD Sep 15, 2022 05:56 NEREYDA BARTON MD Sep 15, 2022 07:37
[2022-09-15 05:58] LABS: BASOPHILS # (AUTO) 0.1 10^3/uL (0.0-0.1); BASOPHILS % (AUTO) 0 % (0-10); EOSINOPHILS # (AUTO) 0.1 10^3/uL (0.0-0.3); EOSINOPHILS % (AUTO) 1 % (0-10); HEMATOCRIT 33 % (40-54); HEMOGLOBIN 10.2 g/dL (13.3-17.7); LYMPHOCYTES # (AUTO) 0.6 10^3/uL (1.0-4.0); LYMPHOCYTES % (AUTO) 3 % (12-44); MEAN CORPUSCULAR HEMOGLOBIN 25 pg (25-34); MEAN CORPUSCULAR HGB CONC 31 g/dL (32-36); MEAN CORPUSCULAR VOLUME 80 fL (80-99); MONOCYTES # (AUTO) 0.7 10^3/uL (0.0-1.0); MONOCYTES % (AUTO) 4 % (0-12); NEUTROPHILS # (AUTO) 17.4 10^3/uL (1.8-7.8); NEUTROPHILS % (AUTO) 92 % (42-75); PLATELET COUNT 285 10^3/uL (130-400)
[2022-09-15] MEDS ORDERED: ONDANSETRON 4 MG/2 ML (SDV) Z0FRAN IVP ONE (06:00)
[2022-09-15 06:08] LABS: ALBUMIN 3.6 GM/DL (3.2-4.5); POTASSIUM 3.8 MMOL/L (3.6-5.0)
[2022-09-15 06:09] LABS: CALCIUM 8.8 MG/DL (8.5-10.1); INR 1.2 (0.8-1.4); PROTHROMBIN TIME PATIENT 15.9 SEC (12.2-14.7)
[2022-09-15 06:11] LABS: TOTAL PROTEIN 7.3 GM/DL (6.4-8.2)
[2022-09-15 06:12] LABS: BILIRUBIN,TOTAL 0.9 MG/DL (0.1-1.0)
[2022-09-15 06:14] LABS: CREATININE SERUM 2.8 MG/DL (0.60-1.30)
[2022-09-15 06:15] LABS: LYMPHOCYTES % (MANUAL) 3 %; MONOCYTES % (MANUAL) 3 %; NEUTROPHILS % (MANUAL) 94 %
[2022-09-15 06:16] LABS: ABG BASE EXCESS 1.7 MMOL/L (-2.5-2.5); ABG OXYGEN SATURATION 92 % (94-100); ABG PCO2 44 MMHG (35-45); ABG PH 7.39 (7.37-7.43); ABG PO2 65 MMHG (79-93); ABG TCO2 27.3 MMOL/L (21.0-31.0)
[2022-09-15 06:16] LABS: ANISOCYTOSIS SLIGHT; HYPOCHROMASIA SLIGHT; POLYCHROMASIA SLIGHT
[2022-09-15 06:17] LABS: ALLENS TEST YES-POS; INSPIRED O2 100%; PATIENT TEMP 37.3; VENTILATOR NO
--- NOTE | 2022-09-15 06:44 | Diagnostic Imaging Report ---
INDICATION: Shortness of breath Portable chest 6:05 AM There is cardiomegaly with pulmonary vascular congestion and pulmonary edema. Right IJ dialysis catheter tip projects over the right atrium. IMPRESSION: Congestive heart failure with pulmonary edema. Dictated by: Dictated on workstation # [id number]
[2022-09-15] MEDS ORDERED: PIPERACILLIN SODIUM/TAZOBACTAM 2.25 GM in NS (IVPB) 100 ML IV ONE (08:00)
[2022-09-15 13:00] VITALS: BP 136/76
== END 2022-09-15 13:00 | disposition short-term general hospital (02) ==
LOC: EDUNIT# 05:39 → ER 05:41
DX: R65.20 Severe sepsis without septic shock (principal); J96.00 Acute respiratory failure, unspecified whether with hypoxia or hypercapnia; J81.0 Acute pulmonary edema; I48.91 Unspecified atrial fibrillation; D72.829 Elevated white blood cell count, unspecified; I13.2 Hypertensive heart and chronic kidney disease with heart failure and with stage 5 chronic kidney disease, or end stage renal disease; E11.22 Type 2 diabetes mellitus with diabetic chronic kidney disease; N18.6 End stage renal disease; I50.9 Heart failure, unspecified; Z99.2 Dependence on renal dialysis; Z20.822 Contact with and (suspected) exposure to COVID-19; Z28.311 Partially vaccinated for COVID-19
CPT/HCPCS: 36415; 36600; 71045; 80053; 82805; 83605; 83880; 84484; 85007; 85027; 85610; 85730; 86141; 87040; 87077; 87636; 99291

== ENCOUNTER 2022-10-20 08:15 | Emergency (ER) | payer OTHER ==
[~2022-10-20] VITALS: Ht 170 cm; Wt 85.0 kg
[2022-10-20] MEDS ORDERED: fentaNYL INJ 100 MCG/2 ML AMP IVP ONE (08:30)
[2022-10-20 08:42] LABS: BASOPHILS # (AUTO) 0.1 10^3/uL (0.0-0.1); BASOPHILS % (AUTO) 1 % (0-10); EOSINOPHILS # (AUTO) 0.1 10^3/uL (0.0-0.3); EOSINOPHILS % (AUTO) 1 % (0-10); HEMATOCRIT 36 % (40-54); HEMOGLOBIN 11.2 g/dL (13.3-17.7); LYMPHOCYTES # (AUTO) 0.6 10^3/uL (1.0-4.0); LYMPHOCYTES % (AUTO) 7 % (12-44); MEAN CORPUSCULAR HEMOGLOBIN 26 pg (25-34); MEAN CORPUSCULAR HGB CONC 31 g/dL (32-36); MEAN CORPUSCULAR VOLUME 84 fL (80-99); MEAN PLATELET VOLUME 10.1 fL (9.0-12.2); MONOCYTES # (AUTO) 1.1 10^3/uL (0.0-1.0); MONOCYTES % (AUTO) 11 % (0-12); NEUTROPHILS # (AUTO) 7.8 10^3/uL (1.8-7.8); NEUTROPHILS % (AUTO) 80 % (42-75); PLATELET COUNT 301 10^3/uL (130-400); WHITE BLOOD COUNT 9.8 10^3/uL (4.3-11.0)
--- NOTE | 2022-10-20 08:43 | ED General ---
General Chief Complaint: Chest Pain Stated Complaint: CHEST PAINS Nursing Triage Note: PT ARRIVED PER EMS, PT CO OF CHEST PAIN ON L RIB AREA, RATES PAIN 2/10 AT THIS X. PT STATES IS HURTING IN UPPER RIB AREA L SIDE, HURTS WORSE IF HE GETS UP. PT HAS DRAINAGE TUBE IN THORACENTISIS TUBE THAT DRAINS IN L LOWER LUNG STATES PT. STATES FILLS UP 1 BOTTLE ABOUT DAILY FLUID IS FRUIT PUNCH COLORED. PT HAS HAD TUBE FOR SINCE AUG. PT HAS DIALYSIS PORT IN R CHEST WALL PT LAST DIALYSIS ON THURSDAY Source of Information: Patient Exam Limitations: No Limitations History of Present Illness Date Seen by Provider: Oct 20, 2022 Time Seen by Provider: 08:16 Initial Comments This is 62-year-old gentleman presents to the emergency room with complaints of left upper chest pain since yesterday afternoon. Pain is pleuritic in nature and very sensitive to the touch inferior to the left axillary region. He has end-stage renal failure on dialysis Thursday, , and Thursday. He was seen in the emergency room September 15 for respiratory failure and sepsis. He was transferred to [facility] at that time. He has had a chest tube placed on the left and has a continuous serosanguineous drainage of uncertain etiology. He typically drains nearly 1 L/day per his report. He appears dyspneic due to splinting from the pain. He reports this pain is new and has not been experienced with the chest tube previously. He has had intermittent cough since his admission but denies any fever. He is anticoagulated on Eliquis because of atrial fibrillation. Allergies and Home Medications Allergies Coded Allergies: shrimp (Verified Adverse Reaction, Unknown, VOMITING, 09/22/20) Patient Home Medication List Home Medication List Reviewed: Yes Allopurinol (Allopurinol) 100 Mg Tablet, 100 MG PO HS, (Reported) Entered as Reported by: DOLLY ENGLE on 03/24/22 1544 Apixaban (Eliquis) 5 Mg Tablet, 5 MG PO BID, (Reported) Entered as Reported by: DOLLY ENGLE on 03/24/22 1544 Aspirin (Aspirin EC) 81 Mg Tablet.dr, 81 MG PO HS, (Reported) Entered as Reported by: DOLLY ENGLE on 03/24/22 1544 Calcium Acetate (Calcium Acetate) 667 Mg Tablet, 667 MG PO TID, (Reported) Entered as Reported by: DOLLY ENGLE on 03/24/22 1544 Doxycycline Hyclate (Doxycycline Hyclate) 100 Mg Tablet, 100 MG PO BID Prescribed by: JÚNIOR MCDONALD on 10/20/22 1211 Glimepiride (Glimepiride) 2 Mg Tablet, 2 MG PO DAILY Prescribed by: JAIDA CASTILLO on 03/28/22 1345 Hydrocodone/Acetaminophen (Hydrocodone-Acetamin 5-325 mg) 5 Mg-325 Mg Tablet, 1 TAB PO Q4H PRN for PAIN-MODERATE (5-7) Prescribed by: JÚNIOR MCDONALD on 10/20/22 1211 Isosorbide Mononitrate (Isosorbide Mononitrate ER) 60 Mg Tab, 60 MG PO DAILY, (Reported) Entered as Reported by: DOLLY ENGLE on 03/24/22 154 Lidocaine (Lidocaine Pain Relief) 4 % Adh..patch, 1 EACH TP DAILY PRN for PAIN Prescribed by: JÚNIOR MCDONALD on 10/20/22 1220 Metolazone (Metolazone) 5 Mg Tablet, (Reported) Entered as Reported by: JC CARRILLO on 08/28/22 0601 Ondansetron HCl (Ondansetron HCl) 4 Mg Tablet, (Reported) Entered as Reported by: JC CARRILLO on 08/28/22 0601 Penicillin V Potassium (Penicillin V Potassium) 500 Mg Tablet, 500 MG PO BID Prescribed by: JÚNIOR MCDONALD on 10/20/22 1211 Polyethylene Glycol 3350 (Miralax) 17 Gram Powd.pack, 17 GM PO BID PRN for CONSTIPATION-2ND LINE, (Reported) Entered as Reported by: DOLLY ENGLE on 03/24/22 1544 Sitagliptin Phosphate (Januvia) 25 Mg Tablet, 25 MG PO DAILY Prescribed by: JAIDA CASTILLO on 03/28/22 1345 Torsemide (Torsemide) 100 Mg Tablet, 100 MG PO DAILY, (Reported) Entered as Reported by: DOLLY ENGLE on 03/24/22 1544 Review of Systems Review of Systems Constitutional: no symptoms reported EENTM: no symptoms reported Respiratory: see HPI Cardiovascular: no symptoms reported Gastrointestinal: no symptoms reported Genitourinary: see HPI Musculoskeletal: see HPI Skin: see HPI Psychiatric/Neurological: No Symptoms Reported Hematologic/Lymphatic: No Symptoms Reported Immunological/Allergic: no symptoms reported Past Qvddook-Lklwvd-Zlimnn Hx Patient Social History Tobacco Use?: No Substance use?: No Alcohol Use?: No Pt feels they are or have been: No Immunizations Up To Date Tetanus Booster (TDap): More than 5yrs Influenza Vaccine Up-to-Date: Yes; Up-to-Date First/Initial COVID19 Vaccinat: september 2020 X1 Second COVID19 Vaccination Daniel: september 2020 X1 Third COVID19 Vaccination Date: september 2020 X1 Past Medical History Surgery/Hospitalization HX: TYPE 2 DM, HTN, CHF, HIGH CHOLESTEROL, AFIB, RENAL FAILURE, GOUT, THORACENTESIS, SKIN CA Pulmonary chest tube, Dialysis Catheter right chest Surgeries: Yes (shrapnel removed from arms ; THORACENTESIS;SKIN CA/FOREHEAD) Respiratory: Yes (PLEURAL EFFUSIONS--THORACENTESIS) Cardiac: Yes Atrial Fibrillation, Chronic Edema/Swelling, High Cholesterol, Hypertension Neurological: No Reproductive Disorders: No Genitourinary: Yes Renal Failure, Dialysis Gastrointestinal: No Musculoskeletal: Yes Gout Endocrine: Yes Diabetes, Non-Insulin dep HEENT: No Cancer: Yes Skin Did You Recieve Any Treatments: Yes What Type of Treatment Did You: Surgical Intervention Psychosocial: No Integumentary: No Blood Disorders: No Family Medical History No Pertinent Family Hx STRESS TEST 03/26/[address] MARTINEZ 1. Patient tolerated Lexiscan well 2. Baseline atrial fibrillation with occasional PVCs. Persisted during test. 3. No significant ischemia or infarction noted on SPECT images 4. Prominent left ventricle with diffuse left ventricular hypokinesia, ejection fraction 32%, gated images are unreliable due to underlying atrial fibrillation Physical Exam Vital Signs Vital Signs - First Documented 10/20/22 08:18 Temp 36.5 Pulse 103 Resp 46 B/P (MAP) 135/78 (97) Pulse Ox 93 Capillary Refill : Less Than 3 Seconds Height, Weight, BMI Height: 5'8" Weight: 235lbs. oz. 106.587698pf; 29.00 BMI Method:Stated General Appearance: WD/WN, Mild Distress HEENT: PERRL/EOMI, Normal ENT Inspection Neck: Normal Inspection; No JVD Respiratory: Decreased Breath Sounds, Other (splinting respirations. Left lateral chest wall inferior to the axilla very tender to palpation, even with light pressure. No rash or erythema evident.) Cardiovascular: Regular Rate, Rhythm, No Edema, No Murmur Gastrointestinal: Non Tender, Soft Extremity: Normal Inspection, Non Tender Neurologic/Psychiatric: Alert, Oriented x3, No Motor/Sensory Deficits, Normal Mood/Affect Skin: Normal Color, Warm/Dry; No Erythema, No Rash Focused Exam Lactate Level 10/20/22 11:30: Lactic Acid Level 1.03 Lactic Acid Level Laboratory Tests Test 10/20/22 11:30 Lactic Acid Level 1.03 MMOL/L (0.50-2.00) Progress/Results/Core Measures Suspected Sepsis SIRS Temperature: Pulse: 103 Respiratory Rate: 46 Laboratory Tests 10/20/22 08:35: White Blood Count 9.8 Blood Pressure 135 /78 Mean: 97 10/20/22 11:30: Lactic Acid Level 1.03 Laboratory Tests 10/20/22 08:35: Creatinine 2.66H, INR Comment 1.3, Platelet Count 301 Results/Orders Lab Results Laboratory Tests Test 10/20/22 08:35 10/20/22 10:59 10/20/22 11:30 Range/Units White Blood Count 9.8 4.3-11.0 10^3/uL Red Blood Count 4.26 L 4.30-5.52 10^6/uL Hemoglobin 11.2 L 13.3-17.7 g/dL Hematocrit 36 L 40-54 % Mean Corpuscular Volume 84 80-99 fL Mean Corpuscular Hemoglobin 26 25-34 pg Mean Corpuscular Hemoglobin Concent 31 L 32-36 g/dL Red Cell Distribution Width 20.4 H 10.0-14.5 % Platelet Count 301 130-400 10^3/uL Mean Platelet Volume 10.1 9.0-12.2 fL Immature Granulocyte % (Auto) 0 % Neutrophils (%) (Auto) 80 H 42-75 % Lymphocytes (%) (Auto) 7 L 12-44 % Monocytes (%) (Auto) 11 0-12 % Eosinophils (%) (Auto) 1 0-10 % Basophils (%) (Auto) 1 0-10 % Neutrophils # (Auto) 7.8 1.8-7.8 10^3/uL Lymphocytes # (Auto) 0.6 L 1.0-4.0 10^3/uL Monocytes # (Auto) 1.1 H 0.0-1.0 10^3/uL Eosinophils # (Auto) 0.1 0.0-0.3 10^3/uL Basophils # (Auto) 0.1 0.0-0.1 10^3/uL Immature Granulocyte # (Auto) 0.0 0.0-0.1 10^3/uL Neutrophils % (Manual) 80 % Lymphocytes % (Manual) 7 % Monocytes % (Manual) 9 % Eosinophils % (Manual) 3 % Basophils % (Manual) 1 % Band Neutrophils 0 % Anisocytosis SLIGHT Elliptocytes SLIGHT Prothrombin Time 17.1 H 12.2-14.7 SEC INR Comment 1.3 0.8-1.4 Activated Partial Thromboplast Time 44 H 24-35 SEC Sodium Level 138 135-145 MMOL/L Potassium Level 4.3 3.6-5.0 MMOL/L Chloride Level 103 98-107 MMOL/L Carbon Dioxide Level 25 21-32 MMOL/L Anion Gap 10 5-14 MMOL/L Blood Urea Nitrogen 33 H 7-18 MG/DL Creatinine 2.66 H 0.60-1.30 MG/DL Estimat Glomerular Filtration Rate 26 BUN/Creatinine Ratio 12 Glucose Level 133 H 70-105 MG/DL Calcium Level 9.0 8.5-10.1 MG/DL C-Reactive Protein High Sensitivity 13.88 H 0.00-0.50 MG/DL Urine Color YELLOW Urine Clarity CLEAR Urine pH 6.0 5-9 Urine Specific Holman 1.020 1.016-1.022 Urine Protein 2+ H NEGATIVE Urine Glucose (UA) 3+ H NEGATIVE Urine Ketones NEGATIVE NEGATIVE Urine Nitrite NEGATIVE NEGATIVE Urine Bilirubin NEGATIVE NEGATIVE Urine Urobilinogen 0.2 < = 1.0 MG/DL Urine Leukocyte Esterase NEGATIVE NEGATIVE Urine RBC (Auto) TRACE-L H NEGATIVE Urine RBC 0-2 /HPF Urine WBC RARE /HPF Urine Squamous Epithelial Cells 0-2 /HPF Urine Crystals NONE /LPF Urine Bacteria TRACE /HPF Urine Casts NONE /LPF Urine Mucus NEGATIVE /LPF Urine Culture Indicated NO Lactic Acid Level 1.03 0.50-2.00 MMOL/L My Orders Orders - JÚNIOR DOMINGUEZ MD Basic Metabolic Panel (10/20/22 08:26) Cbc With Automated Diff (10/20/22 08:26) Hs C Reactive Protein (10/20/22 08:26) Ed Iv/Invasive Line Start (10/20/22 08:26) Fentanyl Inj (Sublimaze Injection) (10/20/22 08:30) Chest Pa/Lat (2 View) (10/20/22 08:35) Manual Differential (10/20/22 08:35) Ct Chest Wo (10/20/22 09:34) Blood Culture (10/20/22 10:52) Sputum Culture (10/20/22 10:52) Urinalysis (10/20/22 10:52) Urine Culture (10/20/22 10:52) Protime With Inr (10/20/22 10:52) Partial Thromboplastin Time (10/20/22 10:52) Vital Signs Adult Sepsis Patie Q15M (10/20/22 10:52) O2 (10/20/22 10:52) Remove Rings In Anticipation O (10/20/22 10:52) Lactic Acid Analyzer (10/20/22 10:52) Cefepime Injection (Maxipime Injection) (10/20/22 11:00) Lidocaine 4% Patch (Salonpas 4% Patch) (10/20/22 12:19) Medications Given in ED Vital Signs/I&O 10/20/22 10/20/22 10/20/22 08:18 12:25 12:27 Temp 36.5 36.5 36.5 Pulse 103 95 103 Resp 46 20 25 B/P (MAP) 135/78 (97) 130/78 130/78 Pulse Ox 93 94 93 10/21/22 00:00 Intake Total 50 ml Balance 50 ml Capillary Refill : Less Than 3 Seconds Blood Pressure Mean: 97 Progress Note : Progress Note Patient's pain was treated with fentanyl. Labs were obtained including CBC, BMP, lactic acid, and CRP. Labs were reviewed in their entirety and interpreted by me. Labs were unremarkable for a dialysis patient with exception of elevated CRP. Chest x-ray was inconclusive regarding possible causes of his pleuritic p ain. Chest x-ray was viewed by me and compared with prior. By my interpretation there was persistent pleural effusion with no definite acute adverse change. Chest x-ray was followed by CT scan for further evaluation. CT scan was likewise viewed by me. By my interpretation there appears to be persistent pleural effusion, chest tube in good position, and significant pulmonary infiltrate. Blood cultures were obtained and patient was treated with cefepime for either recurrent or unresolved pneumonia. Cultures from prior visit were reviewed. 3 out of 4 tubes grew corynebacterium. I offered admission and transfer to [facility] to ensure stability during this infection. Patient declines. Wants to avoid admission if at all. He was prescribed penicillin and doxycycline because of his culture results and renal failure on dialysis. He was ultimately discharged home in stable condition into the care of his family. He did have brief hypoxia after the fentanyl but that resolved. A lidocaine patch was applied over the area of greatest tenderness. See discharge instructions and prescriptions provided for further discharge discussion. Diagnostic Imaging Diagonstic Imaging: CT Plain Films/CT/US/NM/MRI: chest Comments CT chest viewed by me and report reviewed. See report below: NAME: EZRA STEIN [facility] REC#: [id number] PT STATUS: REG ER : 1960 PHYSICIAN: JÚNIOR DOMINGUEZ MD ADMIT DATE: 10/20/22/ER Signed Date of Exam:10/20/22 CT CHEST WO EXAMINATION: CT chest without contrast. TECHNIQUE: Multiple contiguous axial images were obtained through the chest without the use of intravenous contrast. All CT scans use one or more of the following dose optimizing techniques: automated exposure control, MA and/or KvP adjustment based on patient size and exam type or iterative reconstruction. HISTORY: Pleuritic chest pain. Left-sided chest tube. COMPARISON: Chest radiograph performed earlier the same date. FINDINGS: The heart size is prominent. No pericardial effusion is present. Right-sided double lumen dialysis catheter is seen with the tip in the right atrium. There is calcified aortic and coronary atherosclerotic plaque without aneurysm. Prominent partially calcified mediastinal and hilar lymph nodes are seen. A left-sided chest tube is in place with the tip in the left lung base. Moderate to large bilateral pleural effusions are seen. Patchy and consolidative opacities are seen in the lower lobes bilaterally. Additional patchy opacities are seen in the upper lungs. No central endobronchial obstructing lesion. No pneumothorax. The osseous structures demonstrate no acute abnormalities. Limited views of the upper abdominal structures demonstrate no acute abnormalities. Cholelithiasis is seen without CT evidence of acute cholecystitis. Both adrenal glands are unremarkable. IMPRESSION: 1. Bilateral moderate to large pleural effusions with left-sided chest tube in place. 2. Patchy and consolidative opacities in the lower lobes with additional patchy opacities in the more upper lungs. Findings likely represent atelectasis and/or infection. Components of edema can also be present. 3. Cardiomegaly. 4. Partially calcified mediastinal and hilar lymph nodes, suggestive of prior granulomatous disease. 5. Cholelithiasis without CT evidence of acute cholecystitis. Dictated by: Dictated on workstation # [id number] Dict: 10/20/22 1016 Trans: 10/20/22 1031 CVB [id number] Interpreted by: HAWA FARFAN DO Electronically signed by: HAWA FARFAN DO 10/20/22 103 Diagonstic Imaging: Xray Plain Films/CT/US/NM/MRI: chest Comments Chest x-ray viewed by me and report reviewed. See report below: NAME: EZRA STEIN [facility] REC#: [id number] PT STATUS: REG ER : 1960 PHYSICIAN: JÚNIOR DOMINGUEZ MD ADMIT DATE: 10/20/22/ER Draft Date of Exam:10/20/22 CHEST PA/LAT (2 VIEW) INDICATION: Pleuritic chest pain Portable chest 9:07 AM There is cardiomegaly with pulmonary vascular congestion and interstitial edema. Right IJ dialysis catheter projects over the right atrium. IMPRESSION: Congestive heart failure Dictated on workstation # [id number] Dict: 10/20/22 0902 Trans: 10/20/22 0904 CVB [id number] Interpreted by: LINA GARCIA MD Departure Impression Primary Impression: Pneumonia Qualified Codes: J15.6 - Pneumonia due to other gram-negative bacteria Additional Impressions: Pleural effusion Chest wall pain End stage renal failure on dialysis Disposition: 01 HOME, SELF-CARE Condition: Improved Departure-Patient Inst. Decision time for Depature: 12:07 Referrals: HAM GAMBOA MD (PCP/Family) Primary Care Physician Patient Instructions: Pneumonia, Adult ED Add. Discharge Instructions: Complete your antibiotics as prescribed. Follow-up with your primary care provider soon as possible. Have your primary care provider review culture results from [facility] and from [facility] [place] to determine best antibiotics for your current therapy. Until then, continue antibiotics as prescribed from the ER. Use Tylenol for mild pain and the prescribed hydrocodone for more severe pain. Continue dialysis on your usual schedule. Return to the emergency room if you have worsening symptoms despite following these instructions. If possible, and if you can travel safely, present to the emergency room at [facility] where dialysis and kidney specialty services are available. If possible, contact medical records at [facility] or your doctors office to have records from [facility] transferred to your primary care office. In particular, ensure culture results obtained at [facility] are transferred. All discharge instructions reviewed with patient and/or family. Voiced understanding. Scripts Lidocaine (Lidocaine Pain Relief) 4 % Adh..patch 1 EACH TP DAILY PRN for PAIN, #10 PATCH Prov: JÚNIOR DOMINGUEZ MD 10/20/22 Hydrocodone/Acetaminophen (Hydrocodone-Acetamin 5-325 mg) 5 Mg-325 Mg Tablet 1 TAB PO Q4H PRN for PAIN-MODERATE (5-7), #10 TAB Prov: JÚNIOR DOMINGUEZ MD 10/20/22 Penicillin V Potassium (Penicillin V Potassium) 500 Mg Tablet 500 MG PO BID, #28 TAB Prov: JÚNIOR DOMINGUEZ MD 10/20/22 Doxycycline Hyclate (Doxycycline Hyclate) 100 Mg Tablet 100 MG PO BID, #20 TAB 0 Refills Prov: JÚNIOR DOMINGUEZ MD 10/20/22 Copy Copies To 1: HAM GAMBOA MD, JOSHUA T MD Oct 20, 2022 08:43
[2022-10-20 08:58] LABS: POTASSIUM 4.3 MMOL/L (3.6-5.0)
[2022-10-20 09:03] LABS: CREATININE SERUM 2.66 MG/DL (0.60-1.30)
--- NOTE | 2022-10-20 09:04 | Diagnostic Imaging Report ---
INDICATION: Pleuritic chest pain Portable chest 9:07 AM There is cardiomegaly with pulmonary vascular congestion and interstitial edema. Right IJ dialysis catheter projects over the right atrium. IMPRESSION: Congestive heart failure Dictated by: Dictated on workstation # [id number]
[2022-10-20 09:21] LABS: ANISOCYTOSIS SLIGHT; BAND NEUTROPHILS 0 %; BASOPHILS % (MANUAL) 1 %; ELLIPT/OVALOCYTES SLIGHT; EOSINOPHILS % (MANUAL) 3 %; LYMPHOCYTES % (MANUAL) 7 %; MONOCYTES % (MANUAL) 9 %; NEUTROPHILS % (MANUAL) 80 %
--- NOTE | 2022-10-20 10:24 | Diagnostic Imaging Report ---
EXAMINATION: CT chest without contrast. TECHNIQUE: Multiple contiguous axial images were obtained through the chest without the use of intravenous contrast. All CT scans use one or more of the following dose optimizing techniques: automated exposure control, MA and/or KvP adjustment based on patient size and exam type or iterative reconstruction. HISTORY: Pleuritic chest pain. Left-sided chest tube. COMPARISON: Chest radiograph performed earlier the same date. FINDINGS: The heart size is prominent. No pericardial effusion is present. Right-sided double lumen dialysis catheter is seen with the tip in the right atrium. There is calcified aortic and coronary atherosclerotic plaque without aneurysm. Prominent partially calcified mediastinal and hilar lymph nodes are seen. A left-sided chest tube is in place with the tip in the left lung base. Moderate to large bilateral pleural effusions are seen. Patchy and consolidative opacities are seen in the lower lobes bilaterally. Additional patchy opacities are seen in the upper lungs. No central endobronchial obstructing lesion. No pneumothorax. The osseous structures demonstrate no acute abnormalities. Limited views of the upper abdominal structures demonstrate no acute abnormalities. Cholelithiasis is seen without CT evidence of acute cholecystitis. Both adrenal glands are unremarkable. IMPRESSION: 1. Bilateral moderate to large pleural effusions with left-sided chest tube in place. 2. Patchy and consolidative opacities in the lower lobes with additional patchy opacities in the more upper lungs. Findings likely represent atelectasis and/or infection. Components of edema can also be present. 3. Cardiomegaly. 4. Partially calcified mediastinal and hilar lymph nodes, suggestive of prior granulomatous disease. 5. Cholelithiasis without CT evidence of acute cholecystitis. Dictated by: Dictated on workstation # [id number]
[2022-10-20] MEDS ORDERED: CEFEPIME INJECTION 2,000 MG in NS (IVPB) 50 ML IV ONE (11:00)
[2022-10-20 11:05] LABS: INR 1.3 (0.8-1.4); PROTHROMBIN TIME PATIENT 17.1 SEC (12.2-14.7)
[2022-10-20 11:10] LABS: BILIRUBIN,URINE NEGATIVE (NEGATIVE); CLARITY,URINE CLEAR; COLOR,URINE YELLOW; GLUCOSE, URINE (UA) 3+ (NEGATIVE); KETONES,URINE NEGATIVE (NEGATIVE); LEUKOCYTE ESTERASE ,URINE NEGATIVE (NEGATIVE); NITRITE,URINE NEGATIVE (NEGATIVE); PROTEIN,URINE 2+ (NEGATIVE)
[2022-10-20 11:25] LABS: BACTERIA,URINE TRACE /HPF; RBC,URINE 0-2 /HPF; SQUAMOUS EPITHELIAL CELL,UR 0-2 /HPF; WBC,URINE RARE /HPF
[2022-10-20] MEDS ORDERED: PENI500T PO ×2 (12:08→12:11)
[2022-10-20] MEDS ORDERED: DOXY100T2 PO ×2 (12:08→12:11)
[2022-10-20] MEDS ORDERED: ACHD5005 PO (12:11)
[2022-10-20] MEDS ORDERED: LIDOCAINE 4% (SALONPAS) PATCH TOP STA (12:19)
[2022-10-20] MEDS ORDERED: LIDO1ADH66 TP (12:20)
[2022-10-20 12:27] VITALS: BP 130/78
== END 2022-10-20 12:29 | disposition home or self-care (01) ==
LOC: EDUNIT# 08:15 → ER 08:16
DX: J18.9 Pneumonia, unspecified organism (principal); J90 Pleural effusion, not elsewhere classified; I13.2 Hypertensive heart and chronic kidney disease with heart failure and with stage 5 chronic kidney disease, or end stage renal disease; E11.22 Type 2 diabetes mellitus with diabetic chronic kidney disease; N18.6 End stage renal disease; I48.91 Unspecified atrial fibrillation; Z79.01 Long term (current) use of anticoagulants; Z99.2 Dependence on renal dialysis
CPT/HCPCS: 36415; 71046; 71250; 80048; 81000; 83605; 85007; 85025; 85027; 85610; 85730; 86141; 87040; 87088